=== PATIENT | female | born 1960 | race Caucasian/White ===

== ENCOUNTER 2024-05-04 16:10 | Inpatient (IN) | payer BC ==
--- NOTE | 2024-05-04 16:27 | ED ---
General Adult HPI - General Chief complaint: Recheck/Abnormal Lab/Rx Stated complaint: Abn labs Time Seen by Provider: 05/04/24 16:14 Source: patient, EMS Mode of arrival: EMS Limitations: no limitations - History of Present Illness Initial comments: This patient is a 64-year-old woman who arrives here as a transfer from [facility]. She has history of myasthenia gravis. The patient noted that she had onset of nausea and vomiting around 7 AM. She had about 15 episodes of vomiting and was also feeling diffuse bodyaches and weakn ess. She called EMS and was transported to [facility]. The patient states that she was given ondansetron en route there and that the nausea had improved. At the other facility, the patient was found to be in sinus tachycardia with a rate approximately 120 bpm. She was found to have low magnesium at 1.2 mg, potassium was low at 3.3 mg, she was transferred here. The patient at the other facility was given 20 mill equivalents potassium, she was given 1 L IV fluid, she was transferred here. Onset/Timin -: hour(s) Severity scale (1-10): 0 Consistency: constant, now resolved Improves with: none Worsens with: none Associated Symptoms: denies other symptoms, nausea/vomiting Treatments Prior to Arrival: none - Related Data Home Medications Medication Instructions Recorded Confirmed Aspirin EC [Ecotrin Low Dose] 81 mg PO DAILY 05/04/24 05/04/24 Butalb/APAP/Caff 50-325-40Mg 1 tab PO BID PRN 05/04/24 05/04/24 [Fioricet 50-325-40] Cholecalciferol (Vitamin D3) 50 mcg PO DAILY 05/04/24 05/04/24 [Vitamin D3 (50 Mcg = 2000 Iu)] Pyridostigmine [place] [Mestinon] 60 mg PO TID-W/MEALS 05/04/24 05/04/24 predniSONE 10 mg PO DAILY 05/04/24 05/04/24 Previous Rx's Medication Instructions Recorded Apixaban [Eliquis] 5 mg PO BID #60 tab 05/11/24 Atorvastatin [Lipitor] 40 mg PO DAILY #30 tab 05/11/24 Diltiazem Oral [Cardizem*] 60 mg PO TID #90 tab 05/11/24 Famotidine [Pepcid] 20 mg PO DAILY #30 tab 05/11/24 Metoprolol Tartrate [Lopressor] 25 mg PO BID #60 tab 05/11/24 cefuroxime axetiL [Ceftin] 500 mg PO BID #6 tab 05/11/24 hydroCHLOROthiazide [Hydrodiuril] 25 mg PO DAILY #30 tab 05/11/24 lisinopriL [Zestril] 20 mg PO DAILY #30 tab 05/11/24 predniSONE See Taper PO DIRECTED #30 tab 05/11/24 Allergies Allergy/AdvReac Type Severity Reaction Status Date / Time Penicillins Allergy Unknown Unknown Verified 05/04/24 17:01 Childhood Review of Systems ROS Statement: Those systems with pertinent positive or pertinent negative responses have been documented in the HPI. ROS Other: All systems not noted in ROS Statement are negative. Constitutional: Denies: fever, chills, weakness Respiratory: Denies: cough, dyspnea Cardiovascular: Denies: chest pain, palpitations, edema Gastrointestinal: Reports: nausea, vomiting, diarrhea. Denies: abdominal pain, constipation, hematemesis, melena, hematochezia Genitourinary: Denies: dysuria, hematuria Musculoskeletal: Denies: back pain Skin: Denies: rash Neurological: Denies: headache, weakness, numbness Past Medical History Past Medical History: Hypertension History of Any Multi-Drug Resistant Organisms: None Reported Past Surgical History: Orthopedic Surgery Past Psychological History: No Psychological Hx Reported Smoking Status: Former smoker Past Alcohol Use History: None Reported Past Drug Use History: None Reported - Past Family History Father Family Medical History: Myocardial Infarction (MD) General Exam General appearance: alert, in no apparent distress Head exam: Present: atraumatic, normocephalic Eye exam: Present: normal appearance. Absent: scleral icterus, conjunctival injection ENT exam: Present: normal oropharynx Neck exam: Present: normal inspection Respiratory exam: Present: normal lung sounds bilaterally. Absent: respiratory distress, wheezes, rales, rhonchi, stridor, accessory muscle use Cardiovascular Exam: Present: normal rhythm, tachycardia, normal heart sounds. Absent: systolic murmur, diastolic murmur, rubs, gallop GI/Abdominal exam: Present: soft. Absent: distended, tenderness, guarding, rebound, rigid, mass Extremities exam: Present: normal inspection, normal capillary refill. Absent: pedal edema, calf tenderness Back exam: Present: normal inspection. Absent: CVA tenderness (R), CVA tenderness (L) Neurological exam: Present: alert Skin exam: Present: warm, dry, intact, normal color. Absent: rash Course Vital Signs 05/04/24 05/04/24 05/04/24 16:14 19:28 20:03 Temperature 98.4 F Pulse Rate 118 H 92 93 Respiratory 24 22 22 Rate Blood Pressure 133/101 89/74 94/75 O2 Sat by Pulse 100 94 L 95 Oximetry 05/04/24 05/05/24 05/05/24 23:00 00:30 02:00 Temperature 98 F Pulse Rate 84 87 88 Respiratory 20 22 20 Rate Blood Pressure 105/71 112/69 125/54 O2 Sat by Pulse 98 97 97 Oximetry 05/05/24 05/05/24 05/05/24 10:50 13:46 16:00 Temperature Pulse Rate 87 83 68 Respiratory 20 28 H 20 Rate Blood Pressure 109/66 135/61 119/68 O2 Sat by Pulse 98 95 93 L Oximetry 05/05/24 05/05/24 05/06/24 18:22 23:37 03:28 Temperature Pulse Rate 71 67 64 Respiratory 20 18 18 Rate Blood Pressure 109/70 115/73 117/70 O2 Sat by Pulse 97 95 94 L Oximetry 05/06/24 05/06/24 05/06/24 06:26 07:31 12:13 Temperature 97.5 F L Pulse Rate 69 60 63 Respiratory 18 18 18 Rate Blood Pressure 127/73 126/75 132/72 O2 Sat by Pulse 95 96 96 Oximetry 05/06/24 16:02 Temperature 98.0 F Pulse Rate 68 Respiratory 22 Rate Blood Pressure 140/92 O2 Sat by Pulse 95 Oximetry EKG Findings - EKG Comments: EKG Findings:: Possible old anterior infarct. - EKG Results: EKG: interpreted by ERMD, sinus rhythm EKG shows: tachycardia (Rate 118 bpm) Medical Decision Making - Medical Decision Making Was pt. sent in by a medical professional or institution (, PA, TAIL BOARD MAN, urgent care, hospital, or group home...) When possible be specific @ -[No] Did you speak to anyone other than the patient for history (EMS, parent, family, police, friend...)? What history was obtained from this source @ -[No] Did you review nursing and triage notes (agree or disagree)? Why? @ -[I reviewed and agree with nursing and triage notes] Were old charts reviewed (outside hosp., previous admission, EMS record, old EKG, old radiological studies, urgent care reports/EKG's, group home records)? Report findings @ -[The transfer charts were reviewed] Differential Diagnosis (chest pain, altered mental status, abdominal pain women, abdominal pain men, vaginal bleeding, weakness, fever, dyspnea, syncope, headache, dizziness, GI bleed, back pain, seizure, CVA, palpatations, mental health, musculoskeletal)? @ -[Differential vomiting: Appendicitis, Cholecystitis, diverticulosis, ischemic bowel, pancreatitis, hepatitis, UTI, gastroenteritis, AAA, incarcerated hernia, bowel obstruction, constipation, inflammatory bowel, hepatitis, peptic ulcer disease, splenic in farction, perforated viscus, vulvitis, ovarian torsion, PID, kidney stone, placenta abruption, this is not meant to be an all-inclusive list EKG interpreted by me (3pts min.). @ -[As above] X-rays interpreted by me (1pt min.). @ -[None done] CT interpreted by me (1pt min.). @ -[None done] U/S interpreted by me (1pt. min.). @ -[None done] What testing was considered but not performed or refused? (CT, X-rays, U/S, labs)? Why? @ -[None] What meds were considered but not given or refused? Why? @ -[None] Did you discuss the management of the patient with other professionals (professionals i.e. , PA, TAIL BOARD MAN, lab, RT, psych nurse, social service agency director, funeral car chauffeur, teacher, safety security officer, correctional case manager)? Give summary @ -[Case discussed with admitting physician and treatment recommendations are incorporated Was smoking cessation discussed for >3mins.? @ -[No] Was critical care preformed (if so, how long)? @ -[Yes, 35 minutes Were there social determinants of health that impacted care today? How? (Homelessness, low income, unemployed, alcoholism, drug addiction, transportation, low edu. Level, literacy, decrease access to med. care, longterm, rehab)? @ -[No] Was there de-escalation of care discussed even if they declined (Discuss DNR or withdrawal of care, Hospice)? DNR status @ -[No] What co-morbidities impacted this encounter? (DM, HTN, Smoking, COPD, CAD, Cancer, CVA, ARF, Chemo, Hep., AIDS, mental health diagnosis, sleep apnea, morbid obesity)? @ -[Myasthenia gravis, morbid obesity Was patient admitted / discharged? Hospital course, mention meds given and route, prescriptions, significant lab abnormalities, going to OR and other pertinent info. @ -[Patient is a 64-year-old woman arriving here to have further treatment for nausea, vomiting, electrolyte abnormalities, suspected sepsis. At this point antibiotics for suspected pneumonia, IV fluids, admission with consultations and electrolyte correction. Patient is treated at the ideal body weight of Undiagnosed new problem with uncertain prognosis? @ -[No] Drug Therapy requiring intensive monitoring for toxicity (Heparin, Nitro, Insulin, Cardizem)? @ -[No] Were any procedures done? @ -[No] Diagnosis/symptom? @ -[Acute nausea and vomiting Hypokalemia Sepsis Possible pneumonia Acute, or Chronic, or Acute on Chronic? @ -[Acute Uncomplicated (without systemic symptoms) or Complicated (systemic symptoms)? @ -[Complicated Side effects of treatment? @ -[No] Exacerbation, Progression, or Severe Exacerbation? @ -[No] Poses a threat to life or bodily function? How? (Chest pain, USA, MD, pneumonia, PE, COPD, DKA, ARF, appy, cholecystitis, CVA, Diverticulitis, Homicidal, Suicidal, threat to staff... and all critical care pts) @ -[Yes there is high mortality and morbidity associated with sepsis All treatments are based on ideal body weight as in ED triage - Lab Data Result diagrams: 05/10/24 04:28 05/10/24 04:28 Lab Results 05/04/24 05/04/24 05/04/24 Range/Units 17:56 17:56 17:56 WBC 18.8 H (3.8-10.6) k/uL RBC 3.66 L (3.80-5.40) m/uL Hgb 10.7 L (11.4-16.0) gm/dL Hct 33.8 L (34.0-46.0) % MCV 92.5 (80.0-100.0) fL MCH 29.4 (25.0-35.0) pg MCHC 31.8 (31.0-37.0) g/dL RDW 13.8 (11.5-15.5) % Plt Count 191 (150-450) k/uL MPV 8.3 Neutrophils % (Manual) 82 % Band Neuts % (Manual) 13 % Lymphocytes % (Manual) 2 % Monocytes % (Manual) 2 % Metamyelocytes % 3 % Neutrophils # (Manual) 17.80 H (1.3-7.7) k/uL Lymphocytes # (Manual) 0.38 L (1.0-4.8) k/uL Monocytes # (Manual) 0.38 (0-1.0) k/uL Metamyelocytes # (Man) 0.56 H (0) k/uL Nucleated RBCs 0 (0-0) /100 WBC Manual Slide Review Performed Toxic Vacuolation Present Hypochromasia Slight D-Dimer (<0.60) mg/L FEU Sodium 139 (137-145) mmol/L Potassium 4.2 (3.5-5.1) mmol/L Chloride 113 H (98-107) mmol/L Carbon Dioxide 14 L (22-30) mmol/L Anion Gap 12 mmol/L BUN 18 H (7-17) mg/dL Creatinine 1.44 H (0.52-1.04) mg/dL Est GFR (CKD-EPI)AfAm 44 (>60 ml/min/1.73 sqM) Est GFR (CKD-EPI)NonAf 39 (>60 ml/min/1.73 sqM) Glucose 102 H (74-99) mg/dL Lactic Ac Sepsis Rflx Plasma Lactic Acid Ant 4.3 H* (0.7-2.0) mmol/L Calcium 7.5 L (8.4-10.2) mg/dL Magnesium 1.2 L (1.6-2.3) mg/dL Total Bilirubin 0.5 (0.2-1.3) mg/dL AST 30 (14-36) U/L ALT 20 (4-34) U/L Alkaline Phosphatase 50 (38-126) U/L Troponin I (0.000-0.034) ng/mL Total Protein 5.2 L (6.3-8.2) g/dL Albumin 2.8 L (3.5-5.0) g/dL Procalcitonin (0.02-0.50) ng/mL Urine Color Urine Appearance (Clear) Urine pH (5.0-8.0) Ur Specific [place] (1.001-1.035) Urine Protein (Negative) Urine Glucose (UA) (Negative) Urine Ketones (Negative) Urine Blood (Negative) Urine Nitrite (Negative) Urine Bilirubin (Negative) Urine Urobilinogen (<2.0) mg/dL Ur Leukocyte Esterase (Negative) Urine RBC (0-5) /hpf Urine WBC (0-5) /hpf Urine WBC Clumps (None) /hpf Ur Squamous Epith Cells (0-4) /hpf Urine Bacteria (None) /hpf Hyaline Casts (0-2) /lpf Urine Mucus (None) /hpf Influenza Type A (PCR) (Not Detectd) Influenza Type B (PCR) (Not Detectd) RSV (PCR) (Not Detectd) SARS-CoV-2 (PCR) (Not Detectd) 05/04/24 05/04/24 05/04/24 Range/Units 17:56 17:56 18:23 WBC (3.8-10.6) k/uL RBC (3.80-5.40) m/uL Hgb (11.4-16.0) gm/dL Hct (34.0-46.0) % MCV (80.0-100.0) fL MCH (25.0-35.0) pg MCHC (31.0-37.0) g/dL RDW (11.5-15.5) % Plt Count (150-450) k/uL MPV Neutrophils % (Manual) % Band Neuts % (Manual) % Lymphocytes % (Manual) % Monocytes % (Manual) % Metamyelocytes % % Neutrophils # (Manual) (1.3-7.7) k/uL Lymphocytes # (Manual) (1.0-4.8) k/uL Monocytes # (Manual) (0-1.0) k/uL Metamyelocytes # (Man) (0) k/uL Nucleated RBCs (0-0) /100 WBC Manual Slide Review Toxic Vacuolation Hypochromasia D-Dimer (<0.60) mg/L FEU Sodium (137-145) mmol/L Potassium (3.5-5.1) mmol/L Chloride (98-107) mmol/L Carbon Dioxide (22-30) mmol/L Anion Gap mmol/L BUN (7-17) mg/dL Creatinine (0.52-1.04) mg/dL Est GFR (CKD-EPI)AfAm (>60 ml/min/1.73 sqM) Est GFR (CKD-EPI)NonAf (>60 ml/min/1.73 sqM) Glucose (74-99) mg/dL Lactic Ac Sepsis Rflx Y Plasma Lactic Acid Ant (0.7-2.0) mmol/L Calcium (8.4-10.2) mg/dL Magnesium (1.6-2.3) mg/dL Total Bilirubin (0.2-1.3) mg/dL AST (14-36) U/L ALT (4-34) U/L Alkaline Phosphatase (38-126) U/L Troponin I 0.084 H* (0.000-0.034) ng/mL Total Protein (6.3-8.2) g/dL Albumin (3.5-5.0) g/dL Procalcitonin >100.00 H (0.02-0.50) ng/mL Urine Color Urine Appearance (Clear) Urine pH (5.0-8.0) Ur Specific [place] (1.001-1.035) Urine Protein (Negative) Urine Glucose (UA) (Negative) Urine Ketones (Negative) Urine Blood (Negative) Urine Nitrite (Negative) Urine Bilirubin (Negative) Urine Urobilinogen (<2.0) mg/dL Ur Leukocyte Esterase (Negative) Urine RBC (0-5) /hpf Urine WBC (0-5) /hpf Urine WBC Clumps (None) /hpf Ur Squamous Epith Cells (0-4) /hpf Urine Bacteria (None) /hpf Hyaline Casts (0-2) /lpf Urine Mucus (None) /hpf Influenza Type A (PCR) (Not Detectd) Influenza Type B (PCR) (Not Detectd) RSV (PCR) (Not Detectd) SARS-CoV-2 (PCR) (Not Detectd) 05/04/24 05/04/24 05/04/24 Range/Units 20:39 21:03 21:18 WBC (3.8-10.6) k/uL RBC (3.80-5.40) m/uL Hgb (11.4-16.0) gm/dL Hct (34.0-46.0) % MCV (80.0-100.0) fL MCH (25.0-35.0) pg MCHC (31.0-37.0) g/dL RDW (11.5-15.5) % Plt Count (150-450) k/uL MPV Neutrophils % (Manual) % Band Neuts % (Manual) % Lymphocytes % (Manual) % Monocytes % (Manual) % Metamyelocytes % % Neutrophils # (Manual) (1.3-7.7) k/uL Lymphocytes # (Manual) (1.0-4.8) k/uL Monocytes # (Manual) (0-1.0) k/uL Metamyelocytes # (Man) (0) k/uL Nucleated RBCs (0-0) /100 WBC Manual Slide Review Toxic Vacuolation Hypochromasia D-Dimer 15.34 H (<0.60) mg/L FEU Sodium (137-145) mmol/L Potassium (3.5-5.1) mmol/L Chloride (98-107) mmol/L Carbon Dioxide (22-30) mmol/L Anion Gap mmol/L BUN (7-17) mg/dL Creatinine (0.52-1.04) mg/dL Est GFR (CKD-EPI)AfAm (>60 ml/min/1.73 sqM) Est GFR (CKD-EPI)NonAf (>60 ml/min/1.73 sqM) Glucose (74-99) mg/dL Lactic Ac Sepsis Rflx Y Plasma Lactic Acid Ant 2.2 H* (0.7-2.0) mmol/L Calcium (8.4-10.2) mg/dL Magnesium (1.6-2.3) mg/dL Total Bilirubin (0.2-1.3) mg/dL AST (14-36) U/L ALT (4-34) U/L Alkaline Phosphatase (38-126) U/L Troponin I (0.000-0.034) ng/mL Total Protein (6.3-8.2) g/dL Albumin (3.5-5.0) g/dL Procalcitonin (0.02-0.50) ng/mL Urine Color Urine Appearance (Clear) Urine pH (5.0-8.0) Ur Specific [place] (1.001-1.035) Urine Protein (Negative) Urine Glucose (UA) (Negative) Urine Ketones (Negative) Urine Blood (Negative) Urine Nitrite (Negative) Urine Bilirubin (Negative) Urine Urobilinogen (<2.0) mg/dL Ur Leukocyte Esterase (Negative) Urine RBC (0-5) /hpf Urine WBC (0-5) /hpf Urine WBC Clumps (None) /hpf Ur Squamous Epith Cells (0-4) /hpf Urine Bacteria (None) /hpf Hyaline Casts (0-2) /lpf Urine Mucus (None) /hpf Influenza Type A (PCR) (Not Detectd) Influenza Type B (PCR) (Not Detectd) RSV (PCR) (Not Detectd) SARS-CoV-2 (PCR) (Not Detectd) 05/04/24 05/04/24 05/04/24 Range/Units 22:28 23:32 23:51 WBC (3.8-10.6) k/uL RBC (3.80-5.40) m/uL Hgb (11.4-16.0) gm/dL Hct (34.0-46.0) % MCV (80.0-100.0) fL MCH (25.0-35.0) pg MCHC (31.0-37.0) g/dL RDW (11.5-15.5) % Plt Count (150-450) k/uL MPV Neutrophils % (Manual) % Band Neuts % (Manual) % Lymphocytes % (Manual) % Monocytes % (Manual) % Metamyelocytes % % Neutrophils # (Manual) (1.3-7.7) k/uL Lymphocytes # (Manual) (1.0-4.8) k/uL Monocytes # (Manual) (0-1.0) k/uL Metamyelocytes # (Man) (0) k/uL Nucleated RBCs (0-0) /100 WBC Manual Slide Review Toxic Vacuolation Hypochromasia D-Dimer (<0.60) mg/L FEU Sodium (137-145) mmol/L Potassium (3.5-5.1) mmol/L Chloride (98-107) mmol/L Carbon Dioxide (22-30) mmol/L Anion Gap mmol/L BUN (7-17) mg/dL Creatinine (0.52-1.04) mg/dL Est GFR (CKD-EPI)AfAm (>60 ml/min/1.73 sqM) Est GFR (CKD-EPI)NonAf (>60 ml/min/1.73 sqM) Glucose (74-99) mg/dL Lactic Ac Sepsis Rflx Plasma Lactic Acid Ant 1.9 (0.7-2.0) mmol/L Calcium (8.4-10.2) mg/dL Magnesium (1.6-2.3) mg/dL Total Bilirubin (0.2-1.3) mg/dL AST (14-36) U/L ALT (4-34) U/L Alkaline Phosphatase (38-126) U/L Troponin I (0.000-0.034) ng/mL Total Protein (6.3-8.2) g/dL Albumin (3.5-5.0) g/dL Procalcitonin (0.02-0.50) ng/mL Urine Color Yellow Urine Appearance Cloudy H (Clear) Urine pH 5.5 (5.0-8.0) Ur Specific [place] 1.026 (1.001-1.035) Urine Protein 2+ H (Negative) Urine Glucose (UA) Negative (Negative) Urine Ketones Negative (Negative) Urine Blood Moderate H (Negative) Urine Nitrite Positive H (Negative) Urine Bilirubin Negative (Negative) Urine Urobilinogen <2.0 (<2.0) mg/dL Ur Leukocyte Esterase Large H (Negative) Urine RBC 54 H (0-5) /hpf Urine WBC >182 H (0-5) /hpf Urine WBC Clumps Many H (None) /hpf Ur Squamous Epith Cells 1 (0-4) /hpf Urine Bacteria Moderate H (None) /hpf Hyaline Casts 37 H (0-2) /lpf Urine Mucus Occasional H (None) /hpf Influenza Type A (PCR) Not Detected (Not Detectd) Influenza Type B (PCR) Not Detected (Not Detectd) RSV (PCR) Not Detected (Not Detectd) SARS-CoV-2 (PCR) Not Detected (Not Detectd) 05/05/24 05/05/24 Range/Units 01:36 06:35 WBC (3.8-10.6) k/uL RBC (3.80-5.40) m/uL Hgb (11.4-16.0) gm/dL Hct (34.0-46.0) % MCV (80.0-100.0) fL MCH (25.0-35.0) pg MCHC (31.0-37.0) g/dL RDW (11.5-15.5) % Plt Count (150-450) k/uL MPV Neutrophils % (Manual) % Band Neuts % (Manual) % Lymphocytes % (Manual) % Monocytes % (Manual) % Metamyelocytes % % Neutrophils # (Manual) (1.3-7.7) k/uL Lymphocytes # (Manual) (1.0-4.8) k/uL Monocytes # (Manual) (0-1.0) k/uL Metamyelocytes # (Man) (0) k/uL Nucleated RBCs (0-0) /100 WBC Manual Slide Review Toxic Vacuolation Hypochromasia D-Dimer (<0.60) mg/L FEU Sodium (137-145) mmol/L Potassium (3.5-5.1) mmol/L Chloride (98-107) mmol/L Carbon Dioxide (22-30) mmol/L Anion Gap mmol/L BUN (7-17) mg/dL Creatinine (0.52-1.04) mg/dL Est GFR (CKD-EPI)AfAm (>60 ml/min/1.73 sqM) Est GFR (CKD-EPI)NonAf (>60 ml/min/1.73 sqM) Glucose (74-99) mg/dL Lactic Ac Sepsis Rflx Plasma Lactic Acid Ant (0.7-2.0) mmol/L Calcium (8.4-10.2) mg/dL Magnesium (1.6-2.3) mg/dL Total Bilirubin (0.2-1.3) mg/dL AST (14-36) U/L ALT (4-34) U/L Alkaline Phosphatase (38-126) U/L Troponin I 0.051 H* 0.059 H* (0.000-0.034) ng/mL Total Protein (6.3-8.2) g/dL Albumin (3.5-5.0) g/dL Procalcitonin (0.02-0.50) ng/mL Urine Color Urine Appearance (Clear) Urine pH (5.0-8.0) Ur Specific [place] (1.001-1.035) Urine Protein (Negative) Urine Glucose (UA) (Negative) Urine Ketones (Negative) Urine Blood (Negative) Urine Nitrite (Negative) Urine Bilirubin (Negative) Urine Urobilinogen (<2.0) mg/dL Ur Leukocyte Esterase (Negative) Urine RBC (0-5) /hpf Urine WBC (0-5) /hpf Urine WBC Clumps (None) /hpf Ur Squamous Epith Cells (0-4) /hpf Urine Bacteria (None) /hpf Hyaline Casts (0-2) /lpf Urine Mucus (None) /hpf Influenza Type A (PCR) (Not Detectd) Influenza Type B (PCR) (Not Detectd) RSV (PCR) (Not Detectd) SARS-CoV-2 (PCR) (Not Detectd) Disposition Clinical Impression: Sepsis Disposition: ADMITTED IP TO THIS HOSP Condition: Stable
[2024-05-04] MEDS: SODIUM CHLORIDE 0.9% 1,000 ML IV ONE ×3 (16:48→20:23)
[2024-05-04] MEDS: ACETAMINOPHEN TAB 325 MG TAB PO STA (16:49)
[2024-05-04 18:18] LABS: ALT 20 U/L (4-34); AST 30 U/L (14-36); African American GFR (CKD) 44 (>60 ml/min/1.73 sqM); Albumin 2.8 g/dL (3.5-5.0); Alkaline Phosphatase 50 U/L (38-126); Anion Gap 12 mmol/L; Blood Urea Nitrogen 18 mg/dL (7-17); Calcium 7.5 mg/dL (8.4-10.2); Carbon Dioxide 14 mmol/L (22-30); Chloride 113 mmol/L (98-107); Glucose 102 mg/dL (74-99); Magnesium 1.2 mg/dL (1.6-2.3); Non-African American GFR(CKD) 39 (>60 ml/min/1.73 sqM); Potassium 4.2 mmol/L (3.5-5.1); Sodium 139 mmol/L (137-145); Total Bilirubin 0.5 mg/dL (0.2-1.3); Total Protein 5.2 g/dL (6.3-8.2)
[2024-05-04 18:21] LABS: HCT 33.8 % (34.0-46.0); HGB 10.7 gm/dL (11.4-16.0); Hypochromasia Slight; MCH 29.4 pg (25.0-35.0); MCHC 31.8 g/dL (31.0-37.0); MCV 92.5 fL (80.0-100.0); Mean Platelet Volume 8.3; Platelet Count 191 k/uL (150-450); RBC 3.66 m/uL (3.80-5.40); RDW 13.8 % (11.5-15.5); WBC 18.8 k/uL (3.8-10.6)
[2024-05-04] MEDS ORDERED: NALOXONE 0.4 MG/ML 1 ML VIAL IV PRN (18:23)
[2024-05-04] MEDS: SODIUM CHLORIDE 0.9% 1,000 ML IV STA (18:30)
[2024-05-04 18:53] LABS: Band Neutrophils % 13 %; Lymphocytes # (M) 0.38 k/uL (1.0-4.8); Metamyelocytes # (M) 0.56 k/uL (0); Metamyelocytes % 3 %; Monocytes # (M) 0.38 k/uL (0-1.0); Neutrophils % (M) 82 %; Nucleated Red Blood Cells 0 /100 WBC (0-0); Total Cells Counted 200
[2024-05-04 18:54] LABS: Toxic Vacuolation Present
[2024-05-04] MEDS: FAMOTIDINE 20 MG TAB PO SCH (20:20)
--- NOTE | 2024-05-04 21:53 | XR ---
EXAMINATION TYPE: XR chest 1V portable DATE OF EXAM: 05/04/2024 8:13 PM COMPARISON: None. CLINICAL INDICATION: Female, 64 years old with history of dyspnea, TECHNIQUE: XR chest 1V portable view(s) obtained. FINDINGS: The heart size is normal. The pulmonary vasculature is normal. Left hilar and left lower lobe infiltrate is present. Correlate for pneumonia. Follow-up can be perfo rmed. IMPRESSION: 1. Left perihilar and lower lobe infiltrate. Correlate for pneumonia. [facility], , 05/04/2024 9:50 PM
[2024-05-04 23:11] LABS: Influenza A Not Detected (Not Detectd); Influenza B Not Detected (Not Detectd); RSV Not Detected (Not Detectd)
--- NOTE | 2024-05-04 23:55 | CT ---
EXAMINATION TYPE: CT chest angio for PE DATE OF EXAM: 05/04/2024 10:48 PM COMPARISON: Chest radiograph from same day. CLINICAL INDICATION: Female, 64 years old with history of dyspnea, possible PE; Elevated d-dimer 15.3 4 TECHNIQUE/CONTRAST: CTA scan of the thorax is performed with IV Contrast, patient injected with 80ml mL of Isovue 370, CA P images are created and reviewed these are created on a separate workstation.. CT DLP: 843.3 mGycm, Automated exposure control for dose reduction was used. FINDINGS: Lungs/Pleura: No evidence of focal consolidation, pleural effusion or pneumothorax. Airway: Large airways are patent. Heart: Size within normal limits Vasculature: There is no evidence for a filling defect within the pulmonary vasculature to suggest [place] pulmonary embolism. The pulmonary artery is of normal size. Mediastinum: No gross evidence of adenopathy. Musculoskeletal: No acute osseous abnormalities Soft Tissues/lymph nodes: Unremarkable. Lower neck: No significant findings. Upper Abdomen: Diffuse low-attenuation to the liver parenchyma. IMPRESSION: 1. No evidence for pulmonary embolism. 2. Low lung volumes with streaky atelectasis. 3. Hepatic steatosis. [facility], , 05/04/2024 11:53 PM
[2024-05-05 01:15] LABS: Appearance,Urine Cloudy (Clear); Bacteria,Urine Moderate /hpf; Bilirubin,Urine Negative (Negative); Blood,Urine Moderate (Negative); Color,Urine Yellow; Glucose,Urine (UA) Negative (Negative); Hyaline Casts,Urine 37 /lpf (0-2); Ketones,Urine Negative (Negative); Leukocyte Esterase,Urine Large (Negative); Mucus,Urine Occasional /hpf; Nitrite,Urine Positive (Negative); PH, Urine 5.5 (5.0-8.0); Protein,Urine 2+ (Negative); RBC,Urine 54 /hpf (0-5); Specific Gravity,Urine 1.026 (1.001-1.035); Squamous Epithelial Cell,Urine 1 /hpf (0-4); Urobilinogen,Urine <2.0 mg/dL (<2.0); WBC,Urine >182 /hpf (0-5)
[2024-05-05] MEDS: ONDANSETRON 4 MG/2 ML VIAL IVP PRN (02:48)
[2024-05-05] MEDS: BUTALB/APAP/CAFF 50-325-40MG TAB PO PRN (03:31)
--- NOTE | 2024-05-05 06:31 | P.HPIM ---
History of Present Illness H&P Date: 05/04/24 Patient is a 64-year-old female with past medical history significant for myasthenia gravis and hypertension presents to emergency department today as a transfer from [place]. She initially went to [place], was found to have sinus tachycardia on EKG as well as hypomagnesemia and hypokalemia and was subsequently transferred here.She states that around 7 AM this morning she began coughing up a yellowish sputum and had episodes of nonbloody emesis in between coughing episodes. She states that she was vomiting anytime she tried to have a sip of water after coughing. She does report a fever of about 102F today as well as reporting headaches, lightheadedness/dizziness. She reports dyspnea and orthopnea. She denies chest pain, abdominal pain, myalgias. She denies recent travel or being sedentary. She denies sick contacts. Initial vitals: BP 133/108, DC 118 bpm, RR 24, 100% on 5 L nasal cannula, T 98.4 F Initial labs: WBC 18.8, RBC 3.66, hemoglobin 10.7, hematocrit 33.8, sodium 139, potassium 4.2, chloride 113, CO2 14, BUN 18, creatinine 1.44, lactic acid 4.3, calcium 7.5, magnesium 1.2, troponin x 1 0.084, D-dimer 15.84; urinalysis 2+ protein, moderate blood, positive nitrite, leukocyte esterase, moderate bacteria, many WBCs Initial EKG: Sinus tachycardia with ventricular rate of 118 bpm Initial chest x-ray: Left perihilar and lower lobe infiltrate, correlate for pne umonia Initial chest CTA: No evidence for pulmonary embolism, low lung volumes with streaky atelectasis, hepatic steatosis ED documentation reviewed. Given: Tylenol 650 mg p.o. x 1, 0.9% saline 1 L bolus x 3 Review of Systems Pertinent positives and negatives as discussed in HPI, a complete review of systems was performed and all other systems are negative. Past Medical History Past Medical History: Hypertension Additional Past Medical History / Comment(s): Myasthenia gravis History of Any Multi-Drug Resistant Organisms: None Reported Past Surgical History: Orthopedic Surgery Past Psychological History: No Psychological Hx Reported Smoking Status: Former smoker Past Alcohol Use History: None Reported Past Drug Use History: None Reported Medications and Allergies Home Medications Medication Instructions Recorded Confirmed Type Aspirin EC [Ecotrin Low Dose] 81 mg PO DAILY 05/04/24 05/04/24 History Butalb/APAP/Caff 50-325-40Mg 1 tab PO BID PRN 05/04/24 05/04/24 History [Fioricet 50-325-40] Cholecalciferol (Vitamin D3) 50 mcg PO DAILY 05/04/24 05/04/24 History [Vitamin D3 (50 Mcg = 2000 Iu)] Pyridostigmine [place] [Mestinon] 60 mg PO TID-W/MEALS 05/04/24 05/04/24 History lisinopriL [Zestril] 10 mg PO DAILY 05/04/24 05/04/24 History predniSONE 10 mg PO DAILY 05/04/24 05/04/24 History Allergies Allergy/AdvReac Type Severity Reaction Status Date / Time Penicillins Allergy Unknown Unknown Verified 05/04/24 17:01 Childhood Physical Exam Vitals: Vital Signs Temp Pulse Resp BP Pulse Ox 05/04/24 16:14 98.4 F 118 H 24 133/101 100 Intake and Output 05/04/24 05/04/24 05/04/24 06:59 14:59 22:59 Other: Weight 122.47 kg Vital signs reviewed General: Nontoxic, no distress, appears stated age, well-appearing Derm: Warm, dry, intact, no cyanosis Head: Atraumatic, normocephalic, symmetric Eyes: EOMI, anicteric sclera, asymmetric pupil sizes left larger than right since childhood, ptosis of the right eyelid due to myasthenia gravis Ears: Normal appearing, no external lesions, hearing intact Nose: Normal appearing, no external lesions Mouth: No lip lesion, mucus membranes moist, no tonsilar hypertrophy or exudate Neck: Supple, without lesions, trachea midline Cardiovascular: S1-S2 regular, no murmur, no pedal edema Lungs: CTA bilateral, no wheezes, no rhonchi, no rales, no accessory muscle use Abdominal: Soft, non-tender to palpation, bowel sounds present Extremities: Muscle strength 4/5 in all extremities, radial pulses 2+ bilateral, posterior tibialis pulses 2+ bilateral Neuro: Alert, oriented x 4, gross neurological examination did not reveal any focal deficits. Cranial nerves II to XII grossly intact. Psych: Appropriate affect and mood Results CBC & Chem 7: 02/17/25 17:56 05/04/24 17:56 Labs: Abnormal Lab Results - Last 24 Hours (Table) 05/04/24 05/04/24 05/04/24 Range/Units 17:56 17:56 17:56 WBC 18.8 H (3.8-10.6) k/uL RBC 3.66 L (3.80-5.40) m/uL Hgb 10.7 L (11.4-16.0) gm/dL Hct 33.8 L (34.0-46.0) % Neutrophils # (Manual) 17.80 H (1.3-7.7) k/uL Lymphocytes # (Manual) 0.38 L (1.0-4.8) k/uL Metamyelocytes # (Man) 0.56 H (0) k/uL Chloride 113 H (98-107) mmol/L Carbon Dioxide 14 L (22-30) mmol/L BUN 18 H (7-17) mg/dL Creatinine 1.44 H (0.52-1.04) mg/dL Glucose 102 H (74-99) mg/dL Plasma Lactic Acid Ant 4.3 H* (0.7-2.0) mmol/L Calcium 7.5 L (8.4-10.2) mg/dL Magnesium 1.2 L (1.6-2.3) mg/dL Troponin I (0.000-0.034) ng/mL Total Protein 5.2 L (6.3-8.2) g/dL Albumin 2.8 L (3.5-5.0) g/dL 05/04/24 Range/Units 17:56 WBC (3.8-10.6) k/uL RBC (3.80-5.40) m/uL Hgb (11.4-16.0) gm/dL Hct (34.0-46.0) % Neutrophils # (Manual) (1.3-7.7) k/uL Lymphocytes # (Manual) (1.0-4.8) k/uL Metamyelocytes # (Man) (0) k/uL Chloride (98-107) mmol/L Carbon Dioxide (22-30) mmol/L BUN (7-17) mg/dL Creatinine (0.52-1.04) mg/dL Glucose (74-99) mg/dL Plasma Lactic Acid Ant (0.7-2.0) mmol/L Calcium (8.4-10.2) mg/dL Magnesium (1.6-2.3) mg/dL Troponin I 0.084 H* (0.000-0.034) ng/mL Total Protein (6.3-8.2) g/dL Albumin (3.5-5.0) g/dL Thrombosis Risk Factor Assmnt - DVT/VTE Prophylaxis DVT/VTE Prophylaxis: Pharmacologic Prophylaxis ordered - Choose All That Apply Each Factor Represents 1 point: Obesity (BMI >25) Each Risk Factor Represents 2 Points: Age 61-74 years Thrombosis Risk Factor Assessment Total Risk Factor Score: 3 Thrombosis Risk Factor Assessment Level: Moderate Risk Assessment and Plan Assessment: Patient is a 64-year-old female with past medical history significant for myasthenia gravis and hypertension admitted for suspected pneumonia. Plan: Active #. Acute hypoxic respiratory failure #. Sepsis, secondary to suspected pneumonia; criteria met: Leukocytosis, tachycardia, lactic acidosis #. Community-acquired pneumonia #. Leukocytosis, neutrophilic predominance; suspect could be related to chronic steroid use #. Lactic acidosis, improving Continue with oxygen supplementation to maintain oxygen saturation >94% Continue with 0.9% saline at 130 cc/h procalcitonin positive Begin ceftriaxone 2 g IV every 24 hours Begin azithromycin 500 mg p.o. daily Obtain blood cultures UA positive Initial labs: WBC 18.8, RBC 3.66, hemoglobin 10.7, hematocrit 33.8, sodium 139, potassium 4.2, chloride 113, CO2 14, BUN 18, creatinine 1.44, lactic acid 4.3, calcium 7.5, magnesium 1.2, troponin x 1 0.084, D-dimer 15.84; urinalysis 2+ protein, moderate blood, positive nitrite, leukocyte esterase, moderate bact eria, many WBCs Initial EKG: Sinus tachycardia with ventricular rate of 118 bpm Initial chest x-ray: Left perihilar and lower lobe infiltrate, correlate for pneumonia Initial chest CTA: No evidence for pulmonary embolism, low lung volumes with streaky atelectasis, hepatic steatosis #. Elevated D-dimer D-dimer 15.84 CTA: No evidence for pulmonary embolism Bilateral venous Doppler duplex #. Acute uti Continue with ceftriaxone 2 g IV every 24 hours #. Normocytic anemia, unknown baseline Monitor CBC denies GI bleeding #. Hypocalcemia #. Hypoproteinemia Corrected calcium 8.5 Monitor electrolytes #. Hypomagnesemia Replete with magnesium 2 g Chronic #. Myasthenia gravis Continue home prednisone Continue home pyridostigmine #. Hypertension Continue home lisinopril 10 mg p.o. daily DVT prophylaxis: Lovenox 40 mg subcutaneous daily GI prophylaxis: Protonix 40 mg p.o. daily The patient is admitted with an anticipated less than 2 midnight stay for evaluation of pneumonia CODE STATUS: Full code Anticipated discharge place: Pending clinical course I have seen and evaluated the patient today. I Discussed the case with the resident and agree with the resident's findings I edited the assessment and plan as necessary as documented in the resident's note.
[2024-05-05] MEDS: MAGNESIUM SULFATE-D5W PMX 1 GM in DEXTROSE/WATER 1 100ML.BAG IVPB SCH (06:39)
--- NOTE | 2024-05-05 08:03 | US ---
EXAMINATION TYPE: US venous doppler duplex LE BI DATE OF EXAM: 05/05/2024 7:47 AM COMPARISON: NONE CLINICAL INDICATION: Female, 64 years old with history of swelling, elevated d-dimer; Elevated D dime r. , Pain TECHNIQUE: The lower extremity deep venous system is examined utilizing real time linear array sonog leslie with graded compression, color doppler sonography, and spectral doppler. SIDE PERFORMED: Bilateral FINDINGS: VESSELS IMAGED: Common Femoral Vein Deep Femoral Vein Greater Saphenous Vein * Femoral Vein Popliteal Vein Small Saphenous Vein * Proximal Calf Veins (* superficial vessels) Right Leg: Negative for DVT, Color Doppler imaging shows patency of the vessels. Spectral waveforms are within normal limits. Left Leg: Negative for DVT, Color Doppler imaging shows patency of the vessels. Spectral waveforms a re within normal limits. IMPRESSION: No ultrasound evidence for deep venous thrombosis. [facility], , 05/05/2024 8:01 AM
[2024-05-05] MEDS: CHOLECALCIFEROL 25 MCG (1000 IU) TABLET PO SCH (08:34)
[2024-05-05] MEDS: ASPIRIN 81 MG PO SCH (08:35)
[2024-05-05] MEDS: FAMOTIDINE 20 MG TAB PO SCH (08:35)
[2024-05-05] MEDS: AZITHROMYCIN 500 MG TAB PO SCH (08:35)
[2024-05-05] MEDS: lisinopriL 10 MG TAB PO SCH (08:35)
[2024-05-05] MEDS: ENOXAPARIN 40 MG/0.4 ML SYRINGE SQ SCH (08:36)
[2024-05-05] MEDS: PYRIDOSTIGMINE 60 MG TAB PO SCH (09:45)
[2024-05-05 09:55] LABS: HCT 35.1 % (34.0-46.0); HGB 10.6 gm/dL (11.4-16.0); Hypochromasia Slight; MCH 28.2 pg (25.0-35.0); MCHC 30.1 g/dL (31.0-37.0); MCV 93.6 fL (80.0-100.0); Mean Platelet Volume 8.5; Platelet Count 193 k/uL (150-450); RBC 3.75 m/uL (3.80-5.40); RDW 13.9 % (11.5-15.5); WBC 27.6 k/uL (3.8-10.6)
[2024-05-05 10:02] LABS: ALT 26 U/L (4-34); AST 34 U/L (14-36); African American GFR (CKD) 72 (>60 ml/min/1.73 sqM); Albumin 3.3 g/dL (3.5-5.0); Alkaline Phosphatase 67 U/L (38-126); Anion Gap 11 mmol/L; Blood Urea Nitrogen 18 mg/dL (7-17); Calcium 7.6 mg/dL (8.4-10.2); Carbon Dioxide 19 mmol/L (22-30); Chloride 108 mmol/L (98-107); Glucose 116 mg/dL (74-99); Magnesium 1.4 mg/dL (1.6-2.3); Non-African American GFR(CKD) 62 (>60 ml/min/1.73 sqM); Potassium 4.3 mmol/L (3.5-5.1); Sodium 138 mmol/L (137-145); Total Bilirubin 0.6 mg/dL (0.2-1.3); Total Protein 5.8 g/dL (6.3-8.2)
[2024-05-05] MEDS: ATORVASTATIN 40 MG TAB PO SCH (10:48)
[2024-05-05 11:34] LABS: Band Neutrophils % 10 %; Eosinophils # (M) 0.83 k/uL (0-0.7); Lymphocytes # (M) 2.21 k/uL (1.0-4.8); Monocytes # (M) 0.55 k/uL (0-1.0); Neutrophils % (M) 77 %; Nucleated Red Blood Cells 0 /100 WBC (0-0); Total Cells Counted 100
[2024-05-05] MEDS: methylPREDNISolone SOD SUCCI 40 MG/ML 1 ML VIAL IV SCH (12:17)
--- NOTE | 2024-05-05 13:47 | P.PN ---
Subjective Progress Note Date: 05/05/24 Hospital Course: 64-year-old female with past medical history significant for myasthenia gravis and hypertension presents to emergency department today as a transfer from [place]. She initially went to [place], was found to have sinus tachycardia on EKG as well as hypomagnesemia and hypokalemia and was subsequently transferred here.She states that around 7 AM this morning she began coughing up a yellowish sputum and had episodes of nonbloody emesis in between coughing episodes. She states that she was vomiting anytime she tried to have a sip of water after coughing. She does report a fever of about 102F today as well as reporting headaches, lightheadedness/dizziness. She reports dyspnea and orthopnea. She denies chest pain, abdominal pain, myalgias. She denies recent travel or being sedentary. She denies sick contacts. Initial vitals: BP 133/108, DE 118 bpm, RR 24, 100% on 5 L nasal cannula, T 98.4 F Initial labs: WBC 18.8, RBC 3.66, hemoglobin 10.7, hematocrit 33.8, sodium 139, potassium 4.2, chloride 113, CO2 14, BUN 18, creatinine 1.44, lactic acid 4.3, calcium 7.5, magnesium 1.2, troponin x 1 0.084, D-dimer 15.84; urinalysis 2+ protein, moderate blood, positive nitrite, leukocyte esterase, moderate bacteria, many WBCs Initial EKG: Sinus tachycardia with ventricular rate of 118 bpm Initial chest x-ray: Left perihilar and lower lobe infiltrate, correlate for pneumonia Initial chest CTA: No evidence for pulmonary embolism, low lung volumes with streaky atelectasis, hepatic steatosis Patient being treated for sepsis secondary to likely community-acquired pneumonia as well as possible urinary tract infection. Also concern for impending myasthenic crisis. Started on IV steroids, neurology and pulmonology also consulted. Subjective: Patient seen and examined at bedside. No acute events overnight. She has been having some shortness of breath, not requiring oxygen. Has had urinary frequency but denies any dysuria or urgency. Pertinent positives and negatives as discussed above, a complete review of systems was performed and all other systems are negative. Vitals Signs Reviewed. General: Nontoxic, no distress, appears at stated age, morbidly obese Derm: Warm, dry Head: Atraumatic, normocephalic, symmetric Eyes: EOMI, no lid lag, anicteric sclera, right ptosis Mouth: No lip lesion, mucus membranes moist Cardiovascular: S1S2 reg, no murmur Lungs: CTA bilateral, no rhonchi, no rales, no accessory muscle use, supplemental oxygen Abdominal: Soft, nontender to palpation, no guarding, no appreciable organomegaly Ext: No gross muscle atrophy, no edema, no contractures Neuro: CN II-XI grossly intact, no focal neuro deficits Psych: Alert, oriented, appropriate affect Data Reviewed Today: Pertinent Labs: WBC 27.6 with 10% band neutrophils, hemoglobin 10.6, procalcitonin greater than 100, bicarb 19, creatinine 0.97, magnesium 1.6, troponin down trended to 0.059 Imaging: Lower extremity venous Dopplers negative. Assessment and Plan: Patient is severely ill, needs close monitoring. Prognosis guarded. Active: Acute hypoxic respiratory failure Impending myasthenic crisis Suspected community-acquired pneumonia Urinary tract infection Bandemia Metabolic acidosis, improving NSTEMI, likely type II -Continue ceftriaxone IV 2 g every 24 hours, azithromycin 500 p.o. daily -Cultures pending -Started on IV Solu-Medrol 40 every 6 hours -Continue home rivastigmine 60 p.o. 3 times daily -Every 6 hours VC and NIF -Pulmonology and neurology consulted, pending recommendations -Aspirin 81 mg daily, atorvastatin 40 mg daily -Continue telemetry monitoring, echocardiogram ordered -Cardiology consulted Normocytic anemia -Stable, continue to monitor Resolved: Acute kidney injury Lactic acidosis Hypomagnesemia Chronic: Hypertension, hold lisinopril GERD DVT ppx: Lovenox Code status: Full code Anticipated discharge place: Pending clinical course Anticipated discharge time: Pending clinical course Objective - Vital Signs Vital signs: Vital Signs Temp 98 F 05/05/24 02:00 Pulse 87 05/05/24 10:50 Resp 20 05/05/24 10:50 BP 109/66 05/05/24 10:50 Pulse Ox 98 05/05/24 10:50 FiO2 Intake & Output 05/04/24 05/05/24 05/05/24 18:59 06:59 18:59 Output Total 350 Balance -350 Weight 122.47 kg Output: Urine 350 Straight 350 - Labs CBC & Chem 7: 05/05/24 09:30 02/18/25 09:30 Labs: Abnormal Lab Results - Last 24 Hours (Table) 05/04/24 05/04/24 05/04/24 Range/Units 17:56 17:56 17:56 WBC 18.8 H (3.8-10.6) k/uL RBC 3.66 L (3.80-5.40) m/uL Hgb 10.7 L (11.4-16.0) gm/dL Hct 33.8 L (34.0-46.0) % MCHC (31.0-37.0) g/dL Neutrophils # (Manual) 17.80 H (1.3-7.7) k/uL Lymphocytes # (Manual) 0.38 L (1.0-4.8) k/uL Eosinophils # (Manual) (0-0.7) k/uL Metamyelocytes # (Man) 0.56 H (0) k/uL D-Dimer (<0.60) mg/L FEU Chloride 113 H (98-107) mmol/L Carbon Dioxide 14 L (22-30) mmol/L BUN 18 H (7-17) mg/dL Creatinine 1.44 H (0.52-1.04) mg/dL Glucose 102 H (74-99) mg/dL Plasma Lactic Acid Ant 4.3 H* (0.7-2.0) mmol/L Calcium 7.5 L (8.4-10.2) mg/dL Magnesium 1.2 L (1.6-2.3) mg/dL Troponin I (0.000-0.034) ng/mL Total Protein 5.2 L (6.3-8.2) g/dL Albumin 2.8 L (3.5-5.0) g/dL Procalcitonin (0.02-0.50) ng/mL Urine Appearance (Clear) Urine Protein (Negative) Urine Blood (Negative) Urine Nitrite (Negative) Ur Leukocyte Esterase (Negative) Urine RBC (0-5) /hpf Urine WBC (0-5) /hpf Urine WBC Clumps (None) /hpf Urine Bacteria (None) /hpf Hyaline Casts (0-2) /lpf Urine Mucus (None) /hpf 05/04/24 05/04/24 05/04/24 Range/Units 17:56 17:56 20:39 WBC (3.8-10.6) k/uL RBC (3.80-5.40) m/uL Hgb (11.4-16.0) gm/dL Hct (34.0-46.0) % MCHC (31.0-37.0) g/dL Neutrophils # (Manual) (1.3-7.7) k/uL Lymphocytes # (Manual) (1.0-4.8) k/uL Eosinophils # (Manual) (0-0.7) k/uL Metamyelocytes # (Man) (0) k/uL D-Dimer (<0.60) mg/L FEU Chloride (98-107) mmol/L Carbon Dioxide (22-30) mmol/L BUN (7-17) mg/dL Creatinine (0.52-1.04) mg/dL Glucose (74-99) mg/dL Plasma Lactic Acid Ant 2.2 H* (0.7-2.0) mmol/L Calcium (8.4-10.2) mg/dL Magnesium (1.6-2.3) mg/dL Troponin I 0.084 H* (0.000-0.034) ng/mL Total Protein (6.3-8.2) g/dL Albumin (3.5-5.0) g/dL Procalcitonin >100.00 H (0.02-0.50) ng/mL Urine Appearance (Clear) Urine Protein (Negative) Urine Blood (Negative) Urine Nitrite (Negative) Ur Leukocyte Esterase (Negative) Urine RBC (0-5) /hpf Urine WBC (0-5) /hpf Urine WBC Clumps (None) /hpf Urine Bacteria (None) /hpf Hyaline Casts (0-2) /lpf Urine Mucus (None) /hpf 05/04/24 05/04/24 05/05/24 Range/Units 21:03 23:51 01:36 WBC (3.8-10.6) k/uL RBC (3.80-5.40) m/uL Hgb (11.4-16.0) gm/dL Hct (34.0-46.0) % MCHC (31.0-37.0) g/dL Neutrophils # (Manual) (1.3-7.7) k/uL Lymphocytes # (Manual) (1.0-4.8) k/uL Eosinophils # (Manual) (0-0.7) k/uL Metamyelocytes # (Man) (0) k/uL D-Dimer 15.34 H (<0.60) mg/L FEU Chloride (98-107) mmol/L Carbon Dioxide (22-30) mmol/L BUN (7-17) mg/dL Creatinine (0.52-1.04) mg/dL Glucose (74-99) mg/dL Plasma Lactic Acid Ant (0.7-2.0) mmol/L Calcium (8.4-10.2) mg/dL Magnesium (1.6-2.3) mg/dL Troponin I 0.051 H* (0.000-0.034) ng/mL Total Protein (6.3-8.2) g/dL Albumin (3.5-5.0) g/dL Procalcitonin (0.02-0.50) ng/mL Urine Appearance Cloudy H (Clear) Urine Protein 2+ H (Negative) Urine Blood Moderate H (Negative) Urine Nitrite Positive H (Negative) Ur Leukocyte Esterase Large H (Negative) Urine RBC 54 H (0-5) /hpf Urine WBC >182 H (0-5) /hpf Urine WBC Clumps Many H (None) /hpf Urine Bacteria Moderate H (None) /hpf Hyaline Casts 37 H (0-2) /lpf Urine Mucus Occasional H (None) /hpf 05/05/24 05/05/24 05/05/24 Range/Units 06:35 09:30 09:30 WBC 27.6 H (3.8-10.6) k/uL RBC 3.75 L (3.80-5.40) m/uL Hgb 10.6 L (11.4-16.0) gm/dL Hct (34.0-46.0) % MCHC 30.1 L (31.0-37.0) g/dL Neutrophils # (Manual) 24.00 H (1.3-7.7) k/uL Lymphocytes # (Manual) (1.0-4.8) k/uL Eosinophils # (Manual) 0.83 H (0-0.7) k/uL Metamyelocytes # (Man) (0) k/uL D-Dimer (<0.60) mg/L FEU Chloride 108 H (98-107) mmol/L Carbon Dioxide 19 L (22-30) mmol/L BUN 18 H (7-17) mg/dL Creatinine (0.52-1.04) mg/dL Glucose 116 H (74-99) mg/dL Plasma Lactic Acid Ant (0.7-2.0) mmol/L Calcium 7.6 L (8.4-10.2) mg/dL Magnesium 1.4 L (1.6-2.3) mg/dL Troponin I 0.059 H* (0.000-0.034) ng/mL Total Protein 5.8 L (6.3-8.2) g/dL Albumin 3.3 L (3.5-5.0) g/dL Procalcitonin (0.02-0.50) ng/mL Urine Appearance (Clear) Urine Protein (Negative) Urine Blood (Negative) Urine Nitrite (Negative) Ur Leukocyte Esterase (Negative) Urine RBC (0-5) /hpf Urine WBC (0-5) /hpf Urine WBC Clumps (None) /hpf Urine Bacteria (None) /hpf Hyaline Casts (0-2) /lpf Urine Mucus (None) /hpf
--- NOTE | 2024-05-05 15:22 | P.CRDCN ---
History of Present Illness Consult date: 05/05/24 History of present illness: History of Present Illness: The patient is a 64-year-old female with a known history of hypertension, myasthenia gravis diagnosed over a year and a half ago who was transferred from [facility] for evaluation of fever, cough and nausea and vomiting. She has been complaining of the symptoms since yesterday morning with yellowish sputum in addition to fever up to 102 Fahrenheit. Cardiology consultation was requested because of troponin elevation. The patient denies any history of cardiac disease, she has no history of myocardial infarction, angina pectoris or congestive heart failure. She has mild dyspnea on exertion when her myasthenia gravis is not under good control. She has some dizziness with changing position and occasional peripheral edema. She has no PND, orthopnea or syncope. Her activity is affected by her myasthenia gravis. On presentation she was in sinus mechanism with episodes of sinus tachycardia. Her troponin was 0.084 on presentation. Her procalcitonin was significantly elevated. Medications: Prednisone, Fioricet, aspirin, lisinopril 10 mg daily Review of Systems: Respiratory: She had recent cough, fever, yellow sputum and dyspnea GI: She had nausea and vomiting yesterday. No history of peptic ulcer disease. No recent GI bleed. : No hematuria or dysuria. Nervous System: No stroke or seizure. She has a history of myasthenia gravis on prednisone at this time Physical Examination: 64-year-old female, alert oriented no apparent distress,Blood pressure 135/60, Heart rate 84 Head: Normocephalic. Eyes: Sclerae nonicteric. Neck: Good carotid upstroke, no bruit, no jugular venous distention. Lungs: Clear to auscultation. Heart: Regular rate and rhythm, S1-S2, no S3, no rub. Systolic ejection murmur. Abdomen: Soft nontender, positive bowel sounds no organomegaly. Extremities: Trace edema, intact distal pulses. Labs: BUN 18, creatinine 1.44, plasma lactic acid 4.3. Procalcitonin over 100. Troponin 0.084, 0.051, 0.059. White blood cell 18.8, hemoglobin 10.7. This morning her BUN is 18 and creatinine 1.97. WBC 27.6. Chest x-ray is suggestive of pneumonia. CT scan of the chest showed no pulmonary embolism. EKG: Sinus mechanism rate of 118 poor R wave progression cannot exclude anterior wall myocardial infarction Impression: 1. Febrile episode with yellowish sputum and abnormal chest x-ray suggestive of pneumonia 2. Mild troponin elevation most likely type II injury related to the infection 3. History of hypertension 4. History of myasthenia gravis 5. Acute renal injury, improved Plan: 1. Obtain an echocardiogram with Doppler 2. Follow blood pressure and heart rate and adjust treatment as needed 3. Treatment of her infection per primary care physician 4. No indications for invasive cardiac workup at this time 5. Depending on her progress further recommendations will be made, thank you for this consult we will follow with you. Past Medical History Past Medical History: Hypertension Additional Past Medical History / Comment(s): Myasthenia gravis History of Any Multi-Drug Resistant Organisms: None Reported Past Surgical History: Orthopedic Surgery Past Psychological History: No Psychological Hx Reported Smoking Status: Former smoker Past Alcohol Use History: None Reported Past Drug Use History: None Reported Medications and Allergies Home Medications Medication Instructions Recorded Confirmed Type Aspirin EC [Ecotrin Low Dose] 81 mg PO DAILY 05/04/24 05/04/24 History Butalb/APAP/Caff 50-325-40Mg 1 tab PO BID PRN 05/04/24 05/04/24 History [Fioricet 50-325-40] Cholecalciferol (Vitamin D3) 50 mcg PO DAILY 05/04/24 05/04/24 History [Vitamin D3 (50 Mcg = 2000 Iu)] Pyridostigmine [place] [Mestinon] 60 mg PO TID-W/MEALS 05/04/24 05/04/24 History lisinopriL [Zestril] 10 mg PO DAILY 05/04/24 05/04/24 History predniSONE 10 mg PO DAILY 05/04/24 05/04/24 History Allergies Allergy/AdvReac Type Severity Reaction Status Date / Time Penicillins Allergy Unknown Unknown Verified 05/04/24 17:01 Childhood Physical Exam Vitals: Vital Signs Temp Pulse Resp BP Pulse Ox 05/05/24 13:46 83 28 H 135/61 95 05/05/24 10:50 87 20 109/66 98 05/05/24 02:00 98 F 88 20 125/54 97 05/05/24 00:30 87 22 112/69 97 05/04/24 23:00 84 20 105/71 98 02/17/25 20:03 93 22 94/75 95 05/04/24 19:28 92 22 89/74 94 L 05/04/24 16:14 98.4 F 118 H 24 133/101 100 Intake and Output 05/05/24 05/05/24 05/05/24 06:59 14:59 22:59 Output Total 350 Balance -350 Output: Urine 350 Straight 350 Results 05/05/24 09:30 05/05/24 09:30 Cardiac Enzymes 05/04/24 05/04/24 05/05/24 Range/Units 17:56 17:56 01:36 AST 30 (14-36) U/L Troponin I 0.084 H* 0.051 H* (0.000-0.034) ng/mL 05/05/24 05/05/24 Range/Units 06:35 09:30 AST 34 (14-36) U/L Troponin I 0.059 H* (0.000-0.034) ng/mL CBC 05/04/24 05/05/24 Range/Units 17:56 09:30 WBC 18.8 H 27.6 H (3.8-10.6) k/uL RBC 3.66 L 3.75 L (3.80-5.40) m/uL Hgb 10.7 L 10.6 L (11.4-16.0) gm/dL Hct 33.8 L 35.1 (34.0-46.0) % Plt Count 191 193 (150-450) k/uL Comprehensive Metabolic Panel 05/04/24 05/05/24 Range/Units 17:56 09:30 Sodium 139 138 (137-145) mmol/L Potassium 4.2 4.3 (3.5-5.1) mmol/L Chloride 113 H 108 H (98-107) mmol/L Carbon Dioxide 14 L 19 L (22-30) mmol/L BUN 18 H 18 H (7-17) mg/dL Creatinine 1.44 H 0.97 (0.52-1.04) mg/dL Glucose 102 H 116 H (74-99) mg/dL Calcium 7.5 L 7.6 L (8.4-10.2) mg/dL AST 30 34 (14-36) U/L ALT 20 26 (4-34) U/L Alkaline Phosphatase 50 67 (38-126) U/L Total Protein 5.2 L 5.8 L (6.3-8.2) g/dL Albumin 2.8 L 3.3 L (3.5-5.0) g/dL Current Medications Generic Name Dose Route Start Last Admin Trade Name Freq PRN Reason Stop Dose Admin Acetaminophen 650 mg 05/04/24 18:23 Acetaminophen Tab 325 Mg Tab PO Q6HR PRN Mild Pain or Fever > 100.5 Acetaminophen/Butalbital/Caffeine 1 each 05/04/24 19:18 05/05/24 03:31 Butalb/Apap/Caff 50-325-40mg Tab PO 1 each BID PRN Administration Headache Aspirin 81 mg 05/05/24 09:00 05/05/24 08:35 Aspirin 81 Mg PO 81 mg DAILY LORENZO Administration Atorvastatin Calcium 40 mg 05/05/24 10:00 05/05/24 10:48 Atorvastatin 40 Mg Tab PO 40 mg DAILY LORENZO Administration Azithromycin 500 mg 05/05/24 09:00 05/05/24 08:35 Azithromycin 500 Mg Tab PO 05/07/24 09:01 500 mg DAILY LORENZO Administration Protocol Cholecalciferol 50 mcg 05/05/24 09:00 05/05/24 08:34 Cholecalciferol 25 Mcg (1000 Iu) Tablet PO 50 mcg DAILY LORENZO Administration Enoxaparin Sodium 40 mg 05/05/24 09:00 05/05/24 08:36 Enoxaparin 40 Mg/0.4 Ml Syringe SQ 40 mg DAILY LORENZO Administration Famotidine 20 mg 05/05/24 09:00 05/05/24 08:35 Famotidine 20 Mg Tab PO 20 mg DAILY LORENZO Administration Ceftriaxone Sodium 2 gm/ 50 mls @ 100 mls/hr 05/05/24 09:00 05/05/24 10:48 Sodium Chloride IVPB 100 mls/hr Q24HR LORENZO Administration Protocol Methylprednisolone Sodium Succinate 40 mg 05/05/24 12:00 05/05/24 12:17 Methylprednisolone Sod Succi 40 Mg/Ml 1 Ml Vial IV 40 mg Q6HR LORENZO Administration Naloxone HCl 0.2 mg 05/04/24 18:23 Naloxone 0.4 Mg/Ml 1 Ml Vial IV Q2M PRN Opioid Reversal Ondansetron HCl 4 mg 05/04/24 18:23 05/05/24 02:48 Ondansetron 4 Mg/2 Ml Vial IVP 4 mg Q8HR PRN Administration Nausea And Vomiting Pyridostigmine [place] 60 mg 05/05/24 07:30 05/05/24 12:17 Pyridostigmine 60 Mg Tab PO 60 mg TID-W/MEALS LORENZO Administration Intake and Output 05/05/24 05/05/24 05/05/24 06:59 14:59 22:59 Output Total 350 Balance -350 Output: Urine 350 Straight 350 05/05/24 09:30 05/05/24 09:30
[2024-05-05] MEDS: ACETAMINOPHEN TAB 325 MG TAB PO PRN (18:17)
--- NOTE | 2024-05-05 19:24 | P.CNPUL ---
History of Present Illness Consult date: 05/05/24 Reason for consult: dyspnea History of present illness: This is a 64-year-old female patient who is being seen in the emergency department for some symptoms of cough and congestion. The patient was doing well and her symptoms started approximately 24 hours ago and subsequent the patient encountered increased nausea and emesis. For that reason, the patient came into the hospital and the patient was also found to be febrile with a temperature of 102. Her blood work showed initial lactic acid level of 4.3. BUN was 18 with a creatinine of 1.4. Her white cell count was 18.8 with a hemoglobin 10.7 and subsequent white cell count came back at 27.6. She received IV fluids and the creatinine dropped from 1.4 down to 0.9 and the rest of the electrolytes are stable and the patient has a mild component of non-anion gap metabolic acidosis. Her procalcitonin level was checked and is above 100. Troponins are 0.08 and 0.05 respectively. UA was abnormal and the patient has clumps of white cells and 54 RBCs in her urine was cloudy with +2 protein. The viral 4 Plex was negative. The patient was started on IV Rocephin and she was also given Zithromax. As part of her workup, CT of the chest was done that showed no evidence of any pulmonary embolism. Atelectatic changes in lung bases along with hepatic steatosis. Doppler of the lower extremities showed no evidence of DVTs. The patient is currently on 2 L of oxygen by nasal cannula with a pulse ox of 98%. No significant tachycardia. No tachypnea. She is currently afebrile. Hemodynamically stable. Cardiology saw the patient. Awaiting echocardiogram. On a separate note, the patient has history of myasthenia gravis. Maintained on a combination of prednisone and Mestinon on an outpatient basis. No significant neuromuscular weakness at this point in time. Review of Systems Constitutional: Reports fatigue, Reports fever, Reports weakness Eyes: denies as per HPI, denies blurred vision, denies bulging eye, denies decreased vision, denies diplopia, denies discharge, denies dry eye, denies irritation, denies itching, denies pain, denies photophobia, denies loss of peripheral vision, denies loss of vision, denies tunnel vision/blind spots Ears: deny: decreased hearing, ear discharge, earache, tinnitus Ears, nose, mouth and throat: Reports as per HPI Breasts: absent: as per HPI, change in shape, gynecomastia, masses, nipple discharge, pain, skin changes, swelling Breasts: Reports as per HPI Cardiovascular: Reports as per HPI Respiratory: Reports congestion, Reports cough Gastrointestinal: Reports as per HPI Genitourinary: Reports as per HPI Menstruation: Reports as per HPI Musculoskeletal: Reports as per HPI Musculoskeletal: absent: ankle pain, ankle stiffness, ankle swelling, as per HPI, elbow pain, elbow stiffness, elbow swelling, foot pain, foot stiffness, foot swelling, hand pain, hand stiffness, hand swelling, hip pain, hip stiffness, hip swelling, knee pain, knee stiffness, knee swelling, shoulder pain, shoulder stiffness, shoulder swelling, wrist pain, wrist stiffness, wrist swelling Integumentary: Reports as per HPI Neurological: Reports as per HPI Psychiatric: Reports as per HPI Endocrine: Reports as per HPI Hematologic/Lymphatic: Reports as per HPI Past Medical History Past Medical History: Hypertension Additional Past Medical History / Comment(s): Myasthenia gravis History of Any Multi-Drug Resistant Organisms: None Reported Past Surgical History: Orthopedic Surgery Past Psychological History: No Psychological Hx Reported Smoking Status: Former smoker Past Alcohol Use History: None Reported Past Drug Use History: None Reported Medications and Allergies Home Medications Medication Instructions Recorded Confirmed Type Aspirin EC [Ecotrin Low Dose] 81 mg PO DAILY 05/04/24 05/04/24 History Butalb/APAP/Caff 50-325-40Mg 1 tab PO BID PRN 05/04/24 05/04/24 History [Fioricet 50-325-40] Cholecalciferol (Vitamin D3) 50 mcg PO DAILY 05/04/24 05/04/24 History [Vitamin D3 (50 Mcg = 2000 Iu)] Pyridostigmine [place] [Mestinon] 60 mg PO TID-W/MEALS 05/04/24 05/04/24 History lisinopriL [Zestril] 10 mg PO DAILY 05/04/24 05/04/24 History predniSONE 10 mg PO DAILY 05/04/24 05/04/24 History Allergies Allergy/AdvReac Type Severity Reaction Status Date / Time Penicillins Allergy Unknown Unknown Verified 05/04/24 17:01 Childhood Physical Exam Vitals: Vital Signs Temp Pulse Resp BP Pulse Ox 05/05/24 18:22 71 20 109/70 97 05/05/24 16:00 68 20 119/68 93 L 05/05/24 13:46 83 28 H 135/61 95 05/05/24 10:50 87 20 109/66 98 05/05/24 02:00 98 F 88 20 125/54 97 05/05/24 00:30 87 22 112/69 97 05/04/24 23:00 84 20 105/71 98 05/04/24 20:03 93 22 94/75 95 05/04/24 19:28 92 22 89/74 94 L Intake and Output 05/05/24 05/05/24 05/05/24 06:59 14:59 22:59 Output Total 350 Balance -350 Output: Urine 350 Straight 350 The patient appeared well nourished and normally developed. Vital signs as documented. The patient is currently on 2 L of oxygen by nasal cannula Head exam is unremarkable. No scleral icterus or corneal arcus noted. Neck is without jugular venous distension, thyromegaly, or carotid bruits. Carotid upstrokes are brisk bilaterally. Lungs are clear to auscultation and percussion. Cardiac exam reveals the PMI to be normally sized and situated. Rhythm is r egular. First and second heart sounds normal. No murmurs, rubs or gallops. Abdominal exam reveals normal bowel sounds, no masses, no organomegaly and no aortic enlargement. Extremities are nonedematous and both femoral and pedal pulses are normal. Examination of the skin revealed no evidence of significant rashes, suspicious appearing nevi or other concerning lesions. Neurologically, the patient is awake and alert and the patient does not have any focal neurological deficit. Cranial nerves are essentially intact. Results - Laboratory Findings CBC and BMP: 05/05/24 09:30 05/05/24 09:30 PT/INR, D-dimer D-Dimer 15.34 mg/L FEU (<0.60) H 05/04/24 21:03 Abnormal lab findings: Abnormal Labs 05/04/24 05/04/24 05/04/24 17:56 17:56 17:56 WBC 18.8 H RBC 3.66 L Hgb 10.7 L Hct 33.8 L MCHC Neutrophils # (Manual) 17.80 H Lymphocytes # (Manual) 0.38 L Eosinophils # (Manual) Metamyelocytes # (Man) 0.56 H D-Dimer Chloride 113 H Carbon Dioxide 14 L BUN 18 H Creatinine 1.44 H Glucose 102 H Plasma Lactic Acid Ant 4.3 H* Calcium 7.5 L Magnesium 1.2 L Troponin I Total Protein 5.2 L Albumin 2.8 L Procalcitonin Urine Appearance Urine Protein Urine Blood Urine Nitrite Ur Leukocyte Esterase Urine RBC Urine WBC Urine WBC Clumps Urine Bacteria Hyaline Casts Urine Mucus 05/04/24 05/04/24 05/04/24 17:56 17:56 20:39 WBC RBC Hgb Hct MCHC Neutrophils # (Manual) Lymphocytes # (Manual) Eosinophils # (Manual) Metamyelocytes # (Man) D-Dimer Chloride Carbon Dioxide BUN Creatinine Glucose Plasma Lactic Acid Ant 2.2 H* Calcium Magnesium Troponin I 0.084 H* Total Protein Albumin Procalcitonin >100.00 H Urine Appearance Urine Protein Urine Blood Urine Nitrite Ur Leukocyte Esterase Urine RBC Urine WBC Urine WBC Clumps Urine Bacteria Hyaline Casts Urine Mucus 05/04/24 05/04/24 05/05/24 21:03 23:51 01:36 WBC RBC Hgb Hct MCHC Neutrophils # (Manual) Lymphocytes # (Manual) Eosinophils # (Manual) Metamyelocytes # (Man) D-Dimer 15.34 H Chloride Carbon Dioxide BUN Creatinine Glucose Plasma Lactic Acid Ant Calcium Magnesium Troponin I 0.051 H* Total Protein Albumin Procalcitonin Urine Appearance Cloudy H Urine Protein 2+ H Urine Blood Moderate H Urine Nitrite Positive H Ur Leukocyte Esterase Large H Urine RBC 54 H Urine WBC >182 H Urine WBC Clumps Many H Urine Bacteria Moderate H Hyaline Casts 37 H Urine Mucus Occasional H 05/05/24 05/05/24 05/05/24 06:35 09:30 09:30 WBC 27.6 H RBC 3.75 L Hgb 10.6 L Hct MCHC 30.1 L Neutrophils # (Manual) 24.00 H Lymphocytes # (Manual) Eosinophils # (Manual) 0.83 H Metamyelocytes # (Man) D-Dimer Chloride 108 H Carbon Dioxide 19 L BUN 18 H Creatinine Glucose 116 H Plasma Lactic Acid Ant Calcium 7.6 L Magnesium 1.4 L Troponin I 0.059 H* Total Protein 5.8 L Albumin 3.3 L Procalcitonin Urine Appearance Urine Protein Urine Blood Urine Nitrite Ur Leukocyte Esterase Urine RBC Urine WBC Urine WBC Clumps Urine Bacteria Hyaline Casts Urine Mucus - Diagnostic Findings Chest x-ray: image reviewed CT scan - chest: image reviewed Assessment and Plan Plan: Acute sepsis which is currently under investigation. The patient presented with fever, leukocytosis significant elevation of the procalcitonin level. The patient also had an acute kidney injury at time of admission. In terms of source of the infection, reviewed the chest x-ray and CT of the chest and there is no convincing evidence of pneumonia. Consider underlying urine tract infection with secondary sepsis. Acute leukocytosis Acute kidney injury, improving Acute lactic acidosis with lactic acid level of 4.3, normalized with fluids Acute elevation of troponin, likely type II myocardial ischemia secondary to underlying sepsis Obesity with a BMI of 42.3 Myasthenia gravis maintained on a combination of Mestinon and prednisone on outpatient basis Hypertension Plan Continue IV fluids and the patient will be placed on normal saline at rate of 130 cc an hour. The patient received a total of 3 L of bolus in the emergency department. Continue IV Rocephin 2 g every 24 hours Lactic acid level improving Monitor white cell count Obtain blood cultures Obtain urine cultures Continue Mestinon and put the patient on Solu-Medrol 40 mg every 6 hours Echocardiogram Will continue to follow Time with Patient: Greater than 30
[2024-05-06 07:25] LABS: ALT 27 U/L (4-34); AST 28 U/L (14-36); African American GFR (CKD) >90 (>60 ml/min/1.73 sqM); Albumin 3.5 g/dL (3.5-5.0); Alkaline Phosphatase 81 U/L (38-126); Anion Gap 9 mmol/L; Blood Urea Nitrogen 17 mg/dL (7-17); Calcium 8.8 mg/dL (8.4-10.2); Carbon Dioxide 20 mmol/L (22-30); Chloride 111 mmol/L (98-107); Glucose 153 mg/dL (74-99); Non-African American GFR(CKD) 80 (>60 ml/min/1.73 sqM); Potassium 4.5 mmol/L (3.5-5.1); Sodium 140 mmol/L (137-145); Total Bilirubin 0.4 mg/dL (0.2-1.3); Total Protein 6.3 g/dL (6.3-8.2)
[2024-05-06 07:31] LABS: Basophils # (A) 0.1 k/uL (0-0.2); Basophils % (A) 0 %; Eosinophils % (A) 0 %; HCT 34.9 % (34.0-46.0); HGB 11.3 gm/dL (11.4-16.0); Hypochromasia Slight; Lymphocytes # (A) 0.6 k/uL (1.0-4.8); Lymphocytes % (A) 2 %; MCH 30.3 pg (25.0-35.0); MCHC 32.5 g/dL (31.0-37.0); MCV 93.3 fL (80.0-100.0); Mean Platelet Volume 8.8; Monocytes # (A) 0.5 k/uL (0-1.0); Monocytes % (A) 2 %; Neutrophils # (A) 27.3 k/uL (1.3-7.7); Neutrophils % (A) 96 %; Platelet Count 215 k/uL (150-450); RBC 3.74 m/uL (3.80-5.40); RDW 13.9 % (11.5-15.5); WBC 28.6 k/uL (3.8-10.6)
--- NOTE | 2024-05-06 10:13 | P.PN ---
Subjective HISTORY OF PRESENT ILLNESS: The patient is a 64-year-old female with a known history of hypertension, myasthenia gravis diagnosed over a year and a half ago who was transferred from [facility] for evaluation of fever, cough and nausea and vomiting. She has been complaining of the symptoms since yesterday morning with yellowish sputum in addition to fever up to 102 Fahrenheit. Cardiology consultation was requested because of troponin elevation. The patient denies any history of cardiac disease, she has no history of myocardial infarction, angina pectoris or congestive heart failure. She has mild dyspnea on exertion when her myasthenia gravis is not under good control. She has some dizziness with changing position and occasional peripheral edema. She has no PND, orthopnea or syncope. Her activity is affected by her myasthenia gravis. On presentation she was in sinus mechanism with episodes of sinus tachycardia. Her troponin was 0.084 on presentation. Her procalcitonin was significantly elevated. Medications: Prednisone, Fioricet, aspirin, lisinopril 10 mg daily 05/06/2024 Patient examined this morning in the emergency room. Patient is currently sitting up in the chair. Patient currently denies any chest pain or pressure. She continues to report shortness of breath this morning. She reports increased coughing this morning as well. Bedside telemetry reveals sinus mechanism. Blood pressure stable. PHYSICAL EXAM: VITAL SIGNS: Reviewed. GENERAL: Well-developed in no acute distress. NECK: Supple. No JVD or thyromegaly LUNGS: Respirations even and unlabored. Lungs essentially clear to auscultation bilaterally. HEART: Regular rate and rhythm. S1 and S2 heard. Systolic murmur noted. EXTREMITIES: Normal range of motion. No clubbing or cyanosis. Peripheral pulses intact. No lower extremity edema ASSESSMENT: 1. Febrile episode with yellowish sputum and abnormal chest x-ray suggestive of pneumonia 2. Mild troponin elevation most likely type II [place] related to the infection 3. History of hypertension 4. History of myasthenia gravis 5. Acute renal injury, improved PLAN: 2D echo ordered. Await results. Continue current cardiac medications Neurology consulted for myasthenia gravis Further recommendations pending patient course Nurse practitioner note has been reviewed by physician. Signing provider agrees with the documented findings, assessment, and plan of care documented by [employer] as a scribe. Objective - Vital Signs Vital signs: Vital Signs Temp 97.5 F L 05/06/24 07:31 Pulse 60 05/06/24 07:31 Resp 18 05/06/24 07:31 BP 126/75 05/06/24 07:31 Pulse Ox 96 05/06/24 07:31 FiO2 - Labs CBC & Chem 7: 05/06/24 06:49 05/06/24 06:49 Labs: Abnormal Lab Results - Last 24 Hours (Table) 05/05/24 05/05/24 05/05/24 Range/Units 09:30 09:30 09:30 WBC 27.6 H (3.8-10.6) k/uL RBC 3.75 L (3.80-5.40) m/uL Hgb 10.6 L (11.4-16.0) gm/dL MCHC 30.1 L (31.0-37.0) g/dL Neutrophils # (Manual) 24.00 H (1.3-7.7) k/uL Eosinophils # (Manual) 0.83 H (0-0.7) k/uL Chloride 108 H (98-107) mmol/L Carbon Dioxide 19 L (22-30) mmol/L BUN 18 H (7-17) mg/dL Glucose 116 H (74-99) mg/dL Calcium 7.6 L (8.4-10.2) mg/dL Magnesium 1.4 L (1.6-2.3) mg/dL Total Protein 5.8 L (6.3-8.2) g/dL Albumin 3.3 L (3.5-5.0) g/dL Procalcitonin 83.10 H (0.02-0.50) ng/mL 05/06/24 05/06/24 Range/Units 06:49 06:49 WBC 28.6 H (3.8-10.6) k/uL RBC 3.74 L (3.80-5.40) m/uL Hgb 11.3 L (11.4-16.0) gm/dL MCHC (31.0-37.0) g/dL Neutrophils # (Manual) (1.3-7.7) k/uL Eosinophils # (Manual) (0-0.7) k/uL Chloride 111 H (98-107) mmol/L Carbon Dioxide 20 L (22-30) mmol/L BUN (7-17) mg/dL Glucose 153 H (74-99) mg/dL Calcium (8.4-10.2) mg/dL Magnesium (1.6-2.3) mg/dL Total Protein (6.3-8.2) g/dL Albumin (3.5-5.0) g/dL Procalcitonin (0.02-0.50) ng/mL Microbiology - Last 24 Hours (Table) 05/04/24 21:03 Blood Culture - Preliminary Blood
--- NOTE | 2024-05-06 11:14 | XR ---
EXAMINATION TYPE: XR chest 1V DATE OF EXAM: 05/06/2024 11:07 AM COMPARISON: Chest radiographs from 05/04/2024, CTA chest 05/04/2024 TECHNIQUE: XR chest 1V Frontal view of the chest. CLINICAL INDICATION:Female, 64 years old with history of Hypoxemic respiratory failure; FINDINGS: Lungs/Pleura: No pleural effusion or pneumothorax. Bibasilar subsegmental atelectasis. Pulmonary vascularity: Unremarkable. Heart/mediastinum: Cardiomediastinal silhouette is prominent in size. Musculoskeletal: No acute osseous pathology. IMPRESSION: Basilar subsegmental atelectasis. [facility], , 05/06/2024 11:12 AM
--- NOTE | 2024-05-06 12:18 | P.CNNES ---
History of Present Illness Consult date: 05/05/24 Requesting physician: Gamal Frey Reason for Consult: impending myasthenic crisis History of Present Illness: Patient is a 64-year-old female, who was diagnosed with myasthenia gravis about 1-1/2 years ago (September 2022), came to the hospital by ambulance as a transfer from [facility] and arrived here yesterday at 4:10 PM for cough and congestion. Patient had recently developed cough and congestion. Therefore she came to the hospital. Neurology consulted for impending myasthenic crisis. P atient denies any dysphagia, or dysarthria. Patient denies any diplopia. She does feel slightly short of breath. Patient does drool at times, but it is not new. I did not see any drooling at this time. She was tested negative for flu, RSV and COVID. Patient was receiving cefepime 200 mg and potassium. She was also on oxygen at 2 L nasal cannula. Patient's breathing was adequate with good chest rise and fall. Chest was clear. Patient was diagnosed with myasthenia gravis in September 2022 after she developed intermittent ptosis of the right eye, fatigable weakness, that would get worse with fatigue and at the end of the day. She saw an photo engraver, who suspected MG, did the blood workup and was diagnosed with myasthenia gravis. Patient has been following up with Jackie Grossman, SARTHAK and Dr. Burgess office. Patient has been on Mestinon 60 mg 3 times daily and prednisone 10 mg daily. Patient was considered for Vyvgart, but it was declined. She was tried on Imuran, but symptoms got worse with diplopia, breathing difficulty, drooling. She stopped taking it after taking for a few days. Her IVIG has not been approved as yet. Patient states that 2 weeks ago she has signed papers for Vyvgart but is waiting for the response from the insurance. Patient states that [place] about over 2 miles and developed droopy eyes shortness of breath and muscle weakness. It lasted for about 10 minutes until she sat down in the car and the breathing got better. Otherwise she has not developed any generalized muscle weakness. Patient states that when her myasthenia symptoms are worse, she also has difficulty controlling urine. Patient denies any slurred speech. Patient denies any tobacco or alcohol use or diabetes. Patient's blood test shows WBC 18.8 hemoglobin 10.7 platelets are normal. D- dimer 15.34. Electrolytes are normal, BUN 18, creatinine 1.44. Lactate was 4.3. Troponin 0.084. Procalcitonin > 100. UA showed 2+ protein, positive nitrite, large amount of leukocyte Estrace and more than 182 WBCs and many cl umps. Moderate bacteria. Her most recent CBC with WBC 27.6, hemoglobin 10.6. Renal functions have normalized. Hepatic panel normal. Urine Legionella negative. EKG showed sinus tachycardia. Chest x-ray showed left perihilar and left lower lobe infiltrate. Correlate for pneumonia. CTA of the chest showed no evidence for pulmonary embolism. Low lung volumes with streaky atelectasis. Hepatic steatosis. Venous Doppler in the lower limbs was negative for DVT. Patient is seen by cardiology for elevated troponin. Review of Systems All pertinent positive and negative review of systems mentioned in the HPI. Past Medical History Past Medical History: Hypertension Additional Past Medical History / Comment(s): Myasthenia gravis History of Any Multi-Drug Resistant Organisms: None Reported Past Surgical History: Orthopedic Surgery Past Psychological History: No Psychological Hx Reported Smoking Status: Former smoker Past Alcohol Use History: None Reported Past Drug Use History: None Reported Medications and Allergies Home Medications Medication Instructions Recorded Confirmed Type Aspirin EC [Ecotrin Low Dose] 81 mg PO DAILY 05/04/24 05/04/24 History Butalb/APAP/Caff 50-325-40Mg 1 tab PO BID PRN 05/04/24 05/04/24 History [Fioricet 50-325-40] Cholecalciferol (Vitamin D3) 50 mcg PO DAILY 05/04/24 05/04/24 History [Vitamin D3 (50 Mcg = 2000 Iu)] Pyridostigmine [place] [Mestinon] 60 mg PO TID-W/MEALS 05/04/24 05/04/24 History lisinopriL [Zestril] 10 mg PO DAILY 05/04/24 05/04/24 History predniSONE 10 mg PO DAILY 05/04/24 05/04/24 History Allergies Allergy/AdvReac Type Severity Reaction Status Date / Time Penicillins Allergy Unknown Unknown Verified 05/04/24 17:01 Childhood Physical Examination - Vital Signs Vital Signs: Vital Signs Temp Pulse Resp BP Pulse Ox 05/06/24 07:31 97.5 F L 60 18 126/75 96 05/06/24 06:26 69 18 127/73 95 05/06/24 03:28 64 18 117/70 94 L 05/05/24 23:37 67 18 115/73 95 05/05/24 18:22 71 20 109/70 97 05/05/24 16:00 68 20 119/68 93 L 05/05/24 13:46 83 28 H 135/61 95 Patient is an elderly female, very pleasant, who appears slightly short of breath. She has oxygen by nasal cannula. Patient is alert awake oriented to time place and person. Speech and language functions are normal. Patient can name and repeat very well. No aphasia or dysarthria. Attention, concentration and fund of knowledge is adequate. On cranial nerve examination, pupils are equal, round and reacting to light, visual gaines are full on confrontation, with no neglect on double simultaneous stimulation. No ptosis. Extraocular muscles are intact with no nystagmus. Face is symmetric, tongue protrudes to the midline. Palatal elevation and sensation normal, hearing and shoulder shrug normal, facial sensation normal. Patient's strength of eye closure, lip closure, tongue protrusion inside the cheek appears fairly normal in strength. She is able to whistle. She is not drooling. Her ability to hold puff up here in the cheeks appears borderline. No dysarthria noted even with prolonged talking. Patient is able to generate fairly good cough. However she does appear somewhat short of breath at baseline. On muscle strength testing, there is no pronator drift and the strength is normal in arms and legs distally and proximally, except for deltoid which is about 5-and hip flexion 5-, rest are normal. Deep tendon reflexes are symmetric somewhat diminished and plantars downgoing. Sensory to touch is equal with no neglect on double simultaneous stimulation. Cerebellar function showed no ataxia for [id number] testing. No dysdiadochokinesia. No ataxia for [id number] testing on either side. Tone and bulk of muscles normal. Gait deferred.. On general examination, there is no carotid bruit or murmur, S1-S2 audible. Chest is clear on consultation. Abdomen is soft nontender. No organomegaly, bowel sounds present. Peripheral pulses are present. No peripheral edema. Results - Laboratory Findings CBC and BMP: 05/06/24 06:49 05/06/24 06:49 Abnormal Lab Findings: Abnormal Labs 05/04/24 05/04/24 05/04/24 17:56 17:56 17:56 WBC 18.8 H RBC 3.66 L Hgb 10.7 L Hct 33.8 L MCHC Neutrophils # Neutrophils # (Manual) 17.80 H Lymphocytes # Lymphocytes # (Manual) 0.38 L Eosinophils # (Manual) Metamyelocytes # (Man) 0.56 H D-Dimer Chloride 113 H Carbon Dioxide 14 L BUN 18 H Creatinine 1.44 H Glucose 102 H Plasma Lactic Acid Ant 4.3 H* Calcium 7.5 L Magnesium 1.2 L Troponin I Total Protein 5.2 L Albumin 2.8 L Procalcitonin Urine Appearance Urine Protein Urine Blood Urine Nitrite Ur Leukocyte Esterase Urine RBC Urine WBC Urine WBC Clumps Urine Bacteria Hyaline Casts Urine Mucus 05/04/24 05/04/24 05/04/24 17:56 17:56 20:39 WBC RBC Hgb Hct MCHC Neutrophils # Neutrophils # (Manual) Lymphocytes # Lymphocytes # (Manual) Eosinophils # (Manual) Metamyelocytes # (Man) D-Dimer Chloride Carbon Dioxide BUN Creatinine Glucose Plasma Lactic Acid Ant 2.2 H* Calcium Magnesium Troponin I 0.084 H* Total Protein Albumin Procalcitonin >100.00 H Urine Appearance Urine Protein Urine Blood Urine Nitrite Ur Leukocyte Esterase Urine RBC Urine WBC Urine WBC Clumps Urine Bacteria Hyaline Casts Urine Mucus 05/04/24 05/04/24 05/05/24 21:03 23:51 01:36 WBC RBC Hgb Hct MCHC Neutrophils # Neutrophils # (Manual) Lymphocytes # Lymphocytes # (Manual) Eosinophils # (Manual) Metamyelocytes # (Man) D-Dimer 15.34 H Chloride Carbon Dioxide BUN Creatinine Glucose Plasma Lactic Acid Ant Calcium Magnesium Troponin I 0.051 H* Total Protein Albumin Procalcitonin Urine Appearance Cloudy H Urine Protein 2+ H Urine Blood Moderate H Urine Nitrite Positive H Ur Leukocyte Esterase Large H Urine RBC 54 H Urine WBC >182 H Urine WBC Clumps Many H Urine Bacteria Moderate H Hyaline Casts 37 H Urine Mucus Occasional H 05/05/24 05/05/24 05/05/24 06:35 09:30 09:30 WBC 27.6 H RBC 3.75 L Hgb 10.6 L Hct MCHC 30.1 L Neutrophils # Neutrophils # (Manual) 24.00 H Lymphocytes # Lymphocytes # (Manual) Eosinophils # (Manual) 0.83 H Metamyelocytes # (Man) D-Dimer Chloride 108 H Carbon Dioxide 19 L BUN 18 H Creatinine Glucose 116 H Plasma Lactic Acid Ant Calcium 7.6 L Magnesium 1.4 L Troponin I 0.059 H* Total Protein 5.8 L Albumin 3.3 L Procalcitonin Urine Appearance Urine Protein Urine Blood Urine Nitrite Ur Leukocyte Esterase Urine RBC Urine WBC Urine WBC Clumps Urine Bacteria Hyaline Casts Urine Mucus 05/05/24 05/06/24 05/06/24 09:30 06:49 06:49 WBC 28.6 H RBC 3.74 L Hgb 11.3 L Hct MCHC Neutrophils # 27.3 H Neutrophils # (Manual) Lymphocytes # 0.6 L Lymphocytes # (Manual) Eosinophils # (Manual) Metamyelocytes # (Man) D-Dimer Chloride 111 H Carbon Dioxide 20 L BUN Creatinine Glucose 153 H Plasma Lactic Acid Ant Calcium Magnesium Troponin I Total Protein Albumin Procalcitonin 83.10 H Urine Appearance Urine Protein Urine Blood Urine Nitrite Ur Leukocyte Esterase Urine RBC Urine WBC Urine WBC Clumps Urine Bacteria Hyaline Casts Urine Mucus Assessment and Plan Assessment: * Myasthenia gravis, recent worsening because of underlying medical conditions as below. * Acute sepsis * Acute kidney injury * Possible acute UTI * Acute lactic acidosis * Elevated troponins * Obesity * Hypertension Plan: * Patient has myasthenia gravis, on Mestinon 60 mg 3 times daily and prednisone 10 mg daily. Patient currently started on low-dose methylprednisolone 40 mg every 6 hours, instead of prednisone. * I do not see any obvious evidence of exacerbation except for slight shortness of breath, which could be related to underlying possible pneumonia/sepsis. Patient is able to generate good cough. There is no drooling, slurring, diplopia or ptosis noticed. * We will check vital capacity and NIF. I discussed with patient's nurse, to call respiratory therapist for these parameters, and inform me the results. If the respiratory status is compromised, then we will consider IVIG. * Continue very close monitoring, for any deterioration. * Patient also seen by cardiology, and pulmonary medicine. * Medical management as per IM and other specialties on board. Patient on azithromycin, ceftriaxone. * We will check acetylcholine receptor antibodies. * DVT prophylaxis: Lovenox 40 mg subcu daily * Neurology will follow. Thank you for the consult. Time with Patient: Greater than 30
[2024-05-06 14:43] LABS: HCT 36.4 % (34.0-46.0); HGB 11.3 gm/dL (11.4-16.0); Hypochromasia Marked; MCH 29.3 pg (25.0-35.0); MCV 94.5 fL (80.0-100.0); Mean Platelet Volume 8.1; Platelet Count 226 k/uL (150-450); RBC 3.85 m/uL (3.80-5.40); RDW 13.6 % (11.5-15.5); WBC 25.5 k/uL (3.8-10.6)
--- NOTE | 2024-05-06 17:49 | P.PN ---
Subjective Progress Note Date: 05/06/24 Hospital Course: 64-year-old female with past medical history significant for myasthenia gravis and hypertension presents to emergency department today as a transfer from [place]. She initially went to [place], was found to have sinus tachycardia on EKG as well as hypomagnesemia and hypokalemia and was subsequently transferred here.She states that around 7 AM this morning she began coughing up a yellowish sputum and had episodes of nonbloody emesis in between coughing episodes. She states that she was vomiting anytime she tried to have a sip of water after coughing. She does report a fever of about 102F today as well as reporting headaches, lightheadedness/dizziness. She reports dyspnea and orthopnea. She denies chest pain, abdominal pain, myalgias. She denies recent travel or being sedentary. She denies sick contacts. Initial vitals: BP 133/108, MD 118 bpm, RR 24, 100% on 5 L nasal cannula, T 98.4 F Initial labs: WBC 18.8, RBC 3.66, hemoglobin 10.7, hematocrit 33.8, sodium 139, potassium 4.2, chloride 113, CO2 14, BUN 18, creatinine 1.44, lactic acid 4.3, calcium 7.5, magnesium 1.2, troponin x 1 0.084, D-dimer 15.84; urinalysis 2+ protein, moderate blood, positive nitrite, leukocyte esterase, moderate bacteria, many WBCs Initial EKG: Sinus tachycardia with ventricular rate of 118 bpm Initial chest x-ray: Left perihilar and lower lobe infiltrate, correlate for pneumonia Initial chest CTA: No evidence for pulmonary embolism, low lung volumes with streaky atelectasis, hepatic steatosis Patient being treated for sepsis secondary to likely community-acquired pneumonia as well as possible urinary tract infection. Also concern for impending myasthenic crisis. Started on IV steroids, neurology and pulmonology also consulted. Subjective: Patient seen and examined at bedside. No acute events overnight. She has been having some shortness of breath, on 2L NC. Pertinent positives and negatives as discussed above, a complete review of systems was performed and all other systems are negative. Vitals Signs Reviewed. General: Nontoxic, no distress, appears at stated age, morbidly obese Derm: Warm, dry Head: Atraumatic, normocephalic, symmetric Eyes: EOMI, no lid lag, anicteric sclera, right ptosis Mouth: No lip lesion, mucus membranes moist Cardiovascular: S1S2 reg, no murmur Lungs: CTA bilateral, no rhonchi, no rales, no accessory muscle use, supplemental oxygen Ext: No gross muscle atrophy, no edema, no contractures Neuro: no focal neuro deficits Psych: Alert, oriented, appropriate affect Data Reviewed Today: Pertinent Labs: CBC and BMP significant for WBC 28.6, RBC 3.74, Hg 11.3, Cl 111, bicarb 20, glu 153. Procal 83.1. Imaging: CXR shows basilar subsegmental atelectasis Assessment and Plan: Patient is severely ill, needs close monitoring. Prognosis guarded. Active: Acute hypoxic respiratory failure Impending myasthenic crisis Suspected community-acquired pneumonia Urinary tract infection Bandemia Metabolic acidosis, improving NSTEMI, likely type II -Continue ceftriaxone IV 2 g every 24 hours, azithromycin 500 p.o. daily -Cultures pending -Started on IV Solu-Medrol 40 every 6 hours -Continue home rivastigmine 60 p.o. 3 times daily -Neurology considering IVIG depending on results of peak flow -Every 6 hours VC and NIF -Pulmonology and neurology on board -Aspirin 81 mg daily, atorvastatin 40 mg daily -Continue telemetry monitoring, echocardiogram pending -Cardiology consulted Normocytic anemia -Stable, continue to monitor Resolved: Acute kidney injury Lactic acidosis Hypomagnesemia Chronic: Hypertension, hold lisinopril GERD DVT ppx: Lovenox Code status: Full code Anticipated discharge place: Pending clinical course Anticipated discharge time: Pending clinical course Objective - Vital Signs Vital signs: Vital Signs Temp 98 F 05/06/24 16:56 Pulse 82 05/06/24 16:56 Resp 22 05/06/24 16:56 BP 156/90 05/06/24 16:56 Pulse Ox 100 05/06/24 16:56 FiO2 - Labs CBC & Chem 7: 05/06/24 14:15 05/06/24 06:49 Labs: Abnormal Lab Results - Last 24 Hours (Table) 05/05/24 05/06/24 05/06/24 Range/Units 09:30 06:49 06:49 WBC 28.6 H (3.8-10.6) k/uL RBC 3.74 L (3.80-5.40) m/uL Hgb 11.3 L (11.4-16.0) gm/dL Neutrophils # 27.3 H (1.3-7.7) k/uL Lymphocytes # 0.6 L (1.0-4.8) k/uL Chloride 111 H (98-107) mmol/L Carbon Dioxide 20 L (22-30) mmol/L Glucose 153 H (74-99) mg/dL Procalcitonin 83.10 H (0.02-0.50) ng/mL 05/06/24 Range/Units 14:15 WBC 25.5 H (3.8-10.6) k/uL RBC (3.80-5.40) m/uL Hgb 11.3 L (11.4-16.0) gm/dL Neutrophils # (1.3-7.7) k/uL Lymphocytes # (1.0-4.8) k/uL Chloride (98-107) mmol/L Carbon Dioxide (22-30) mmol/L Glucose (74-99) mg/dL Procalcitonin (0.02-0.50) ng/mL Microbiology - Last 24 Hours (Table) 05/04/24 21:03 Blood Culture - Preliminary Blood
--- NOTE | 2024-05-06 19:17 | P.PN ---
Subjective Progress Note Date: 05/06/24 This is a 64-year-old female patient who is being seen in the emergency department for some symptoms of cough and congestion. The patient was doing well and her symptoms started approximately 24 hours ago and subsequent the patient encountered increased nausea and emesis. For that reason, the patient c michelle into the hospital and the patient was also found to be febrile with a temperature of 102. Her blood work showed initial lactic acid level of 4.3. BUN was 18 with a creatinine of 1.4. Her white cell count was 18.8 with a hemoglobin 10.7 and subsequent white cell count came back at 27.6. She received IV fluids and the creatinine dropped from 1.4 down to 0.9 and the rest of the electrolytes are stable and the patient has a mild component of non-anion gap metabolic acidosis. Her procalcitonin level was checked and is above 100. Troponins are 0.08 and 0.05 respectively. UA was abnormal and the patient has clumps of white cells and 54 RBCs in her urine was cloudy with +2 protein. The viral 4 Plex was negative. The patient was started on IV Rocephin and she was also given Zithromax. As part of her workup, CT of the chest was done that showed no evidence of any pulmonary embolism. Atelectatic changes in lung bases along with hepatic steatosis. Doppler of the lower extremities showed no evidence of DVTs. The patient is currently on 2 L of oxygen by nasal cannula with a pulse ox of 98%. No significant tachycardia. No tachypnea. She is currently afebrile. Hemodynamically stable. Cardiology saw the patient. Awaiting echocardiogram. On a separate note, the patient has history of myasthenia gravis. Maintained on a combination of prednisone and Mestinon on an outpatient basis. No significant neuromuscular weakness at this point in time. On today's evaluation of 05/06/2024, the patient is being seen for a follow-up. The patient is currently comfortable on 2 L of oxygen by nasal cannula with pulse ox 99%. The patient is afebrile. Hemodynamically stable. No significant sinus tachycardia. The white cell count remains elevated at 25.5 and the patient also demonstrated an elevated procalcitonin level of 83. This is consistent with sepsis. Rest of the blood work shows a sodium level of 140, potassium level of 4.5, bicarb of 20, BUN 17 with a creatinine of 0.9. The patient's hemoglobin is currently at 11.3 with a platelet count of 226. The blood cultures still negative. The UA was abnormal suggestive underlying urine tract infection. The patient remains on broad-spectrum antibiotics. The patient is on a combination of Rocephin and Zithromax. She is also known to have myasthenia gravis. The patient was seen by neurology and she is maintained on Mestinon and prednisone on outpatient basis. The patient will be given also low-dose IV Solu-Medrol. She is feeling weak. No diplopia, no changes with speech or swallow. A repeat chest x-ray was done today and it showed some atelectatic changes in lung base bilaterally. Otherwise no other acute abnormalities. Venous Dopplers were negative. CT of the chest showed no evidence of pulmonary embolism and a Doppler of the lower extremities were negative. Also, the CAT scan of the chest showed small lung volumes and atelectatic changes in lung bases. No clear indication for pneumonia. Objective - Vital Signs Vital signs: Vital Signs Temp 97.5 F L 05/06/24 07:31 Pulse 60 05/06/24 07:31 Resp 18 05/06/24 07:31 BP 126/75 05/06/24 07:31 Pulse Ox 96 05/06/24 07:31 FiO2 - Exam The patient appeared well nourished and normally developed. Vital signs as documented. The patient is currently on 2 L of oxygen by nasal cannula Head exam is unremarkable. No scleral icterus or corneal arcus noted. Neck is without jugular venous distension, thyromegaly, or carotid bruits. Carotid upstrokes are brisk bilaterally. Lungs are clear to auscultation and percussion. Cardiac exam reveals the PMI to be normally sized and situated. Rhythm is regular. First and second heart sounds normal. No murmurs, rubs or gallops. Abdominal exam reveals normal bowel sounds, no masses, no organomegaly and no aortic enlargement. Extremities are nonedematous and both femoral and pedal pulses are normal. Examination of the skin revealed no evidence of significant rashes, suspicious appearing nevi or other concerning lesions. Neurologically, the patient is awake and alert and the patient does not have any focal neurological deficit. Cranial nerves are essentially intact. - Labs CBC & Chem 7: 05/06/24 14:15 05/06/24 06:49 Labs: Abnormal Lab Results - Last 24 Hours (Table) 05/05/24 05/05/24 05/06/24 Range/Units 09:30 09:30 06:49 WBC (3.8-10.6) k/uL RBC (3.80-5.40) m/uL Hgb (11.4-16.0) gm/dL Neutrophils # (1.3-7.7) k/uL Neutrophils # (Manual) 24.00 H (1.3-7.7) k/uL Lymphocytes # (1.0-4.8) k/uL Eosinophils # (Manual) 0.83 H (0-0.7) k/uL Chloride 111 H (98-107) mmol/L Carbon Dioxide 20 L (22-30) mmol/L Glucose 153 H (74-99) mg/dL Procalcitonin 83.10 H (0.02-0.50) ng/mL 05/06/24 Range/Units 06:49 WBC 28.6 H (3.8-10.6) k/uL RBC 3.74 L (3.80-5.40) m/uL Hgb 11.3 L (11.4-16.0) gm/dL Neutrophils # 27.3 H (1.3-7.7) k/uL Neutrophils # (Manual) (1.3-7.7) k/uL Lymphocytes # 0.6 L (1.0-4.8) k/uL Eosinophils # (Manual) (0-0.7) k/uL Chloride (98-107) mmol/L Carbon Dioxide (22-30) mmol/L Glucose (74-99) mg/dL Procalcitonin (0.02-0.50) ng/mL Microbiology - Last 24 Hours (Table) 05/04/24 21:03 Blood Culture - Preliminary Blood Assessment and Plan Plan: Acute sepsis which is currently under investigation. Suspect underlying urinary tract infection. The patient presented with fever, leukocytosis significant elevation of the procalcitonin level. The patient also had an acute kidney injury at time of admission. In terms of source of the infection, reviewed the chest x-ray and CT of the chest and there is no convincing evidence of pneumonia. Consider underlying urine tract infection with secondary sepsis. Repeat chest x-ray from today shows some atelectatic changes in lung bases. The patient remains on a combination of Rocephin and Zithromax. Blood cultures still negative. Acute leukocytosis, white cell count remains elevated Acute kidney injury, improving Acute lactic acidosis with lactic acid level of 4.3, normalized with fluids Acute elevation of troponin, likely type II myocardial ischemia secondary to underlying sepsis Obesity with a BMI of 42.3 Myasthenia gravis maintained on a combination of Mestinon and prednisone on outpatient basis Hypertension Plan Continue IV fluids Continue IV Rocephin 2 g every 24 hours Lactic acid level improving Monitor white cell count Blood cultures and urine cultures Repeat procalcitonin in a.m. Continue Mestinon and put the patient on Solu-Medrol 40 mg every 6 hours Management of myasthenia gravis per neurology Echocardiogram Will continue to follow
[2024-05-06] MEDS: IMMUNE GLOBULIN (GAMMAGARD) 20 GM in EMPTY BAG 1 BAG IV ONE (21:06)
[2024-05-07] MEDS: IMMUNE GLOBULIN (GAMMAGARD) 20 GM in EMPTY BAG 1 BAG IV ONE ×3 (00:40→15:26)
--- NOTE | 2024-05-07 09:10 | P.PN ---
Subjective Progress Note Date: 05/06/24 Patient was seen for a follow-up. Patient states that she is feeling slightly better. Yesterday she was getting out of breath with any activity. She could not lay at all. She has to sit straight bent forwards in order to breathe. Today she can lean back and can do a little more. Still very much limited with activity as she gets short of breath. Denies any diplopia, or slurred speech, dysphagia. Nurse texted this morning at 7 AM, that RT conducted the test and vital capacity 1.48 L and NIF -18. Objective - Vital Signs Vital signs: Vital Signs Temp 97.5 F L 05/06/24 07:31 Pulse 63 05/06/24 12:13 Resp 18 05/06/24 12:13 BP 132/72 05/06/24 12:13 Pulse Ox 96 05/06/24 12:13 FiO2 - Exam Patient's mental status, speech and language functions are normal. Patient con tinues to have slight weakness of the orbicularis marixa muscle. Otherwise her eye closure, tongue strength appears normal. No drooling. Deltoids are 5-, hip flexion 4+5-. Rest of the strength is normal. Patient still able to generate cough. However she does appear short of breath, but slightly better than yesterday. - Labs CBC & Chem 7: 05/06/24 14:15 05/06/24 06:49 Labs: Abnormal Lab Results - Last 24 Hours (Table) 05/05/24 05/06/24 05/06/24 Range/Units 09:30 06:49 06:49 WBC 28.6 H (3.8-10.6) k/uL RBC 3.74 L (3.80-5.40) m/uL Hgb 11.3 L (11.4-16.0) gm/dL Neutrophils # 27.3 H (1.3-7.7) k/uL Lymphocytes # 0.6 L (1.0-4.8) k/uL Chloride 111 H (98-107) mmol/L Carbon Dioxide 20 L (22-30) mmol/L Glucose 153 H (74-99) mg/dL Procalcitonin 83.10 H (0.02-0.50) ng/mL 05/06/24 Range/Units 14:15 WBC 25.5 H (3.8-10.6) k/uL RBC (3.80-5.40) m/uL Hgb 11.3 L (11.4-16.0) gm/dL Neutrophils # (1.3-7.7) k/uL Lymphocytes # (1.0-4.8) k/uL Chloride (98-107) mmol/L Carbon Dioxide (22-30) mmol/L Glucose (74-99) mg/dL Procalcitonin (0.02-0.50) ng/mL Microbiology - Last 24 Hours (Table) 05/04/24 21:03 Blood Culture - Preliminary Blood Assessment and Plan Assessment: * Myasthenia gravis, recent worsening because of underlying medical conditions as below. * Leukocytosis, likely due to use of steroids. * Acute kidney injury, resolved * Abnormal UA, but the urine cultures came back negative * Acute lactic acidosis * Elevated troponins * Obesity * Hypertension Plan: * Patient has myasthenia gravis, on Mestinon 60 mg 3 times daily and prednisone 10 mg daily. Patient currently started on low-dose methylprednisolone 40 mg every 6 hours, instead of prednisone. * Patient has myasthenia gravis exacerbation, with impending crisis. Her vital capacity is low 1.48 L and NIF -18 * Patient's renal functions have normalized. Chest x-ray did not show any obvious pneumonia. Her white cells are possibly related to use of steroids. I discussed with pulmonary, and also primary care. Cleared for IVIG. * We will give IVIG 0.5 g/kg's daily for 4 days. Starting from tonight. Patient informed of risks and benefits of IVIG. * Continue very close monitoring, for any deterioration. * Patient also seen by cardiology, and pulmonary medicine. * Medical management as per IM and other specialties on board. Patient on ceftriaxone. * Await acetylcholine receptor antibodies. * DVT prophylaxis: Lovenox 40 mg subcu daily
--- NOTE | 2024-05-07 10:18 | CA ---
Transthoracic Echo Report Name: Emelina Sam Age: 64 Gender: F : 1960 Exam Date: 05/06/2024 14:57 Exam Location: [place] [facility] Ht (in): 67 Wt (lb): 270 Ordering Physician: Gamal Frey MD Attending/Referring Phys: [id number] Services Rep Procedure CPT: Indications: nstemi Cardiac Hx: Technical Quality: Technically difficult study Contrast 1: Definity Total Dose (mL): 3 Contrast 2: Total Dose (mL): MEASUREMENTS (Male / Female) Normal Values 2D ECHO LV Diastolic Diameter PLAX 5.3 cm 4.2 - 5.9 / 3.9 - 5.3 cm LV Systolic Diameter PLAX 3.6 cm IVS Diastolic Thickness 1.0 cm 0.6 - 1.0 / 0.6 - 0.9 cm LVPW Diastolic Thickness 0.9 cm 0.6 - 1.0 / 0.6 - 0.9 cm LV Relative Wall Thickness 0.4 LVOT Diameter 2.2 cm LV Diastolic Volume MOD BP 150.8 cm??? 67 - 155 / 56 - 104 cm??? LV Systolic Volume MOD BP 59.1 cm??? 22 - 58 / 19 - 49 cm??? LV Ejection Fraction MOD BP 60.8 % >= 55 % LV Cardiac Index MOD BP 2380.5 cm???/min???m??? LV Diastolic Volume MOD 4C 135.9 cm??? LV Systolic Volume MOD 4C 53.2 cm??? LV Ejection Fraction MOD 4C 60.8 % LV Cardiac Index MOD 4C 2143.2 cm???/min???m??? LV Diastolic Length 4C 9.0 cm LV Systolic Length 4C 7.1 cm LV Diastolic Volume MOD 2C 162.2 cm??? LV Systolic Volume MOD 2C 65.6 cm??? LV Ejection Fraction MOD 2C 59.5 % LV Cardiac Index MOD 2C 2505.2 cm???/min???m??? LV Diastolic Length 2C 8.6 cm LV Systolic Length 2C 7.2 cm LA Volume 83.4 cm??? 18 - 58 / 22 - 52 cm??? LA Volume Index 33.8 cm???/m??? 16 - 28 cm???/m??? DOPPLER AV Peak Velocity 202.8 cm/s AV Peak Gradient 16.5 mmHg AV Mean Velocity 142.5 cm/s AV Mean Gradient 9.1 mmHg AV Velocity Time Integral 42.8 cm LVOT Peak Velocity 115.8 cm/s LVOT Peak Gradient 5.4 mmHg LVOT Velocity Time Integral 24.0 cm LVOT Stroke Volume 87.6 cm??? LVOT Stroke Volume Index 38.1 ml/m??? LVOT Cardiac Index 2271.8 cm???/min???m??? AV Area Cont Eq vti 2.0 cm??? AV Area Cont Eq pk 2.1 cm??? MV Area PHT 4.2 cm??? MR Peak Velocity 534.1 cm/s MR Peak Gradient 114.1 mmHg MR Flow Rate PISA 146.4 cm???/s MR ERO PISA 0.3 cm??? MR Regurgitant Volume PISA 49.9 cm??? Mitral E Point Velocity 75.2 cm/s Mitral A Point Velocity 55.5 cm/s Mitral E to A Ratio 1.4 MV Deceleration Time 180.0 ms TR Peak Velocity 224.7 cm/s TR Peak Gradient 20.2 mmHg Right Atrial Pressure 15.0 mmHg Pulmonary Artery Systolic Pressu 35.2 mmHg Right Ventricular Systolic Press 35.2 mmHg PV Peak Velocity 96.8 cm/s PV Peak Gradient 3.8 mmHg FINDINGS Left Ventricle Left ventricular ejection fraction is estimated at 55-60 %. Mildly increased septal wall thickness. Severely increased left ventricular diastolic volume. Mildly increased left ventricular systolic volume. No obvious regional wall motion abnormalities. Right Ventricle Moderate right ventricular dilatation. Normal right ventricular global systolic function. Mild pulmonary hypertension. Right Atrium Normal right atrial size. Left Atrium Mildly increased left atrial volume. Mildly increased left atrial area. Mitral Valve Mitral valve thickened. No evidence for mitral valve prolapse. No mitral stenosis. Moderate mitral regurgitation. Aortic Valve Mild aortic stenosis . Diffuse thickening (sclerosis) of the aortic valve cusps without reduced excursion. Calcified non coronary cusp. No aortic regurgitation. Tricuspid Valve Structurally normal tricuspid valve. No tricuspid stenosis. Mild tricuspid regurgitation. Pulmonic Valve Structurally normal pulmonic valve. No pulmonic stenosis. No pulmonic regurgitation. Pericardium No pericardial effusion. Aorta Normal size aortic root and proximal ascending aorta. CONCLUSIONS Technically difficult study for interpretation Normal LV systolic function with mild LVH Moderate mitral regurgitation and thickened mitral valve leaflets Poorly visualized aortic valve. Cannot rule out bicuspid aortic valve. The aortic valve is sclerotic. Mild aortic stenosis was identified No pericardial effusion Previewed by: Dr. Carlos Enriquez MD (Electronically Signed) Final Date: 07 May 2024 10:18
--- NOTE | 2024-05-07 10:54 | P.PN ---
Subjective Progress Note Date: 05/07/24 HISTORY OF PRESENT ILLNESS: The patient is a 64-year-old female with a known history of hypertension, andrew sthenia gravis diagnosed over a year and a half ago who was transferred from [facility] for evaluation of fever, cough and nausea and vomiting. She has been complaining of the symptoms since yesterday morning with yellowish sputum in addition to fever up to 102 Fahrenheit. Cardiology consultation was requested because of troponin elevation. The patient denies any history of cardiac disease, she has no history of myocardial infarction, angina pectoris or congestive heart failure. She has mild dyspnea on exertion when her myasthenia gravis is not under good control. She has some dizziness with changing position and occasional peripheral edema. She has no PND, orthopnea or syncope. Her activity is affected by her myasthenia gravis. On presentation she was in sinus mechanism with episodes of sinus tachycardia. Her troponin was 0.084 on presentation. Her procalcitonin was significantly elevated. Medications: Prednisone, Fioricet, aspirin, lisinopril 10 mg daily 05/06/2024 Patient examined this morning in the emergency room. Patient is currently sitting up in the chair. Patient currently denies any chest pain or pressure. She continues to report shortness of breath this morning. She reports increased coughing this morning as well. Bedside telemetry reveals sinus mechanism. Blood pressure stable. 05/07 Patient seen and examined on the [facility] floor. Patient denies any new concerns today. No chest pain or chest pressure. Post shortness of breath and coughing are improving.. Blood pressure 139/74, heart rate 62, pulse ox 90% on 5 L nasal cannula. Procalcitonin 25. Echocardiogram reveals technically difficult study. Normal LV systolic function. Moderate mitral regurgitation. Poorly visualized aortic valve. Cannot rule out bicuspid aortic valve. Aortic valve is sclerotic. Mild aortic stenosis was identified. No pericardial effusion. PHYSICAL EXAM: VITAL SIGNS: Reviewed. GENERAL: Well-developed in no acute distress. NECK: Supple. No JVD or thyromegaly LUNGS: Respirations even and unlabored. Lungs clear to auscultation bilaterally. HEART: Regular rate and rhythm. S1 and S2 heard. Systolic murmur noted. EXTREMITIES: No clubbing or cyanosis. Peripheral pulses intact. No lower extremity edema ASSESSMENT: 1. Febrile episode with yellowish sputum and abnormal chest x-ray suggestive of pneumonia 2. Mild troponin elevation most likely type II PR related to the infection 3. History of hypertension 4. History of myasthenia gravis 5. Acute renal injury, improved PLAN: Continue current cardiac medications Neurology consulted for myasthenia gravis No further cardiac workup at this time Cardiology will sign off this case and follow on an as-needed basis. Please reconsult for any new concerns. Patient may follow-up in the office in 2 weeks. Nurse practitioner note has been reviewed by physician. Signing provider agrees with the documented findings, assessment, and plan of care documented by ADMISSIONS CONSULTANT as a scribe. Objective - Vital Signs Vital signs: Vital Signs Temp 98.0 F 05/07/24 06:45 Pulse 62 05/07/24 06:45 Resp 18 05/07/24 06:45 BP 139/74 05/07/24 06:45 Pulse Ox 98 05/07/24 06:45 FiO2 Intake & Output 05/06/24 05/07/24 05/07/24 18:59 06:59 18:59 Intake Total 780 Balance 780 Weight 122.47 kg 125.5 kg Intake: Oral 780 Other: Voiding Method Toilet Incontinent # Voids 3 - Labs CBC & Chem 7: 05/06/24 14:15 05/06/24 06:49 Labs: Abnormal Lab Results - Last 24 Hours (Table) 05/06/24 05/06/24 05/07/24 Range/Units 14:15 14:15 04:07 WBC 25.5 H (3.8-10.6) k/uL Hgb 11.3 L (11.4-16.0) gm/dL Hemoglobin A1c 6.1 H (<=6.0) % Procalcitonin 25.00 H (0.02-0.50) ng/mL Microbiology - Last 24 Hours (Table) 05/04/24 21:03 Blood Culture - Preliminary Blood 05/05/24 18:21 Urine Culture - Final Urine,Clean Catch
[2024-05-07] MEDS: lisinopriL 10 MG TAB PO SCH (14:06)
--- NOTE | 2024-05-07 16:58 | P.PN ---
Subjective Progress Note Date: 05/07/24 Hospital Course: 64-year-old female with past medical history significant for myasthenia gravis and hypertension presents to emergency department today as a transfer from [place]. She initially went to [facility], was found to have sinus tachycardia on EKG as well as hypomagnesemia and hypokalemia and was subsequently transferred here.She states that around 7 AM this morning she began coughing up a yellowish sputum and had episodes of nonbloody emesis in between coughing episodes. She states that she was vomiting anytime she tried to have a sip of water after coughing. She does report a fever of about 102F today as well as reporting headaches, lightheadedness/dizziness. She reports dyspnea and orthopnea. She denies chest pain, abdominal pain, myalgias. She denies recent travel or being sedentary. She denies sick contacts. Initial vitals: BP 133/108, MN 118 bpm, RR 24, 100% on 5 L nasal cannula, T 98.4 F Initial labs: WBC 18.8, RBC 3.66, hemoglobin 10.7, hematocrit 33.8, sodium 139, potassium 4.2, chloride 113, CO2 14, BUN 18, creatinine 1.44, lactic acid 4.3, calcium 7.5, magnesium 1.2, troponin x 1 0.084, D-dimer 15.84; urinalysis 2+ protein, moderate blood, positive nitrite, leukocyte esterase, moderate bacteria, many WBCs Initial EKG: Sinus tachycardia with ventricular rate of 118 bpm Initial chest x-ray: Left perihilar and lower lobe infiltrate, correlate for pneumonia Initial chest CTA: No evidence for pulmonary embolism, low lung volumes with streaky atelectasis, hepatic steatosis Patient being treated for sepsis secondary to likely community-acquired pneumonia as well as possible urinary tract infection. Also concern for impending myasthenic crisis. Started on IV steroids, neurology and pulmonology also consulted. Subjective: Patient seen and examined at bedside. No acute events overnight. Pertinent positives and negatives as discussed above, a complete review of systems was performed and all other systems are negative. Vitals Signs Reviewed. General: Nontoxic, no distress, appears at stated age, morbidly obese Derm: Warm, dry Head: Atraumatic, normocephalic, symmetric Eyes: EOMI, no lid lag, anicteric sclera, right ptosis Mouth: No lip lesion, mucus membranes moist Cardiovascular: S1S2 reg, no murmur Lungs: CTA bilateral, no rhonchi, no rales, no accessory muscle use, supplemental oxygen Ext: No gross muscle atrophy, no edema, no contractures Neuro: no focal neuro deficits Psych: Alert, oriented, appropriate affect Data Reviewed Today: Pertinent Labs: Procal 25 Imaging:Echo EF 55-60% mod MR, mild Assessment and Plan: Patient is severely ill, needs close monitoring. Prognosis guarded. Active: Acute hypoxic respiratory failure Impending myasthenic crisis Suspected community-acquired pneumonia Urinary tract infection Bandemia Metabolic acidosis, improving NSTEMI, likely type II -Continue ceftriaxone IV 2 g every 24 hours -Cultures pending -IV Solu-Medrol 40 every 6 hours -Continue home rivastigmine 60 p.o. 3 times daily -Discussed with Dr. Vasquez, start IVIG -Every 6 hours VC and NIF -Pulmonology and neurology on board -Aspirin 81 mg daily, atorvastatin 40 mg daily -Continue telemetry monitoring -Cardiology consulted, signed off Normocytic anemia -Stable, continue to monitor Resolved: Acute kidney injury Lactic acidosis Hypomagnesemia Chronic: Hypertension, hold lisinopril GERD DVT ppx: Lovenox Code status: Full code Anticipated discharge place: Pending clinical course Anticipated discharge time: Pending clinical course Objective - Vital Signs Vital signs: Vital Signs Temp 98.0 F 05/07/24 06:45 Pulse 79 05/07/24 13:45 Resp 18 05/07/24 13:45 BP 167/98 05/07/24 13:45 Pulse Ox 96 05/07/24 13:45 FiO2 Intake & Output 05/06/24 05/07/24 05/07/24 18:59 06:59 18:59 Intake Total 780 453.875 Balance 780 453.875 Weight 122.47 kg 125.5 kg Intake: Intake, IV Titration 133.875 Amount Immune Globulin ( 133.875 Gammagard) 20 gm In Empty Bag 1 bag @ Titrate IV . Q0M ONE Rx#:[id number] Oral 780 320 Other: Voiding Method Toilet Toilet Incontinent Incontinent # Voids 3 - Labs CBC & Chem 7: 05/06/24 14:15 05/06/24 06:49 Labs: Abnormal Lab Results - Last 24 Hours (Table) 05/06/24 05/07/24 Range/Units 14:15 04:07 Hemoglobin A1c 6.1 H (<=6.0) % Procalcitonin 25.00 H (0.02-0.50) ng/mL Microbiology - Last 24 Hours (Table) 05/04/24 21:03 Blood Culture - Preliminary Blood 05/05/24 18:21 Urine Culture - Final Urine,Clean Catch
--- NOTE | 2024-05-07 19:35 | P.PN ---
Subjective Progress Note Date: 05/07/24 This is a 64-year-old female patient who is being seen in the emergency department for some symptoms of cough and congestion. The patient was doing well and her symptoms started approximately 24 hours ago and subsequent the patient encountered increased nausea and emesis. For that reason, the patient c michelle into the hospital and the patient was also found to be febrile with a temperature of 102. Her blood work showed initial lactic acid level of 4.3. BUN was 18 with a creatinine of 1.4. Her white cell count was 18.8 with a hemoglobin 10.7 and subsequent white cell count came back at 27.6. She received IV fluids and the creatinine dropped from 1.4 down to 0.9 and the rest of the electrolytes are stable and the patient has a mild component of non-anion gap metabolic acidosis. Her procalcitonin level was checked and is above 100. Troponins are 0.08 and 0.05 respectively. UA was abnormal and the patient has clumps of white cells and 54 RBCs in her urine was cloudy with +2 protein. The viral 4 Plex was negative. The patient was started on IV Rocephin and she was also given Zithromax. As part of her workup, CT of the chest was done that showed no evidence of any pulmonary embolism. Atelectatic changes in lung bases along with hepatic steatosis. Doppler of the lower extremities showed no evidence of DVTs. The patient is currently on 2 L of oxygen by nasal cannula with a pulse ox of 98%. No significant tachycardia. No tachypnea. She is currently afebrile. Hemodynamically stable. Cardiology saw the patient. Awaiting echocardiogram. On a separate note, the patient has history of myasthenia gravis. Maintained on a combination of prednisone and Mestinon on an outpatient basis. No significant neuromuscular weakness at this point in time. On today's evaluation of 05/06/2024, the patient is being seen for a follow-up. The patient is currently comfortable on 2 L of oxygen by nasal cannula with pulse ox 99%. The patient is afebrile. Hemodynamically stable. No significant sinus tachycardia. The white cell count remains elevated at 25.5 and the patient also demonstrated an elevated procalcitonin level of 83. This is consistent with sepsis. Rest of the blood work shows a sodium level of 140, potassium level of 4.5, bicarb of 20, BUN 17 with a creatinine of 0.9. The patient's hemoglobin is currently at 11.3 with a platelet count of 226. The blood cultures still negative. The UA was abnormal suggestive underlying urine tract infection. The patient remains on broad-spectrum antibiotics. The patient is on a combination of Rocephin and Zithromax. She is also known to have myasthenia gravis. The patient was seen by neurology and she is maintained on Mestinon and prednisone on outpatient basis. The patient will be given also low-dose IV Solu-Medrol. She is feeling weak. No diplopia, no changes with speech or swallow. A repeat chest x-ray was done today and it showed some atelectatic changes in lung base bilaterally. Otherwise no other acute abnormalities. Venous Dopplers were negative. CT of the chest showed no evidence of pulmonary embolism and a Doppler of the lower extremities were negative. Also, the CAT scan of the chest showed small lung volumes and atelectatic changes in lung bases. No clear indication for pneumonia. Today's evaluation of 05/07/2024, the patient is being seen for a follow-up. The patient is feeling better. As mentioned, the patient was septic with an elevated procalcitonin level. Nevertheless, all of the cultures came back negative. Fortunately, she spiked antibiotics and the procalcitonin level is dropped from 100 down to 25. Hemodynamically stable. She remains on oxygen at 4 L with a pulse ox of 96%. Based on presence of generalized weakness, the patient was started on IVIG. The patient remains on IV Solu-Medrol and Mestinon. She does have underlying myasthenia gravis. She remains on IV Rocephin. Cultures came back all negative. Awaiting follow-up labs from today in regards to her white cell count. Objective - Vital Signs Vital signs: Vital Signs Temp 98.0 F 05/07/24 06:45 Pulse 62 05/07/24 06:45 Resp 18 05/07/24 06:45 BP 139/74 05/07/24 06:45 Pulse Ox 98 05/07/24 06:45 FiO2 Intake & Output 05/06/24 05/07/24 05/07/24 18:59 06:59 18:59 Intake Total 780 120 Balance 780 120 Weight 122.47 kg 125.5 kg Intake: Oral 780 120 Other: Voiding Method Toilet Toilet Incontinent Incontinent # Voids 3 - Exam The patient appeared well nourished and normally developed. Vital signs as documented. The patient is currently on 2 L of oxygen by nasal cannula Head exam is unremarkable. No scleral icterus or corneal arcus noted. Neck is without jugular venous distension, thyromegaly, or carotid bruits. C arotid upstrokes are brisk bilaterally. Lungs are clear to auscultation and percussion. Cardiac exam reveals the PMI to be normally sized and situated. Rhythm is regular. First and second heart sounds normal. No murmurs, rubs or gallops. Abdominal exam reveals normal bowel sounds, no masses, no organomegaly and no aortic enlargement. Extremities are nonedematous and both femoral and pedal pulses are normal. Examination of the skin revealed no evidence of significant rashes, suspicious appearing nevi or other concerning lesions. Neurologically, the patient is awake and alert and the patient does not have any focal neurological deficit. Cranial nerves are essentially intact. - Labs CBC & Chem 7: 05/06/24 14:15 05/06/24 06:49 Labs: Abnormal Lab Results - Last 24 Hours (Table) 05/06/24 05/06/24 05/07/24 Range/Units 14:15 14:15 04:07 WBC 25.5 H (3.8-10.6) k/uL Hgb 11.3 L (11.4-16.0) gm/dL Hemoglobin A1c 6.1 H (<=6.0) % Procalcitonin 25.00 H (0.02-0.50) ng/mL Microbiology - Last 24 Hours (Table) 05/04/24 21:03 Blood Culture - Preliminary Blood 05/05/24 18:21 Urine Culture - Final Urine,Clean Catch Assessment and Plan Plan: Acute sepsis which is currently under investigation. Suspect underlying urinary tract infection. The patient presented with fever, leukocytosis significant elevation of the procalcitonin level. The patient also had an acute kidney injury at time of admission. In terms of source of the infection, reviewed the chest x-ray and CT of the chest and there is no convincing evidence of pneumonia. Consider underlying urine tract infection with secondary sepsis. Repeat chest x-ray from today shows some atelectatic changes in lung bases. The patient remains on a combination of Rocephin and Zithromax. Blood cultures still negative. Acute leukocytosis, white cell count remains elevated Acute kidney injury, improving Acute lactic acidosis with lactic acid level of 4.3, normalized with fluids and the lactic acid level is down to 1.9 Acute elevation of troponin, likely type II myocardial ischemia secondary to underlying sepsis Obesity with a BMI of 42.3 Myasthenia gravis maintained on a combination of Mestinon and prednisone on outpatient basis Hypertension Plan Clinically stable Procalcitonin level is improving Continue IV fluids Continue IV Rocephin 2 g every 24 hours Lactic acid level improving Monitor white cell count and labs to be repeated tomorrow Blood cultures and urine cultures are all negative Continue Mestinon and put the patient on Solu-Medrol 40 mg every 6 hours, also started on IVIG Management of myasthenia gravis per neurology Echocardiogram was also completed and the patient was found to have a preserved LV function with an EF of around 55 to 60%. Moderate MR. Mild aortic stenosis. Will continue to follow Time with Patient: Greater than 30
[2024-05-07] MEDS: cloNIDine HCL 0.2 MG TAB PO STA (21:40)
[2024-05-08 10:53] LABS: HCT 37.4 % (34.0-46.0); HGB 12.1 gm/dL (11.4-16.0); Hypochromasia Slight; MCH 29.3 pg (25.0-35.0); MCHC 32.2 g/dL (31.0-37.0); MCV 91.1 fL (80.0-100.0); Mean Platelet Volume 8.2; Platelet Count 179 k/uL (150-450); RBC 4.11 m/uL (3.80-5.40); RDW 13.2 % (11.5-15.5)
[2024-05-08 11:04] LABS: African American GFR (CKD) >90 (>60 ml/min/1.73 sqM); Anion Gap 10 mmol/L; Blood Urea Nitrogen 27 mg/dL (7-17); Calcium 9.2 mg/dL (8.4-10.2); Carbon Dioxide 22 mmol/L (22-30); Chloride 108 mmol/L (98-107); Glucose 119 mg/dL (74-99); Non-African American GFR(CKD) 80 (>60 ml/min/1.73 sqM); Potassium 4.6 mmol/L (3.5-5.1); Sodium 140 mmol/L (137-145)
--- NOTE | 2024-05-08 11:20 | P.PN ---
Subjective Progress Note Date: 05/07/24 Patient was seen for a follow-up. Patient states that she is feeling slightly better as compared to yesterday. Today patient is seen reclining in the bed. This is better as compared to yesterday. She is still slightly short of breath but overall improved. Patient is getting the second dose of IVIG. Initial vital capacity 1.48 L and NIF -18. Objective - Vital Signs Vital signs: Vital Signs Temp 98.0 F 05/07/24 06:45 Pulse 79 05/07/24 13:45 Resp 18 05/07/24 13:45 BP 167/98 05/07/24 13:45 Pulse Ox 96 05/07/24 13:45 FiO2 Intake & Output 05/06/24 05/07/24 05/07/24 18:59 06:59 18:59 Intake Total 780 347.625 Balance 780 347.625 Weight 122.47 kg 125.5 kg Intake: Intake, IV Titration 27.625 Amount Immune Globulin ( 27.625 Gammagard) 20 gm In Empty Bag 1 bag @ Titrate IV . Q0M ONE Rx#:[id number] Oral 780 320 Other: Voiding Method Toilet Toilet Incontinent Incontinent # Voids 3 - Exam Patient's mental status, speech and language functions are normal. Patient continues to have slight weakness of the orbicularis marixa muscle. Otherwise her eye closure, tongue strength appears normal. No drooling. Deltoids are 5-, hip flexion 4+5-. Rest of the strength is normal. Patient still able to generate cough. Her difficulty breathing appears slightly better. - Labs CBC & Chem 7: 05/08/24 10:24 05/08/24 10:24 Labs: Abnormal Lab Results - Last 24 Hours (Table) 05/06/24 05/06/24 05/07/24 Range/Units 14:15 14:15 04:07 WBC 25.5 H (3.8-10.6) k/uL Hgb 11.3 L (11.4-16.0) gm/dL Hemoglobin A1c 6.1 H (<=6.0) % Procalcitonin 25.00 H (0.02-0.50) ng/mL Microbiology - Last 24 Hours (Table) 05/04/24 21:03 Blood Culture - Preliminary Blood 02/18/25 18:21 Urine Culture - Final Urine,Clean Catch Assessment and Plan Assessment: * Myasthenia gravis with exacerbation, recent worsening because of underlying medical conditions as below. * Leukocytosis, likely due to use of steroids. * Acute kidney injury, resolved * Abnormal UA, but the urine cultures came back negative * No definitive evidence of pneumonia. * Acute lactic acidosis * Elevated troponins * Obesity * Hypertension Plan: * Patient has myasthenia gravis, on Mestinon 60 mg 3 times daily and prednisone 10 mg daily. Patient currently started on low-dose methylprednisolone 40 mg every 6 hours, instead of prednisone. * Patient has myasthenia gravis exacerbation, with impending crisis. Her vital capacity is low 1.48 L and NIF -18 * Patient's renal functions have normalized. Chest x-ray did not show any obv ious pneumonia. Her white cells are possibly related to use of steroids. I discussed with pulmonary, and also primary care. Cleared for IVIG. * We will give IVIG 0.5 g/kg's daily for 4 days. Patient's IgA level is normal 182. Today is day 2/4 of IVIG. Patient informed of risks and benefits of I VIG. * Continue very close monitoring, for any deterioration. Renal functions are stable. * Patient also seen by cardiology, and pulmonary medicine. * Medical management as per IM and other specialties on board. Patient on ceftriaxone. * Await acetylcholine receptor antibodies. * DVT prophylaxis: Lovenox 40 mg subcu daily * Discussed with ICU staff.
[2024-05-08] MEDS: IMMUNE GLOBULIN (GAMMAGARD) 20 GM in EMPTY BAG 1 BAG IV ONE ×2 (13:24→15:13)
[2024-05-08] MEDS: amLODIPine 10 MG TAB PO SCH (13:46)
[2024-05-08] MEDS ORDERED: IMMUNE GLOBULIN (GAMMAGARD) 20 GM in EMPTY BAG 1 BAG IV ONE (14:00)
[2024-05-08] MEDS: lisinopriL 10 MG TAB PO STA (14:18)
--- NOTE | 2024-05-08 16:17 | P.PN ---
Subjective Progress Note Date: 05/08/24 This is a 64-year-old female patient who is being seen in the emergency department for some symptoms of cough and congestion. The patient was doing well and her symptoms started approximately 24 hours ago and subsequent the patient encountered increased nausea and emesis. For that reason, the patient c michelle into the hospital and the patient was also found to be febrile with a temperature of 102. Her blood work showed initial lactic acid level of 4.3. BUN was 18 with a creatinine of 1.4. Her white cell count was 18.8 with a hemoglobin 10.7 and subsequent white cell count came back at 27.6. She received IV fluids and the creatinine dropped from 1.4 down to 0.9 and the rest of the electrolytes are stable and the patient has a mild component of non-anion gap metabolic acidosis. Her procalcitonin level was checked and is above 100. Troponins are 0.08 and 0.05 respectively. UA was abnormal and the patient has clumps of white cells and 54 RBCs in her urine was cloudy with +2 protein. The viral 4 Plex was negative. The patient was started on IV Rocephin and she was also given Zithromax. As part of her workup, CT of the chest was done that showed no evidence of any pulmonary embolism. Atelectatic changes in lung bases along with hepatic steatosis. Doppler of the lower extremities showed no evidence of DVTs. The patient is currently on 2 L of oxygen by nasal cannula with a pulse ox of 98%. No significant tachycardia. No tachypnea. She is currently afebrile. Hemodynamically stable. Cardiology saw the patient. Awaiting echocardiogram. On a separate note, the patient has history of myasthenia gravis. Maintained on a combination of prednisone and Mestinon on an outpatient basis. No significant neuromuscular weakness at this point in time. On today's evaluation of 05/06/2024, the patient is being seen for a follow-up. The patient is currently comfortable on 2 L of oxygen by nasal cannula with pulse ox 99%. The patient is afebrile. Hemodynamically stable. No significant sinus tachycardia. The white cell count remains elevated at 25.5 and the patient also demonstrated an elevated procalcitonin level of 83. This is consistent with sepsis. Rest of the blood work shows a sodium level of 140, potassium level of 4.5, bicarb of 20, BUN 17 with a creatinine of 0.9. The patient's hemoglobin is currently at 11.3 with a platelet count of 226. The blood cultures still negative. The UA was abnormal suggestive underlying urine tract infection. The patient remains on broad-spectrum antibiotics. The patient is on a combination of Rocephin and Zithromax. She is also known to have myasthenia gravis. The patient was seen by neurology and she is maintained on Mestinon and prednisone on outpatient basis. The patient will be given also low-dose IV Solu-Medrol. She is feeling weak. No diplopia, no changes with speech or swallow. A repeat chest x-ray was done today and it showed some atelectatic changes in lung base bilaterally. Otherwise no other acute abnormalities. Venous Dopplers were negative. CT of the chest showed no evidence of pulmonary embolism and a Doppler of the lower extremities were negative. Also, the CAT scan of the chest showed small lung volumes and atelectatic changes in lung bases. No clear indication for pneumonia. Today's evaluation of 05/07/2024, the patient is being seen for a follow-up. The patient is feeling better. As mentioned, the patient was septic with an elevated procalcitonin level. Nevertheless, all of the cultures came back negative. Fortunately, she spiked antibiotics and the procalcitonin level is dropped from 100 down to 25. Hemodynamically stable. She remains on oxygen at 4 L with a pulse ox of 96%. Based on presence of generalized weakness, the patient was started on IVIG. The patient remains on IV Solu-Medrol and Mestinon. She does have underlying myasthenia gravis. She remains on IV Rocephin. Cultures came back all negative. Awaiting follow-up labs from today in regards to her white cell count. On 05/08/2024, the patient is being seen for a follow-up. Feels stronger while receiving IVIG. The patient remains on Mestinon and IV Solu-Medrol 40 mg every 6 hours. She remains on IV Rocephin. No fever. Hemodynamically stable. White cell count has dropped down to 17 with a heme of 12.1 and platelet count of 179. BUN 27 with a creatinine 0.7. Sodium is at 140. Cultures were all negative. No respiratory distress. Afebrile. Blood pressure slightly elevated and the patient was started on lisinopril. She is on 5 L of O2 nasal cannula with a pulse ox of 96%. Objective - Vital Signs Vital signs: Vital Signs Temp 97.9 F 05/08/24 07:00 Pulse 65 05/08/24 12:53 Resp 48 H 05/08/24 12:53 BP 177/89 05/08/24 12:53 Pulse Ox 96 05/08/24 01:27 FiO2 Intake & Output 05/07/24 05/08/24 05/08/24 18:59 06:59 18:59 Intake Total 239.927 8956 Balance 452.161 3228 Weight 130 kg Intake: Intake, IV Titration 133.875 Amount Immune Globulin ( 133.875 Gammagard) 20 gm In Empty Bag 1 bag @ Titrate IV . Q0M ONE Rx#:[id number] Oral 720 1080 Other: Voiding Method Toilet Toilet Incontinent # Voids 4 6 # Bowel Movements 6 - Exam The patient appeared well nourished and normally developed. Vital signs as documented. The patient is currently on 2 L of oxygen by nasal cannula Head exam is unremarkable. No scleral icterus or corneal arcus noted. Neck is without jugular venous distension, thyromegaly, or carotid bruits. Carotid upstrokes are brisk bilaterally. Lungs are clear to auscultation and percussion. Cardiac exam reveals the PMI to be normally sized and situated. Rhythm is regular. First and second heart sounds normal. No murmurs, rubs or gallops. Abdominal exam reveals normal bowel sounds, no masses, no organomegaly and no aortic enlargement. Extremities are nonedematous and both femoral and pedal pulses are normal. Examination of the skin revealed no evidence of significant rashes, suspicious appearing nevi or other concerning lesions. Neurologically, the patient is awake and alert and the patient does not have any focal neurological deficit. Cranial nerves are essentially intact. - Labs CBC & Chem 7: 05/08/24 10:24 05/08/24 10:24 Labs: Abnormal Lab Results - Last 24 Hours (Table) 05/08/24 05/08/24 Range/Units 10:24 10:24 WBC 17.0 H (3.8-10.6) k/uL Chloride 108 H (98-107) mmol/L BUN 27 H (7-17) mg/dL Glucose 119 H (74-99) mg/dL Microbiology - Last 24 Hours (Table) 05/04/24 21:03 Blood Culture - Preliminary Blood Assessment and Plan Plan: Acute sepsis which is currently under investigation. Suspect underlying urinary tract infection. The patient presented with fever, leukocytosis significant elevation of the procalcitonin level. The patient also had an acute kidney injury at time of admission. In terms of source of the infection, reviewed the chest x-ray and CT of the chest and there is no convincing evidence of pneumonia. Consider underlying urine tract infection with secondary sepsis. Repeat chest x-ray from today shows some atelectatic changes in lung bases. The patient remains on a combination of Rocephin and Zithromax. Blood cultures still negative. Acute leukocytosis, white cell count remains elevated Acute kidney injury, improving Acute lactic acidosis with lactic acid level of 4.3, normalized with fluids and the lactic acid level is down to 1.9 Acute elevation of troponin, likely type II myocardial ischemia secondary to underlying sepsis Obesity with a BMI of 42.3 Myasthenia gravis maintained on a combination of Mestinon and prednisone on outpatient basis Hypertension Plan Clinically stable, clinical improving and the patient will be maintained on IV Rocephin Procalcitonin level is improving Continue IV Rocephin 2 g every 24 hours Lactic acid level improving White cell count is improving Blood cultures and urine cultures are all negative Continue Mestinon and put the patient on Solu-Medrol 40 mg every 6 hours, also started on IVIG Management of myasthenia gravis per neurology Echocardiogram was also completed and the patient was found to have a preserved LV function with an EF of around 55 to 60%. Moderate MR. Mild aortic stenosis. Will continue to follow
--- NOTE | 2024-05-08 16:55 | P.PN ---
Subjective Progress Note Date: 05/08/24 Hospital Course: 64-year-old female with past medical history significant for myasthenia gravis and hypertension presents to emergency department today as a transfer from [place]. She initially went to [place], was found to have sinus tachycardia on EKG as well as hypomagnesemia and hypokalemia and was subsequently transferred here.She states that around 7 AM this morning she began coughing up a yellowish sputum and had episodes of nonbloody emesis in between coughing episodes. She states that she was vomiting anytime she tried to have a sip of water after coughing. She does report a fever of about 102F today as well as reporting headaches, lightheadedness/dizziness. She reports dyspnea and orthopnea. She denies chest pain, abdominal pain, myalgias. She denies recent travel or being sedentary. She denies sick contacts. Initial vitals: BP 133/108, NC 118 bpm, RR 24, 100% on 5 L nasal cannula, T 98.4 F Initial labs: WBC 18.8, RBC 3.66, hemoglobin 10.7, hematocrit 33.8, sodium 139, potassium 4.2, chloride 113, CO2 14, BUN 18, creatinine 1.44, lactic acid 4.3, calcium 7.5, magnesium 1.2, troponin x 1 0.084, D-dimer 15.84; urinalysis 2+ protein, moderate blood, positive nitrite, leukocyte esterase, moderate bacteria, many WBCs Initial EKG: Sinus tachycardia with ventricular rate of 118 bpm Initial chest x-ray: Left perihilar and lower lobe infiltrate, correlate for pneumonia Initial chest CTA: No evidence for pulmonary embolism, low lung volumes with streaky atelectasis, hepatic steatosis Patient being treated for sepsis secondary to likely community-acquired pneumonia as well as possible urinary tract infection. Also concern for impending myasthenic crisis. Started on IV steroids, neurology and pulmonology also consulted. Subjective: Patient seen and examined at bedside. No acute events overnight. Pertinent positives and negatives as discussed above, a complete review of systems was performed and all other systems are negative. Vitals Signs Reviewed. General: Nontoxic, no distress, appears at stated age, morbidly obese Derm: Warm, dry Head: Atraumatic, normocephalic, symmetric Eyes: EOMI, no lid lag, anicteric sclera, right ptosis Mouth: No lip lesion, mucus membranes moist Cardiovascular: S1S2 reg, no murmur Lungs: CTA bilateral, no rhonchi, no rales, no accessory muscle use, supplemental oxygen Ext: No gross muscle atrophy, no edema, no contractures Neuro: no focal neuro deficits Psych: Alert, oriented, appropriate affect Data Reviewed Today: Pertinent Labs: CBC and BMP significant for WBC 17, CL 108, BUN 27, glu 119. Procal 25. Imaging:Echo EF 55-60% mod MR, mild Assessment and Plan: Patient is severely ill, needs close monitoring. Prognosis guarded. Active: Acute hypoxic respiratory failure Impending myasthenic crisis Suspected community-acquired pneumonia Urinary tract infection Bandemia Metabolic acidosis, improving NSTEMI, likely type II -Continue ceftriaxone IV 2 g every 24 hours -Cultures negative so far -IV Solu-Medrol 40 every 6 hours -Continue home rivastigmine 60 p.o. 3 times daily -Continue IVIG infusions -Every 6 hours VC and NIF -Pulmonology and neurology on board -Aspirin 81 mg daily, atorvastatin 40 mg daily -Continue telemetry monitoring -Cardiology consulted, signed off Normocytic anemia -Stable, continue to monitor Resolved: Acute kidney injury Lactic acidosis Hypomagnesemia Chronic: Hypertension, increased Lisinopril to 20 mg PO QD. GERD DVT ppx: Lovenox Code status: Full code Anticipated discharge place: Pending clinical course Anticipated discharge time: Pending clinical course Objective - Vital Signs Vital signs: Vital Signs Temp 97.9 F 05/08/24 07:00 Pulse 65 05/08/24 12:53 Resp 48 H 05/08/24 12:53 BP 177/89 05/08/24 12:53 Pulse Ox 96 05/08/24 01:27 FiO2 Intake & Output 05/07/24 05/08/24 05/08/24 18:59 06:59 18:59 Intake Total 020.852 9047 260.792 Balance 311.864 7942 260.792 Weight 130 kg Intake: Intake, IV Titration 133.875 160.792 Amount Immune Globulin ( 133.875 Gammagard) 20 gm In Empty Bag 1 bag @ Titrate IV . Q0M ONE Rx#:[id number] Immune Globulin ( 160.792 Gammagard) 20 gm In Empty Bag 1 bag @ Titrate IV . Q0M ONE Rx#:[id number] Oral 720 1080 100 Other: Voiding Method Toilet Toilet Incontinent # Voids 4 6 # Bowel Movements 6 - Labs CBC & Chem 7: 05/08/24 10:24 05/08/24 10:24 Labs: Abnormal Lab Results - Last 24 Hours (Table) 05/08/24 05/08/24 Range/Units 10:24 10:24 WBC 17.0 H (3.8-10.6) k/uL Chloride 108 H (98-107) mmol/L BUN 27 H (7-17) mg/dL Glucose 119 H (74-99) mg/dL Microbiology - Last 24 Hours (Table) 05/04/24 21:03 Blood Culture - Preliminary Blood
[2024-05-08] MEDS: cloNIDine HCL 0.2 MG TAB PO STA (20:51)
[2024-05-09] MEDS: lisinopriL 20 MG TAB PO SCH (08:37)
[2024-05-09] MEDS: hydroCHLOROthiazide 25 MG TAB PO SCH (11:43)
--- NOTE | 2024-05-09 11:59 | P.PN ---
Subjective Progress Note Date: 05/08/24 Patient was seen for a follow-up. Patient is sitting comfortably in the recliner. Patient states her breathing has improved. She does not have any cough or phlegm. She has little better endurance. She has been having headache off and on but nothing major. Denies any diplopia or any other symptoms. Per respiratory therapist, her NIF was -44 and vital capacity 1.3 L, as of today. Initial vital capacity 1.48 L and NIF -18. Objective - Vital Signs Vital signs: Vital Signs Temp 97.9 F 05/08/24 07:00 Pulse 65 05/08/24 12:53 Resp 48 H 05/08/24 12:53 BP 177/89 05/08/24 12:53 Pulse Ox 96 05/08/24 01:27 FiO2 Intake & Output 05/07/24 05/08/24 05/08/24 18:59 06:59 18:59 Intake Total 568.419 0319 260.792 Balance 492.960 6450 260.792 Weight 130 kg Intake: Intake, IV Titration 133.875 160.792 Amount Immune Globulin ( 133.875 Gammagard) 20 gm In Empty Bag 1 bag @ Titrate IV . Q0M ONE Rx#:[id number] Immune Globulin ( 160.792 Gammagard) 20 gm In Empty Bag 1 bag @ Titrate IV . Q0M ONE Rx#:[id number] Oral 720 1080 100 Other: Voiding Method Toilet Toilet Incontinent # Voids 4 6 # Bowel Movements 6 - Exam Patient's mental status, speech and language functions are normal. Her strength of orbicularis marixa has improved. Otherwise her eye closure, tongue strength appears normal. No drooling. Deltoids are 5-, hip flexion 4+5-. Rest of the strength is normal. Patient still able to generate cough. Her difficulty jorge thing appears slightly better. - Labs CBC & Chem 7: 05/08/24 10:24 05/08/24 10:24 Labs: Abnormal Lab Results - Last 24 Hours (Table) 05/08/24 05/08/24 Range/Units 10:24 10:24 WBC 17.0 H (3.8-10.6) k/uL Chloride 108 H (98-107) mmol/L BUN 27 H (7-17) mg/dL Glucose 119 H (74-99) mg/dL Microbiology - Last 24 Hours (Table) 05/04/24 21:03 Blood Culture - Preliminary Blood Assessment and Plan Assessment: * Myasthenia gravis with exacerbation, recent worsening because of underlying medical conditions as below. * Leukocytosis, likely due to use of steroids. * Acute kidney injury, resolved * Abnormal UA, but the urine cultures came back negative * No definitive evidence of pneumonia. * Acute lactic acidosis * Elevated troponins * Obesity * Hypertension Plan: * Patient has myasthenia gravis, on Mestinon 60 mg 3 times daily and prednisone 10 mg daily. Patient currently started on low-dose methylprednisolone 40 mg every 6 hours, instead of prednisone. * Patient has myasthenia gravis exacerbation, with impending crisis. Her initial vital capacity is low 1.48 L and NIF -18. Today her NIF has improved to -44, although vital capacity documented is slightly low 1.3 L. * Patient's renal functions are normal. Chest x-ray did not show any obvious pneumonia. Her white cells are possibly related to use of steroids. WBC count improved to 17,000. * We will give IVIG 0.5 g/kg's daily for 4 days. Patient's IgA level is normal 182. Today is day 3/4 of IVIG. Patient informed of risks and benefits of IVIG. * Continue very close monitoring, for any deterioration. Renal functions are stable. * Patient also seen by cardiology, and pulmonary medicine. * Medical management as per IM and other specialties on board. Patient on ceftriaxone. * Await acetylcholine receptor antibodies. * DVT prophylaxis: Lovenox 40 mg subcu daily
[2024-05-09] MEDS: IMMUNE GLOBULIN (GAMMAGARD) 20 GM in EMPTY BAG 1 BAG IV ONE ×2 (13:38→15:21)
--- NOTE | 2024-05-09 14:51 | P.PN ---
Subjective Progress Note Date: 05/09/24 This is a 64-year-old female patient who is being seen in the emergency department for some symptoms of cough and congestion. The patient was doing well and her symptoms started approximately 24 hours ago and subsequent the patient encountered increased nausea and emesis. For that reason, the patient c michelle into the hospital and the patient was also found to be febrile with a temperature of 102. Her blood work showed initial lactic acid level of 4.3. BUN was 18 with a creatinine of 1.4. Her white cell count was 18.8 with a hemoglobin 10.7 and subsequent white cell count came back at 27.6. She received IV fluids and the creatinine dropped from 1.4 down to 0.9 and the rest of the electrolytes are stable and the patient has a mild component of non-anion gap metabolic acidosis. Her procalcitonin level was checked and is above 100. Troponins are 0.08 and 0.05 respectively. UA was abnormal and the patient has clumps of white cells and 54 RBCs in her urine was cloudy with +2 protein. The viral 4 Plex was negative. The patient was started on IV Rocephin and she was also given Zithromax. As part of her workup, CT of the chest was done that showed no evidence of any pulmonary embolism. Atelectatic changes in lung bases along with hepatic steatosis. Doppler of the lower extremities showed no evidence of DVTs. The patient is currently on 2 L of oxygen by nasal cannula with a pulse ox of 98%. No significant tachycardia. No tachypnea. She is currently afebrile. Hemodynamically stable. Cardiology saw the patient. Awaiting echocardiogram. On a separate note, the patient has history of myasthenia gravis. Maintained on a combination of prednisone and Mestinon on an outpatient basis. No significant neuromuscular weakness at this point in time. On today's evaluation of 05/06/2024, the patient is being seen for a follow-up. The patient is currently comfortable on 2 L of oxygen by nasal cannula with pulse ox 99%. The patient is afebrile. Hemodynamically stable. No significant sinus tachycardia. The white cell count remains elevated at 25.5 and the patient also demonstrated an elevated procalcitonin level of 83. This is consistent with sepsis. Rest of the blood work shows a sodium level of 140, potassium level of 4.5, bicarb of 20, BUN 17 with a creatinine of 0.9. The patient's hemoglobin is currently at 11.3 with a platelet count of 226. The blood cultures still negative. The UA was abnormal suggestive underlying urine tract infection. The patient remains on broad-spectrum antibiotics. The patient is on a combination of Rocephin and Zithromax. She is also known to have myasthenia gravis. The patient was seen by neurology and she is maintained on Mestinon and prednisone on outpatient basis. The patient will be given also low-dose IV Solu-Medrol. She is feeling weak. No diplopia, no changes with speech or swallow. A repeat chest x-ray was done today and it showed some atelectatic changes in lung base bilaterally. Otherwise no other acute abnormalities. Venous Dopplers were negative. CT of the chest showed no evidence of pulmonary embolism and a Doppler of the lower extremities were negative. Also, the CAT scan of the chest showed small lung volumes and atelectatic changes in lung bases. No clear indication for pneumonia. Today's evaluation of 05/07/2024, the patient is being seen for a follow-up. The patient is feeling better. As mentioned, the patient was septic with an elevated procalcitonin level. Nevertheless, all of the cultures came back negative. Fortunately, she spiked antibiotics and the procalcitonin level is dropped from 100 down to 25. Hemodynamically stable. She remains on oxygen at 4 L with a pulse ox of 96%. Based on presence of generalized weakness, the patient was started on IVIG. The patient remains on IV Solu-Medrol and Mestinon. She does have underlying myasthenia gravis. She remains on IV Rocephin. Cultures came back all negative. Awaiting follow-up labs from today in regards to her white cell count. On 05/08/2024, the patient is being seen for a follow-up. Feels stronger while receiving IVIG. The patient remains on Mestinon and IV Solu-Medrol 40 mg every 6 hours. She remains on IV Rocephin. No fever. Hemodynamically stable. White cell count has dropped down to 17 with a heme of 12.1 and platelet count of 179. BUN 27 with a creatinine 0.7. Sodium is at 140. Cultures were all negative. No respiratory distress. Afebrile. Blood pressure slightly elevated and the patient was started on lisinopril. She is on 5 L of O2 nasal cannula with a pulse ox of 96%. On 05/09/2024, the patient is being seen for a follow-up. Doing well. Specific complaints. Oxygenation is also stable on 5 L of oxygen by nasal cannula with a pulse ox of 99%. He should be valvular weaned. The white cell count is down to 17. Cultures are all negative. No significant shortness of breath. Remains on IV Rocephin. Remains on IV Solu-Medrol. Remains on Mestinon. No double visi on. No difficulties with swallowing. Objective - Vital Signs Vital signs: Vital Signs Temp 97.2 F L 05/09/24 01:20 Pulse 56 L 05/09/24 08:00 Resp 18 05/09/24 08:00 BP 179/95 05/09/24 08:00 Pulse Ox 97 05/09/24 08:00 FiO2 Intake & Output 05/08/24 05/09/24 05/09/24 18:59 06:59 18:59 Intake Total 510.792 540 Balance 510.792 540 Weight 127 kg Intake: Intake, IV Titration 160.792 Amount Immune Globulin ( 160.792 Gammagard) 20 gm In Empty Bag 1 bag @ Titrate IV . Q0M ONE Rx#:[id number] Oral 350 540 Other: Voiding Method Toilet # Voids 4 - Exam The patient appeared well nourished and normally developed. Vital signs as documented. The patient is currently on 2 L of oxygen by nasal cannula Head exam is unremarkable. No scleral icterus or corneal arcus noted. Neck is without jugular venous distension, thyromegaly, or carotid bruits. Carotid upstrokes are brisk bilaterally. Lungs are clear to auscultation and percussion. Cardiac exam reveals the PMI to be normally sized and situated. Rhythm is regular. First and second heart sounds normal. No murmurs, rubs or gallops. Abdominal exam reveals normal bowel sounds, no masses, no organomegaly and no aortic enlargement. Extremities are nonedematous and both femoral and pedal pulses are normal. Examination of the skin revealed no evidence of significant rashes, suspicious appearing nevi or other concerning lesions. Neurologically, the patient is awake and alert and the patient does not have any focal neurological deficit. Cranial nerves are essentially intact. - Labs CBC & Chem 7: 05/08/24 10:24 05/08/24 10:24 Assessment and Plan Plan: Acute sepsis which is currently under investigation. Suspect underlying urinary tract infection. The patient presented with fever, leukocytosis significant elevation of the procalcitonin level. The patient also had an acute kidney injury at time of admission. In terms of source of the infection, reviewed the chest x-ray and CT of the chest and there is no convincing evidence of pneumo brandon. Consider underlying urine tract infection with secondary sepsis. Repeat chest x-ray from today shows some atelectatic changes in lung bases. The patient remains on IV Rocephin Acute leukocytosis, white cell count is improved Acute kidney injury, improving Acute lactic acidosis with lactic acid level of 4.3, normalized with fluids and the lactic acid level is down to 1.9 Acute elevation of troponin, likely type II myocardial ischemia secondary to underlying sepsis Obesity with a BMI of 42.3 Myasthenia gravis maintained on a combination of Mestinon and prednisone on outpatient basis Hypertension Plan Wean down FiO2 to maintain saturation above 90%, Clinically stable, clinical improving and the patient will be maintained on IV Rocephin Procalcitonin level is improving Continue IV Rocephin 2 g every 24 hours Lactic acid level improving White cell count is improving Blood cultures and urine cultures are all negative Continue Mestinon and put the patient on Solu-Medrol 40 mg every 6 hours, also received IVIG Management of myasthenia gravis per neurology Echocardiogram was also completed and the patient was found to have a preserved LV function with an EF of around 55 to 60%. Moderate MR. Mild aortic stenosis. Will continue to follow
--- NOTE | 2024-05-09 16:56 | P.PN ---
Subjective Progress Note Date: 05/09/24 Hospital Course: 64-year-old female with past medical history significant for myasthenia gravis and hypertension presents to emergency department today as a transfer from [place]. She initially went to [place], was found to have sinus tachycardia on EKG as well as hypomagnesemia and hypokalemia and was subsequently transferred here.She states that around 7 AM this morning she began coughing up a yellowish sputum and had episodes of nonbloody emesis in between coughing episodes. She states that she was vomiting anytime she tried to have a sip of water after coughing. She does report a fever of about 102F today as well as reporting headaches, lightheadedness/dizziness. She reports dyspnea and orthopnea. She denies chest pain, abdominal pain, myalgias. She denies recent travel or being sedentary. She denies sick contacts. Initial vitals: BP 133/108, NJ 118 bpm, RR 24, 100% on 5 L nasal cannula, T 98.4 F Initial labs: WBC 18.8, RBC 3.66, hemoglobin 10.7, hematocrit 33.8, sodium 139, potassium 4.2, chloride 113, CO2 14, BUN 18, creatinine 1.44, lactic acid 4.3, calcium 7.5, magnesium 1.2, troponin x 1 0.084, D-dimer 15.84; urinalysis 2+ protein, moderate blood, positive nitrite, leukocyte esterase, moderate bacteria, many WBCs Initial EKG: Sinus tachycardia with ventricular rate of 118 bpm Initial chest x-ray: Left perihilar and lower lobe infiltrate, correlate for pne umonia Initial chest CTA: No evidence for pulmonary embolism, low lung volumes with streaky atelectasis, hepatic steatosis Patient being treated for sepsis secondary to likely community-acquired pneu monia as well as possible urinary tract infection. Also concern for impending myasthenic crisis. Started on IV steroids, neurology and pulmonology also consulted. Subjective: Patient seen and examined at bedside. No acute events overnight. Feeling slightly better day by day. Pertinent positives and negatives as discussed above, a complete review of systems was performed and all other systems are negative. Vitals Signs Reviewed. General: Nontoxic, no distress, appears at stated age, morbidly obese Derm: Warm, dry Head: Atraumatic, normocephalic, symmetric Eyes: EOMI, no lid lag, anicteric sclera, right ptosis Mouth: No lip lesion, mucus membranes moist Cardiovascular: S1S2 reg, no murmur Lungs: CTA bilateral, no rhonchi, no rales, no accessory muscle use, supplemental oxygen Ext: No gross muscle atrophy, no edema, no contractures Neuro: no focal neuro deficits Psych: Alert, oriented, appropriate affect Data Reviewed Today: Pertinent Labs: Imaging: Assessment and Plan: Patient is severely ill, needs close monitoring. Prognosis guarded. Active: Acute hypoxic respiratory failure Impending myasthenic crisis Urinary tract infection Bandemia NSTEMI, likely type II -Continue ceftriaxone IV 2 g every 24 hours -Cultures negative so far -IV Solu-Medrol 40 every 6 hours -Continue home rivastigmine 60 p.o. 3 times daily -Last day of IVIG today -Every 6 hours VC and NIF -Pulmonology and neurology on board -Aspirin 81 mg daily, atorvastatin 40 mg daily -Continue telemetry monitoring -Cardiology consulted, signed off Normocytic anemia -Stable, continue to monitor Resolved: Acute kidney injury Lactic acidosis Hypomagnesemia Metabolic acidosis Chronic: Hypertension, continue Lisinopril to 20 mg PO QD, add HCTZ 25 mg PO QD. GERD DVT ppx: Lovenox Code status: Full code Anticipated discharge place: Pending clinical course Anticipated discharge time: Pending clinical course Dispo: Symptoms continue to improved. Last day of IVIG today. Leukocytosis continues to trend down. Plans for discharge home in 1-2 days after Neurology and Pulmonary clearance. Objective - Vital Signs Vital signs: Vital Signs Temp 97.2 F L 05/09/24 01:20 Pulse 83 05/09/24 16:30 Resp 18 05/09/24 08:00 BP 181/93 05/09/24 16:30 Pulse Ox 96 05/09/24 16:30 FiO2 Intake & Output 05/08/24 05/09/24 05/09/24 18:59 06:59 18:59 Intake Total 510.792 540 146.625 Balance 510.792 540 146.625 Weight 127 kg Intake: Intake, IV Titration 160.792 146.625 Amount Immune Globulin ( 160.792 Gammagard) 20 gm In Empty Bag 1 bag @ Titrate IV . Q0M ONE Rx#:[id number] Immune Globulin ( 146.625 Gammagard) 20 gm In Empty Bag 1 bag @ Titrate IV . Q0M ONE Rx#:[id number] Oral 350 540 Other: Voiding Method Toilet # Voids 4 - Labs CBC & Chem 7: 05/08/24 10:24 05/08/24 10:24
[2024-05-09] MEDS: DILTIAZEM 5 MG/ML 5 ML VIAL IVP STA (18:19)
[2024-05-09 19:51] LABS: Magnesium 1.6 mg/dL (1.6-2.3); Potassium 4.5 mmol/L (3.5-5.1)
[2024-05-09] MEDS ORDERED: HEPARIN SODIUM 1,000 UN/ML (10ML VL) IV PRN (20:33)
[2024-05-09] MEDS: DILTIAZEM 125 MG in SODIUM CHLORIDE 0.9% 100 ML IV SCH (21:27)
[2024-05-09] MEDS: METOPROLOL TARTRATE 25 MG TAB PO SCH (21:27)
[2024-05-09] MEDS: DILTIAZEM DRIP BOLUS FROM BAG 1 MG SOLN IV ONE (21:27)
[2024-05-09] MEDS: HEPARIN SOD,PORK IN 0.45% NACL 25,000 UNIT in 0.45% NACL 1 250ML.BAG IV SCH (21:28)
[2024-05-10 05:05] LABS: HCT 44.2 % (34.0-46.0); HGB 14.7 gm/dL (11.4-16.0); MCH 28.7 pg (25.0-35.0); MCHC 33.3 g/dL (31.0-37.0); MCV 86.2 fL (80.0-100.0); Mean Platelet Volume 8.3; Platelet Count 214 k/uL (150-450); Poikilocytosis Slight; RBC 5.13 m/uL (3.80-5.40); RDW 14.1 % (11.5-15.5); WBC 27.8 k/uL (3.8-10.6)
[2024-05-10 05:31] LABS: INR 1.1 (<1.2); Prothrombin Time 11.7 sec (10.0-12.5)
[2024-05-10 05:32] LABS: African American GFR (CKD) >90 (>60 ml/min/1.73 sqM); Anion Gap 11 mmol/L; Blood Urea Nitrogen 31 mg/dL (7-17); Carbon Dioxide 25 mmol/L (22-30); Chloride 103 mmol/L (98-107); Glucose 133 mg/dL (74-99); Non-African American GFR(CKD) 81 (>60 ml/min/1.73 sqM); Potassium 4.9 mmol/L (3.5-5.1); Sodium 139 mmol/L (137-145)
[2024-05-10 05:59] LABS: Band Neutrophils % 6 %; Lymphocytes # (M) 1.67 k/uL (1.0-4.8); Metamyelocytes # (M) 0.56 k/uL (0); Metamyelocytes % 2 %; Monocytes # (M) 1.11 k/uL (0-1.0); Myelocytes # (M) 1.11 k/uL (0); Myelocytes % 4 %; Neutrophils % (M) 80 %; Nucleated Red Blood Cells 0 /100 WBC (0-0); Total Cells Counted 200; Toxic Granulation Present
[2024-05-10 06:00] LABS: Toxic Vacuolation Present
--- NOTE | 2024-05-10 11:15 | P.PN ---
Subjective Progress Note Date: 05/09/24 Patient was seen for a follow-up. Patient is sitting comfortably in the recliner. Patient states her breathing has improved. She does not have any cough or phlegm. She has little better endurance. Patient denies headache. Denies any diplopia or other symptoms. Per respiratory therapist, her NIF is -35 and vital capacity 2.14 L, as of today. This is much improved. Initial vital capacity 1.48 L and NIF -18. Objective - Vital Signs Vital signs: Vital Signs Temp 97.2 F L 05/09/24 01:20 Pulse 56 L 05/09/24 08:00 Resp 18 05/09/24 08:00 BP 179/95 05/09/24 08:00 Pulse Ox 97 05/09/24 08:00 FiO2 Intake & Output 05/08/24 05/09/24 05/09/24 18:59 06:59 18:59 Intake Total 510.792 540 146.625 Balance 510.792 540 146.625 Weight 127 kg Intake: Intake, IV Titration 160.792 146.625 Amount Immune Globulin ( 160.792 Gammagard) 20 gm In Empty Bag 1 bag @ Titrate IV . Q0M ONE Rx#:[id number] Immune Globulin ( 146.625 Gammagard) 20 gm In Empty Bag 1 bag @ Titrate IV . Q0M ONE Rx#:[id number] Oral 350 540 Other: Voiding Method Toilet # Voids 4 - Exam Patient's mental status, speech and language functions are normal. Her strength of orbicularis marixa has improved. Otherwise her eye closure, tongue strength appears normal. No drooling. Deltoids are 5-, hip flexion 4+5-. Rest of the strength is normal. Patient still able to generate very strong cough today, as compared to yesterday. Her difficulty breathing appears slightly better. - Labs CBC & Chem 7: 05/10/24 04:28 05/10/24 04:28 Assessment and Plan Assessment: * Myasthenia gravis with exacerbation, recent worsening because of underlying medical conditions as below. * Leukocytosis, likely due to use of steroids. * Acute kidney injury, resolved * Abnormal UA, but the urine cultures came back negative * No definitive evidence of pneumonia. * Acute lactic acidosis * Elevated troponins * Obesity * Hypertension Plan: * Patient has myasthenia gravis, on Mestinon 60 mg 3 times daily and prednisone 10 mg daily. Patient currently started on low-dose methylprednisolone 40 mg every 6 hours, instead of prednisone. * Patient has myasthenia gravis exacerbation, with impending crisis. Her initial vital capacity is low 1.48 L and NIF -18. Today her NIF has improved to -35, and vital capacity improved to 2.14 L * Patient's renal functions are normal. Chest x-ray did not show any obvious pneumonia. Her white cells are possibly related to use of steroids. WBC count improved to 17,000. * We will give IVIG 0.5 g/kg's daily for 4 days. Patient's IgA level is normal 182. Today is day 4/4 of IVIG. Patient has completed course of IVIG. * Continue very close monitoring, for any deterioration. Renal functions are stable. * Patient also seen by cardiology, and pulmonary medicine. * Medical management as per IM and other specialties on board. Patient on ceftriaxone. * Await acetylcholine receptor antibodies. * DVT prophylaxis: Lovenox 40 mg subcu daily * Neurologically clear for discharge pending medical clearance.
[2024-05-10] MEDS ORDERED: DILTIAZEM ORAL 30 MG TAB PO SCH (11:30)
[2024-05-10] MEDS: APIXABAN 5 MG TAB PO SCH (11:48)
[2024-05-10] MEDS: DILTIAZEM ORAL 60 MG TAB PO SCH (11:49)
--- NOTE | 2024-05-10 12:10 | P.PN ---
Subjective HISTORY OF PRESENT ILLNESS: The patient is a 64-year-old female with a known history of hypertension, myasthenia gravis diagnosed over a year and a half ago who was transferred from [facility] for evaluation of fever, cough and nausea and vomiting. She has been complaining of the symptoms since yesterday morning with yellowish sputum in addition to fever up to 102 Fahrenheit. Cardiology consultation was requested because of troponin elevation. The patient denies any history of cardiac disease, she has no history of myocardial infarction, angina pectoris or congestive heart failure. She has mild dyspnea on exertion when her myasthenia gravis is not under good control. She has some dizziness with changing position and occasional peripheral edema. She has no PND, orthopnea or syncope. Her activity is affected by her myasthenia gravis. On presentation she was in sinus mechanism with episodes of sinus tachycardia. Her troponin was 0.084 on presentation. Her procalcitonin was significantly elevated. Medications: Prednisone, Fioricet, aspirin, lisinopril 10 mg daily 05/06/2024 Patient examined this morning in the emergency room. Patient is currently sitting up in the chair. Patient currently denies any chest pain or pressure. She continues to report shortness of breath this morning. She reports increased coughing this morning as well. Bedside telemetry reveals sinus mechanism. Blood pressure stable. 05/10/2024 Cardiology was reconsulted due to new onset A-fib with RVR. Patient examined this morning at the bedside. Patient went into A-fib with RVR overnight. The patient denies any known history of atrial fibrillation. She was started on IV Cardizem and IV heparin. She remains in atrial fibrillation at the time of examination with a heart rate around 105. She denies chest pain or pressure. B lood pressure stable. Echocardiogram completed revealing ejection fraction 55 to 60% with moderate MR, mild TR, and mild aortic stenosis PHYSICAL EXAM: VITAL SIGNS: Reviewed. GENERAL: Well-developed in no acute distress. NECK: Supple. No JVD or thyromegaly LUNGS: Respirations even and unlabored. Lungs essentially clear to auscultation bilaterally. HEART: Irregular rate and rhythm. S1 and S2 heard. Systolic murmur noted. EXTREMITIES: Normal range of motion. No clubbing or cyanosis. Peripheral pulses intact. No lower extremity edema ASSESSMENT: 1. Febrile episode with yellowish sputum and abnormal chest x-ray suggestive of pneumonia 2. Mild troponin elevation most likely type II MN related to the infection 3. History of hypertension 4. History of myasthenia gravis 5. Acute renal injury, improved 6. Valvular heart disease including moderate MR, mild TR, mild aortic stenosis 7. New onset A-fib with RVR PLAN: Discontinue IV heparin. Begin Eliquis 5 mg twice a day Discontinue IV Cardizem. Begin oral Cardizem 60 mg 3 times daily Add metoprolol 25 mg twice a day Continue telemetry monitoring TSH checked and within normal limits 2D echo obtained and reviewed revealing normal LV systolic function Further recommendations pending patient course Nurse practitioner note has been reviewed by physician. Signing provider agrees with the documented findings, assessment, and plan of care documented by WOOD FILLER as a scribe. Objective - Vital Signs Vital signs: Vital Signs Temp 97.7 F 05/10/24 11:45 Pulse 84 05/10/24 11:45 Resp 20 05/10/24 11:45 BP 139/78 05/10/24 11:45 Pulse Ox 94 L 05/10/24 11:45 FiO2 Intake & Output 05/09/24 05/10/24 05/10/24 18:59 06:59 18:59 Intake Total 146.625 86.167 102.5 Output Total 1600 400 Balance 146.625 -1513.833 -297.5 Weight 123.2 kg Intake: Intake, IV Titration 146.625 86.167 102.5 Amount Diltiazem 125 mg In 102.5 Sodium Chloride 0.9% 100 ml @ 10 MG/HR 10 mls/hr IV .[id number] LORENZO Rx#: [id number] Heparin Sod,Pork in 0.45% 86.167 NaCl 25,000 unit In 0.45 % NaCl 1 250ml.bag @ 7. 874 UNITS/KG/HR 10 mls/hr IV .Q24H LORENZO Rx#: [id number] Immune Globulin ( 146.625 Gammagard) 20 gm In Empty Bag 1 bag @ Titrate IV . Q0M ONE Rx#:[id number] Output: Urine 1600 400 Other: Voiding Method Toilet Toilet # Voids 1 # Bowel Movements 1 - Labs CBC & Chem 7: 05/10/24 04:28 05/10/24 04:28 Labs: Abnormal Lab Results - Last 24 Hours (Table) 05/10/24 05/10/24 05/10/24 Range/Units 04:28 04:28 04:28 WBC 27.8 H (3.8-10.6) k/uL Neutrophils # (Manual) 23.90 H (1.3-7.7) k/uL Monocytes # (Manual) 1.11 H (0-1.0) k/uL Metamyelocytes # (Man) 0.56 H (0) k/uL Myelocytes # (Manual) 1.11 H (0) k/uL APTT 30.9 H (22.0-30.0) sec BUN 31 H (7-17) mg/dL Glucose 133 H (74-99) mg/dL Microbiology - Last 24 Hours (Table) 05/04/24 21:03 Blood Culture - Final Blood
--- NOTE | 2024-05-10 13:33 | P.PN ---
Subjective Progress Note Date: 05/10/24 This is a 64-year-old female patient who is being seen in the emergency department for some symptoms of cough and congestion. The patient was doing well and her symptoms started approximately 24 hours ago and subsequent the patient encountered increased nausea and emesis. For that reason, the patient c michelle into the hospital and the patient was also found to be febrile with a temperature of 102. Her blood work showed initial lactic acid level of 4.3. BUN was 18 with a creatinine of 1.4. Her white cell count was 18.8 with a hemoglobin 10.7 and subsequent white cell count came back at 27.6. She received IV fluids and the creatinine dropped from 1.4 down to 0.9 and the rest of the electrolytes are stable and the patient has a mild component of non-anion gap metabolic acidosis. Her procalcitonin level was checked and is above 100. Troponins are 0.08 and 0.05 respectively. UA was abnormal and the patient has clumps of white cells and 54 RBCs in her urine was cloudy with +2 protein. The viral 4 Plex was negative. The patient was started on IV Rocephin and she was also given Zithromax. As part of her workup, CT of the chest was done that showed no evidence of any pulmonary embolism. Atelectatic changes in lung bases along with hepatic steatosis. Doppler of the lower extremities showed no evidence of DVTs. The patient is currently on 2 L of oxygen by nasal cannula with a pulse ox of 98%. No significant tachycardia. No tachypnea. She is currently afebrile. Hemodynamically stable. Cardiology saw the patient. Awaiting echocardiogram. On a separate note, the patient has history of myasthenia gravis. Maintained on a combination of prednisone and Mestinon on an outpatient basis. No significant neuromuscular weakness at this point in time. On today's evaluation of 05/06/2024, the patient is being seen for a follow-up. The patient is currently comfortable on 2 L of oxygen by nasal cannula with pulse ox 99%. The patient is afebrile. Hemodynamically stable. No significant sinus tachycardia. The white cell count remains elevated at 25.5 and the patient also demonstrated an elevated procalcitonin level of 83. This is consistent with sepsis. Rest of the blood work shows a sodium level of 140, potassium level of 4.5, bicarb of 20, BUN 17 with a creatinine of 0.9. The patient's hemoglobin is currently at 11.3 with a platelet count of 226. The blood cultures still negative. The UA was abnormal suggestive underlying urine tract infection. The patient remains on broad-spectrum antibiotics. The patient is on a combination of Rocephin and Zithromax. She is also known to have myasthenia gravis. The patient was seen by neurology and she is maintained on Mestinon and prednisone on outpatient basis. The patient will be given also low-dose IV Solu-Medrol. She is feeling weak. No diplopia, no changes with speech or swallow. A repeat chest x-ray was done today and it showed some atelectatic changes in lung base bilaterally. Otherwise no other acute abnormalities. Venous Dopplers were negative. CT of the chest showed no evidence of pulmonary embolism and a Doppler of the lower extremities were negative. Also, the CAT scan of the chest showed small lung volumes and atelectatic changes in lung bases. No clear indication for pneumonia. Today's evaluation of 05/07/2024, the patient is being seen for a follow-up. The patient is feeling better. As mentioned, the patient was septic with an elevated procalcitonin level. Nevertheless, all of the cultures came back negative. Fortunately, she spiked antibiotics and the procalcitonin level is dropped from 100 down to 25. Hemodynamically stable. She remains on oxygen at 4 L with a pulse ox of 96%. Based on presence of generalized weakness, the patient was started on IVIG. The patient remains on IV Solu-Medrol and Mestinon. She does have underlying myasthenia gravis. She remains on IV Rocephin. Cultures came back all negative. Awaiting follow-up labs from today in regards to her white cell count. On 05/08/2024, the patient is being seen for a follow-up. Feels stronger while receiving IVIG. The patient remains on Mestinon and IV Solu-Medrol 40 mg every 6 hours. She remains on IV Rocephin. No fever. Hemodynamically stable. White cell count has dropped down to 17 with a heme of 12.1 and platelet count of 179. BUN 27 with a creatinine 0.7. Sodium is at 140. Cultures were all negative. No respiratory distress. Afebrile. Blood pressure slightly elevated and the patient was started on lisinopril. She is on 5 L of O2 nasal cannula with a pulse ox of 96%. On 05/09/2024, the patient is being seen for a follow-up. Doing well. Specific complaints. Oxygenation is also stable on 5 L of oxygen by nasal cannula with a pulse ox of 99%. He should be valvular weaned. The white cell count is down to 17. Cultures are all negative. No significant shortness of breath. Remains on IV Rocephin. Remains on IV Solu-Medrol. Remains on Mestinon. No double visi on. No difficulties with swallowing. On 05/10/2024, the patient was transferred to cardiac telemetry unit as the patient developed atrial fibrillation with rapid ventricular response. Her heart rate was in the 140s. The patient was started on a Cardizem drip. She remains in atrial fibrillation. However, her rate is under better control the patient is currently on Cardizem drip at 10 mg an hour. She was also started on IV heparin. Meanwhile, the patient is being treated with IV Rocephin regarding underlying sepsis. Exact source was not clear. Nevertheless, clinically patient is improved and the patient's white cell count was improving and the procalcitonin level is dropped from 25 down to 1.9. Most recent white count however is at 27.8. She is afebrile. She is hemodynamically stable. Oxygenation is improved and the patient is currently on 3 Suboxone by nasal cannula with a pulse ox of 94%. She remains on Mestinon. She remains on IV Solu-Medrol 40 mg every 6 hours. She remains on anticoagulation with IV heparin and the patient will be transition to oral anticoagulation with Eliquis. Objective - Vital Signs Vital signs: Vital Signs Temp 97.6 F 05/10/24 07:35 Pulse 94 05/10/24 07:36 Resp 20 05/10/24 07:36 BP 136/85 05/10/24 07:35 Pulse Ox 96 05/10/24 09:21 FiO2 Intake & Output 05/09/24 05/10/24 05/10/24 18:59 06:59 18:59 Intake Total 146.625 86.167 102.5 Output Total 1600 Balance 146.625 -1513.833 102.5 Weight 123.2 kg Intake: Intake, IV Titration 146.625 86.167 102.5 Amount Diltiazem 125 mg In 102.5 Sodium Chloride 0.9% 100 ml @ 10 MG/HR 10 mls/hr IV .[id number] [facility] Rx#: [id number] Heparin Sod,Pork in 0.45% 86.167 NaCl 25,000 unit In 0.45 % NaCl 1 250ml.bag @ 7. 874 UNITS/KG/HR 10 mls/hr IV .Q24H [facility] Rx#: [id number] Immune Globulin ( 146.625 Gammagard) 20 gm In Empty Bag 1 bag @ Titrate IV . Q0M [facility] Rx#:[id number] Output: Urine 1600 Other: Voiding Method Toilet Toilet # Voids 1 # Bowel Movements 1 - Exam The patient appeared well nourished and normally developed. Vital signs as documented. The patient is currently on 3 L of oxygen by nasal cannula Head exam is unremarkable. No scleral icterus or corneal arcus noted. Neck is without jugular venous distension, thyromegaly, or carotid bruits. Carotid upstrokes are brisk bilaterally. Lungs are clear to auscultation and percussion. Cardiac exam reveals the PMI to be normally sized and situated. Rhythm is regular. First and second heart sounds normal. No murmurs, rubs or gallops. Abdominal exam reveals normal bowel sounds, no masses, no organomegaly and no aortic enlargement. Extremities are nonedematous and both femoral and pedal pulses are normal. Examination of the skin revealed no evidence of significant rashes, suspicious appearing nevi or other concerning lesions. Neurologically, the patient is awake and alert and the patient does not have any focal neurological deficit. Cranial nerves are essentially intact. - Labs CBC & Chem 7: 05/10/24 04:28 05/10/24 04:28 Labs: Abnormal Lab Results - Last 24 Hours (Table) 05/10/24 05/10/24 05/10/24 Range/Units 04:28 04:28 04:28 WBC 27.8 H (3.8-10.6) k/uL Neutrophils # (Manual) 23.90 H (1.3-7.7) k/uL Monocytes # (Manual) 1.11 H (0-1.0) k/uL Metamyelocytes # (Man) 0.56 H (0) k/uL Myelocytes # (Manual) 1.11 H (0) k/uL APTT 30.9 H (22.0-30.0) sec BUN 31 H (7-17) mg/dL Glucose 133 H (74-99) mg/dL Microbiology - Last 24 Hours (Table) 05/04/24 21:03 Blood Culture - Final Blood Assessment and Plan Plan: Acute sepsis which is currently under investigation. Suspect underlying urinary tract infection. The patient presented with fever, leukocytosis significant elevation of the procalcitonin level. The patient also had an acute kidney injury at time of admission. In terms of source of the infection, reviewed the chest x-ray and CT of the chest and there is no convincing evidence of pneumonia. Consider underlying urine tract infection with secondary sepsis. Repeat chest x-ray from today shows some atelectatic changes in lung bases. The patient remains on IV Rocephin. Procalcitonin level is improving. Acute leukocytosis, white cell count is improved and subsequently it went up back again. Noted her sepsis is improving. The patient is afebrile. Consider steroids. New onset atrial fibrillation with RVR, rate is controlled and the patient is currently on Cardizem and the patient will be switched to oral anticoagulation with Eliquis and IV heparin will be discontinued Acute kidney injury, improving Acute lactic acidosis with lactic acid level of 4.3, normalized with fluids and the lactic acid level is down to 1.9 Acute elevation of troponin, likely type II myocardial ischemia secondary to underlying sepsis Obesity with a BMI of 42.3 Myasthenia gravis maintained on a combination of Mestinon and prednisone on outpatient basis Hypertension Plan Wean down FiO2 to maintain saturation above 90%, currently on 3 L Clinically stable, clinical improving and the patient will be maintained on IV Rocephin Procalcitonin level is improving Continue IV Rocephin 2 g every 24 hours Lactic acid level improving White cell count is to be further monitored Blood cultures and urine cultures are all negative Continue Mestinon and put the patient on Solu-Medrol 40 mg every 6 hours, also received IVIG Management of atrial fibrillation per cardiology. The patient is currently on Cardizem drip. Anticoagulation with Eliquis. Management of myasthenia gravis per neurology Echocardiogram was also completed and the patient was found to have a preserved LV function with an EF of around 55 to 60%. Moderate MR. Mild aortic stenosis. Will continue to follow Time with Patient: Greater than 30
--- NOTE | 2024-05-10 14:21 | P.PN ---
Subjective Progress Note Date: 05/10/24 64 year old F with PMH of myasthenia gravis and HTN presents to the ED as a transfer from [facility] for fever of 102F, cough and vomiting along with generalized weakness. In the ED she underwent extensive evaluation. BP 133/108, OR 118 bpm, RR 24, 100% on 5 L nasal cannula, T 98.4 F. CBC, CMP significant for WBC 18.8, RBC 3.66, Hg 10.7, Hct 33.8, Cl 113, bicarb 14, BUN 18, Cr 1.44, glu 102, Ca 7.5. Mag 1.2. Lactic acid 4.3-2.2. Trop 0.084, 0.051, 0.059. Procal > 100. D-Dimer 15.34. EKG sinus tachycardia with ventricular rate of 118 bpm. CXR left perihilar and lower lobe infiltrate, correlate for pneumonia. CTA chest no evidence for pulmonary embolism, low lung volumes with streaky atelectasis, hepatic steatosis. Patient was admitted for further workup and management. Started on Rocephin/Azithromycin for concerns of PNA. Pulmonary, Cardiology and Neurology consulted. Echo EF 55-60% with mild LVH and mild . UCx and BCx negative so far. Neurology recommended IVIG completing treatment on 05/09. A-team called on 05/09 for A-Fib RVR, she was given 20 mg IV Cardizem and transferred to . 05/10 Patient was seen and examined. No complaints. Maintained on Cardizem at 10 mg/hr. Started on heparin infusion at 10.874 units/kg/hr. Antibiotics include Rocephin 2g IV QD (D5). EKG shows AFib with RVR rate of 132. General: Nontoxic, no distress, appears at stated age, morbidly obese Derm: Warm, dry Head: Atraumatic, normocephalic, symmetric Eyes: EOMI, no lid lag, anicteric sclera, right ptosis Mouth: No lip lesion, mucus membranes moist Cardiovascular: S1S2 irreg, no murmur Lungs: CTA bilateral, no rhonchi, no rales, no accessory muscle use, supplemental oxygen Ext: No gross muscle atrophy, no edema, no contractures Neuro: no focal neuro deficits Psych: Alert, oriented, appropriate affect Based on my assessment of this patient, this patient meets a high complexity level of care. Atrial fibrillation with RVR: Cardizem drip at 10 mg/hr, Metoprolol 25 mg PO BID started by Cardiology. Monitor respiratory status as CCBs and beta blockers known to theoretically worsen symptoms of MG. Heparin drip at 10.874 units/kg/hr. Monitor APTT. Echo EF 55-60% with mild LVH and mild . Check TSH. Mag > 2 and K > 4. Telemetry monitoring. Cardiology on board. Acute hypoxic respiratory failure possibly related to PNA versus myasthenia gravis exacerbation: Rocephin 2g IV QD (D5). Completed course of Azithromycin. Completed 5 days of IVIG. SoluMedrol 40 mg IV Q6H. Pyridostigmine 60 mg PO TID. VC and NIF Q6H. Wean supplemental O2. Pulmonary and Neurology on board. Urinary tract infection: UCx neg. Rocephin as above. Type II NSTEMI: ASA 81 mg PO QD. Lipitor 40 mg PO QD. Metoprolol 25 mg PO BID. Hypertension: Lisinopril 20 mg PO QD. Metoprolol and Cardizem as above. Resolved: ALCIRA, Lactic acidosis CODE STATUS: FULL CODE DVT Prophylaxis: Heparin drip GI Prophylaxis: Designated medical POA if patient is not able to make medical decisions for themselves: I have reviewed the following surgery consultant notes: Pulm, Neurology. I have reviewed the results of the following tests: CBC, BMP. I have ordered the following tests: TSH. I have discussed the care of this patient with the following independent historian: I have independently interpreted the following test below: EKG. I have discussed the management of this patient with the following physician: Objective - Vital Signs Vital signs: Vital Signs Temp 97.6 F 05/10/24 07:35 Pulse 94 05/10/24 07:35 Resp 20 05/10/24 07:35 BP 136/85 05/10/24 07:35 Pulse Ox 95 05/10/24 07:35 FiO2 Intake & Output 05/09/24 05/10/24 05/10/24 18:59 06:59 18:59 Intake Total 146.625 86.167 102.5 Output Total 1600 Balance 146.625 -1513.833 102.5 Weight 123.2 kg Intake: Intake, IV Titration 146.625 86.167 102.5 Amount Diltiazem 125 mg In 102.5 Sodium Chloride 0.9% 100 ml @ 10 MG/HR 10 mls/hr IV .[id number] [facility] Rx#: [id number] Heparin Sod,Pork in 0.45% 86.167 NaCl 25,000 unit In 0.45 % NaCl 1 250ml.bag @ 7. 874 UNITS/KG/HR 10 mls/hr IV .Q24H [facility] Rx#: [id number] Immune Globulin ( 146.625 Gammagard) 20 gm In Empty Bag 1 bag @ Titrate IV . Q0M [facility] Rx#:[id number] Output: Urine 1600 Other: Voiding Method Toilet # Voids 1 # Bowel Movements 1 - Labs CBC & Chem 7: 05/10/24 04:28 05/10/24 04:28 Labs: Abnormal Lab Results - Last 24 Hours (Table) 05/10/24 05/10/24 05/10/24 Range/Units 04:28 04:28 04:28 WBC 27.8 H (3.8-10.6) k/uL Neutrophils # (Manual) 23.90 H (1.3-7.7) k/uL Monocytes # (Manual) 1.11 H (0-1.0) k/uL Metamyelocytes # (Man) 0.56 H (0) k/uL Myelocytes # (Manual) 1.11 H (0) k/uL APTT 30.9 H (22.0-30.0) sec BUN 31 H (7-17) mg/dL Glucose 133 H (74-99) mg/dL Microbiology - Last 24 Hours (Table) 05/04/24 21:03 Blood Culture - Final Blood
--- NOTE | 2024-05-10 22:36 | P.PN ---
Subjective Progress Note Date: 05/10/24 Patient was seen for a follow-up. Patient is sitting comfortably in the recliner. Patient states her breathing has improved. She does not have any cough or phlegm. She has little better endurance. Patient denies headache. Denies any diplopia or other symptoms. Per respiratory therapist, her NIF is -35 and vital capacity 2.14 L, yesterday, but today is NIF -40 and vital capacity 1.6. Initial vital capacity 1.48 L and NIF -18. Objective - Vital Signs Vital signs: Vital Signs Temp 98.1 F 05/10/24 15:39 Pulse 65 05/10/24 15:39 Resp 18 05/10/24 15:39 BP 130/82 05/10/24 15:39 Pulse Ox 95 05/10/24 15:39 FiO2 Intake & Output 05/09/24 05/10/24 05/10/24 18:59 06:59 18:59 Intake Total 146.625 86.167 338.5 Output Total 1600 400 Balance 146.625 -1513.833 -61.5 Weight 123.2 kg Intake: Intake, IV Titration 146.625 86.167 102.5 Amount Diltiazem 125 mg In 102.5 Sodium Chloride 0.9% 100 ml @ 10 MG/HR 10 mls/hr IV .[id number] [facility] Rx#: [id number] Heparin Sod,Pork in 0.45% 86.167 NaCl 25,000 unit In 0.45 % NaCl 1 250ml.bag @ 7. 874 UNITS/KG/HR 10 mls/hr IV .Q24H [facility] Rx#: [id number] Immune Globulin ( 146.625 Gammagard) 20 gm In Empty Bag 1 bag @ Titrate IV . Q0M [facility] Rx#:[id number] Oral 236 Output: Urine 1600 400 Other: Voiding Method Toilet Toilet # Voids 1 # Bowel Movements 1 - Exam Patient's mental status, speech and language functions are normal. Her strength of orbicularis marixa has improved. Otherwise her eye closure, tongue strength appears normal. No drooling. Deltoids are 5-, hip flexion 4+5-. Rest of the strength is normal. Patient still able to generate very strong cough today, as compared to yesterday. Her difficulty breathing appears slightly better. - Labs CBC & Chem 7: 05/10/24 04:28 05/10/24 04:28 Labs: Abnormal Lab Results - Last 24 Hours (Table) 05/10/24 05/10/24 05/10/24 Range/Units 04:28 04:28 04:28 WBC 27.8 H (3.8-10.6) k/uL Neutrophils # (Manual) 23.90 H (1.3-7.7) k/uL Monocytes # (Manual) 1.11 H (0-1.0) k/uL Metamyelocytes # (Man) 0.56 H (0) k/uL Myelocytes # (Manual) 1.11 H (0) k/uL APTT 30.9 H (22.0-30.0) sec BUN 31 H (7-17) mg/dL Glucose 133 H (74-99) mg/dL Procalcitonin (0.02-0.50) ng/mL 05/10/24 Range/Units 04:28 WBC (3.8-10.6) k/uL Neutrophils # (Manual) (1.3-7.7) k/uL Monocytes # (Manual) (0-1.0) k/uL Metamyelocytes # (Man) (0) k/uL Myelocytes # (Manual) (0) k/uL APTT (22.0-30.0) sec BUN (7-17) mg/dL Glucose (74-99) mg/dL Procalcitonin 1.96 H (0.02-0.50) ng/mL Microbiology - Last 24 Hours (Table) 05/04/24 21:03 Blood Culture - Final Blood Assessment and Plan Assessment: * Myasthenia gravis with exacerbation, recent worsening because of underlying medical conditions as below. * Leukocytosis, likely due to use of steroids. * Acute kidney injury, resolved * Abnormal UA, but the urine cultures came back negative * No definitive evidence of pneumonia. * Acute lactic acidosis * Elevated troponins * Obesity * Hypertension Plan: * Patient has myasthenia gravis, on Mestinon 60 mg 3 times daily and prednisone 10 mg daily. Patient currently started on low-dose methylprednisolone 40 mg every 6 hours, instead of prednisone. May switch back from Solu-Medrol to prednisone 10 mg daily (from neurology standpoint). * Patient has myasthenia gravis is stable at this time. Her initial vital capacity is low 1.48 L and NIF -18. Today her NIF has improved to -40, and vital capacity 1.6 L. I suspect this reading is faulty, as patient has a very strong cough and she is getting better. * Patient's renal functions are normal. Chest x-ray did not show any obvious pneumonia. Her white cells are possibly related to use of steroids. WBC count improved to 17,000. * We has received IVIG 0.5 g/kg's daily for 4 days. Patient's IgA level is normal 182. Patient has completed all 4/4 of IVIG as of yesterday. * Continue very close monitoring, for any deterioration. Renal functions are stable. * Patient also seen by cardiology, and pulmonary medicine. * Medical management as per IM and other specialties on board. Patient on ceftriaxone. * Await acetylcholine receptor antibodies. * DVT prophylaxis: Lovenox 40 mg subcu daily * Neurologically clear for discharge pending medical clearance. * Patient to follow-up with her neurologist within 1 week. Addendum: 05/17/2024: Acetylcholine receptor antibodies elevated 18.55 (normal: < or = 0.30)
[2024-05-10 23:14] VITALS: RESP 16
[2024-05-11] MEDS: predniSONE 20 MG TAB PO SCH (09:09)
--- NOTE | 2024-05-11 09:59 | P.PN ---
Subjective Progress Note Date: 05/11/24 HISTORY OF PRESENT ILLNESS: The patient is a 64-year-old female with a known history of hypertension, my asthenia gravis diagnosed over a year and a half ago who was transferred from [facility] for evaluation of fever, cough and nausea and vomiting. She has been complaining of the symptoms since yesterday morning with yellowish sputum in addition to fever up to 102 Fahrenheit. Cardiology consultation was requested because of troponin elevation. The patient denies any history of cardiac disease, she has no history of myocardial infarction, angina pectoris or congestive heart failure. She has mild dyspnea on exertion when her myasthenia gravis is not under good control. She has some dizziness with changing position and occasional peripheral edema. She has no PND, orthopnea or syncope. Her activity is affected by her myasthenia gravis. On presentation she was in sinus mechanism with episodes of sinus tachycardia. Her troponin was 0.084 on presentation. Her procalcitonin was significantly elevated. Medications: Prednisone, Fioricet, aspirin, lisinopril 10 mg daily 05/06/2024 Patient examined this morning in the emergency room. Patient is currently sitting up in the chair. Patient currently denies any chest pain or pressure. She continues to report shortness of breath this morning. She reports increased coughing this morning as well. Bedside telemetry reveals sinus mechanism. Blood pressure stable. 05/10/2024 Cardiology was reconsulted due to new onset A-fib with RVR. Patient examined this morning at the bedside. Patient went into A-fib with RVR overnight. The patient denies any known history of atrial fibrillation. She was started on IV Cardizem and IV heparin. She remains in atrial fibrillation at the time of examination with a heart rate around 105. She denies chest pain or pressure. Blood pressure stable. Echocardiogram completed revealing ejection fraction 55 to 60% with moderate MR, mild TR, and mild aortic stenosis. 05/11 Patient seen and examined. Patient states that she is doing much better today. She states she feels more tired and sore today but able to do more activity. She had one previous episode one year ago of atrial fibrillation that was brief. Last evening, patient converted to sinus rhythm. Heart rate is 59, blood p ressure 119/71, pulse ox 100% on 2 L nasal cannula. PHYSICAL EXAM: VITAL SIGNS: Reviewed. GENERAL: Well-developed in no acute distress. NECK: Supple. No JVD or thyromegaly LUNGS: Respirations even and unlabored. Lungs essentially clear to auscultation bilaterally. HEART: Regular rate and rhythm. S1 and S2 heard. Systolic murmur noted. EXTREMITIES: No clubbing or cyanosis. Peripheral pulses intact. No lower extremity edema ASSESSMENT: 1. Febrile episode with yellowish sputum and abnormal chest x-ray suggestive of pneumonia 2. Mild troponin elevation most likely type II OK related to the infection 3. History of hypertension 4. History of myasthenia gravis 5. Acute renal injury, improved 6. Valvular heart disease including moderate MR, mild TR, mild aortic stenosis 7. New onset paroxysmal A-fib with RVR, converted to sinus rhythm PLAN: Continue Eliquis 5 mg twice a day Continue oral Cardizem 60 mg 3 times daily Continue metoprolol 25 mg twice a day Continue telemetry monitoring TSH checked and within normal limits 2D echo obtained and reviewed revealing normal LV systolic function Patient is cleared for discharge from cardiology perspective. She will follow- up in the office with Dr. Walsh in 2 weeks. Nurse practitioner note has been reviewed by physician. Signing provider agrees with the documented findings, assessment, and plan of care documented by AIR PRESS OPERATOR as a scribe. Objective - Vital Signs Vital signs: Vital Signs Temp 97.7 F 05/11/24 05:09 Pulse 59 L 05/11/24 05:09 Resp 16 05/11/24 05:09 BP 119/71 05/11/24 05:09 Pulse Ox 100 05/11/24 05:09 FiO2 Intake & Output 05/10/24 05/11/24 05/11/24 18:59 06:59 18:59 Intake Total 560.5 Output Total 400 Balance 160.5 Weight 121.7 kg Intake: Intake, IV Titration 102.5 Amount Diltiazem 125 mg In 102.5 Sodium Chloride 0.9% 100 ml @ 10 MG/HR 10 mls/hr IV .[id number] LORENZO Rx#: [id number] Oral 458 Output: Urine 400 Other: Voiding Method Toilet Toilet # Voids 3 2 # Bowel Movements 3 - Labs CBC & Chem 7: 05/10/24 04:28 05/10/24 04:28 Labs: Abnormal Lab Results - Last 24 Hours (Table) 05/10/24 Range/Units 04:28 Procalcitonin 1.96 H (0.02-0.50) ng/mL Microbiology - Last 24 Hours (Table) 05/04/24 21:03 Blood Culture - Final Blood
[2024-05-11 11:06] VITALS: BP 115/73; PULSE 69; TEMP 97.8
--- NOTE | 2024-05-11 12:52 | CDI ---
Documentation Clarification Form Date: 05/11/2024 12:06:47 PM From: Belia Abel RN CCDS Phone: [phone] Admit Date: 05/05/2024 07:17:00 AM Patient Name: Emelina Sam Visit Number: [id number] Discharge Date: ATTENTION: The Clinical Documentation Specialists (CDI) and [facility] Coding Staff appreciate your assistance in clarifying documentation. Please respond to the clarification below the line at the bottom and electronically sign. The CDI & [facility] Coding staff will review the response and follow-up if needed. Please note: Queries are made part of the Legal Health Record. If you have any questions, please contact the author of this message via ITS. Doctor: Luis Cunningham Sepsis is documented 05/04 HP through medicine notes 05/09 but is not noted in subsequent documentation. Clarification is requested. History/Risk Factors: Clinical Indicators: VSS: 05/04 B/P 133/10; HR 118; Temp 98.4F Oral; RR 24; SpO2 1005 5L nasal cannula Labs 05/04 Wbc 18.8; Neutrophils 17.80, Lymphocytes 0.39 Metamyeloctyes 0.56, d dimer 15.34; Lactic acid 4.3, Procalcitonin >100.00 CXR 05/04: Left perihilar and lower lobe infiltrate CT ANGIO 05/04: Low lung volumes with streaky atelectasis. Hepatic steatosis CXR 05/06: Basilar sub segmental atelectasis HP 05/04: #.Sepsis, secondary to suspected pneumonia; criteria met: Leukocytosis, tachycardia, lactic acidosis. Medicine note 05/09: Patient being treated for sepsis secondary to likely community-acquired pneumonia as well as possible urinary tract infection .Also concern for impending myasthenic crisis. Treatment: 05/04 Tylenol po x 1; 05/04 0.9NS 2L IVF Bolus, 05/05 Zithromax po daily x 3 doses, 05/05 Ceftriaxone IVPB Q24H, Please clarify if the Sepsis is: [ ] Sepsis confirmed, remains under treatment [ x] Sepsis confirmed, resolved [ ] Sepsis ruled out [ ] Other condition, please specify [ ] Unable to determine (Template Last Revised: May 2020) MTDD
--- NOTE | 2024-05-11 13:22 | P.DS ---
Providers Date of admission: 05/05/24 07:17 Expected date of discharge: 05/11/24 Attending physician: Gamal Frey Consults: 05/05/24 09:54 Consult Physician Routine Consulting Provider: Radha Bansal Consult Reason/Comments: impending myasthenic crisis Do you want consulting provider notified?: Yes Consult Physician Urgent Consulting Provider: Airam Vasquez Consult Reason/Comments: impending myasthenic crisis Do you want consulting provider notified?: Yes 05/05/24 09:56 Consult Physician Routine Consulting Provider: Carlos Enriquez Consult Reason/Comments: elevated trop Do you want consulting provider notified?: Yes 05/09/24 19:06 Consult Physician Routine Consulting Provider: Carlos Enriquez Consult Reason/Comments: AFib RVR Do you want consulting provider notified?: Yes Primary care physician: Sandra Manzanares MD Hospital Course: 64 year old F with PMH of myasthenia gravis and HTN presents to the ED as a transfer from [place] for fever of 102F, cough and vomiting along with generalized weakness. In the ED she underwent extensive evaluation. BP 133/108, NJ 118 bpm, RR 24, 100% on 5 L nasal cannula, T 98.4 F. CBC, CMP significant for WBC 18.8, RBC 3.66, Hg 10.7, Hct 33.8, Cl 113, bicarb 14, BUN 18, Cr 1.44, glu 102, Ca 7.5. Mag 1.2. Lactic acid 4.3-2.2. Trop 0.084, 0.051, 0.059. Procal > 100. D-Dimer 15.34. EKG sinus tachycardia with ventricular rate of 118 bpm. CXR left perihilar and lower lobe infiltrate, correlate for pneumonia. CTA chest no evidence for pulmonary embolism, low lung volumes with streaky atelectasis, hepatic steatosis. Patient was admitted for further workup and management. Started on Rocephin/Azithromycin for concerns of PNA. Pulmonary, Cardiology and Neurology consulted. Echo EF 55-60% with mild LVH and mild . UCx and BCx negative so far. Neurology recommended IVIG completing treatment on 05/09. A-team called on 05/09 for A-Fib RVR, she was given 20 mg IV Cardizem and transferred to . 05/10 Patient was seen and examined. No complaints. Maintained on Cardizem at 10 mg/hr. Started on heparin infusion at 10.874 units/kg/hr. Antibiotics include Rocephin 2g IV QD (D5). EKG shows AFib with RVR rate of 132. 05/11 Patient was seen and examined. Feeling well. Cardizem drip switched to Cardizem 60 mg PO TID, Metoprolol 25 mg PO BID. Heparin drip switched to Eliquis 5 mg PO BID. Antibiotics include Rocephin 2g IV QD (D6). CBC, Coag panel, BMP WBC 27.8, APTT 30.9, BUN 31, glu 133. Procal 1.96. TSH 0.706. Discharge Instructions: Prescriptions sent to pharmacy for Eliquis, Lipitor, Metoprolol, Pepcid, Pr ednisone taper, Lisinopril, Cardize, HCTZ and Ceftin 3 days to complete total of 10 days. Follow up with PCP within 1-2 days of discharge. Follow up with Cardiology within 2 weeks and Neurology within 1 week of discharge. General: Nontoxic, no distress, appears at stated age, morbidly obese Derm: Warm, dry Head: Atraumatic, normocephalic, symmetric Eyes: EOMI, no lid lag, anicteric sclera, right ptosis Mouth: No lip lesion, mucus membranes moist Cardiovascular: S1S2 reg, no murmur Lungs: CTA bilateral, no rhonchi, no rales, no accessory muscle use Ext: No gross muscle atrophy, no edema, no contractures Neuro: no focal neuro deficits Psych: Alert, oriented, appropriate affect Discharge Diagnosis: Atrial fibrillation with RVR Acute hypoxic respiratory failure possibly related to PNA versus myasthenia gravis exacerbation Urinary tract infection Type II NSTEMI Hypertension Resolved: ALCIRA, Lactic acidosis This complex discharge took 35 minutes to complete. Patient Condition at Discharge: Stable Plan - Discharge Summary Discharge Rx Participant: No New Discharge Prescriptions: New Apixaban [Eliquis] 5 mg PO BID #60 tab Atorvastatin [Lipitor] 40 mg PO DAILY #30 tab Metoprolol Tartrate [Lopressor] 25 mg PO BID #60 tab Famotidine [Pepcid] 20 mg PO DAILY #30 tab predniSONE See Taper PO DIRECTED #30 tab lisinopriL [Zestril] 20 mg PO DAILY #30 tab Diltiazem Oral [Cardizem*] 60 mg PO TID #90 tab cefuroxime axetiL [Ceftin] 500 mg PO BID #6 tab hydroCHLOROthiazide [Hydrodiuril] 25 mg PO DAILY #30 tab Continue Pyridostigmine [place] [Mestinon] 60 mg PO TID-W/MEALS Cholecalciferol (Vitamin D3) [Vitamin D3 (50 Mcg = 2000 Iu)] 50 mcg PO DAILY predniSONE 10 mg PO DAILY Butalb/APAP/Caff 50-325-40Mg [Fioricet 50-325-40] 1 tab PO BID PRN PRN Reason: Headache Aspirin EC [Ecotrin Low Dose] 81 mg PO DAILY Discontinued lisinopriL [Zestril] 10 mg PO DAILY Discharge Medication List Aspirin EC [Ecotrin Low Dose] 81 mg PO DAILY 05/04/24 [History] Butalb/APAP/Caff 50-325-40Mg [Fioricet 50-325-40] 1 tab PO BID PRN 05/04/24 [History] Cholecalciferol (Vitamin D3) [Vitamin D3 (50 Mcg = 2000 Iu)] 50 mcg PO DAILY 05/04/24 [History] Pyridostigmine [place] [Mestinon] 60 mg PO TID-W/MEALS 05/04/24 [History] predniSONE 10 mg PO DAILY 05/04/24 [History] Apixaban [Eliquis] 5 mg PO BID #60 tab 05/11/24 [Rx] Atorvastatin [Lipitor] 40 mg PO DAILY #30 tab 05/11/24 [Rx] Diltiazem Oral [Cardizem*] 60 mg PO TID #90 tab 05/11/24 [Rx] Famotidine [Pepcid] 20 mg PO DAILY #30 tab 05/11/24 [Rx] Metoprolol Tartrate [Lopressor] 25 mg PO BID #60 tab 05/11/24 [Rx] cefuroxime axetiL [Ceftin] 500 mg PO BID #6 tab 05/11/24 [Rx] hydroCHLOROthiazide [Hydrodiuril] 25 mg PO DAILY #30 tab 05/11/24 [Rx] lisinopriL [Zestril] 20 mg PO DAILY #30 tab 05/11/24 [Rx] predniSONE See Taper PO DIRECTED #30 tab 05/11/24 [Rx] Follow up Appointment(s)/Referral(s): Pepper Walsh MD [STAFF PHYSICIAN] - 2 Weeks (Office to call with appointment date and time.) Sandra Manzanares MD [Primary Care Provider] - 05/27/24 2:00 pm Umair Evans MD [Medical Doctor] - 1 Week Patient Instructions/Handouts: A-fib (Atrial Fibrillation) (DC), Sepsis (DC) Discharge Disposition: HOME SELF-CARE
== END 2024-05-11 14:55 | disposition home or self-care (01) | DRG 871 ==
LOC: EC 16:10 → 3SCARD 18:24 → UNDOADMOB 18:25 → 3SCARD 18:25 → INTOOBSV 05-05 07:17 → OBSVTOIN 05-05 07:17 → 3SCARD 05-05 18:09 → 3NCARDOBS 05-06 10:10 → 3SCARD 05-06 10:10 → 5NMEDONC 05-06 12:48 → 4SSUR 05-06 16:40 → 5NMEDONC 05-06 16:40 → 4SSUR 05-09 18:08 → 3SCARD 05-09 18:08 → UNDODISIN 05-11 14:55
PROVIDERS: ADMIT Student in an Organized Health Care Education/Training Program; ATTEND Student in an Organized Health Care Education/Training Program
PROC: 3E033RZ Introduction of Antiarrhythmic into Peripheral Vein, Percutaneous Approach (ICD-10-PCS; principal; 2024-05-10)
DX: A41.9 Sepsis, unspecified organism (principal); G70.01 Myasthenia gravis with (acute) exacerbation; J18.9 Pneumonia, unspecified organism; J96.01 Acute respiratory failure with hypoxia; I21.A1 Myocardial infarction type 2; I10 Essential (primary) hypertension; E66.9 Obesity, unspecified; D64.9 Anemia, unspecified; I35.0 Nonrheumatic aortic (valve) stenosis; Z68.41 Body mass index [BMI] 40.0-44.9, adult; N39.0 Urinary tract infection, site not specified; E87.21 Acute metabolic acidosis; N17.9 Acute kidney failure, unspecified; I48.0 Paroxysmal atrial fibrillation; E77.8 Other disorders of glycoprotein metabolism; E83.42 Hypomagnesemia; K21.9 Gastro-esophageal reflux disease without esophagitis; E83.51 Hypocalcemia; Z79.82 Long term (current) use of aspirin; Z79.899 Other long term (current) drug therapy; Z88.0 Allergy status to penicillin; Z87.891 Personal history of nicotine dependence; Z79.52 Long term (current) use of systemic steroids
CPT/HCPCS: 36415; 51701; 51798; 71045; 71275; 80048; 80053; 81001; 82784; 83036; 83605; 83735; 84132; 84145; 84443; 84484; 85025; 85027; 85379; 85610; 85730; 86041; 87040; 87086; 87449; 87636; 93306; 93970; 94760; 96361; 96365; 96366; 96367; 96372; 96375; 96376; 99291

== ENCOUNTER 2024-08-15 12:24 | Inpatient (IN) | payer BC ==
--- NOTE | 2024-08-15 12:51 | ED ---
General Adult HPI - General Chief complaint: Dizziness Stated complaint: Nausea, vomiting Time Seen by Provider: 08/15/24 12:27 Source: patient, RN notes reviewed, old records reviewed Mode of arrival: EMS Limitations: no limitations - History of Present Illness Initial comments: 64-year-old female presents for evaluation of headache, nausea vomiting, d izziness. Symptoms began this morning at 9 AM. Patient denies chest pain or abdominal pain. She does have subjective fever and chills. She reports multiple episodes of vomiting prior to arrival. She reports loose stool. No urinary symptoms. - Related Data Home Medications Medication Instructions Recorded Confirmed Aspirin EC [Ecotrin Low Dose] 81 mg PO DAILY 05/04/24 05/04/24 Butalb/APAP/Caff 50-325-40Mg 1 tab PO BID PRN 05/04/24 05/04/24 [Fioricet 50-325-40] Cholecalciferol (Vitamin D3) 50 mcg PO DAILY 05/04/24 05/04/24 [Vitamin D3 (50 Mcg = 2000 Iu)] Pyridostigmine [place] [Mestinon] 60 mg PO TID-W/MEALS 05/04/24 05/04/24 predniSONE 10 mg PO DAILY 05/04/24 05/04/24 Previous Rx's Medication Instructions Recorded Apixaban [Eliquis] 5 mg PO BID #60 tab 05/11/24 Atorvastatin [Lipitor] 40 mg PO DAILY #30 tab 05/11/24 Diltiazem Oral [Cardizem*] 60 mg PO TID #90 tab 05/11/24 Famotidine [Pepcid] 20 mg PO DAILY #30 tab 05/11/24 Metoprolol Tartrate [Lopressor] 25 mg PO BID #60 tab 05/11/24 cefuroxime axetiL [Ceftin] 500 mg PO BID #6 tab 05/11/24 hydroCHLOROthiazide [Hydrodiuril] 25 mg PO DAILY #30 tab 05/11/24 lisinopriL [Zestril] 20 mg PO DAILY #30 tab 05/11/24 predniSONE See Taper PO DIRECTED #30 tab 05/11/24 Allergies Allergy/AdvReac Type Severity Reaction Status Date / Time Penicillins Allergy Unknown Unknown Verified 08/15/24 16:27 Childhood Review of Systems ROS Statement: Those systems with pertinent positive or pertinent negative responses have been documented in the HPI. ROS Other: All systems not noted in ROS Statement are negative. Past Medical History Past Medical History: Hypertension Additional Past Medical History / Comment(s): myastenas gravis History of Any Multi-Drug Resistant Organisms: None Reported Past Surgical History: Orthopedic Surgery Past Psychological History: No Psychological Hx Reported Smoking Status: Former smoker Past Alcohol Use History: None Reported Past Drug Use History: None Reported - Past Family History Father Family Medical History: Myocardial Infarction ([place]) General Exam Limitations: no limitations General appearance: alert, in no apparent distress Head exam: Present: atraumatic, normocephalic Eye exam: Present: normal appearance, PERRL ENT exam: Present: normal exam Neck exam: Present: normal inspection. Absent: tenderness, meningismus Respiratory exam: Present: normal lung sounds bilaterally. Absent: respiratory distress, wheezes Cardiovascular Exam: Present: normal rhythm, tachycardia GI/Abdominal exam: Present: soft. Absent: distended, tenderness, guarding, rebound Extremities exam: Present: normal inspection, normal capillary refill. Absent: pedal edema Neurological exam: Present: alert, oriented X3, CN II-XII intact. Absent: motor sensory deficit Psychiatric exam: Present: normal affect, normal mood Skin exam: Present: warm, dry, intact Course Vital Signs 08/15/24 08/15/24 08/15/24 12:30 12:39 12:50 Temperature 99.8 F H 99.8 F H Pulse Rate 121 H 126 H Respiratory 20 20 20 Rate Blood Pressure 115/76 115/76 O2 Sat by Pulse 92 L 93 L Oximetry 08/15/24 08/15/24 08/15/24 13:12 14:00 14:58 Temperature Pulse Rate 72 116 H 98 Respiratory 20 20 14 Rate Blood Pressure 131/71 104/60 102/55 O2 Sat by Pulse 99 98 93 L Oximetry 08/15/24 15:58 Temperature Pulse Rate 114 H Respiratory 20 Rate Blood Pressure 124/68 O2 Sat by Pulse 98 Oximetry Medical Decision Making - Medical Decision Making Was pt. sent in by a medical professional or institution (, PA, BOATWRIGHT, urgent care, hospital, or care home...) When possible be specific @ -No Did you speak to anyone other than the patient for history (EMS, parent, family, police, friend...)? What history was obtained from this source @ -No Did you review nursing and triage notes (agree or disagree)? Why? @ -I reviewed and agree with nursing and triage notes Were old charts reviewed (outside hosp., previous admission, EMS record, old EKG, old radiological studies, urgent care reports/EKG's, care home records)? Report findings @ -No old charts were reviewed Differential Dizziness: Benign paroxysmal positional Vertigo, Meniere's disease, otitis media, acoustic neuroma, vertebrobasilar insufficiency, cerebellar stroke, encephalitis, hypovolemic, arrhythmia, coronary artery syndrome, anemia, this is not meant to be an all-inclusive list EKG interpreted by me (3pts min.). @Sinus tachycardia left axis deviation rate of 122, WI interval 139, QRS duration 85, QTc [address] segment elevation. X-rays interpreted by me (1pt min.). @ -Chest x-ray negative for acute cardiopulmonary findings CT interpreted by me (1pt min.). @Head CT negative for intracranial hemorrhage mass effect U/S interpreted by me (1pt. min.). @ -Ultrasound gallbladder showing cholelithiasis and gallbladder sludge without signs of acute cholecystitis What testing was considered but not performed or refused? (CT, X-rays, U/S, labs)? Why? @ -None What meds were considered but not given or refused? Why? @ -None Did you discuss the management of the patient with other professionals (professionals i.e. , PA, BOATWRIGHT, lab, RT, psych nurse, dialysis social worker, news specialist, teacher, border patrol officer, caser)? Give summary @Dr. Garcia will admit Was smoking cessation discussed for >3mins.? @ -No Was critical care preformed (if so, how long)? @ -Yes, 35 minutes Were there social determinants of health that impacted care today? How? (Homelessness, low income, unemployed, alcoholism, drug addiction, transportation, low edu. Level, literacy, decrease access to med. care, snf, rehab)? @ -No Was there de-escalation of care discussed even if they declined (Discuss DNR or withdrawal of care, Hospice)? DNR status @ -No What co-morbidities impacted this encounter? (DM, HTN, Smoking, COPD, CAD, Cancer, CVA, ARF, Chemo, Hep., AIDS, mental health diagnosis, sleep apnea, morbid obesity)? @ -None Was patient admitted / discharged? Hospital course, mention meds given and route, prescriptions, significant lab abnormalities, going to OR and other pertinent info. @ -[64-year-old female admitted with UTI, lactic acidosis, dehydration. Vital signs significantly improved with fluid hydration. Patient started on antibiotics for current UTI awaiting culture results. Lactic acid level will be repeated after initial fluid bolus. Laboratory testing is otherwise unremarkable. Undiagnosed new problem with uncertain prognosis? @ -No Drug Therapy requiring intensive monitoring for toxicity (Heparin, Nitro, Insulin, Cardizem)? @ -No Were any procedures done? @ -No Diagnosis/symptom? @UTI, sepsis, lactic acidosis Acute, or Chronic, or Acute on Chronic? @Acute Uncomplicated (without systemic symptoms) or Complicated (systemic symptoms)? @Complicated Side effects of treatment? @ -No Exacerbation, Progression, or Severe Exacerbation? @ -No Poses a threat to life or bodily function? How? (Chest pain, [place], [place], pneumonia, PE, COPD, DKA, ARF, appy, cholecystitis, CVA, Diverticulitis, Homicidal, Suicidal, threat to staff... and all critical care pts) @ -Yes, sepsis, shock - Lab Data Result diagrams: 08/15/24 12:48 08/15/24 12:48 Lab Results 08/15/24 08/15/24 08/15/24 Range/Units 12:48 12:48 12:48 WBC 6.22 (4.50-10.00) 10*3/uL RBC 4.56 (4.10-5.20) 10*6/uL Hgb 14.0 (12.0-15.0) g/dL Hct 43.4 (37.2-46.3) % MCV 95.2 (80.0-97.0) fL MCH 30.7 (27.0-32.0) pg MCHC 32.3 (32.0-37.0) g/dL Plt Count 186 (140-440) 10*3/uL MPV 10.3 (9.5-12.2) fL Immature Gran % (Auto) 0.3 % Neutrophils % (Manual) 91 % Lymphocytes % (Manual) 6 % Monocytes % (Manual) 3 % Immature Gran # 0.02 (0.00-0.04) 10*3/uL Neutrophils # (Manual) 5.66 (1.3-7.7) k/uL Lymphocytes # (Manual) 0.37 L (1.0-4.8) k/uL Monocytes # (Manual) 0.19 (0-1.0) k/uL Nucleated RBCs 0 (0-0) /100 WBC Manual Slide Review Performed Stomatocytes Present Sodium 137 (137-145) mmol/L Potassium 4.3 (3.5-5.1) mmol/L Chloride 103 (98-107) mmol/L Carbon Dioxide 22 (22-30) mmol/L Anion Gap 12 mmol/L BUN 20 H (7-17) mg/dL Creatinine 0.83 (0.52-1.04) mg/dL Est GFR (CKD-EPI)AfAm 87 (>60 ml/min/1.73 sqM) Est GFR (CKD-EPI)NonAf 75 (>60 ml/min/1.73 sqM) Glucose 118 H (74-99) mg/dL Lactic Ac Sepsis Rflx Plasma Lactic Acid Ant (0.7-2.0) mmol/L Calcium 9.2 (8.4-10.2) mg/dL Magnesium 1.4 L (1.6-2.3) mg/dL Total Bilirubin 0.7 (0.2-1.3) mg/dL AST 55 H (14-36) U/L ALT 41 H (4-34) U/L Alkaline Phosphatase 82 (38-126) U/L Total Protein 6.7 (6.3-8.2) g/dL Albumin 4.0 (3.5-5.0) g/dL Urine Color Urine Appearance (Clear) Urine pH (5.0-8.0) Ur Specific [place] (1.001-1.035) Urine Protein (Negative) Urine Glucose (UA) (Negative) Urine Ketones (Negative) Urine Blood (Negative) Urine Nitrite (Negative) Urine Bilirubin (Negative) Urine Urobilinogen (<2.0) mg/dL Ur Leukocyte Esterase (Negative) Urine RBC (0-5) /hpf Urine WBC (0-5) /hpf Urine WBC Clumps (None) /hpf Ur Squamous Epith Cells (0-4) /hpf Urine Bacteria (None) /hpf Urine Mucus (None) /hpf Influenza Type A (PCR) Not Detected (Not Detectd) Influenza Type B (PCR) Not Detected (Not Detectd) RSV (PCR) Not Detected (Not Detectd) SARS-CoV-2 (PCR) Not Detected (Not Detectd) 08/15/24 08/15/24 08/15/24 Range/Units 12:49 13:52 15:58 WBC (4.50-10.00) 10*3/uL RBC (4.10-5.20) 10*6/uL Hgb (12.0-15.0) g/dL Hct (37.2-46.3) % MCV (80.0-97.0) fL MCH (27.0-32.0) pg MCHC (32.0-37.0) g/dL Plt Count (140-440) 10*3/uL MPV (9.5-12.2) fL Immature Gran % (Auto) % Neutrophils % (Manual) % Lymphocytes % (Manual) % Monocytes % (Manual) % Immature Gran # (0.00-0.04) 10*3/uL Neutrophils # (Manual) (1.3-7.7) k/uL Lymphocytes # (Manual) (1.0-4.8) k/uL Monocytes # (Manual) (0-1.0) k/uL Nucleated RBCs (0-0) /100 WBC Manual Slide Review Stomatocytes Sodium (137-145) mmol/L Potassium (3.5-5.1) mmol/L Chloride (98-107) mmol/L Carbon Dioxide (22-30) mmol/L Anion Gap mmol/L BUN (7-17) mg/dL Creatinine (0.52-1.04) mg/dL Est GFR (CKD-EPI)AfAm (>60 ml/min/1.73 sqM) Est GFR (CKD-EPI)NonAf (>60 ml/min/1.73 sqM) Glucose (74-99) mg/dL Lactic Ac Sepsis Rflx Y Plasma Lactic Acid Ant 5.1 H* (0.7-2.0) mmol/L Calcium (8.4-10.2) mg/dL Magnesium (1.6-2.3) mg/dL Total Bilirubin (0.2-1.3) mg/dL AST (14-36) U/L ALT (4-34) U/L Alkaline Phosphatase (38-126) U/L Total Protein (6.3-8.2) g/dL Albumin (3.5-5.0) g/dL Urine Color Yellow Urine Appearance Cloudy H (Clear) Urine pH 5.5 (5.0-8.0) Ur Specific [place] 1.016 (1.001-1.035) Urine Protein Trace H (Negative) Urine Glucose (UA) Negative (Negative) Urine Ketones Negative (Negative) Urine Blood Moderate H (Negative) Urine Nitrite Negative (Negative) Urine Bilirubin Negative (Negative) Urine Urobilinogen <2.0 (<2.0) mg/dL Ur Leukocyte Esterase Large H (Negative) Urine RBC 56 H (0-5) /hpf Urine WBC 68 H (0-5) /hpf Urine WBC Clumps Moderate H (None) /hpf Ur Squamous Epith Cells <1 (0-4) /hpf Urine Bacteria Many H (None) /hpf Urine Mucus Occasional H (None) /hpf Influenza Type A (PCR) (Not Detectd) Influenza Type B (PCR) (Not Detectd) RSV (PCR) (Not Detectd) SARS-CoV-2 (PCR) (Not Detectd) Disposition Clinical Impression: Sepsis, Dehydration, UTI (urinary tract infection) Disposition: ADMITTED IP TO THIS HOSP Condition: Stable Is patient prescribed a controlled substance at d/c from ED?: No Referrals: Sandra Manzanares MD [Primary Care Provider] - 1-2 days Time of Disposition: 16:30
[2024-08-15] MEDS: LACTATED RINGERS 1,000 ML IV ONE (13:03)
[2024-08-15] MEDS: ONDANSETRON 4 MG/2 ML VIAL IVP STA ×2 (13:04→18:27)
[2024-08-15] MEDS: ACETAMINOPHEN TAB 500 MG TAB PO STA (13:04)
[2024-08-15 13:09] LABS: HCT 43.4 % (37.2-46.3); MCH 30.7 pg (27.0-32.0); MCHC 32.3 g/dL (32.0-37.0); MCV 95.2 fL (80.0-97.0); Mean Platelet Volume 10.3 fL (9.5-12.2); Platelet Count 186 10*3/uL (140-440); RBC 4.56 10*6/uL (4.10-5.20); RDW 13.8 % (11.5-14.5); WBC 6.22 10*3/uL (4.50-10.00)
[2024-08-15 13:26] LABS: ALT 41 U/L (4-34); AST 55 U/L (14-36); African American GFR (CKD) 87 (>60 ml/min/1.73 sqM); Alkaline Phosphatase 82 U/L (38-126); Anion Gap 12 mmol/L; Blood Urea Nitrogen 20 mg/dL (7-17); Calcium 9.2 mg/dL (8.4-10.2); Carbon Dioxide 22 mmol/L (22-30); Chloride 103 mmol/L (98-107); Glucose 118 mg/dL (74-99); Magnesium 1.4 mg/dL (1.6-2.3); Non-African American GFR(CKD) 75 (>60 ml/min/1.73 sqM); Potassium 4.3 mmol/L (3.5-5.1); Sodium 137 mmol/L (137-145); Total Bilirubin 0.7 mg/dL (0.2-1.3); Total Protein 6.7 g/dL (6.3-8.2)
--- NOTE | 2024-08-15 13:34 | CT ---
EXAMINATION TYPE: CT brain wo con CT DLP: 1171.4 mGycm, Automated exposure control for dose reduction was used. DATE OF EXAM: 08/15/2024 1:29 PM COMPARISON: None. CLINICAL INDICATION:Female, 64 years old with history of MENESES/dizzy, MENESES, dizziness TECHNIQUE: Brain: Multiple axial CT images of the brain were obtained without IV contrast. . Coronal and sagitta l reformats reviewed. FINDINGS: Brain: Extra-axial spaces: No abnormal extra-axial fluid collections. Ventricular system: Within normal limits Cerebral parenchyma: No acute intraparenchymal hemorrhage or mass effect. The vogel-white junction is well differentiated. Cerebellum: Unremarkable. Mass effect: No evidence of midline shift. Intracranial vasculature: Atherosclerotic calcifications of the intracranial vessels. Soft tissues: Normal. Calvarium/osseous structures: No depressed skull fracture. Paranasal sinuses and mastoid air cells: Clear Visualized orbits: Orbital contents are intact. IMPRESSION: No acute intracranial process. [facility], , 08/15/2024 1:32 PM
[2024-08-15 13:46] LABS: Influenza A Not Detected (Not Detectd); Influenza B Not Detected (Not Detectd); RSV Not Detected (Not Detectd)
[2024-08-15] MEDS: MAGNESIUM SULFATE-D5W PMX 1 GM in DEXTROSE/WATER 1 100ML.BAG IVPB ONE (14:00)
[2024-08-15] MEDS: SODIUM CHLORIDE 0.9% 500 ML 500 ML IV ONE ×3 (14:01→22:57)
[2024-08-15 14:25] LABS: Lymphocytes # (M) 0.37 k/uL (1.0-4.8); Monocytes # (M) 0.19 k/uL (0-1.0); Neutrophils # (M) 5.66 k/uL (1.3-7.7); Neutrophils % (M) 91 %; Nucleated Red Blood Cells 0 /100 WBC (0-0); Total Cells Counted 100
[2024-08-15 14:26] LABS: Stomatocytes Present
--- NOTE | 2024-08-15 15:12 | US ---
EXAMINATION TYPE: US gallbladder DATE OF EXAM: 08/15/2024 COMPARISON: CT Chest CLINICAL INDICATION: Female, 64 years old with history of fever; Pain, fever TECHNIQUE: Grayscale and color Doppler imaging of the right upper quadrant was performed. FINDINGS: EXAM MEASUREMENTS: Liver Length: 20.8 cm Gallbladder Wall: 0.3 cm CBD: 0.5 cm Right Kidney: 12.8 x 6.2 x 5.5 cm SOFTWARE QUALITY ASSURANCE ENGINEER NOTES: Pancreas: Obscured by bowel gas Liver: Enlarged, heterogeneous, difficult to penetrate, possible fatty sparing anterior to GB Gallbladder: 1.6 cm sludge ball vs. stone within lumen, wall thickness upper limits of normal Evidence for sonographic Lundberg's sign: No CBD: wnl Right Kidney: Mild right-sided hydronephrosis without discrete sonographic evidence of an obstructing stone or other lesion. Mid and distal right ureter not well evaluated due to shadowing bowel gas. IMPRESSION: 1. Cholelithiasis and biliary sludge without definite sonographic evidence of acute cholecystitis. 2. Increased hepatic echogenicity suggesting steatosis and/or hepatocellular disease. 3. Mild right-sided hydronephrosis without discrete sonographic evidence of an obstructing stone. [facility], , 08/15/2024 3:09 PM
--- NOTE | 2024-08-15 15:41 | XR ---
EXAMINATION TYPE: XR chest 2V DATE OF EXAM: 08/15/2024 3:36 PM COMPARISON: None. CLINICAL INDICATION: Female, 64 years old with history of fever; [facility] TECHNIQUE: XR chest 2V Frontal and lateral views of the chest. FINDINGS: Lungs/Pleura: There is no evidence of pleural effusion, focal consolidation, or pneumothorax. Asymme tric elevation of the right hemidiaphragm. Low-lying volumes accentuate the cardiac silhouette and pu lmonary vascular markings. Pulmonary vascularity: Unremarkable. Heart/mediastinum: Cardiomediastinal silhouette is unremarkable. Musculoskeletal: No acute osseous pathology. Other findings: None Lines/Tubes: IMPRESSION: No acute cardiopulmonary disease/process. [facility], , 08/15/2024 3:39 PM
[2024-08-15 16:22] LABS: Appearance,Urine Cloudy (Clear); Bacteria,Urine Many /hpf; Bilirubin,Urine Negative (Negative); Blood,Urine Moderate (Negative); Color,Urine Yellow; Glucose,Urine (UA) Negative (Negative); Ketones,Urine Negative (Negative); Leukocyte Esterase,Urine Large (Negative); Mucus,Urine Occasional /hpf; Nitrite,Urine Negative (Negative); PH, Urine 5.5 (5.0-8.0); Protein,Urine Trace (Negative); RBC,Urine 56 /hpf (0-5); Specific Gravity,Urine 1.016 (1.001-1.035); Squamous Epithelial Cell,Urine <1 /hpf (0-4); Urobilinogen,Urine <2.0 mg/dL (<2.0); WBC,Urine 68 /hpf (0-5)
[2024-08-15] MEDS ORDERED: NALOXONE 0.4 MG/ML 1 ML VIAL IV PRN (16:28)
[2024-08-15] MEDS: LACTATED RINGERS 1,000 ML IV SCH (16:53)
[2024-08-15] MEDS: ACETAMINOPHEN TAB 325 MG TAB PO STA ×2 (18:53→20:11)
[2024-08-15] MEDS: LACTATED RINGERS 500 ML IV ONE ×2 (19:07→19:33)
[2024-08-15] MEDS: MIDODRINE 5 MG TAB PO STA (21:39)
[2024-08-15] MEDS: SODIUM CHLORIDE 0.9% 500 ML 500 ML IV STA (21:41)
--- NOTE | 2024-08-15 21:43 | US ---
EXAMINATION TYPE: US renals and bladder DATE OF EXAM: 08/15/2024 COMPARISON: NONE CLINICAL INDICATION: Female, 64 years old with history of uti; TECHNIQUE: Grayscale imaging of the bilateral kidneys and urinary bladder: FINDINGS: EXAM MEASUREMENTS: Left Kidney: 11.2 x 5.4 x 6.3 cm Right Kidney: scanned same day - images under gallbladder ultrasound Left Kidney: wnl Bladder: not fully distended, appears wnl as seen IMPRESSION: Unremarkable ultrasound of the kidneys and urinary bladder. [facility], , 08/15/2024 9:41 PM
--- NOTE | 2024-08-15 23:53 | P.GSCN ---
History of Present Illness Consult date: 08/15/24 Reason for Consult: UTI with Sepsis, Right Ureteral Calculus Requesting physician: Khari Morales History of present illness: The patient is a 64-year-old white female who presented to the ER today with complaints of nausea, vomiting, dizziness, and headache. She also reported fever and chills. Onset of symptoms was approximately 9 AM this morning. In the ER, she has noted to be febrile, and vital signs show evidence of tachycardia and hypotension. Urinalysis is just above infection, and ultrasound showed evidence of mild right hydronephrosis. In view of this, I requested a CT scan of the abdomen and pelvis, which shows evidence of mild-moderate right hydronephrosis due to a 5 x 7.5 mm right proximal ureteral calculus. The CT scan also shows right perinephric stranding, and 2 very small non-obstructing le ft lower pole renal calculi. The patient states that she had 1 kidney stone in the remote past which did not require surgery. Review of Systems - Constitutional Reports chills, Reports fever - Gastrointestinal Reports nausea, Reports vomiting - Genitourinary Genitourinary: Reports kidney stones, Denies dysuria, Denies flank pain, Denies hematuria Past Medical History Past Medical History: Hypertension Additional Past Medical History / Comment(s): myastenas gravis History of Any Multi-Drug Resistant Organisms: None Reported Past Surgical History: Orthopedic Surgery Past Psychological History: No Psychological Hx Reported Smoking Status: Former smoker Past Alcohol Use History: None Reported Past Drug Use History: None Reported - Past Family History Father Family Medical History: Myocardial Infarction (PR) Medications and Allergies Home Medications Medication Instructions Recorded Confirmed Type Pyridostigmine [place] [Mestinon] 60 mg PO TID-W/MEALS 05/04/24 08/15/24 History predniSONE 10 mg PO DAILY 05/04/24 08/15/24 History Atorvastatin [Lipitor] 40 mg PO DAILY #30 tab 05/11/24 08/15/24 Rx Famotidine [Pepcid] 20 mg PO DAILY #30 tab 05/11/24 08/15/24 Rx Apixaban [Eliquis] 5 mg PO BID@0900,1400 08/15/24 08/15/24 History Cholecalciferol (Vitamin D3) 75 mcg PO DAILY 08/15/24 08/15/24 History [Vitamin D3 (3000 Iu)] Diltiazem Oral [Cardizem*] 60 mg PO TID-W/MEALS 08/15/24 08/15/24 History EPINEPHrine (Auto Inject) [Epipen] 0.3 mg IM ONCE PRN 08/15/24 08/15/24 History Metoprolol Tartrate [Lopressor] 25 mg PO BID@0900,1400 08/15/24 08/15/24 History Octagam Infusion 1 dose IV Q30D 08/15/24 08/15/24 History hydroCHLOROthiazide [Hydrodiuril] 12.5 mg PO DAILY 08/15/24 08/15/24 History lisinopriL [Zestril] 20 mg PO DAILY 08/15/24 08/15/24 History Allergies Allergy/AdvReac Type Severity Reaction Status Date / Time Penicillins Allergy Unknown Unknown Verified 08/15/24 16:27 Childhood Surgical - Exam Vital Signs Temp Pulse Resp BP Pulse Ox 99.8 F H 121 H 20 115/76 92 L 08/15/24 12:30 08/15/24 12:30 08/15/24 12:30 08/15/24 12:30 08/15/24 12:30 - General well developed, well nourished, moderate distress - Respiratory normal respiratory effort - Abdomen Abdomen: soft, non tender, no guarding, no rigid, no rebound - Psychiatric oriented to time, oriented to person, oriented to place, speech is normal, memory intact Results - Labs 08/15/24 12:48 08/15/24 12:48 Abnormal Lab Results - Last 24 Hours (Table) 08/15/24 08/15/24 08/15/24 Range/Units 12:48 12:48 12:49 Lymphocytes # (Manual) 0.37 L (1.0-4.8) k/uL BUN 20 H (7-17) mg/dL Glucose 118 H (74-99) mg/dL Plasma Lactic Acid Ant 5.1 H* (0.7-2.0) mmol/L Magnesium 1.4 L (1.6-2.3) mg/dL AST 55 H (14-36) U/L ALT 41 H (4-34) U/L Urine Appearance (Clear) Urine Protein (Negative) Urine Blood (Negative) Ur Leukocyte Esterase (Negative) Urine RBC (0-5) /hpf Urine WBC (0-5) /hpf Urine WBC Clumps (None) /hpf Urine Bacteria (None) /hpf Urine Mucus (None) /hpf 08/15/24 08/15/24 08/15/24 Range/Units 15:58 17:17 20:19 Lymphocytes # (Manual) (1.0-4.8) k/uL BUN (7-17) mg/dL Glucose (74-99) mg/dL Plasma Lactic Acid Ant 5.9 H* 6.4 H* (0.7-2.0) mmol/L Magnesium (1.6-2.3) mg/dL AST (14-36) U/L ALT (4-34) U/L Urine Appearance Cloudy H (Clear) Urine Protein Trace H (Negative) Urine Blood Moderate H (Negative) Ur Leukocyte Esterase Large H (Negative) Urine RBC 56 H (0-5) /hpf Urine WBC 68 H (0-5) /hpf Urine WBC Clumps Moderate H (None) /hpf Urine Bacteria Many H (None) /hpf Urine Mucus Occasional H (None) /hpf Diabetes panel 08/15/24 Range/Units 12:48 Sodium 137 (137-145) mmol/L Potassium 4.3 (3.5-5.1) mmol/L Chloride 103 (98-107) mmol/L Carbon Dioxide 22 (22-30) mmol/L BUN 20 H (7-17) mg/dL Creatinine 0.83 (0.52-1.04) mg/dL Glucose 118 H (74-99) mg/dL Calcium 9.2 (8.4-10.2) mg/dL AST 55 H (14-36) U/L ALT 41 H (4-34) U/L Alkaline Phosphatase 82 (38-126) U/L Total Protein 6.7 (6.3-8.2) g/dL Albumin 4.0 (3.5-5.0) g/dL Calcium panel 08/15/24 Range/Units 12:48 Calcium 9.2 (8.4-10.2) mg/dL Albumin 4.0 (3.5-5.0) g/dL Pituitary panel 08/15/24 Range/Units 12:48 Sodium 137 (137-145) mmol/L Potassium 4.3 (3.5-5.1) mmol/L Chloride 103 (98-107) mmol/L Carbon Dioxide 22 (22-30) mmol/L BUN 20 H (7-17) mg/dL Creatinine 0.83 (0.52-1.04) mg/dL Glucose 118 H (74-99) mg/dL Calcium 9.2 (8.4-10.2) mg/dL Adrenal panel 08/15/24 Range/Units 12:48 Sodium 137 (137-145) mmol/L Potassium 4.3 (3.5-5.1) mmol/L Chloride 103 (98-107) mmol/L Carbon Dioxide 22 (22-30) mmol/L BUN 20 H (7-17) mg/dL Creatinine 0.83 (0.52-1.04) mg/dL Glucose 118 H (74-99) mg/dL Calcium 9.2 (8.4-10.2) mg/dL Total Bilirubin 0.7 (0.2-1.3) mg/dL AST 55 H (14-36) U/L ALT 41 H (4-34) U/L Alkaline Phosphatase 82 (38-126) U/L Total Protein 6.7 (6.3-8.2) g/dL Albumin 4.0 (3.5-5.0) g/dL - Imaging CT scan - abdomen: image reviewed Assessment and Plan (1) Acute pyelonephritis Current Visit: Yes Status: Acute Code(s): N10 - ACUTE PYELONEPHRITIS SNOMED Code(s): 78986394 (2) Hydronephrosis with renal and ureteral calculous obstruction Current Visit: Yes Status: Acute Code(s): N13.2 - HYDRONEPHROSIS WITH RENAL AND URETERAL CALCULOUS OBSTRUCTION SNOMED Code(s): 374286750 Plan: The patient's serum lactic acid level is 6.4. The clinical picture is consistent with sepsis of urinary origin, complicated by an obstructing right proximal ureteral calculus. In view of this, I have recommended that the patient undergo emergent cystoscopy with right ureteral stent insertion. The rationale for this was reviewed in detail with the patient, along with potential risks which include anesthesia, inability to successfully place a stent, and ureteral injury. It was also made clear to her that she will require a secondary procedure in several weeks, after the infection has resolved, consis ting of right ureteral stent removal and ureteroscopic removal of the calculus. Time with Patient: Greater than 30
[2024-08-16] MEDS ORDERED: PROPOFOL 10 MG/ML 20 ML VIAL IV ONE (00:08)
[2024-08-16] MEDS ORDERED: fentaNYL (PF) 50 MCG/ML 2 ML AMP ONE (00:08)
[2024-08-16] MEDS ORDERED: PHENYLEPHRINE 10 MG/ML VIAL ONE (00:08)
[2024-08-16] MEDS: LACTATED RINGERS 1,000 ML IV ONE (00:08)
[2024-08-16] MEDS ORDERED: MIDAZOLAM 2 MG/2 ML VIAL ONE (00:08)
[2024-08-16] MEDS ORDERED: KETAMINE HCL IN 0.9 % NACL 50 MG/5 ML SYRINGE ONE (00:08)
--- NOTE | 2024-08-16 00:46 | P.OP ---
Date of Procedure: 08/16/24 Preoperative Diagnosis: Right hydronephrosis secondary to right ureteral calculus Postoperative Diagnosis: Same Procedure(s) Performed: Cystoscopy, right ureteral stent insertion Anesthesia: MAC Surgeon: Kain Adamson Estimated Blood Loss (ml): 0 IV fluids (ml): 400 Pathology: none sent Condition: stable Disposition: PACU Indications for Procedure: The patient is a 64-year-old white female who presented to the ER today with complaints of nausea, vomiting, dizziness, and headache. She also reported fever and chills. Onset of symptoms was approximately 9 AM this morning. In the ER, she has noted to be febrile, and vital signs show evidence of tach ycardia and hypotension. Urinalysis is suggestive of infection, and ultrasound showed evidence of mild right hydronephrosis. In view of this, I requested a CT scan of the abdomen and pelvis, which shows evidence of mild-moderate right hydronephrosis due to a 5 x 7.5 mm right proximal ureteral calculus. She now comes for stent insertion. Operative Findings: Successful right ureteral stent placement. Purulent urine drained from the right renal pelvis. Description of Procedure: The patient was taken to the operating room and placed in the dorsolithotomy position, with legs supported in Carlos stirrups. The external genitalia was prepped and draped sterilely. The 30 lens was used to introduce the 22-Turkish Stortz cystoscopic sheath through the urethra and into the bladder under direct vision. The bladder was examined in its entirety. Both ureteral orifices were of normal anatomic location and configuration. No tumors or foreign bodies were seen. A 0.035 inch Glidewire was passed through the cystoscope. The right ureteral orifice was cannulated, and the Glidewire was slowly advanced up to the renal pelvis. The Glidewire passed beyond the calculus with minimal resistance. The calculus was not seen with certainty on fluoroscopy. A 24 cm, 6-Turkish double-J ureteral stent was placed over the wire. Proper stent positioning was verified fluoroscopically and endoscopically. Cloudy urine drained through the stent. With the beak of the cystoscope immediately adjacent to the distal end of the stent, urine was collected and sent for C&S. The cystoscope was removed, and a Ramos catheter was placed. The patient tolerated the procedure well and was taken to the recovery room in stable condition.
[2024-08-16 01:41] LABS: Glucose,Whole Blood 110 mg/dL (70-110)
[2024-08-16] MEDS: NOREPINEPHRINE 4 MG in SODIUM CHLORIDE 0.9% 250 ML IV SCH (01:55)
--- NOTE | 2024-08-16 02:28 | CT ---
EXAM: CT Abdomen and Pelvis Without Intravenous Contrast CLINICAL HISTORY: UTI TECHNIQUE: Axial computed tomography images of the abdomen and pelvis without intravenous contrast. CTDI is 25.8 mGy and DLP is 1548.4 mGy-cm. This CT exam was performed using one or more of the following dose reduction techniques: automated exposure control, adjustment of the mA and/or kV according to patient size, and/or use of iterative reconstruction technique. COMPARISON: Gallbladder ultrasound 08/15/2024. FINDINGS: Lung bases: Unremarkable. No mass. No consolidation. ABDOMEN: Liver: Cirrhosis. No visualized mass. Gallbladder and bile ducts: Unremarkable. No calcified stones. No ductal dilation. Pancreas: Unremarkable. No ductal dilation. Spleen: Unremarkable. No splenomegaly. Adrenals: Unremarkable. No mass. Kidneys and ureters: Mild right hydronephrosis secondary to a 6 x 4 x 8 mm proximal ureteral calculus. Nonobstructing additional bilateral renal calculi are present. No left hydronephrosis. Stomach and bowel: Diverticulosis. No obstruction. No mucosal thickening. PELVIS: Appendix: No findings to suggest acute appendicitis. Bladder: Unremarkable. No stones. Reproductive: There is a 1.6 cm lesion of the vagina. Moderate pelvic floor prolapse. The M line measures 5.0 cm. The gland measures 7.5 cm. The uterus and adnexa are within normal limits. ABDOMEN and PELVIS: Intraperitoneal space: Unremarkable. No free air. No significant fluid collection. Bones/joints: No acute fracture. No dislocation. Soft tissues: Unremarkable. Vasculature: Mild atherosclerosis. No aneurysm. Lymph nodes: Unremarkable. No enlarged lymph nodes. IMPRESSION: 1. Mild right hydronephrosis secondary to a 6 x 4 x 8 mm proximal ureteral calculus. 2. There is a 1.6 cm lesion of the vagina. This is indeterminate. Gynecologic follow-up is recommended. 3. Cirrhosis. 4. Nonobstructing additional bilateral renal calculi are present. No left hydronephrosis. 5. Moderate pelvic floor prolapse. 6. Diverticulosis.
[2024-08-16] MEDS: DEXAMETHASONE SOD PHOSPHATE 4 MG/ML 1 ML VIAL IV ONE (02:43)
[2024-08-16] MEDS: LACTATED RINGERS 1,000 ML IV SCH (02:45)
[2024-08-16] MEDS: ONDANSETRON 4 MG/2 ML VIAL IVP ONE (02:58)
[2024-08-16] MEDS: DEXTROSE 5% IN WATER 100 ML with AMIODARONE 150 MG IV ONE (05:11)
[2024-08-16] MEDS: AMIODARONE 360 MG in DEXTROSE 5% IN WATER 200 ML IV ONE (05:18)
[2024-08-16] MEDS: DILTIAZEM 5 MG/ML 5 ML VIAL IVP STA (05:35)
[2024-08-16 05:52] LABS: HCT 37.6 % (37.2-46.3); HGB 11.7 g/dL (12.0-15.0); MCH 30.5 pg (27.0-32.0); MCHC 31.1 g/dL (32.0-37.0); MCV 97.9 fL (80.0-97.0); Mean Platelet Volume 10.7 fL (9.5-12.2); Platelet Count 150 10*3/uL (140-440); RBC 3.84 10*6/uL (4.10-5.20); RDW 14.1 % (11.5-14.5); WBC 21.45 10*3/uL (4.50-10.00)
[2024-08-16 06:43] LABS: Band Neutrophils % 15 %; Eosinophils # (M) 0.21 k/uL (0-0.7); Lymphocytes # (M) 0.64 k/uL (1.0-4.8); Monocytes # (M) 0.43 k/uL (0-1.0); Neutrophils # (M) 20.16 k/uL (1.3-7.7); Neutrophils % (M) 79 %; Nucleated Red Blood Cells 0 /100 WBC (0-0); Total Cells Counted 100
[2024-08-16 06:46] LABS: ALT 32 U/L (4-34); AST 52 U/L (14-36); African American GFR (CKD) 34 (>60 ml/min/1.73 sqM); Albumin 2.8 g/dL (3.5-5.0); Alkaline Phosphatase 61 U/L (38-126); Anion Gap 11 mmol/L; Blood Urea Nitrogen 27 mg/dL (7-17); Calcium 7.7 mg/dL (8.4-10.2); Carbon Dioxide 17 mmol/L (22-30); Chloride 107 mmol/L (98-107); Glucose 113 mg/dL (74-99); Non-African American GFR(CKD) 29 (>60 ml/min/1.73 sqM); Potassium 4.3 mmol/L (3.5-5.1); Sodium 135 mmol/L (137-145); Total Bilirubin 0.6 mg/dL (0.2-1.3); Total Protein 5.3 g/dL (6.3-8.2)
[2024-08-16] MEDS ORDERED: HYDROmorphone 0.5 MG/0.5 ML SYRINGE IVP PRN (07:00)
--- NOTE | 2024-08-16 07:05 | FL ---
EXAMINATION TYPE: FL guidance operating room Intraoperative/procedural fluoroscopic services were pro vided. CLINICAL INDICATION:Female, 64 years old with history of STENT PLACEMENT; , [facility] FINDINGS: Single fluoroscopic image demonstrating right ureteral stent placement. No radiographic evidence for complication. Total fluoroscopy time is 13.4 seconds. DAP: 3.5898 Gycm2 uGym2 mGym2 Please see the operative/procedural note for further details. [facility], , 08/16/2024 7:02 AM
[2024-08-16] MEDS: ACETAMINOPHEN TAB 325 MG TAB PO PRN (07:41)
[2024-08-16] MEDS: VASOPRESSIN 60 UNIT in SODIUM CHLORIDE 0.9% 150 ML IV SCH (10:05)
[2024-08-16] MEDS: AMIODARONE 450 MG in DEXTROSE 5% IN WATER 250 ML IV SCH (11:18)
--- NOTE | 2024-08-16 11:48 | P.CNPUL ---
History of Present Illness Consult date: 08/16/24 Requesting physician: Khari Morales Chief complaint: Urosepsis, hypotension. History of present illness: Pulmonary consult dated August 16, 2024. 64-year-old female who presented to the emergency department, on August 15, with complaints of dizziness, nausea, and vomiting. Apparently the symptoms began the day of admission. She denied any chest pain or abdominal pain. The patient apparently was discovered to have nephrolithiasis, and required a cystoscopy, with a stent placement, on the right side. This was done by one of the urologist. I was notified by the urologist, that the patient was profoundly tachycardic, and hypotensive, and therefore, she was admitted to the intensive care unit, for further monitoring and management. She is currently on 6 L nasal cannula. She is getting LR at 130 cc an hour. She is on norepinephrine at 47 mcg/min. She is getting amiodarone 1 mg/min. She is also on Rocephin. She has a history of myasthenia gravis, and has not been taking her Mestinon, or prednisone. She also has a history of atrial fibrillation. The patient was seen by urology, and found to have right hydronephrosis secondary to a right ureteral calculus. She underwent cystoscopy with right ureteral stent placement. Current labs include a white count 21.5, hemoglobin 11.7, hematocrit 37.6, and a platelet count of 150,000. Sodium 135, potassium 4.3, chlorides 107, CO2 17, anion gap 11, BUN 27, creatinine 1.80. Glucose is 113. Most recent lactic acid is 3.5. Calcium 7.7. Review of Systems REVIEW OF SYSTEMS: CONSTITUTIONAL: [Negative.] NEUROLOGIC: Dizziness. HEENT: [ Negative.] CARDIAC: [Negative.] PULMONARY: [Negative.] GI: Nausea and vomiting. : [Negative.] RHEUMATOLOGIC: [ Negative.] IMMUNOLOGIC: [ Negative.] ENDOCRINE: [Negative. ] DERMATOLOGIC: [Negative.] Past Medical History Past Medical History: Atrial Fibrillation, Hypertension Additional Past Medical History / Comment(s): myastenas gravis History of Any Multi-Drug Resistant Organisms: None Reported Past Surgical History: Orthopedic Surgery Additional Past Surgical History / Comment(s): right shoulder Past Psychological History: No Psychological Hx Reported Smoking Status: Former smoker Past Alcohol Use History: None Reported Past Drug Use History: None Reported - Past Family History Father Family Medical History: Myocardial Infarction ([place]) Medications and Allergies Home Medications Medication Instructions Recorded Confirmed Type Pyridostigmine Davin [Mestinon] 60 mg PO TID-W/MEALS 05/04/24 08/15/24 History predniSONE 10 mg PO DAILY 05/04/24 08/15/24 History Atorvastatin [Lipitor] 40 mg PO DAILY #30 tab 05/11/24 08/15/24 Rx Famotidine [Pepcid] 20 mg PO DAILY #30 tab 05/11/24 08/15/24 Rx Apixaban [Eliquis] 5 mg PO BID@0900,1400 08/15/24 08/15/24 History Cholecalciferol (Vitamin D3) 75 mcg PO DAILY 08/15/24 08/15/24 History [Vitamin D3 (3000 Iu)] Diltiazem Oral [Cardizem*] 60 mg PO TID-W/MEALS 08/15/24 08/15/24 History EPINEPHrine (Auto Inject) [Epipen] 0.3 mg IM ONCE PRN 08/15/24 08/15/24 History Metoprolol Tartrate [Lopressor] 25 mg PO BID@0900,1400 08/15/24 08/15/24 History Octagam Infusion 1 dose IV Q30D 08/15/24 08/15/24 History hydroCHLOROthiazide [Hydrodiuril] 12.5 mg PO DAILY 08/15/24 08/15/24 History lisinopriL [Zestril] 20 mg PO DAILY 08/15/24 08/15/24 History Allergies Allergy/AdvReac Type Severity Reaction Status Date / Time Penicillins Allergy Unknown Unknown Verified 08/15/24 16:27 Childhood Physical Exam Osteopathic Statement: *. No significant issues noted on an osteopathic structural exam other than those noted in the History and Physical/Consult. Vitals: Vital Signs Temp Pulse Pulse Resp BP BP BP 08/16/24 11:00 99 31 H 114/83 08/16/24 10:45 96 13 114/83 08/16/24 10:30 96 21 114/83 08/16/24 10:15 98 19 106/77 08/16/24 10:00 97 24 105/70 08/16/24 09:45 96 31 H 99/74 08/16/24 09:30 97 37 H 104/71 08/16/24 09:15 97 27 H 08/16/24 09:00 96 20 95/58 08/16/24 08:45 97 8 L 100/49 08/16/24 08:30 142 H 22 86/67 08/16/24 08:15 125 H 23 83/64 08/16/24 08:00 97.9 F 142 H 24 94/69 08/16/24 07:45 141 H 7 L 97/64 08/16/24 07:30 142 H 19 86/62 08/16/24 07:15 152 H 22 92/59 08/16/24 07:00 142 H 19 81/43 08/16/24 06:45 140 H 20 93/57 81/53 08/16/24 06:30 133 H 22 71/55 88/52 08/16/24 06:15 142 H 24 71/55 74/57 08/16/24 06:00 98.3 F 120 H 24 75/55 77/52 08/16/24 05:45 70/49 08/16/24 05:30 78/56 08/16/24 05:15 69/47 08/16/24 05:00 79/46 08/16/24 04:45 80/55 08/16/24 04:30 71/45 08/16/24 04:15 90/44 08/16/24 04:00 22 82/47 08/16/24 03:45 79/47 08/16/24 03:30 75/41 08/16/24 03:15 88/46 08/16/24 03:00 85/48 08/16/24 02:45 86/47 08/16/24 02:30 91/48 08/16/24 02:15 71/43 08/16/24 02:05 86/48 08/16/24 02:00 74/44 08/16/24 01:50 50/31 08/16/24 01:45 104 H 65/39 08/16/24 01:42 98.7 F 97 20 90/38 08/16/24 01:30 115 H 26 H 88/42 08/16/24 01:15 116 H 26 H 83/37 08/16/24 01:00 118 H 24 79/46 06/01/25 00:41 100.3 F H 117 H 24 86/40 08/16/24 00:05 113 H 20 92/62 08/15/24 23:35 122 H 20 87/54 08/15/24 22:59 116 H 20 96/55 08/15/24 21:10 100.0 F H 120 H 20 91/54 08/15/24 20:02 102.6 F H 121 H 20 96/54 08/15/24 18:51 100.8 F H 135 H 24 97/50 08/15/24 17:00 100 20 97/50 08/15/24 16:00 86 16 105/50 08/15/24 15:58 114 H 20 124/68 08/15/24 15:45 98.0 F 110 H 22 105/50 08/15/24 14:58 98 14 102/55 08/15/24 14:00 116 H 20 104/60 08/15/24 13:12 72 20 131/71 08/15/24 12:50 20 08/15/24 12:39 99.8 F H 126 H 20 115/76 08/15/24 12:30 99.8 F H 121 H 20 115/76 Pulse Ox 08/16/24 11:00 92 L 08/16/24 10:45 94 L 08/16/24 10:30 92 L 08/16/24 10:15 95 08/16/24 10:00 94 L 08/16/24 09:45 94 L 08/16/24 09:30 94 L 08/16/24 09:15 97 08/16/24 09:00 95 08/16/24 08:45 96 08/16/24 08:30 95 08/16/24 08:15 94 L 08/16/24 08:00 94 L 08/16/24 07:45 93 L 08/16/24 07:30 94 L 08/16/24 07:15 93 L 08/16/24 07:00 94 L 08/16/24 06:45 92 L 08/16/24 06:30 92 L 08/16/24 06:15 92 L 08/16/24 06:00 92 L 08/16/24 05:45 08/16/24 05:30 08/16/24 05:15 08/16/24 05:00 08/16/24 04:45 08/16/24 04:30 08/16/24 04:15 08/16/24 04:00 08/16/24 03:45 08/16/24 03:30 08/16/24 03:15 08/16/24 03:00 08/16/24 02:45 08/16/24 02:30 08/16/24 02:15 08/16/24 02:05 08/16/24 02:00 08/16/24 01:50 08/16/24 01:45 08/16/24 01:42 92 L 08/16/24 01:30 96 08/16/24 01:15 96 08/16/24 01:00 96 08/16/24 00:41 90 L 08/16/24 00:05 93 L 08/15/24 23:35 93 L 08/15/24 22:59 95 08/15/24 21:10 93 L 08/15/24 20:02 92 L 08/15/24 18:51 96 08/15/24 17:00 98 08/15/24 16:00 96 08/15/24 15:58 98 08/15/24 15:45 94 L 08/15/24 14:58 93 L 08/15/24 14:00 98 08/15/24 13:12 99 08/15/24 12:50 08/15/24 12:39 93 L 08/15/24 12:30 92 L Intake and Output 08/15/24 08/16/24 08/16/24 22:59 06:59 14:59 Intake Total 0182.480 3842.971 Output Total 0 125 415 Balance 0 1433.000 893.971 Intake: IV 1050 700 Lactated Ringers 1,000 ml 650 650 @ 130 mls/hr IV .[id number] [facility] Rx#:[id number] cefTRIAXone 2 gm In 50 Sodium Chloride 0.9% 50 ml @ 100 mls/hr IVPB Q24HR [facility] Rx#:[id number] Intake, IV Titration 508.000 578.971 Amount Norepinephrine 4 mg In 508.000 578.971 Sodium Chloride 0.9% 250 ml @ 0.03 MCG/KG/MIN 14. 517 mls/hr IV .[id number] [facility] Rx#:[id number] Oral 30 Output: Urine 125 415 Post Void Residual 0 Other: Voiding Method Indwelling Catheter Indwelling Catheter # Bowel Movements 0 Weight 136.2 kg 136.2 kg ABP, PAP, CO, CI - Last 8 Hours Arterial Blood Pressure 121/82 Arterial Blood Pressure 115/68 Arterial Blood Pressure 83/83 Arterial Blood Pressure 106/68 Arterial Blood Pressure 107/56 No acute distress, oriented 3. Currently on 6 L nasal cannula. HEENT examination is grossly unremarkable. Mucous membranes are dry. Neck supple. Full range of motion. No adenopathy thyromegaly or neck vein distention. Cardiovascular examination reveals regular rhythm rate. S1-S2 normal. No S3 or S4. No discernible murmur noted. Heart sounds are distant. Lungs reveal clear breath sounds. Breath sounds are equal bilaterally. No adventitious lung sounds including wheezes rhonchi or crackles. Abdomen soft without bowel sounds. No masses or tenderness. Extremities are intact. No cyanosis clubbing or edema. Skin is without rash or lesion. Neurologic examination is brief but nonfocal. Results - Laboratory Findings CBC and BMP: 08/16/24 05:28 08/16/24 05:28 Abnormal lab findings: Abnormal Labs 08/15/24 08/15/24 08/15/24 12:48 12:48 12:49 WBC RBC Hgb MCV MCHC Immature Gran # Neutrophils # (Manual) Lymphocytes # (Manual) 0.37 L Sodium Carbon Dioxide BUN 20 H Creatinine Glucose 118 H Plasma Lactic Acid Ant 5.1 H* Calcium Magnesium 1.4 L AST 55 H ALT 41 H Total Protein Albumin Urine Appearance Urine Protein Urine Blood Ur Leukocyte Esterase Urine RBC Urine WBC Urine WBC Clumps Urine Bacteria Urine Mucus 08/15/24 08/15/24 08/15/24 15:58 17:17 20:19 WBC RBC Hgb MCV MCHC Immature Gran # Neutrophils # (Manual) Lymphocytes # (Manual) Sodium Carbon Dioxide BUN Creatinine Glucose Plasma Lactic Acid Ant 5.9 H* 6.4 H* Calcium Magnesium AST ALT Total Protein Albumin Urine Appearance Cloudy H Urine Protein Trace H Urine Blood Moderate H Ur Leukocyte Esterase Large H Urine RBC 56 H Urine WBC 68 H Urine WBC Clumps Moderate H Urine Bacteria Many H Urine Mucus Occasional H 08/16/24 08/16/24 08/16/24 05:28 05:28 05:28 WBC 21.45 H RBC 3.84 L Hgb 11.7 L MCV 97.9 H MCHC 31.1 L Immature Gran # 0.17 H Neutrophils # (Manual) 20.16 H Lymphocytes # (Manual) 0.64 L Sodium 135 L Carbon Dioxide 17 L BUN 27 H Creatinine 1.80 H Glucose 113 H Plasma Lactic Acid Ant 3.5 H* Calcium 7.7 L Magnesium AST 52 H ALT Total Protein 5.3 L Albumin 2.8 L Urine Appearance Urine Protein Urine Blood Ur Leukocyte Esterase Urine RBC Urine WBC Urine WBC Clumps Urine Bacteria Urine Mucus 08/16/24 10:51 WBC RBC Hgb MCV MCHC Immature Gran # Neutrophils # (Manual) Lymphocytes # (Manual) Sodium Carbon Dioxide BUN Creatinine Glucose Plasma Lactic Acid Ant 3.5 H* Calcium Magnesium AST ALT Total Protein Albumin Urine Appearance Urine Protein Urine Blood Ur Leukocyte Esterase Urine RBC Urine WBC Urine WBC Clumps Urine Bacteria Urine Mucus - Diagnostic Findings Chest x-ray: image reviewed Assessment and Plan Assessment: Right ureteral stone, with right-sided hydronephrosis, S/P cystoscopy, with right ureteral stent, postop day #0. Presumed urosepsis/septic shock, secondary to urinary tract infection. Severe hypotension, secondary to sepsis. History of myasthenia gravis. History of atrial fibrillation. History of hyperlipidemia. History of hypertension. Previous tobacco use. Plan: Plan dated August 16, 2024. The patient was seen in the intensive care unit, room 262. I was called by the neurologist last night, who requested a bed for this patient. The patient was quite hypotensive, and tachycardic. She was seen today and was on 47 mcg/min of norepinephrine. We added vasopressin 0.04 units/min. She did receive adequate fluid resuscitation, i.e. 6 L. The patient is currently on Rocephin. She is also on amiodarone at 1 mg/min, for atrial fibrillation. She is also getting lactated Ringer's at 130 cc an hour. We resume her Mestinon, and hydrocortisone, for her myasthenia gravis. She previously was on prednisone 10 mg a day. Labs, x-rays, and all medications are reviewed. She had a cystoscopy, with right ureteral stent placement last night. All labs, x-rays, and medications are reviewed. Today we placed a right radial arterial line, and right femoral vein triple-lumen catheter. We will continue to follow. Prognosis is guarded. Dictation was produced using [employer] software. Please excuse any grammatical, word or spelling errors. Time with Patient: Greater than 30
--- NOTE | 2024-08-16 11:51 | P.HPIM ---
History of Present Illness This is a pleasant 64 years old female with past medical history of multiple medical problems as below. Presents because of nausea vomiting and chills of 1 to 2 days duration. She vomited about twice per day and that is why she came to the hospital because on April she had similar presentation with vomiting and chills and found to have UTI, this time she does not have a fever but because of her concern she came. On presentation patient became hypotensive with high lactic acid elevated, she received several boluses of normal saline. Also she received midodrine. With minimal improvement in blood pressure, because of this we are did urgent ultrasound last night which was suspicious for mild hydronephrosis however we consulted urology team and urgently they evaluated the patient and took her to the OR status post stent placement in the right renal system. After that patient was transferred to the ICU. She continued on IV hydration however she developed A-fib and RVR and amiodarone and Cardizem given. Bradley Linebacker Crewmember was contacted. About 4 to 5 AM she converted back to sinus rhythm Currently she is fully awake oriented does not look in significant distress. She has some headache but denies any abdominal pain or diarrhea. Other than the vomiting. No significant urinary complaints like burning or change in frequency or suprapubic pain or tenderness. No dizziness weakness or numbness Patient states she has history of myasthenia gravis on pyridostigmine She denies smoking alcohol or illicit drugs. She had a fever of 102 in emergency room, blood pressure currently with the pressors is 105/70, breathing rate is around 28-24 She has leukocytosis at 21,000, hemoglobin 11.7, sodium 135 and creatinine went up to 1.8 Lactic acid was elevated 5.1 it went up to 6.4 and currently improving down to 3.5 Currently she is kept on Levophed and vasopressin. Also missed the roundtrip, Ringer lactate at 138 and ceftriaxone 2 g daily Past Medical History Past Medical History: Hypertension Additional Past Medical History / Comment(s): myastenas gravis History of Any Multi-Drug Resistant Organisms: None Reported Past Surgical History: Orthopedic Surgery Past Psychological History: No Psychological Hx Reported Smoking Status: Former smoker Past Alcohol Use History: None Reported Past Drug Use History: None Reported - Past Family History Father Family Medical History: Myocardial Infarction ([place]) Medications and Allergies Home Medications Medication Instructions Recorded Confirmed Type Pyridostigmine Lamont [Mestinon] 60 mg PO TID-W/MEALS 05/04/24 08/15/24 History predniSONE 10 mg PO DAILY 05/04/24 08/15/24 History Atorvastatin [Lipitor] 40 mg PO DAILY #30 tab 05/11/24 08/15/24 Rx Famotidine [Pepcid] 20 mg PO DAILY #30 tab 05/11/24 08/15/24 Rx Apixaban [Eliquis] 5 mg PO BID@0900,1400 08/15/24 08/15/24 History Cholecalciferol (Vitamin D3) 75 mcg PO DAILY 08/15/24 08/15/24 History [Vitamin D3 (3000 Iu)] Diltiazem Oral [Cardizem*] 60 mg PO TID-W/MEALS 08/15/24 08/15/24 History EPINEPHrine (Auto Inject) [Epipen] 0.3 mg IM ONCE PRN 08/15/24 08/15/24 History Metoprolol Tartrate [Lopressor] 25 mg PO BID@0900,1400 08/15/24 08/15/24 History Octagam Infusion 1 dose IV Q30D 08/15/24 08/15/24 History hydroCHLOROthiazide [Hydrodiuril] 12.5 mg PO DAILY 08/15/24 08/15/24 History lisinopriL [Zestril] 20 mg PO DAILY 08/15/24 08/15/24 History Allergies Allergy/AdvReac Type Severity Reaction Status Date / Time Penicillins Allergy Unknown Unknown Verified 08/15/24 16:27 Childhood Physical Exam Vitals: Vital Signs Temp Pulse Pulse Resp BP BP Pulse Ox 08/16/24 01:30 115 H 26 H 88/42 96 08/16/24 01:15 116 H 26 H 83/37 96 08/16/24 01:00 118 H 24 79/46 96 08/16/24 00:41 100.3 F H 117 H 24 86/40 90 L 08/16/24 00:05 113 H 20 92/62 93 L 08/15/24 23:35 122 H 20 87/54 93 L 08/15/24 22:59 116 H 20 96/55 95 08/15/24 21:10 100.0 F H 120 H 20 91/54 93 L 08/15/24 20:02 102.6 F H 121 H 20 96/54 92 L 08/15/24 18:51 100.8 F H 135 H 24 97/50 96 08/15/24 17:00 100 20 97/50 98 08/15/24 16:00 86 16 105/50 96 08/15/24 15:58 114 H 20 124/68 98 08/15/24 15:45 98.0 F 110 H 22 105/50 94 L 08/15/24 14:58 98 14 102/55 93 L 08/15/24 14:00 116 H 20 104/60 98 08/15/24 13:12 72 20 131/71 99 08/15/24 12:50 20 08/15/24 12:39 99.8 F H 126 H 20 115/76 93 L 08/15/24 12:30 99.8 F H 121 H 20 115/76 92 L Intake and Output 08/15/24 08/15/24 08/16/24 14:59 22:59 06:59 Intake Total 1174.000 Output Total 0 75 Balance 0 1099.000 Intake: IV 920 Lactated Ringers 1,000 ml 520 @ 130 mls/hr IV .[id number] [facility] Rx#:[id number] Intake, IV Titration 254.000 Amount Norepinephrine 4 mg In 254.000 Sodium Chloride 0.9% 250 ml @ 0.03 MCG/KG/MIN 14. 517 mls/hr IV .[id number] [facility] Rx#:[id number] Output: Urine 75 Post Void Residual 0 Other: # Bowel Movements 0 Weight 127.006 kg 136.2 kg Results CBC & Chem 7: 08/16/24 05:28 08/16/24 05:28 Labs: Abnormal Lab Results - Last 24 Hours (Table) 08/15/24 08/15/24 08/15/24 Range/Units 12:48 12:48 12:49 WBC (4.50-10.00) 10*3/uL RBC (4.10-5.20) 10*6/uL Hgb (12.0-15.0) g/dL MCV (80.0-97.0) fL MCHC (32.0-37.0) g/dL Immature Gran # (0.00-0.04) 10*3/uL Lymphocytes # (Manual) 0.37 L (1.0-4.8) k/uL BUN 20 H (7-17) mg/dL Glucose 118 H (74-99) mg/dL Plasma Lactic Acid Ant 5.1 H* (0.7-2.0) mmol/L Magnesium 1.4 L (1.6-2.3) mg/dL AST 55 H (14-36) U/L ALT 41 H (4-34) U/L Urine Appearance (Clear) Urine Protein (Negative) Urine Blood (Negative) Ur Leukocyte Esterase (Negative) Urine RBC (0-5) /hpf Urine WBC (0-5) /hpf Urine WBC Clumps (None) /hpf Urine Bacteria (None) /hpf Urine Mucus (None) /hpf 08/15/24 08/15/24 08/15/24 Range/Units 15:58 17:17 20:19 WBC (4.50-10.00) 10*3/uL RBC (4.10-5.20) 10*6/uL Hgb (12.0-15.0) g/dL MCV (80.0-97.0) fL MCHC (32.0-37.0) g/dL Immature Gran # (0.00-0.04) 10*3/uL Lymphocytes # (Manual) (1.0-4.8) k/uL BUN (7-17) mg/dL Glucose (74-99) mg/dL Plasma Lactic Acid Ant 5.9 H* 6.4 H* (0.7-2.0) mmol/L Magnesium (1.6-2.3) mg/dL AST (14-36) U/L ALT (4-34) U/L Urine Appearance Cloudy H (Clear) Urine Protein Trace H (Negative) Urine Blood Moderate H (Negative) Ur Leukocyte Esterase Large H (Negative) Urine RBC 56 H (0-5) /hpf Urine WBC 68 H (0-5) /hpf Urine WBC Clumps Moderate H (None) /hpf Urine Bacteria Many H (None) /hpf Urine Mucus Occasional H (None) /hpf 08/16/24 Range/Units 05:28 WBC 21.45 H (4.50-10.00) 10*3/uL RBC 3.84 L (4.10-5.20) 10*6/uL Hgb 11.7 L (12.0-15.0) g/dL MCV 97.9 H (80.0-97.0) fL MCHC 31.1 L (32.0-37.0) g/dL Immature Gran # 0.17 H (0.00-0.04) 10*3/uL Lymphocytes # (Manual) (1.0-4.8) k/uL BUN (7-17) mg/dL Glucose (74-99) mg/dL Plasma Lactic Acid Ant (0.7-2.0) mmol/L Magnesium (1.6-2.3) mg/dL AST (14-36) U/L ALT (4-34) U/L Urine Appearance (Clear) Urine Protein (Negative) Urine Blood (Negative) Ur Leukocyte Esterase (Negative) Urine RBC (0-5) /hpf Urine WBC (0-5) /hpf Urine WBC Clumps (None) /hpf Urine Bacteria (None) /hpf Urine Mucus (None) /hpf Assessment and Plan Assessment: Septic shock secondary to acute urinary tract infection Acute urinary tract infection secondary to gram-negative bacilli Right hydronephrosis s/p emergent stent Acute kidney injury Obesity with BMI of 47 Leukocytosis secondary to above Elevated lactic acid Atrial fibrillation on Eliquis at home Plan: Continue management in the ICU Continue with antibiotics ceftriaxone Continue with aggressive hydration Continue with pressors for blood pressure support Monitor urine output and input monitor creatinine Urology team consult Critical care team consult Resume pyridostigmine Hold blood pressure medication Cardizem, lisinopril, hydrochlorothiazide and metoprolol. Patient may resume metoprolol and Cardizem per saddle and harness maker later on when blood pressure improves Labs and medication were reviewed.. Continue same treatment. Continue with symptomatic treatment. Resume home medication. Monitor labs and vitals. DVT and GI prophylaxis. Further recommendations as per clinical course of the patient DVT prophylaxis: Subcutaneous heparin. Eliquis on hold GI Prophylaxis: Pepcid PT/OT: Pending, deferred Prognosis is guarded
[2024-08-16] MEDS: PYRIDOSTIGMINE 60 MG TAB PO SCH (12:16)
[2024-08-16] MEDS: FAMOTIDINE 20 MG/2 ML VIAL IV SCH (12:17)
[2024-08-16] MEDS: HYDROCORTISONE SUCCINATE 100 MG/2 ML VIAL IV SCH (12:17)
--- NOTE | 2024-08-16 12:20 | P.CRDCN ---
History of Present Illness Consult date: 08/16/24 Reason for Consult (text): atrial fibrillation with RVR History of present illness: This is a 64-year-old female patient of Dr. Walsh with past medical history of paroxysmal atrial fibrillation, hypertension, hyperlipidemia, myasthenia gravis gravis, moderate mitral insufficiency. We have been asked to evaluate the patient for A-fib with RVR. Patient was last seen in the office with Dr. Walsh on 07/16/2024 which time she was doing well. Since then, she states she had 2 episodes lasting about 15 minutes each of atrial fibrillation with RVR. Each episode resolved on its own. Patient states she came into the hospital due to vomiting and shaking. She states she did not have any burning or pain with urination. She does complain of some right sided chest pain that she thought was muscle related as she has had previous right shoulder surgery and sometimes she has pain with lifting too much. Patient was found to be febrile with a mild to moderate right hydronephrosis due to kidney stone and is status post cystoscopy and right ureteral stent insertion. Patient did have tachycardia hypotension and was admitted to the intensive care unit. This morning she was found to be in A-fib with RVR and was started on amiodarone drip. Patient denies feeling atrial fibrillation when this started. Patient converted to sinus rhythm around 845 this morning. Blood pressure 114/83, heart rate 99, pulse ox 92% on room air. -EKG: Initially was sinus tachycardia 122 bpm, patient was subsequently in A-fib with RVR on telemetry. -Chest x-ray: No acute process. -Gallbladder ultrasound: Cholelithiasis and biliary sludge without definite evidence of acute cholecystitis. Increased hepatic echogenicity possible steatosis or hepatocellular disease. -Renal ultrasound: Unremarkable. -CT abdomen pelvis without contrast: Mild hydro secondary to ureteral calculus. 1.6 cm lesion in the vagina. Cirrhosis. Nonobstructive additional renal stones. No left-sided hydro. -Laboratory studies: WBC 21.4, hemoglobin 9.7, sodium 135, potassium 4.3, BUN 27 creatinine 1.8. Urinalysis positive for infection. Cepheid viral panel not detected. -Home cardiac medications: Eliquis 5 mg twice daily, Lipitor 40 mg daily, Cardizem 60 mg 3 times daily, hydrochlorothiazide 12.5 mg daily, lisinopril 20 mg daily, metoprolol tartrate 25 mg twice daily. -Echocardiogram performed at [facility] on 05/07/2024 revealed technically difficult study with normal LV systolic function and mild LVH. Moderate mitral regurgitation with thickened mitral valve leaflets. Cannot rule out bicuspid aortic valve. Aortic valve is sclerotic. Mild aortic stenosis. -Lexiscan Cardiolite stress test performed in the office on 05/28/2024 revealed EF 81%, probably normal study. -Event monitor performed 05/20 - 06/02/2024 revealed sinus rhythm with average heart rate of 65, minimum 47 bpm and maximum 141 bpm. Ventricular ectopic activity burden less than 1%. Atrial fibrillation burden at 1% and was asymptomatic. Review Of Systems: At the time of my exam: CONSTITUTIONAL: Reports fever or chills. HEENT: Denies blurred vision, vision changes, or eye pain. Denies hemoptysis CARDIOVASCULAR: Denies chest pain. Denies orthopnea. Denies PND. Denies palpitations RESPIRATORY: Denies shortness of breath. GASTROINTESTINAL: Denies abdominal pain. Denies nausea or vomiting. HEMATOLOGIC: Denies bleeding disorders. GENITOURINARY: Denies any blood in urine. SKIN: Denies puritis. Denies rash. Physical examination: Gen: This is a 64-year-old female in no acute distress VS: reviewed HEENT: Head is atraumatic, normocephalic. Pupils equal, round. Sclerae is anict paco. NECK: Supple. No JVD. LUNGS: Clear to auscultation. No wheezes or rhonchi. No intercostal r etractions. HEART: Regular rate and rhythm. No murmur. ABDOMEN: Soft No tenderness. EXTREMITIES: No pedal edema. No calf tenderness. NEUROLOGICAL: Patient is awake, alert and oriented x3. Assessment: Paroxysmal atrial fibrillation with RVR, converted to sinus rhythm Right ureteral stone with right-sided hydronephrosis status post cystoscopy and right ureteral stent placement Urinary tract infection and sepsis Acute kidney injury History of myasthenia gravis History of hypertension Hyperlipidemia Moderate mitral insufficiency Plan: Resume Eliquis once cleared by urology Continue patient on amiodarone drip and transition to oral 400 mg twice daily tomorrow morning Hold Cardizem, hydrochlorothiazide, lisinopril, metoprolol due to hypotension No need to repeat echocardiogram at this time as it was performed 05/07/2024 Further recommendations to follow based upon clinical course Thank you kindly for this consultation. Nurse practitioner note has been reviewed, I agree with documented findings and plan of care. Patient was seen and examined. Past Medical History Past Medical History: Atrial Fibrillation, Hypertension Additional Past Medical History / Comment(s): myastenas gravis History of Any Multi-Drug Resistant Organisms: None Reported Past Surgical History: Orthopedic Surgery Additional Past Surgical History / Comment(s): right shoulder Past Psychological History: No Psychological Hx Reported Smoking Status: Former smoker Past Alcohol Use History: None Reported Past Drug Use History: None Reported - Past Family History Father Family Medical History: Myocardial Infarction (VT) Medications and Allergies Home Medications Medication Instructions Recorded Confirmed Type Pyridostigmine [place] [Mestinon] 60 mg PO TID-W/MEALS 05/04/24 08/15/24 History predniSONE 10 mg PO DAILY 05/04/24 08/15/24 History Atorvastatin [Lipitor] 40 mg PO DAILY #30 tab 05/11/24 08/15/24 Rx Famotidine [Pepcid] 20 mg PO DAILY #30 tab 05/11/24 08/15/24 Rx Apixaban [Eliquis] 5 mg PO BID@0900,1400 08/15/24 08/15/24 History Cholecalciferol (Vitamin D3) 75 mcg PO DAILY 08/15/24 08/15/24 History [Vitamin D3 (3000 Iu)] Diltiazem Oral [Cardizem*] 60 mg PO TID-W/MEALS 08/15/24 08/15/24 History EPINEPHrine (Auto Inject) [Epipen] 0.3 mg IM ONCE PRN 08/15/24 08/15/24 History Metoprolol Tartrate [Lopressor] 25 mg PO BID@0900,1400 08/15/24 08/15/24 History Octagam Infusion 1 dose IV Q30D 08/15/24 08/15/24 History hydroCHLOROthiazide [Hydrodiuril] 12.5 mg PO DAILY 08/15/24 08/15/24 History lisinopriL [Zestril] 20 mg PO DAILY 08/15/24 08/15/24 History Allergies Allergy/AdvReac Type Severity Reaction Status Date / Time Penicillins Allergy Unknown Unknown Verified 08/15/24 16:27 Childhood Physical Exam Vitals: Vital Signs Temp Pulse Pulse Resp BP BP BP 08/16/24 11:00 99 31 H 114/83 08/16/24 10:45 96 13 114/83 08/16/24 10:30 96 21 114/83 08/16/24 10:15 98 19 106/77 08/16/24 10:00 97 24 105/70 08/16/24 09:45 96 31 H 99/74 08/16/24 09:30 97 37 H 104/71 08/16/24 09:15 97 27 H 08/16/24 09:00 96 20 95/58 08/16/24 08:45 97 8 L 100/49 08/16/24 08:30 142 H 22 86/67 08/16/24 08:15 125 H 23 83/64 08/16/24 08:00 97.9 F 142 H 24 94/69 08/16/24 07:45 141 H 7 L 97/64 08/16/24 07:30 142 H 19 86/62 08/16/24 07:15 152 H 22 92/59 08/16/24 07:00 142 H 19 81/43 08/16/24 06:45 140 H 20 93/57 81/53 08/16/24 06:30 133 H 22 71/55 88/52 08/16/24 06:15 142 H 24 71/55 74/57 08/16/24 06:00 98.3 F 120 H 24 75/55 77/52 08/16/24 05:45 70/49 08/16/24 05:30 78/56 08/16/24 05:15 69/47 08/16/24 05:00 79/46 08/16/24 04:45 80/55 08/16/24 04:30 71/45 08/16/24 04:15 90/44 08/16/24 04:00 22 82/47 08/16/24 03:45 79/47 08/16/24 03:30 75/41 08/16/24 03:15 88/46 08/16/24 03:00 85/48 08/16/24 02:45 86/47 08/16/24 02:30 91/48 08/16/24 02:15 71/43 08/16/24 02:05 86/48 08/16/24 02:00 74/44 08/16/24 01:50 50/31 08/16/24 01:45 104 H 65/39 08/16/24 01:42 98.7 F 97 20 90/38 08/16/24 01:30 115 H 26 H 88/42 08/16/24 01:15 116 H 26 H 83/37 08/16/24 01:00 118 H 24 79/46 08/16/24 00:41 100.3 F H 117 H 24 86/40 08/16/24 00:05 113 H 20 92/62 08/15/24 23:35 122 H 20 87/54 08/15/24 22:59 116 H 20 96/55 08/15/24 21:10 100.0 F H 120 H 20 91/54 08/15/24 20:02 102.6 F H 121 H 20 96/54 08/15/24 18:51 100.8 F H 135 H 24 97/50 08/15/24 17:00 100 20 97/50 08/15/24 16:00 86 16 105/50 08/15/24 15:58 114 H 20 124/68 08/15/24 15:45 98.0 F 110 H 22 105/50 08/15/24 14:58 98 14 102/55 08/15/24 14:00 116 H 20 104/60 08/15/24 13:12 72 20 131/71 08/15/24 12:50 20 08/15/24 12:39 99.8 F H 126 H 20 115/76 08/15/24 12:30 99.8 F H 121 H 20 115/76 Pulse Ox 08/16/24 11:00 92 L 08/16/24 10:45 94 L 08/16/24 10:30 92 L 08/16/24 10:15 95 08/16/24 10:00 94 L 08/16/24 09:45 94 L 08/16/24 09:30 94 L 08/16/24 09:15 97 08/16/24 09:00 95 08/16/24 08:45 96 08/16/24 08:30 95 08/16/24 08:15 94 L 08/16/24 08:00 94 L 08/16/24 07:45 93 L 08/16/24 07:30 94 L 08/16/24 07:15 93 L 08/16/24 07:00 94 L 08/16/24 06:45 92 L 08/16/24 06:30 92 L 08/16/24 06:15 92 L 08/16/24 06:00 92 L 08/16/24 05:45 08/16/24 05:30 08/16/24 05:15 08/16/24 05:00 08/16/24 04:45 08/16/24 04:30 08/16/24 04:15 08/16/24 04:00 08/16/24 03:45 08/16/24 03:30 08/16/24 03:15 08/16/24 03:00 08/16/24 02:45 08/16/24 02:30 08/16/24 02:15 08/16/24 02:05 08/16/24 02:00 08/16/24 01:50 08/16/24 01:45 08/16/24 01:42 92 L 08/16/24 01:30 96 08/16/24 01:15 96 08/16/24 01:00 96 08/16/24 00:41 90 L 08/16/24 00:05 93 L 08/15/24 23:35 93 L 08/15/24 22:59 95 08/15/24 21:10 93 L 08/15/24 20:02 92 L 08/15/24 18:51 96 08/15/24 17:00 98 08/15/24 16:00 96 08/15/24 15:58 98 08/15/24 15:45 94 L 08/15/24 14:58 93 L 08/15/24 14:00 98 08/15/24 13:12 99 08/15/24 12:50 08/15/24 12:39 93 L 08/15/24 12:30 92 L Intake and Output 08/15/24 08/16/24 08/16/24 22:59 06:59 14:59 Intake Total 7138.246 9746.000 Output Total 0 125 415 Balance 0 1433.000 823.000 Intake: IV 1050 700 Lactated Ringers 1,000 ml 650 650 @ 130 mls/hr IV .Q7H42M [facility] Rx#:[id number] cefTRIAXone 2 gm In 50 Sodium Chloride 0.9% 50 ml @ 100 mls/hr IVPB Q24HR [facility] Rx#:[id number] Intake, IV Titration 508.000 508.000 Amount Norepinephrine 4 mg In 508.000 508.000 Sodium Chloride 0.9% 250 ml @ 0.03 MCG/KG/MIN 14. 517 mls/hr IV .[id number] [facility] Rx#:[id number] Oral 30 Output: Urine 125 415 Post Void Residual 0 Other: Voiding Method Indwelling Catheter Indwelling Catheter # Bowel Movements 0 Weight 136.2 kg 136.2 kg ABP, PAP, CO, CI - Last 8 Hours Arterial Blood Pressure 121/82 Arterial Blood Pressure 115/68 Arterial Blood Pressure 83/83 Arterial Blood Pressure 106/68 Arterial Blood Pressure 107/56 Results 08/16/24 05:28 08/16/24 05:28 Cardiac Enzymes 08/15/24 08/16/24 Range/Units 12:48 05:28 AST 55 H 52 H (14-36) U/L CBC 08/15/24 08/16/24 Range/Units 12:48 05:28 WBC 6.22 21.45 H (4.50-10.00) 10*3/uL RBC 4.56 3.84 L (4.10-5.20) 10*6/uL Hgb 14.0 11.7 L (12.0-15.0) g/dL Hct 43.4 37.6 (37.2-46.3) % Plt Count 186 150 (140-440) 10*3/uL Comprehensive Metabolic Panel 08/15/24 08/16/24 Range/Units 12:48 05:28 Sodium 137 135 L (137-145) mmol/L Potassium 4.3 4.3 (3.5-5.1) mmol/L Chloride 103 107 (98-107) mmol/L Carbon Dioxide 22 17 L (22-30) mmol/L BUN 20 H 27 H (7-17) mg/dL Creatinine 0.83 1.80 H (0.52-1.04) mg/dL Glucose 118 H 113 H (74-99) mg/dL Calcium 9.2 7.7 L (8.4-10.2) mg/dL AST 55 H 52 H (14-36) U/L ALT 41 H 32 (4-34) U/L Alkaline Phosphatase 82 61 (38-126) U/L Total Protein 6.7 5.3 L (6.3-8.2) g/dL Albumin 4.0 2.8 L (3.5-5.0) g/dL Current Medications Generic Name Dose Route Start Last Admin Trade Name Freq PRN Reason Stop Dose Admin Acetaminophen 650 mg 08/15/24 16:28 08/16/24 07:41 Acetaminophen Tab 325 Mg Tab PO 650 mg Q6HR PRN Administration Mild Pain or Fever > 100.5 Hydrocortisone Sodium Succinate 50 mg 08/16/24 12:00 Hydrocortisone Succinate 100 Mg/2 Ml Vial IV Q6HR [facility] Hydromorphone HCl 0.5 mg 08/16/24 07:00 Hydromorphone 0.5 Mg/0.5 Ml Syringe IVP 08/16/24 23:00 Q5M PRN Phase 1 or 2 - Pain Control Lactated Ringer's 1,000 mls @ 130 mls/hr 08/15/24 16:15 08/16/24 08:34 Lactated Ringers IV 130 mls/hr .Q7H42M [facility] Administration Lactated Ringer's 1,000 mls @ 20 mls/hr 08/15/24 23:45 08/16/24 02:45 Lactated Ringers IV Not Given .Q24H [facility] Norepinephrine Bitartrate 4 mg 254 mls @ 14.517 mls/hr 08/16/24 02:00 08/16/24 10:42 / Sodium Chloride IV Infused .[id number] [facility] Titration Protocol 0.03 MCG/KG/MIN Amiodarone HCl 450 mg/ 250 mls @ 16.667 mls/hr 08/16/24 11:00 Dextrose/Water IV 08/17/24 04:59 .Q15H [facility] Protocol 0.5 MG/MIN Ceftriaxone Sodium 2 gm/ 50 mls @ 100 mls/hr 08/16/24 09:00 08/16/24 10:42 Sodium Chloride IVPB 100 mls/hr Q24HR [facility] Administration Protocol Diltiazem HCl 125 mg/ Dextrose 125 mls @ 5 mls/hr 08/16/24 07:15 /Water IV .Q24H [facility] Protocol 5 MG/HR Vasopressin 60 unit/ Sodium 153 mls @ 6.12 mls/hr 08/16/24 09:00 08/16/24 10:05 Chloride IV 0.04 units/min .Q24H [facility] 6.12 mls/hr Administration Protocol 0.04 UNITS/MIN Naloxone HCl 0.2 mg 08/15/24 16:28 Naloxone 0.4 Mg/Ml 1 Ml Vial IV Q2M PRN Opioid Reversal Pyridostigmine [place] 60 mg 08/16/24 12:30 Pyridostigmine 60 Mg Tab PO TID-W/MEALS [facility] Intake and Output 08/15/24 08/16/24 08/16/24 22:59 06:59 14:59 Intake Total 4608.082 0658.000 Output Total 0 125 415 Balance 0 1433.000 823.000 Intake: IV 1050 700 Lactated Ringers 1,000 ml 650 650 @ 130 mls/hr IV .Q7H42M [facility] Rx#:[id number] cefTRIAXone 2 gm In 50 Sodium Chloride 0.9% 50 ml @ 100 mls/hr IVPB Q24HR [facility] Rx#:[id number] Intake, IV Titration 508.000 508.000 Amount Norepinephrine 4 mg In 508.000 508.000 Sodium Chloride 0.9% 250 ml @ 0.03 MCG/KG/MIN 14. 517 mls/hr IV .[id number] [facility] Rx#:[id number] Oral 30 Output: Urine 125 415 Post Void Residual 0 Other: Voiding Method Indwelling Catheter Indwelling Catheter # Bowel Movements 0 Weight 136.2 kg 136.2 kg Patient Weight 08/17/24 06:59 Weight 136.2 kg 08/16/24 05:28 08/16/24 05:28
--- NOTE | 2024-08-16 12:59 | OP ---
OPERATIVE REPORT DATE OF SERVICE : I have discussed the risks, benefits and alternative therapies for the above-mentioned procedure and for both sedation/analgesia as well as necessary blood product administration, if indicated, as they pertain to this patient. The patient has indicated her understanding and acceptance of the risks and procedures discussed. There was informed consent and universal timeout. The procedures took place in room 262 ICU. PROCEDURE: Right radial art line. PREOPERATIVE DIAGNOSIS: Frequent blood draws. POSTOPERATIVE DIAGNOSIS: Frequent blood draws. OPERATORS: Dr. Cabello, Dr. Bowdne. INDICATIONS: Hemodynamic monitoring. NARRATIVE: A time-out was completed verifying correct patient, procedure, site, positioning, and implant or special equipment if applicable. Carlos's test was performed to ensure adequate perfusion. The patient's right wrist was prepped and draped in sterile fashion. 1% Lidocaine was used to anesthetize the area. An 18G Arrow arterial line was introduced into the radial artery. The catheter was threaded over the guide wire and the needle was removed with appropriate pulsatile blood return. Blood loss was minimal. The catheter was then sutured in place to the skin and a sterile dressing applied. Perfusion to the extremity distal to the point of catheter insertion was checked and found to be adequate. The patient tolerated the procedure well and there were no major complications. There was good waveform and blood pressure reading. The patient tolerated the procedure well. The catheter was sutured in place. A sterile dressing was applied by the nurse. TEJA / RODOLFON: [id number] /
--- NOTE | 2024-08-16 13:45 | OP ---
OPERATIVE REPORT DATE OF SERVICE : PREOPERATIVE DIAGNOSIS: Administration of fluids and pressors. POSTOPERATIVE DIAGNOSIS: Administration of fluids and pressors. OPERATION: Right femoral vein triple-lumen catheter. OPERATORS: Dr. Cabello, Dr. Bowden. INDICATION: Hemodynamic monitoring/Intravenous access. NARRATIVE: A time-out was completed verifying correct patient, procedure, site, positioning, and implant or special equipment if applicable. The patient was placed in a dependent position appropriate for triple lumen catheter placement based on the vein to be cannulated. The patient's right groin was prepped and draped in sterile fashion. 1% Lidocaine was used to anesthetize the surrounding skin area. A triple lumen 9F Cordis catheter was introduced into the right femoral vein using Seldinger technique. The catheter was threaded smoothly over the guide wire and appropriate blood return was obtained. Each lumen of the catheter was evacuated of air and flushed with sterile saline. The catheter was then sutured in place to the skin and a sterile dressing applied. Perfusion to the extremity distal to the point of catheter insertion was checked and found to be adequate. There was good blood return from all 3 ports. The catheter was sutured in place and sterile dressing was applied. The patient's procedure took place in room 262 ICU. There was informed consent, universal time-out. No need for chest x-ray because of a femoral vein triple-lumen catheter. Again, the patient tolerated the procedure well without complication. MMJULIUS / RODOLFON: [id number] /
--- NOTE | 2024-08-16 15:00 | P.PN ---
Subjective Progress Note Date: 08/16/24 Principal diagnosis: Right ureteral calculus, UTI with sepsis The patient underwent cystoscopy with right ureteral stent insertion overnight. She is currently receiving ceftriaxone. Vasopressors are being weaned. She is considerably more alert than she was when seen last night. She denies abdominal pain. The Ramos catheter is draining clear yellow urine. Objective - Vital Signs Vital signs: Vital Signs Temp 98 F 08/16/24 12:00 Pulse 93 08/16/24 13:00 Resp 20 08/16/24 13:00 BP 114/83 08/16/24 11:00 Pulse Ox 95 08/16/24 13:00 FiO2 Intake & Output 08/15/24 08/16/24 08/16/24 18:59 06:59 18:59 Intake Total 8616.980 9921.912 Output Total 125 600 Balance 6454.697 4530.912 Weight 127.006 kg 136.2 kg 136.2 kg Intake: IV 1050 960 Lactated Ringers 1,000 ml 650 910 @ 130 mls/hr IV .Q7H42M [facility] Rx#:[id number] cefTRIAXone 2 gm In 50 Sodium Chloride 0.9% 50 ml @ 100 mls/hr IVPB Q24HR [facility] Rx#:[id number] Intake, IV Titration 508.000 710.912 Amount Norepinephrine 4 mg In 508.000 710.912 Sodium Chloride 0.9% 250 ml @ 0.03 MCG/KG/MIN 14. 517 mls/hr IV .[id number] [facility] Rx#:[id number] Oral 30 Output: Urine 125 600 Post Void Residual 0 Other: Voiding Method Indwelling Catheter Indwelling Catheter # Bowel Movements 0 1 ABP, PAP, CO, CI - Last Documented Arterial Blood Pressure 95/57 - Constitutional General appearance: Present: average body habitus, cooperative, no acute distress - Psychiatric Psychiatric: Present: A&O x's 3 - Labs CBC & Chem 7: 08/16/24 05:28 08/16/24 05:28 Labs: Abnormal Lab Results - Last 24 Hours (Table) 08/15/24 08/15/24 08/15/24 Range/Units 15:58 17:17 20:19 WBC (4.50-10.00) 10*3/uL RBC (4.10-5.20) 10*6/uL Hgb (12.0-15.0) g/dL MCV (80.0-97.0) fL MCHC (32.0-37.0) g/dL Immature Gran # (0.00-0.04) 10*3/uL Neutrophils # (Manual) (1.3-7.7) k/uL Lymphocytes # (Manual) (1.0-4.8) k/uL Sodium (137-145) mmol/L Carbon Dioxide (22-30) mmol/L BUN (7-17) mg/dL Creatinine (0.52-1.04) mg/dL Glucose (74-99) mg/dL Plasma Lactic Acid Ant 5.9 H* 6.4 H* (0.7-2.0) mmol/L Calcium (8.4-10.2) mg/dL AST (14-36) U/L Total Protein (6.3-8.2) g/dL Albumin (3.5-5.0) g/dL Urine Appearance Cloudy H (Clear) Urine Protein Trace H (Negative) Urine Blood Moderate H (Negative) Ur Leukocyte Esterase Large H (Negative) Urine RBC 56 H (0-5) /hpf Urine WBC 68 H (0-5) /hpf Urine WBC Clumps Moderate H (None) /hpf Urine Bacteria Many H (None) /hpf Urine Mucus Occasional H (None) /hpf 08/16/24 08/16/24 08/16/24 Range/Units 05:28 05:28 05:28 WBC 21.45 H (4.50-10.00) 10*3/uL RBC 3.84 L (4.10-5.20) 10*6/uL Hgb 11.7 L (12.0-15.0) g/dL MCV 97.9 H (80.0-97.0) fL MCHC 31.1 L (32.0-37.0) g/dL Immature Gran # 0.17 H (0.00-0.04) 10*3/uL Neutrophils # (Manual) 20.16 H (1.3-7.7) k/uL Lymphocytes # (Manual) 0.64 L (1.0-4.8) k/uL Sodium 135 L (137-145) mmol/L Carbon Dioxide 17 L (22-30) mmol/L BUN 27 H (7-17) mg/dL Creatinine 1.80 H (0.52-1.04) mg/dL Glucose 113 H (74-99) mg/dL Plasma Lactic Acid Ant 3.5 H* (0.7-2.0) mmol/L Calcium 7.7 L (8.4-10.2) mg/dL AST 52 H (14-36) U/L Total Protein 5.3 L (6.3-8.2) g/dL Albumin 2.8 L (3.5-5.0) g/dL Urine Appearance (Clear) Urine Protein (Negative) Urine Blood (Negative) Ur Leukocyte Esterase (Negative) Urine RBC (0-5) /hpf Urine WBC (0-5) /hpf Urine WBC Clumps (None) /hpf Urine Bacteria (None) /hpf Urine Mucus (None) /hpf 08/16/24 Range/Units 10:51 WBC (4.50-10.00) 10*3/uL RBC (4.10-5.20) 10*6/uL Hgb (12.0-15.0) g/dL MCV (80.0-97.0) fL MCHC (32.0-37.0) g/dL Immature Gran # (0.00-0.04) 10*3/uL Neutrophils # (Manual) (1.3-7.7) k/uL Lymphocytes # (Manual) (1.0-4.8) k/uL Sodium (137-145) mmol/L Carbon Dioxide (22-30) mmol/L BUN (7-17) mg/dL Creatinine (0.52-1.04) mg/dL Glucose (74-99) mg/dL Plasma Lactic Acid Ant 3.5 H* (0.7-2.0) mmol/L Calcium (8.4-10.2) mg/dL AST (14-36) U/L Total Protein (6.3-8.2) g/dL Albumin (3.5-5.0) g/dL Urine Appearance (Clear) Urine Protein (Negative) Urine Blood (Negative) Ur Leukocyte Esterase (Negative) Urine RBC (0-5) /hpf Urine WBC (0-5) /hpf Urine WBC Clumps (None) /hpf Urine Bacteria (None) /hpf Urine Mucus (None) /hpf Assessment and Plan (1) Acute pyelonephritis Current Visit: Yes Status: Acute Code(s): N10 - ACUTE PYELONEPHRITIS SNOMED Code(s): 06775799 (2) Hydronephrosis with renal and ureteral calculous obstruction Current Visit: Yes Status: Acute Code(s): N13.2 - HYDRONEPHROSIS WITH RENAL AND URETERAL CALCULOUS OBSTRUCTION SNOMED Code(s): 276006977 Plan: Continue ceftriaxone, pending urine and blood culture results. Ramos catheter m ay be removed when no longer medically needed. I explained to the patient that arrangements will be made for her to undergo cystoscopy, right ureteral stent removal, and ureteroscopic removal of the calculus later this month, after the infection has resolved.
[2024-08-16] MEDS: DILTIAZEM 125 MG in DEXTROSE 5% IN WATER 100 ML IV SCH (15:16)
[2024-08-16] MEDS: LOPERAMIDE 2 MG CAP PO PRN (21:00)
[2024-08-16] MEDS: HEPARIN SODIUM,PORCINE 5,000 UNIT/ML 1 ML VIAL SQ SCH (21:53)
[2024-08-17] MEDS: AMIODARONE 200 MG TAB PO SCH (06:30)
[2024-08-17 08:29] LABS: HCT 32.5 % (37.2-46.3); HGB 10.5 g/dL (12.0-15.0); MCH 30.5 pg (27.0-32.0); MCHC 32.3 g/dL (32.0-37.0); MCV 94.5 fL (80.0-97.0); Mean Platelet Volume 11.1 fL (9.5-12.2); Platelet Count 112 10*3/uL (140-440); RBC 3.44 10*6/uL (4.10-5.20); RDW 14.3 % (11.5-14.5); WBC 23.99 10*3/uL (4.50-10.00)
[2024-08-17 08:33] LABS: ALT 40 U/L (4-34); AST 58 U/L (14-36); African American GFR (CKD) 83 (>60 ml/min/1.73 sqM); Albumin 2.8 g/dL (3.5-5.0); Alkaline Phosphatase 70 U/L (38-126); Anion Gap 11 mmol/L; Blood Urea Nitrogen 26 mg/dL (7-17); Calcium 7.8 mg/dL (8.4-10.2); Carbon Dioxide 16 mmol/L (22-30); Chloride 107 mmol/L (98-107); Glucose 164 mg/dL (74-99); Magnesium 1.5 mg/dL (1.6-2.3); Non-African American GFR(CKD) 72 (>60 ml/min/1.73 sqM); Sodium 134 mmol/L (137-145); Total Bilirubin 0.4 mg/dL (0.2-1.3); Total Protein 5.5 g/dL (6.3-8.2)
--- NOTE | 2024-08-17 08:45 | P.PN ---
Subjective Progress Note Date: 08/17/24 Status post stent insertion for septic stone by Dr. Adamson on August 16. She is in no acute distress this morning, blood pressure has improved this morning, she is afebrile overnight. Urine cultures growing gram-negative bacilli Objective - Vital Signs Vital signs: Vital Signs Temp 98.2 F 08/17/24 08:00 Pulse 72 08/17/24 08:00 Resp 27 H 08/17/24 08:00 BP 116/76 08/17/24 02:15 Pulse Ox 94 L 08/17/24 08:00 FiO2 Intake & Output 08/16/24 08/17/24 08/17/24 18:59 06:59 18:59 Intake Total 2646.235 2513.506 665.487 Output Total 1211 895 120 Balance 1305.727 3522.506 545.487 Weight 136.2 kg 136.3 kg Intake: IV 1780 1650 300 0.9 KVO 220 40 Lactated Ringers 1,000 ml 1730 1430 260 @ 130 mls/hr IV .[id number] [facility] Rx#:[id number] cefTRIAXone 2 gm In 50 Sodium Chloride 0.9% 50 ml @ 100 mls/hr IVPB Q24HR [facility] Rx#:[id number] Intake, IV Titration 716.235 413.506 9.487 Amount Amiodarone 450 mg In 249.727 Dextrose 5% in Water 250 ml @ 0.5 MG/MIN 16.667 mls/hr IV .Q15H [facility] Rx#: [id number] Norepinephrine 4 mg In 716.235 40.002 Sodium Chloride 0.9% 250 ml @ 0.03 MCG/KG/MIN 14. 517 mls/hr IV .[id number] [facility] Rx#:[id number] Vasopressin 60 unit In 123.777 9.487 Sodium Chloride 0.9% 150 ml @ 0.04 UNITS/MIN 6.12 mls/hr IV .Q24H [facility] Rx#: [id number] Oral 150 450 356 Output: Urine 1210 845 120 Stool 1 50 Other: Voiding Method Indwelling Catheter Indwelling Catheter # Bowel Movements 1 1 ABP, PAP, CO, CI - Last Documented Arterial Blood Pressure 103/56 - Constitutional General appearance: Present: no acute distress - Gastrointestinal General gastrointestinal: Present: soft. Absent: distended - Psychiatric Psychiatric: Present: A&O x's 3 - Labs CBC & Chem 7: 08/17/24 07:58 08/17/24 07:58 Labs: Abnormal Lab Results - Last 24 Hours (Table) 08/16/24 08/16/24 08/17/24 Range/Units 10:51 14:33 07:58 WBC 23.99 H (4.50-10.00) 10*3/uL RBC 3.44 L (4.10-5.20) 10*6/uL Hgb 10.5 L (12.0-15.0) g/dL Hct 32.5 L (37.2-46.3) % Plt Count 112 L (140-440) 10*3/uL Immature Gran # 1.85 H (0.00-0.04) 10*3/uL Sodium (137-145) mmol/L Carbon Dioxide (22-30) mmol/L BUN (7-17) mg/dL Glucose (74-99) mg/dL Plasma Lactic Acid Ant 3.5 H* 3.1 H* (0.7-2.0) mmol/L Calcium (8.4-10.2) mg/dL Magnesium (1.6-2.3) mg/dL AST (14-36) U/L ALT (4-34) U/L Total Protein (6.3-8.2) g/dL Albumin (3.5-5.0) g/dL 08/17/24 Range/Units 07:58 WBC (4.50-10.00) 10*3/uL RBC (4.10-5.20) 10*6/uL Hgb (12.0-15.0) g/dL Hct (37.2-46.3) % Plt Count (140-440) 10*3/uL Immature Gran # (0.00-0.04) 10*3/uL Sodium 134 L (137-145) mmol/L Carbon Dioxide 16 L (22-30) mmol/L BUN 26 H (7-17) mg/dL Glucose 164 H (74-99) mg/dL Plasma Lactic Acid Ant (0.7-2.0) mmol/L Calcium 7.8 L (8.4-10.2) mg/dL Magnesium 1.5 L (1.6-2.3) mg/dL AST 58 H (14-36) U/L ALT 40 H (4-34) U/L Total Protein 5.5 L (6.3-8.2) g/dL Albumin 2.8 L (3.5-5.0) g/dL Microbiology - Last 24 Hours (Table) 08/15/24 15:58 Urine Culture - Preliminary Urine,Voided Gram Neg Bacilli Assessment and Plan Assessment: Status post right-sided stent insertion for septic stone on August 16, her hemodynamics are improving. Urine cultures growing gram-negative bacilli. From urology standpoint she will be set up as an outpatient right-sided ureteroscopy with holmium laser and stent removal, from urology standpoint Ramos catheter can be removed once she is ambulatory
[2024-08-17] MEDS ORDERED: Magnesium Replacement Protocol 1 EACH MISC MISCELLANE PRN (08:46)
[2024-08-17 09:03] LABS: Glucose,Whole Blood 192 mg/dL (70-110)
[2024-08-17] MEDS: MAGNESIUM SULFATE-D5W PMX 1 GM in DEXTROSE/WATER 1 100ML.BAG IVPB SCH (09:16)
[2024-08-17] MEDS: NOREPINEPHRINE 32 MG in SODIUM CHLORIDE 0.9% 218 ML IV SCH (09:28)
[2024-08-17 09:40] LABS: Band Neutrophils % 8 %; Monocytes # (M) 0.48 k/uL (0-1.0); Neutrophils # (M) 21.11 k/uL (1.3-7.7); Neutrophils % (M) 80 %; Nucleated Red Blood Cells 0 /100 WBC (0-0); Total Cells Counted 100
[2024-08-17 09:41] LABS: RBC Morphology Normal; Toxic Vacuolation Present
[2024-08-17 12:10] LABS: Glucose,Whole Blood 164 mg/dL (70-110)
[2024-08-17] MEDS ORDERED: ONDANSETRON 4 MG/2 ML VIAL IVP PRN (15:51)
--- NOTE | 2024-08-17 16:38 | P.PN ---
Subjective Progress Note Date: 08/17/24 64-year-old female who presented to the emergency department, on August 15, with complaints of dizziness, nausea, and vomiting. Apparently the symptoms began the day of admission. She denied any chest pain or abdominal pain. The patient apparently was discovered to have nephrolithiasis, and required a cystoscopy, with a stent placement, on the right side. This was done by one of the urologist. I was notified by the urologist, that the patient was profoundly tachycardic, and hypotensive, and therefore, she was admitted to the intensive care unit, for further monitoring and management. She is currently on 6 L nasal cannula. She is getting LR at 130 cc an hour. She is on norepinephrine at 47 mcg/min. She is getting amiodarone 1 mg/min. She is also on Rocephin. She has a history of myasthenia gravis, and has not been taking her Mestinon, or prednisone. She also has a history of atrial fibrillation. The patient was seen by urology, and found to have right hydronephrosis secondary to a right ureteral calculus. She underwent cystoscopy with right ureteral stent placement. Current labs include a white count 21.5, hemoglobin 11.7, hematocrit 37.6, and a platelet count of 150,000. Sodium 135, potassium 4.3, chlorides 107, CO2 17, anion gap 11, BUN 27, creatinine 1.80. Glucose is 113. Most recent lactic acid is 3.5. Calcium 7.7. On 08/17/2024, the patient is being seen for a follow-up. The patient is resting comfortably in bed. She is morbidly obese with a BMI of 47.1. She is hemodynamically stable and the patient is currently off pressors. She is status post insertion of a double-J stent for a septic stone and this was done on 08/16/2024. She has no pelvic pain. She has no flank pain. No significant respiratory distress and she is afebrile and hemodynamically stable. Urine culture is showing gram-negative bacillus and meanwhile the patient remains on IV Rocephin. Hemodynamically, the patient is stable. The patient is currently off norepinephrine and the patient is also off vasopressin infusion. She remains on 3 liters of oxygen by nasal cannula. Lactated Ringer's running at rate of 100 cc an hour. She did encounter atrial fibrillation current rhythm is back into normal sinus. The patient's white cell count is at 23 with a hemoglobin of 10.5 and a platelet count of 112, BUN 26 creatinine of 0.8. Serum bicarb is 16 with a sodium of is 136 and a potassium is at 4.0. No altered mentation. Resting comfortably in bed. Objective - Vital Signs Vital signs: Vital Signs Temp 98.2 F 08/17/24 08:00 Pulse 64 08/17/24 10:00 Resp 23 08/17/24 10:00 BP 116/76 08/17/24 02:15 Pulse Ox 95 08/17/24 10:00 FiO2 Intake & Output 08/16/24 08/17/24 08/17/24 18:59 06:59 18:59 Intake Total 2646.235 2513.506 920.128 Output Total 1211 895 240 Balance 2992.393 1353.506 680.128 Weight 136.2 kg 136.3 kg Intake: IV 1780 1650 550 0.9 KVO 220 40 Lactated Ringers 1,000 ml 1730 1430 260 @ 130 mls/hr IV .[id number] [facility] Rx#:[id number] Magnesium Sulfate-D5w Pmx 200 1 gm In Dextrose/Water 1 100ml.bag @ 100 mls/hr IVPB Q1H [facility] Rx#: [id number] cefTRIAXone 2 gm In 50 50 Sodium Chloride 0.9% 50 ml @ 100 mls/hr IVPB Q24HR [facility] Rx#:[id number] Intake, IV Titration 716.235 413.506 14.128 Amount Amiodarone 450 mg In 249.727 Dextrose 5% in Water 250 ml @ 0.5 MG/MIN 16.667 mls/hr IV .Q15H [facility] Rx#: [id number] Norepinephrine 4 mg In 716.235 40.002 Sodium Chloride 0.9% 250 ml @ 0.03 MCG/KG/MIN 14. 517 mls/hr IV .[id number] [facility] Rx#:[id number] Vasopressin 60 unit In 123.777 14.128 Sodium Chloride 0.9% 150 ml @ 0.04 UNITS/MIN 6.12 mls/hr IV .Q24H [facility] Rx#: [id number] Oral 150 450 356 Output: Urine 1210 845 240 Stool 1 50 Other: Voiding Method Indwelling Catheter Indwelling Catheter Indwelling Catheter # Bowel Movements 1 1 ABP, PAP, CO, CI - Last Documented Arterial Blood Pressure 122/62 - Exam No acute distress, oriented 3. Currently on 3 L of oxygen nasal cannula, obese with a BMI of 47.5 HEENT examination is grossly unremarkable. Mucous membranes are dry. Neck supple. Full range of motion. No adenopathy thyromegaly or neck vein distention. Cardiovascular examination reveals regular rhythm rate. S1-S2 normal. No S3 or S4. No discernible murmur noted. Heart sounds are distant. Lungs reveal clear breath sounds. Breath sounds are equal bilaterally. No adventitious lung sounds including wheezes rhonchi or crackles. Abdomen soft without bowel sounds. No masses or tenderness. Extremities are intact. No cyanosis clubbing or edema. Skin is without rash or lesion. Neurologic examination is brief but nonfocal. - Labs CBC & Chem 7: 08/17/24 07:58 08/17/24 07:58 Labs: Abnormal Lab Results - Last 24 Hours (Table) 08/16/24 08/16/24 08/17/24 Range/Units 10:51 14:33 07:58 WBC 23.99 H (4.50-10.00) 10*3/uL RBC 3.44 L (4.10-5.20) 10*6/uL Hgb 10.5 L (12.0-15.0) g/dL Hct 32.5 L (37.2-46.3) % Plt Count 112 L (140-440) 10*3/uL Immature Gran # 1.85 H (0.00-0.04) 10*3/uL Neutrophils # (Manual) 21.11 H (1.3-7.7) k/uL Sodium (137-145) mmol/L Carbon Dioxide (22-30) mmol/L BUN (7-17) mg/dL Glucose (74-99) mg/dL POC Glucose (mg/dL) (70-110) mg/dL Plasma Lactic Acid Ant 3.5 H* 3.1 H* (0.7-2.0) mmol/L Calcium (8.4-10.2) mg/dL Magnesium (1.6-2.3) mg/dL AST (14-36) U/L ALT (4-34) U/L Total Protein (6.3-8.2) g/dL Albumin (3.5-5.0) g/dL 08/17/24 08/17/24 Range/Units 07:58 09:01 WBC (4.50-10.00) 10*3/uL RBC (4.10-5.20) 10*6/uL Hgb (12.0-15.0) g/dL Hct (37.2-46.3) % Plt Count (140-440) 10*3/uL Immature Gran # (0.00-0.04) 10*3/uL Neutrophils # (Manual) (1.3-7.7) k/uL Sodium 134 L (137-145) mmol/L Carbon Dioxide 16 L (22-30) mmol/L BUN 26 H (7-17) mg/dL Glucose 164 H (74-99) mg/dL POC Glucose (mg/dL) 192 H (70-110) mg/dL Plasma Lactic Acid Ant (0.7-2.0) mmol/L Calcium 7.8 L (8.4-10.2) mg/dL Magnesium 1.5 L (1.6-2.3) mg/dL AST 58 H (14-36) U/L ALT 40 H (4-34) U/L Total Protein 5.5 L (6.3-8.2) g/dL Albumin 2.8 L (3.5-5.0) g/dL Microbiology - Last 24 Hours (Table) 08/15/24 15:58 Urine Culture - Preliminary Urine,Voided Gram Neg Bacilli Assessment and Plan Plan: Right ureteral stone, with right-sided hydronephrosis, S/P cystoscopy, with rig ht ureteral stent, postop day # 1 Sepsis secondary to above, likely gram-negative Urine tract infection with gram-negative bacillus, awaiting final cultures and the patient remains on IV Rocephin Severe hypotension, secondary to sepsis. Hemodynamically improved and the patient is currently off vasopressin and norepinephrine, maintaining her blood pressure History of myasthenia gravis. The patient is maintained on Mestinon and prednisone 10 mg on an outpatient basis. Paroxysmal atrial fibrillation and patient's current rhythm is sinus History of hyperlipidemia. History of hypertension. Previous tobacco use. Morbid obesity with a BMI of 47.1 Leukocytosis continues above Thrombocytopenia secondary to underlying sepsis, consumptive. None anion gap metabolic acidosis Plan: Patient is currently on 3 L by nasal cannula. Provide incentive spirometer. Patient is currently off pressors and epinephrine and vasopressin have been discontinued Continue lactated Ringer at rate of 130 cc an hour Cardiac rhythm is sinus Continue IV Rocephin Resume Mestinon and the patient is currently on stress dose hydrocortisone as the patient was receiving prednisone 10 mg on outpatient basis Urology is on the medical case worker metabolic acidosis Monitor platelet count Continue amiodarone Anticoagulation was placed on hold for now Continue supportive care and will continue to follow make further recommendations based on her progress. Critical care evaluation, 31 minutes Time with Patient: Greater than 30
--- NOTE | 2024-08-17 17:23 | P.PN ---
Subjective This is a 64-year-old female patient of Dr. Walsh with past medical history of paroxysmal atrial fibrillation, hypertension, hyperlipidemia, myasthenia gravis gravis, moderate mitral insufficiency. We have been asked to evaluate the patient for A-fib with RVR. Patient was last seen in the office with Dr. Walsh on 07/16/2024 which time she was doing well. Since then, she states she had 2 episodes lasting about 15 minutes each of atrial fibrillation with RVR. Each episode resolved on its own. Patient states she came into the hospital due to vomiting and shaking. She states she did not have any burning or pain with urination. She does complain of some right sided chest pain that she thought was muscle related as she has had previous right shoulder surgery and sometimes she has pain with lifting too much. Patient was found to be febrile with a mild to moderate right hydronephrosis due to kidney stone and is status post cystoscopy and right ureteral stent insertion. Patient did have tachycardia hypotension and was admitted to the intensive care unit. This morning she was found to be in A-fib with RVR and was started on amiodarone drip. Patient denies feeling atrial fibrillation when this started. Patient converted to sin us rhythm around 845 this morning. Blood pressure 114/83, heart rate 99, pulse ox 92% on room air. -EKG: Initially was sinus tachycardia 122 bpm, patient was subsequently in A-fib with RVR on telemetry. -Chest x-ray: No acute process. -Gallbladder ultrasound: Cholelithiasis and biliary sludge without definite evidence of acute cholecystitis. Increased hepatic echogenicity possible steatosis or hepatocellular disease. -Renal ultrasound: Unremarkable. -CT abdomen pelvis without contrast: Mild hydro secondary to ureteral calculus. 1.6 cm lesion in the vagina. Cirrhosis. Nonobstructive additional renal stones. No left-sided hydro. -Laboratory studies: WBC 21.4, hemoglobin 9.7, sodium 135, potassium 4.3, BUN 27 creatinine 1.8. Urinalysis positive for infection. Cepheid viral panel not detected. -Home cardiac medications: Eliquis 5 mg twice daily, Lipitor 40 mg daily, Cardizem 60 mg 3 times daily, hydrochlorothiazide 12.5 mg daily, lisinopril 20 mg daily, metoprolol tartrate 25 mg twice daily. -Echocardiogram performed at [facility] on 05/07/2024 revealed technically difficult study with normal LV systolic function and mild LVH. Moderate mitral regurgitation with thickened mitral valve leaflets. Cannot rule out bicuspid aortic valve. Aortic valve is sclerotic. Mild aortic stenosis. -Lexiscan Cardiolite stress test performed in the office on 05/28/2024 revealed EF 81%, probably normal study. -Event monitor performed 05/20 - 06/02/2024 revealed sinus rhythm with average heart rate of 65, minimum 47 bpm and maximum 141 bpm. Ventricular ectopic activity burden less than 1%. Atrial fibrillation burden at 1% and was asymptomatic. 08/17 Patient seen and examined. Patient denies any chest pain or pressure. She remains in normal sinus rhythm. Transitioned to oral amiodarone. Blood pressure improved however having diarrhea. She is receiving IV fluids at 130 cc/hr. Physical examination: Gen: This is a 64-year-old female in no acute distress VS: reviewed HEENT: Head is atraumatic, normocephalic. Pupils equal, round. Sclerae is anicteric. NECK: Supple. No JVD. LUNGS: Clear to auscultation. No wheezes or rhonchi. No intercostal retractions. HEART: Regular rate and rhythm. No murmur. ABDOMEN: Soft No tenderness. EXTREMITIES: No pedal edema. No calf tenderness. NEUROLOGICAL: Patient is awake, alert and oriented x3. Assessment: Paroxysmal atrial fibrillation with RVR, converted to sinus rhythm Right ureteral stone with right-sided hydronephrosis status post cystoscopy and right ureteral stent placement Urinary tract infection and sepsis Acute kidney injury History of myasthenia gravis History of hypertension Hyperlipidemia Moderate mitral insufficiency Plan: Resume Eliquis once cleared by urology Continue patient on amiodarone oral 400 mg twice daily Hold Cardizem, hydrochlorothiazide, lisinopril, metoprolol due to hypotension Appears to be slowly improving from sepsis. Hopefully restart Eliquis tomorrow. Likely decrease IV fluids tomorrow however having significant diarrhea and additionally somewhat acidotic. Monitor for any volume overload however currently appears relatively stable. Thank you kindly for this consultation. Objective - Vital Signs Vital signs: Vital Signs Temp 98.6 F 08/17/24 12:00 Pulse 69 08/17/24 16:00 Resp 24 08/17/24 16:00 BP 105/72 08/17/24 16:00 Pulse Ox 96 08/17/24 16:00 FiO2 Intake & Output 08/16/24 08/17/24 08/17/24 18:59 06:59 18:59 Intake Total 2646.235 2513.506 2390.128 Output Total 6385 070 8957 Balance 2028.364 7191.506 1240.128 Weight 136.2 kg 136.3 kg Intake: IV 1780 1650 2020 0.9 KVO 220 40 Invasive Line 1 20 Invasive Line 3 20 Lactated Ringers 1,000 ml 1730 1430 1690 @ 130 mls/hr IV .[id number] [facility] Rx#:[id number] Magnesium Sulfate-D5w Pmx 200 1 gm In Dextrose/Water 1 100ml.bag @ 100 mls/hr IVPB Q1H [facility] Rx#: [id number] cefTRIAXone 2 gm In 50 50 Sodium Chloride 0.9% 50 ml @ 100 mls/hr IVPB Q24HR [facility] Rx#:[id number] Intake, IV Titration 716.235 413.506 14.128 Amount Amiodarone 450 mg In 249.727 Dextrose 5% in Water 250 ml @ 0.5 MG/MIN 16.667 mls/hr IV .Q15H [facility] Rx#: [id number] Norepinephrine 4 mg In 716.235 40.002 Sodium Chloride 0.9% 250 ml @ 0.03 MCG/KG/MIN 14. 517 mls/hr IV .[id number] [facility] Rx#:[id number] Vasopressin 60 unit In 123.777 14.128 Sodium Chloride 0.9% 150 ml @ 0.04 UNITS/MIN 6.12 mls/hr IV .Q24H [facility] Rx#: [id number] Oral 150 450 356 Output: Urine 0922 344 5044 Stool 1 50 Other: Voiding Method Indwelling Catheter Indwelling Catheter Indwelling Catheter # Voids 2 # Bowel Movements 1 1 1 ABP, PAP, CO, CI - Last Documented Arterial Blood Pressure 131/65 - Labs CBC & Chem 7: 08/17/24 07:58 08/17/24 07:58 Labs: Abnormal Lab Results - Last 24 Hours (Table) 08/17/24 08/17/24 08/17/24 Range/Units 07:58 07:58 09:01 WBC 23.99 H (4.50-10.00) 10*3/uL RBC 3.44 L (4.10-5.20) 10*6/uL Hgb 10.5 L (12.0-15.0) g/dL Hct 32.5 L (37.2-46.3) % Plt Count 112 L (140-440) 10*3/uL Immature Gran # 1.85 H (0.00-0.04) 10*3/uL Neutrophils # (Manual) 21.11 H (1.3-7.7) k/uL Sodium 134 L (137-145) mmol/L Carbon Dioxide 16 L (22-30) mmol/L BUN 26 H (7-17) mg/dL Glucose 164 H (74-99) mg/dL POC Glucose (mg/dL) 192 H (70-110) mg/dL Calcium 7.8 L (8.4-10.2) mg/dL Magnesium 1.5 L (1.6-2.3) mg/dL AST 58 H (14-36) U/L ALT 40 H (4-34) U/L Total Protein 5.5 L (6.3-8.2) g/dL Albumin 2.8 L (3.5-5.0) g/dL 08/17/24 Range/Units 12:08 WBC (4.50-10.00) 10*3/uL RBC (4.10-5.20) 10*6/uL Hgb (12.0-15.0) g/dL Hct (37.2-46.3) % Plt Count (140-440) 10*3/uL Immature Gran # (0.00-0.04) 10*3/uL Neutrophils # (Manual) (1.3-7.7) k/uL Sodium (137-145) mmol/L Carbon Dioxide (22-30) mmol/L BUN (7-17) mg/dL Glucose (74-99) mg/dL POC Glucose (mg/dL) 164 H (70-110) mg/dL Calcium (8.4-10.2) mg/dL Magnesium (1.6-2.3) mg/dL AST (14-36) U/L ALT (4-34) U/L Total Protein (6.3-8.2) g/dL Albumin (3.5-5.0) g/dL Microbiology - Last 24 Hours (Table) 08/16/24 10:38 Blood Culture - Preliminary Blood 08/16/24 00:28 Urine Culture - Preliminary Urine,Ureter Gram Neg Bacilli 08/15/24 15:58 Urine Culture - Preliminary Urine,Voided Gram Neg Bacilli
[2024-08-17] MEDS: DILTIAZEM 125 MG in DEXTROSE 5% IN WATER 100 ML IV SCH (20:44)
[2024-08-18 06:20] LABS: HCT 32.6 % (37.2-46.3); HGB 10.4 g/dL (12.0-15.0); Immature Platelet Fraction 5.3 % (1.1-6.1); MCH 30.4 pg (27.0-32.0); MCHC 31.9 g/dL (32.0-37.0); MCV 95.3 fL (80.0-97.0); Mean Platelet Volume 11.5 fL (9.5-12.2); Platelet Count 108 10*3/uL (140-440); RBC 3.42 10*6/uL (4.10-5.20); RDW 14.2 % (11.5-14.5); WBC 21.14 10*3/uL (4.50-10.00)
[2024-08-18 06:29] LABS: ALT 37 U/L (4-34); AST 40 U/L (14-36); African American GFR (CKD) 87 (>60 ml/min/1.73 sqM); Albumin 2.8 g/dL (3.5-5.0); Alkaline Phosphatase 76 U/L (38-126); Anion Gap 4 mmol/L; Blood Urea Nitrogen 21 mg/dL (7-17); Calcium 8.4 mg/dL (8.4-10.2); Carbon Dioxide 25 mmol/L (22-30); Chloride 113 mmol/L (98-107); Glucose 108 mg/dL (74-99); Magnesium 2.1 mg/dL (1.6-2.3); Non-African American GFR(CKD) 75 (>60 ml/min/1.73 sqM); Potassium 3.8 mmol/L (3.5-5.1); Sodium 142 mmol/L (137-145); Total Bilirubin 0.4 mg/dL (0.2-1.3); Total Protein 5.4 g/dL (6.3-8.2)
[2024-08-18 07:02] LABS: Anisocytosis (M) Present; Eosinophils # (M) 0.21 k/uL (0-0.7); Lymphocytes # (M) 0.85 k/uL (1.0-4.8); Metamyelocytes # (M) 0.21 k/uL (0); Metamyelocytes % 1 %; Monocytes # (M) 0.63 k/uL (0-1.0); Neutrophils # (M) 19.66 k/uL (1.3-7.7); Neutrophils % (M) 93 %; Nucleated Red Blood Cells 0 /100 WBC (0-0); Total Cells Counted 200; Toxic Vacuolation Present
--- NOTE | 2024-08-18 08:56 | P.PN ---
Subjective Progress Note Date: 08/17/24 This is a pleasant 64 years old female with past medical history of multiple medical problems as below. Presents because of nausea vomiting and chills of 1 to 2 days duration. She vomited about twice per day and that is why she came to the hospital because on April she had similar presentation with vomiting and chills and found to have UTI, this time she does not have a fever but because of her concern she came. On presentation patient became hypotensive with high lactic acid elevated, she received several boluses of normal saline. Also she received midodrine. With minimal improvement in blood pressure, because of this we are did urgent ultrasound last night which was suspicious for mild hydronephrosis however we consulted urology team and urgently they evaluated the patient and took her to the OR status post stent placement in the right renal system. After that patient was transferred to the ICU. She continued on IV hydration however she developed A-fib and RVR and amiodarone and Cardizem given. Director Of Distribution was contacted. About 4 to 5 AM she converted back to sinus rhythm Currently she is fully awake oriented does not look in significant distress. She has some headache but denies any abdominal pain or diarrhea. Other than the vomiting. No significant urinary complaints like burning or change in frequency or suprapubic pain or tenderness. No dizziness weakness or numbness Patient states she has history of myasthenia gravis on pyridostigmine She denies smoking alcohol or illicit drugs. She had a fever of 102 in emergency room, blood pressure currently with the pressors is 105/70, breathing rate is around 28-24 She has leukocytosis at 21,000, hemoglobin 11.7, sodium 135 and creatinine went up to 1.8 Lactic acid was elevated 5.1 it went up to 6.4 and currently improving down to 3.5 Currently she is kept on Levophed and vasopressin. Also missed the roundtrip, Ringer lactate at 138 and ceftriaxone 2 g daily 08/17/2024 Patient is seen and evaluated in follow-up with multiple consultations including pulmonary collet maker and cardiology following. Patient in atrial fibrillation and also hypotensive with sepsis currently off Levophed since yesterday afternoon and has been weaned off vasopressin this morning currently rate controlled with medications being adjusted. Patient with preliminary urine culture showing gram-negative bacilli and awaiting cultures to determine appropriate antibiotics. Patient also evaluated by urology status post cystoscopy with right ureteral stent placement. Patient is voiding and denies difficulty, pain, or burning with urination reporting to feeling slightly improved. Review of systems: Constitutional: reports of fatigue, no fever, or chills Cardiovascular: No reports of chest pain or palpitations Respiratory: No reports of shortness of breath or cough GI: reports of intermittent nausea, no vomiting, or diarrhea, reports passing gas with no bowel movement as of yet : No further reports of dysuria or retention Neurovascular: reports of generalized weakness All medications have been reviewed Physical exam: Gen: This is a 64-year-old female who is awake, alert and oriented x 3, well- developed, elderly appearing, ill-appearing, morbidly obese HEENT: Head is atraumatic, normocephalic. Pupils equal, round. Sclerae is anicteric. NECK: Supple. No JVD. No lymphadenopathy. No thyromegaly. LUNGS: Diminished breath sounds bilaterally with a few faint expiratory wheezes noted although cleared after cough . No intercostal retractions. HEART: S1, S2 are muffled, currently rate controlled ABDOMEN: Soft. Morbidly obese bowel sounds are present. No masses. No tenderness. EXTREMITIES: No pedal edema. No calf tenderness. NEUROLOGICAL: Patient is awake, alert and oriented x3. Cranial nerves 2 through 12 are grossly intact. Diffusely weak Assessment: Septic shock secondary to acute urinary tract infection, preliminary culture showing gram-negative bacilli Acute urinary tract infection secondary to gram-negative bacilli, on admission Right hydronephrosis s/p emergent cystoscopy with right ureteral stent placement Acute kidney injury likely secondary to renal calculi, improving Morbid obesity with BMI of 47 Leukocytosis secondary to above, trending down Elevated lactic acid, likely secondary to assessment #1 Atrial fibrillation, with RVR, currently rate controlled on Eliquis at home GI prophylaxis DVT prophylaxis Full code Plan: Continue management in the ICU with multiple consultations following including pulmonary collet maker, cardiology, urology. Patient was started on Cortef by pulmonary collet maker. Monitor blood pressures closely. Continue with antibiotics in the form of ceftriaxone while awaiting cultures to finalize. Preliminary showing gram-negative bacilli Patient was maintained on pressor support and Levophed discontinued yesterday evening, vasopressin being weaned today and recommend to continue with telemetry monitoring Recommend increase activity as tolerated and sitting up in the chair more frequently PT/OT therapy to evaluate if patient continues with weakness The impression and plan of care has been dictated by Hilary Coffey, Nurse Practitioner as directed. Dr. Joaquin MD I have performed a history and examination and MDM of this patient, discussed the same with the dictator, and agree with the dictator's assessment and plan as written ,documented as a scribe. Based on total visit time, I have performed more than 50% of the visit. Objective - Vital Signs Vital signs: Vital Signs Temp 98.2 F 08/17/24 08:00 Pulse 72 08/17/24 08:00 Resp 27 H 08/17/24 08:00 BP 116/76 08/17/24 02:15 Pulse Ox 94 L 08/17/24 08:00 FiO2 Intake & Output 08/16/24 08/17/24 08/17/24 18:59 06:59 18:59 Intake Total 2646.235 2513.506 665.487 Output Total 1211 895 120 Balance 9442.574 2096.506 545.487 Weight 136.2 kg 136.3 kg Intake: IV 1780 1650 300 0.9 KVO 220 40 Lactated Ringers 1,000 ml 1730 1430 260 @ 130 mls/hr IV .Q7H42M [facility] Rx#:[id number] cefTRIAXone 2 gm In 50 Sodium Chloride 0.9% 50 ml @ 100 mls/hr IVPB Q24HR [facility] Rx#:[id number] Intake, IV Titration 716.235 413.506 9.487 Amount Amiodarone 450 mg In 249.727 Dextrose 5% in Water 250 ml @ 0.5 MG/MIN 16.667 mls/hr IV .Q15H [facility] Rx#: [id number] Norepinephrine 4 mg In 716.235 40.002 Sodium Chloride 0.9% 250 ml @ 0.03 MCG/KG/MIN 14. 517 mls/hr IV .[id number] [facility] Rx#:[id number] Vasopressin 60 unit In 123.777 9.487 Sodium Chloride 0.9% 150 ml @ 0.04 UNITS/MIN 6.12 mls/hr IV .Q24H [facility] Rx#: [id number] Oral 150 450 356 Output: Urine 1210 845 120 Stool 1 50 Other: Voiding Method Indwelling Catheter Indwelling Catheter Indwelling Catheter # Bowel Movements 1 1 ABP, PAP, CO, CI - Last Documented Arterial Blood Pressure 103/56 - Labs CBC & Chem 7: 08/18/24 05:55 08/18/24 05:55 Labs: Abnormal Lab Results - Last 24 Hours (Table) 08/16/24 08/16/24 08/17/24 Range/Units 10:51 14:33 07:58 WBC 23.99 H (4.50-10.00) 10*3/uL RBC 3.44 L (4.10-5.20) 10*6/uL Hgb 10.5 L (12.0-15.0) g/dL Hct 32.5 L (37.2-46.3) % Plt Count 112 L (140-440) 10*3/uL Immature Gran # 1.85 H (0.00-0.04) 10*3/uL Sodium (137-145) mmol/L Carbon Dioxide (22-30) mmol/L BUN (7-17) mg/dL Glucose (74-99) mg/dL Plasma Lactic Acid Ant 3.5 H* 3.1 H* (0.7-2.0) mmol/L Calcium (8.4-10.2) mg/dL Magnesium (1.6-2.3) mg/dL AST (14-36) U/L ALT (4-34) U/L Total Protein (6.3-8.2) g/dL Albumin (3.5-5.0) g/dL 08/17/24 Range/Units 07:58 WBC (4.50-10.00) 10*3/uL RBC (4.10-5.20) 10*6/uL Hgb (12.0-15.0) g/dL Hct (37.2-46.3) % Plt Count (140-440) 10*3/uL Immature Gran # (0.00-0.04) 10*3/uL Sodium 134 L (137-145) mmol/L Carbon Dioxide 16 L (22-30) mmol/L BUN 26 H (7-17) mg/dL Glucose 164 H (74-99) mg/dL Plasma Lactic Acid Ant (0.7-2.0) mmol/L Calcium 7.8 L (8.4-10.2) mg/dL Magnesium 1.5 L (1.6-2.3) mg/dL AST 58 H (14-36) U/L ALT 40 H (4-34) U/L Total Protein 5.5 L (6.3-8.2) g/dL Albumin 2.8 L (3.5-5.0) g/dL Microbiology - Last 24 Hours (Table) 08/15/24 15:58 Urine Culture - Preliminary Urine,Voided Gram Neg Bacilli
[2024-08-18 12:20] LABS: Glucose,Whole Blood 101 mg/dL (70-110)
--- NOTE | 2024-08-18 13:41 | P.CNNES ---
History of Present Illness Consult date: 08/18/24 Requesting physician: Kwabena Mendoza Reason for Consult: IVIG History of Present Illness: This is a 64-year-old woman who presents emergency department because of nausea, vomiting and dizziness also had some right flank pain, felt warm, felt she was having chills. Patient was found to have right nephrolithiasis and required cystoscopy with stent. She was also found to have acute urinary tract infection. Patient states she has history of myasthenia gravis and she is on IVIG once a month and gets home infusion and her next infusion is this coming up . She is also on Mestinon 60 mg 1 tablet 3 times daily and prednisone 10 mg daily. Patient states that she had some shortness of breath but not too drastic out of the ordinary she states that her shortness of breath usually happen just before her next regimen of IVIG and states this is normal. Denies any visual disturbance, focal weakness. She does have a history of atrial fibrillation. During this hospital visit it seems that she did encounter atrial fibrillation and currently back in sinus rhythm. She follows up with Dr. Evans's physician optical assistant for management of myasthenia gravis Some of the workup during this hospital visit: Patient is slightly tachypneic in the range of 17 to low 20s is on 2 to 3L nasal cannula I reviewed the lab work-up. Urine culture is +ve E.Coli. CT of the head is reported as no acute intracranial process. I personally reviewed the CT and agree with the report. Review of Systems As per HPI. Past Medical History Past Medical History: Atrial Fibrillation, Hypertension Additional Past Medical History / Comment(s): myastenas gravis History of Any Multi-Drug Resistant Organisms: None Reported Past Surgical History: Orthopedic Surgery Additional Past Surgical History / Comment(s): right shoulder Past Psychological History: No Psychological Hx Reported Smoking Status: Former smoker Past Alcohol Use History: None Reported Past Drug Use History: None Reported - Past Family History Father Family Medical History: Myocardial Infarction ([place]) Medications and Allergies Home Medications Medication Instructions Recorded Confirmed Type Pyridostigmine Homer [Mestinon] 60 mg PO TID-W/MEALS 05/04/24 08/15/24 History predniSONE 10 mg PO DAILY 05/04/24 08/15/24 History Atorvastatin [Lipitor] 40 mg PO DAILY #30 tab 05/11/24 08/15/24 Rx Famotidine [Pepcid] 20 mg PO DAILY #30 tab 05/11/24 08/15/24 Rx Apixaban [Eliquis] 5 mg PO BID@0900,1400 08/15/24 08/15/24 History Cholecalciferol (Vitamin D3) 75 mcg PO DAILY 08/15/24 08/15/24 History [Vitamin D3 (3000 Iu)] Diltiazem Oral [Cardizem*] 60 mg PO TID-W/MEALS 08/15/24 08/15/24 History EPINEPHrine (Auto Inject) [Epipen] 0.3 mg IM ONCE PRN 08/15/24 08/15/24 History Metoprolol Tartrate [Lopressor] 25 mg PO BID@0900,1400 08/15/24 08/15/24 History Octagam Infusion 1 dose IV Q30D 08/15/24 08/15/24 History hydroCHLOROthiazide [Hydrodiuril] 12.5 mg PO DAILY 08/15/24 08/15/24 History lisinopriL [Zestril] 20 mg PO DAILY 08/15/24 08/15/24 History Allergies Allergy/AdvReac Type Severity Reaction Status Date / Time Penicillins Allergy Unknown Unknown Verified 08/15/24 16:27 Childhood Physical Examination - Vital Signs Vital Signs: Vital Signs Temp Pulse Pulse Resp BP BP Pulse Ox 08/18/24 12:00 98.0 F 82 28 H 99 08/18/24 11:00 82 24 130/89 08/18/24 10:00 80 28 H 08/18/24 09:00 93 23 08/18/24 08:00 97.7 F 90 23 123/86 94 L 08/18/24 06:00 88 24 90 L 08/18/24 04:00 98.1 F 89 22 115/79 94 L 08/18/24 00:00 102 H 24 118/61 96 08/17/24 20:00 120 H 33 H 120/81 95 08/17/24 19:00 98.7 F 123 H 21 113/79 93 L 08/17/24 16:00 69 24 105/72 96 08/17/24 15:00 79 25 H 95 08/17/24 14:15 97 08/17/24 14:00 73 26 H 97 Intake and Output 08/17/24 08/18/24 08/18/24 22:59 06:59 14:59 Intake Total 1060 1190 390 Output Total 500 800 Balance 560 1190 -410 Intake: IV 1060 1190 390 Invasive Line 1 10 10 Invasive Line 3 10 10 Lactated Ringers 1,000 ml 1040 1170 390 @ 130 mls/hr IV .Q7H42M [facility] Rx#:[id number] Output: Urine 500 800 Other: Voiding Method Bedside Commode Bedside Commode Bedside Commode Diaper Diaper Diaper # Voids 1 2 1 # Bowel Movements 1 1 Weight 135.7 kg General: Patient is a morbid obese, sitting up in a recliner chair and is not in acute distress. Neuro: Patient is awake alert oriented to self place and time. Is following simple commands. No aphasia no neglect. 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 Visual gaines are full to confrontation. Extraocular moods intact no nystagmus. No facial weakness. No dysarthria. Tongue is midline with [id number] with any difficulty Motor: strength 5 out of 5 throughout Cerebellar is normal [id number] Sensation is normal to touch. Results - Laboratory Findings CBC and BMP: 08/18/24 05:55 08/18/24 05:55 Abnormal Lab Findings: Abnormal Labs 08/15/24 08/15/24 08/15/24 12:48 12:48 12:49 WBC RBC Hgb Hct MCV MCHC Plt Count Immature Gran # Neutrophils # (Manual) Lymphocytes # (Manual) 0.37 L Metamyelocytes # (Man) Sodium Chloride Carbon Dioxide BUN 20 H Creatinine Glucose 118 H POC Glucose (mg/dL) Plasma Lactic Acid Ant 5.1 H* Calcium Magnesium 1.4 L AST 55 H ALT 41 H Total Protein Albumin Urine Appearance Urine Protein Urine Blood Ur Leukocyte Esterase Urine RBC Urine WBC Urine WBC Clumps Urine Bacteria Urine Mucus 08/15/24 08/15/24 08/15/24 15:58 17:17 20:19 WBC RBC Hgb Hct MCV MCHC Plt Count Immature Gran # Neutrophils # (Manual) Lymphocytes # (Manual) Metamyelocytes # (Man) Sodium Chloride Carbon Dioxide BUN Creatinine Glucose POC Glucose (mg/dL) Plasma Lactic Acid Ant 5.9 H* 6.4 H* Calcium Magnesium AST ALT Total Protein Albumin Urine Appearance Cloudy H Urine Protein Trace H Urine Blood Moderate H Ur Leukocyte Esterase Large H Urine RBC 56 H Urine WBC 68 H Urine WBC Clumps Moderate H Urine Bacteria Many H Urine Mucus Occasional H 08/16/24 08/16/24 08/16/24 05:28 05:28 05:28 WBC 21.45 H RBC 3.84 L Hgb 11.7 L Hct MCV 97.9 H MCHC 31.1 L Plt Count Immature Gran # 0.17 H Neutrophils # (Manual) 20.16 H Lymphocytes # (Manual) 0.64 L Metamyelocytes # (Man) Sodium 135 L Chloride Carbon Dioxide 17 L BUN 27 H Creatinine 1.80 H Glucose 113 H POC Glucose (mg/dL) Plasma Lactic Acid Ant 3.5 H* Calcium 7.7 L Magnesium AST 52 H ALT Total Protein 5.3 L Albumin 2.8 L Urine Appearance Urine Protein Urine Blood Ur Leukocyte Esterase Urine RBC Urine WBC Urine WBC Clumps Urine Bacteria Urine Mucus 08/16/24 08/16/24 08/17/24 10:51 14:33 07:58 WBC 23.99 H RBC 3.44 L Hgb 10.5 L Hct 32.5 L MCV MCHC Plt Count 112 L Immature Gran # 1.85 H Neutrophils # (Manual) 21.11 H Lymphocytes # (Manual) Metamyelocytes # (Man) Sodium Chloride Carbon Dioxide BUN Creatinine Glucose POC Glucose (mg/dL) Plasma Lactic Acid Ant 3.5 H* 3.1 H* Calcium Magnesium AST ALT Total Protein Albumin Urine Appearance Urine Protein Urine Blood Ur Leukocyte Esterase Urine RBC Urine WBC Urine WBC Clumps Urine Bacteria Urine Mucus 08/17/24 08/17/24 08/17/24 07:58 09:01 12:08 WBC RBC Hgb Hct MCV MCHC Plt Count Immature Gran # Neutrophils # (Manual) Lymphocytes # (Manual) Metamyelocytes # (Man) Sodium 134 L Chloride Carbon Dioxide 16 L BUN 26 H Creatinine Glucose 164 H POC Glucose (mg/dL) 192 H 164 H Plasma Lactic Acid Ant Calcium 7.8 L Magnesium 1.5 L AST 58 H ALT 40 H Total Protein 5.5 L Albumin 2.8 L Urine Appearance Urine Protein Urine Blood Ur Leukocyte Esterase Urine RBC Urine WBC Urine WBC Clumps Urine Bacteria Urine Mucus 08/18/24 08/18/24 05:55 05:55 WBC 21.14 H RBC 3.42 L Hgb 10.4 L Hct 32.6 L MCV MCHC 31.9 L Plt Count 108 L Immature Gran # 0.11 H Neutrophils # (Manual) 19.66 H Lymphocytes # (Manual) 0.85 L Metamyelocytes # (Man) 0.21 H Sodium Chloride 113 H Carbon Dioxide BUN 21 H Creatinine Glucose 108 H POC Glucose (mg/dL) Plasma Lactic Acid Ant Calcium Magnesium AST 40 H ALT 37 H Total Protein 5.4 L Albumin 2.8 L Urine Appearance Urine Protein Urine Blood Ur Leukocyte Esterase Urine RBC Urine WBC Urine WBC Clumps Urine Bacteria Urine Mucus Assessment and Plan Assessment: Tachypneic but clinically patient is not in myasthenia gravis exacerbation and her next IVIG home dose is this . She has acute urinary tract infection and as well as acute nephrolithiasis which can exacerbate her myasthenia gravis but as stated clinically seems stable Acute urinary tract infection Acute nephrolithiasis status post cystoscopy with stent placement Chronic history of myasthenia gravis and gets IVIG infusion home dose once a mo nth, Mestinon and prednisone Parosymal atrial fibrillation and back to sinurs rhythm is on Eliquis History of hypertension History of hyperlipidemia Morbid obesity Plan: Currently the patient as stated above not in myasthenia gravis exacerbation but if she does we will pursue with IVIG as an inpatient. She is scheduled to have IVIG home infusion this . She is resumed on her home dose of Mestinon 60 mg 1 tablet 3 times daily. She is usually on prednisone 10 mg at home but during this hospital visit she is on hydrocortisone 50 mg every 6 hours started by the ICU team on 08/16/2024. Recommend continuing respiratory monitoring. Recommend NIF and forced vital capacity Q12 hours. Will defer the rest of the medical management to primary and other specialist. Discharge, recommend the patient to follow-up with her outpatient neurology team, Dr. Nathan Viveros The plan is discussed with patient and her nurse. Thank you for the consultation. Time with Patient: Greater than 30
--- NOTE | 2024-08-18 14:10 | P.PN ---
Subjective Progress Note Date: 08/18/24 64-year-old female who presented to the emergency department, on August 15, with complaints of dizziness, nausea, and vomiting. Apparently the symptoms began the day of admission. She denied any chest pain or abdominal pain. The patient apparently was discovered to have nephrolithiasis, and required a cystoscopy, with a stent placement, on the right side. This was done by one of the urologist. I was notified by the urologist, that the patient was profoundly tachycardic, and hypotensive, and therefore, she was admitted to the intensive care unit, for further monitoring and management. She is currently on 6 L nasal cannula. She is getting LR at 130 cc an hour. She is on norepinephrine at 47 mcg/min. She is getting amiodarone 1 mg/min. She is also on Rocephin. She has a history of myasthenia gravis, and has not been taking her Mestinon, or prednisone. She also has a history of atrial fibrillation. The patient was seen by urology, and found to have right hydronephrosis secondary to a right ureteral calculus. She underwent cystoscopy with right ureteral stent placement. Current labs include a white count 21.5, hemoglobin 11.7, hematocrit 37.6, and a platelet count of 150,000. Sodium 135, potassium 4.3, chlorides 107, CO2 17, anion gap 11, BUN 27, creatinine 1.80. Glucose is 113. Most recent lactic acid is 3.5. Calcium 7.7. On 08/17/2024, the patient is being seen for a follow-up. The patient is resting comfortably in bed. She is morbidly obese with a BMI of 47.1. She is hemodynamically stable and the patient is currently off pressors. She is status post insertion of a double-J stent for a septic stone and this was done on 08/16/2024. She has no pelvic pain. She has no flank pain. No significant respiratory distress and she is afebrile and hemodynamically stable. Urine culture is showing gram-negative bacillus and meanwhile the patient remains on IV Rocephin. Hemodynamically, the patient is stable. The patient is currently off norepinephrine and the patient is also off vasopressin infusion. She remains on 3 liters of oxygen by nasal cannula. Lactated Ringer's running at rate of 100 cc an hour. She did encounter atrial fibrillation current rhythm is back into normal sinus. The patient's white cell count is at 23 with a hemoglobin of 10.5 and a platelet count of 112, BUN 26 creatinine of 0.8. Serum bicarb is 16 with a sodium of is 136 and a potassium is at 4.0. No altered mentation. Resting comfortably in bed. On 08/18/2024, the patient is being seen for a follow-up. The patient is doing well. No specific complaints. She is sitting up in a chair. No neuromuscular weakness as the patient has myasthenia gravis and the patient remains on hydrocortisone and Mestinon. She is interested in seeing a neurologist as the patient receives monthly IVIG. Overnight, the patient has some issues with Atrial fibrillation. The patient is currently on Cardizem drip at 5 mg an hour. She is also on normal oral amiodarone 400 mg twice a day. The patient is on lactated Ringer at rate of 130 cc an hour. Urine culture blood culture was positive for E. coli and the patient is currently on IV Rocephin. No other significant events overnight. The patient's white cell count is at 21 with a hemoglobin 10.4 and the platelet count of 108. BUN is 21 with a creatinine of 0.8 and sodium low at 142. The patient has been in a positive fluid balance of 2.8 L over the past 24 hours. She is currently on oxygen and she is at 1 L nasal cannula with a pulse ox of 99%. No altered mentation. No nausea vomiting or abdominal pain. Objective - Vital Signs Vital signs: Vital Signs Temp 97.7 F 08/18/24 08:00 Pulse 90 08/18/24 08:00 Resp 23 08/18/24 08:00 BP 123/86 08/18/24 08:00 Pulse Ox 94 L 08/18/24 08:00 FiO2 Intake & Output 08/17/24 08/18/24 08/18/24 18:59 06:59 18:59 Intake Total 2390.128 1600 390 Output Total 1150 Balance 4232.594 4676 390 Weight 135.7 kg Intake: IV 2019 1600 390 0.9 KVO 40 Invasive Line 1 20 20 Invasive Line 3 20 20 Lactated Ringers 1,000 ml 1690 1560 390 @ 130 mls/hr IV .Q7H42M [facility] Rx#:[id number] Magnesium Sulfate-D5w Pmx 200 1 gm In Dextrose/Water 1 100ml.bag @ 100 mls/hr IVPB Q1H [facility] Rx#: [id number] cefTRIAXone 2 gm In 50 Sodium Chloride 0.9% 50 ml @ 100 mls/hr IVPB Q24HR [facility] Rx#:[id number] Intake, IV Titration 14.128 Amount Vasopressin 60 unit In 14.128 Sodium Chloride 0.9% 150 ml @ 0.04 UNITS/MIN 6.12 mls/hr IV .Q24H [facility] Rx#: [id number] Oral 356 Output: Urine 1150 Other: Voiding Method Indwelling Catheter Bedside Commode Bedside Commode Diaper Diaper # Voids 2 2 1 # Bowel Movements 1 1 ABP, PAP, CO, CI - Last Documented Arterial Blood Pressure 131/65 - Exam No acute distress, oriented 3. Currently on 1 L of oxygen nasal cannula, obese with a BMI of 47.5 HEENT examination is grossly unremarkable. Mucous membranes are dry. Neck supple. Full range of motion. No adenopathy thyromegaly or neck vein distention. Cardiovascular examination reveals regular rhythm rate. S1-S2 normal. No S3 or S4. No discernible murmur noted. Heart sounds are distant. Lungs reveal clear breath sounds. Breath sounds are equal bilaterally. No adventitious lung sounds including wheezes rhonchi or crackles. Abdomen soft without bowel sounds. No masses or tenderness. Extremities are intact. No cyanosis clubbing or edema. Skin is without rash or lesion. Neurologic examination is brief but nonfocal. - Labs CBC & Chem 7: 08/18/24 05:55 08/18/24 05:55 Labs: Abnormal Lab Results - Last 24 Hours (Table) 08/17/24 08/18/24 08/18/24 Range/Units 12:08 05:55 05:55 WBC 21.14 H (4.50-10.00) 10*3/uL RBC 3.42 L (4.10-5.20) 10*6/uL Hgb 10.4 L (12.0-15.0) g/dL Hct 32.6 L (37.2-46.3) % MCHC 31.9 L (32.0-37.0) g/dL Plt Count 108 L (140-440) 10*3/uL Immature Gran # 0.11 H (0.00-0.04) 10*3/uL Neutrophils # (Manual) 19.66 H (1.3-7.7) k/uL Lymphocytes # (Manual) 0.85 L (1.0-4.8) k/uL Metamyelocytes # (Man) 0.21 H (0) k/uL Chloride 113 H (98-107) mmol/L BUN 21 H (7-17) mg/dL Glucose 108 H (74-99) mg/dL POC Glucose (mg/dL) 164 H (70-110) mg/dL AST 40 H (14-36) U/L ALT 37 H (4-34) U/L Total Protein 5.4 L (6.3-8.2) g/dL Albumin 2.8 L (3.5-5.0) g/dL Microbiology - Last 24 Hours (Table) 08/16/24 00:28 Urine Culture - Final Urine,Ureter Escherichia coli 08/15/24 15:58 Urine Culture - Final Urine,Voided Escherichia coli 08/16/24 10:38 Blood Culture - Preliminary Blood Assessment and Plan Plan: Right ureteral stone, with right-sided hydronephrosis, S/P cystoscopy, with right ureteral stent, postop day # 2 Sepsis secondary to above, secondary to E. coli the patient remains on IV Rocephin Urine tract infection with E. coli, currently on IV Rocephin Severe hypotension, secondary to sepsis. Hemodynamically improved and the patient is currently off vasopressin and norepinephrine, maintaining her blood pressure History of myasthenia gravis. The patient is maintained on Mestinon and prednisone 10 mg on an outpatient basis. Paroxysmal atrial fibrillation and patient is currently on Cardizem drip and oral amiodarone History of hyperlipidemia. History of hypertension. Previous tobacco use. Morbid obesity with a BMI of 47.1 Leukocytosis continues above Thrombocytopenia secondary to underlying sepsis, consumptive. None anion gap metabolic acidosis Plan: Patient is currently on 1 L by nasal cannula. Provide incentive spirometer. Patient is currently off pressors and epinephrine and vasopressin have been discontinued Change IV fluids to 20 cc an hour Discontinue the Cardizem drip and put the patient on metoprolol 25 mg p.o. twice a day. Restart anticoagulation with Eliquis. Continue IV Rocephin Resume Mestinon and the patient is currently on stress dose hydrocortisone as the patient was receiving prednisone 10 mg on outpatient basis. Will consult also with neurology and the patient may be considered for IVIG that she receives on a monthly basis on outpatient basis. 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 Critical care evaluation, 31 minutes Time with Patient: Greater than 30
[2024-08-18] MEDS: METOPROLOL TARTRATE 25 MG TAB PO SCH (14:56)
[2024-08-18] MEDS: APIXABAN 5 MG TAB PO SCH (14:56)
--- NOTE | 2024-08-18 16:21 | P.PN ---
Subjective This is a 64-year-old female patient of Dr. Walsh with past medical history of paroxysmal atrial fibrillation, hypertension, hyperlipidemia, myasthenia gravis gravis, moderate mitral insufficiency. We have been asked to evaluate the patient for A-fib with RVR. Patient was last seen in the office with Dr. Walsh on 07/16/2024 which time she was doing well. Since then, she states she had 2 episodes lasting about 15 minutes each of atrial fibrillation with RVR. Each episode resolved on its own. Patient states she came into the hospital due to vomiting and shaking. She states she did not have any burning or pain with urination. She does complain of some right sided chest pain that she thought was muscle related as she has had previous right shoulder surgery and sometimes she has pain with lifting too much. Patient was found to be febrile with a mild to moderate right hydronephrosis due to kidney stone and is status post cystoscopy and right ureteral stent insertion. Patient did have tachycardia hypotension and was admitted to the intensive care unit. This morning she was found to be in A-fib with RVR and was started on amiodarone drip. Patient denies feeling atrial fibrillation when this started. Patient converted to sinu s rhythm around 845 this morning. Blood pressure 114/83, heart rate 99, pulse ox 92% on room air. -EKG: Initially was sinus tachycardia 122 bpm, patient was subsequently in A-fib with RVR on telemetry. -Chest x-ray: No acute process. -Gallbladder ultrasound: Cholelithiasis and biliary sludge without definite evidence of acute cholecystitis. Increased hepatic echogenicity possible steatosis or hepatocellular disease. -Renal ultrasound: Unremarkable. -CT abdomen pelvis without contrast: Mild hydro secondary to ureteral calculus. 1.6 cm lesion in the vagina. Cirrhosis. Nonobstructive additional renal stones. No left-sided hydro. -Laboratory studies: WBC 21.4, hemoglobin 9.7, sodium 135, potassium 4.3, BUN 27 creatinine 1.8. Urinalysis positive for infection. Cepheid viral panel not detected. -Home cardiac medications: Eliquis 5 mg twice daily, Lipitor 40 mg daily, Cardizem 60 mg 3 times daily, hydrochlorothiazide 12.5 mg daily, lisinopril 20 mg daily, metoprolol tartrate 25 mg twice daily. -Echocardiogram performed at [facility] on 05/07/2024 revealed technically difficult study with normal LV systolic function and mild LVH. Moderate mitral regurgitation with thickened mitral valve leaflets. Cannot rule out bicuspid aortic valve. Aortic valve is sclerotic. Mild aortic stenosis. -Lexiscan Cardiolite stress test performed in the office on 05/28/2024 revealed EF 81%, probably normal study. -Event monitor performed 05/20 - 06/02/2024 revealed sinus rhythm with average heart rate of 65, minimum 47 bpm and maximum 141 bpm. Ventricular ectopic activity burden less than 1%. Atrial fibrillation burden at 1% and was asymptomatic. 08/17 Patient seen and examined. Patient denies any chest pain or pressure. She remains in normal sinus rhythm. Transitioned to oral amiodarone. Blood pressure improved however having diarrhea. She is receiving IV fluids at 130 cc/hr. 08/18 Patient seen and examined. Patient feeling somewhat better today. Denies any chest pain or pressure. Still some chronic dyspnea. She did convert from the A-fib and currently on oral amiodarone. She was placed back on oral anticoagulation. Creatinine stable at 0.7. She is having increased lower extremity edema and IV fluids were stopped overnight. Physical examination: Gen: This is a 64-year-old female in no acute distress VS: reviewed HEENT: Head is atraumatic, normocephalic. Pupils equal, round. Sclerae is anicteric. NECK: Supple. No JVD. LUNGS: Clear to auscultation. No wheezes or rhonchi. No intercostal retractions. HEART: Regular rate and rhythm. No murmur. ABDOMEN: Soft No tenderness. EXTREMITIES: No pedal edema. No calf tenderness. NEUROLOGICAL: Patient is awake, alert and oriented x3. Assessment: Paroxysmal atrial fibrillation with RVR, converted to sinus rhythm Right ureteral stone with right-sided hydronephrosis status post cystoscopy and right ureteral stent placement Urinary tract infection and sepsis Acute kidney injury History of myasthenia gravis History of hypertension Hyperlipidemia Moderate mitral insufficiency Lower extremity edema likely component of venous insufficiency plus or minus congestive heart failure Plan: Continue with home Eliquis Continue patient on amiodarone oral 400 mg twice daily for 1 full week and then down to 200 mg twice a day. Further rhythm control management after discharge Metoprolol was restarted and monitor response as her blood pressure has been improving. Patient having significant lower extremity edema and likely some component of heart failure. Monitor for another 24 hours and likely start Lasix tomorrow. Check BNP Thank you kindly for this consultation. Objective - Vital Signs Vital signs: Vital Signs Temp 98.0 F 08/18/24 12:00 Pulse 64 08/18/24 16:00 Resp 22 08/18/24 16:00 BP 137/92 08/18/24 13:00 Pulse Ox 99 08/18/24 12:00 FiO2 Intake & Output 08/17/24 08/18/24 08/18/24 18:59 06:59 18:59 Intake Total 2390.128 1600 1690 Output Total 1150 800 Balance 8753.316 4267 890 Weight 135.7 kg Intake: IV 2019 1600 390 0.9 KVO 40 Invasive Line 1 20 20 Invasive Line 3 20 20 Lactated Ringers 1,000 ml 1690 1560 390 @ 130 mls/hr IV .Q7H42M [facility] Rx#:[id number] Magnesium Sulfate-D5w Pmx 200 1 gm In Dextrose/Water 1 100ml.bag @ 100 mls/hr IVPB Q1H [facility] Rx#: [id number] cefTRIAXone 2 gm In 50 Sodium Chloride 0.9% 50 ml @ 100 mls/hr IVPB Q24HR [facility] Rx#:[id number] Intake, IV Titration 14.128 Amount Vasopressin 60 unit In 14.128 Sodium Chloride 0.9% 150 ml @ 0.04 UNITS/MIN 6.12 mls/hr IV .Q24H [facility] Rx#: [id number] Oral 356 1300 Output: Urine 1150 800 Other: Voiding Method Indwelling Catheter Bedside Commode Bedside Commode Diaper Diaper # Voids 2 2 1 # Bowel Movements 1 1 ABP, PAP, CO, CI - Last Documented Arterial Blood Pressure 131/65 - Labs CBC & Chem 7: 08/18/24 05:55 08/18/24 05:55 Labs: Abnormal Lab Results - Last 24 Hours (Table) 08/18/24 08/18/24 Range/Units 05:55 05:55 WBC 21.14 H (4.50-10.00) 10*3/uL RBC 3.42 L (4.10-5.20) 10*6/uL Hgb 10.4 L (12.0-15.0) g/dL Hct 32.6 L (37.2-46.3) % MCHC 31.9 L (32.0-37.0) g/dL Plt Count 108 L (140-440) 10*3/uL Immature Gran # 0.11 H (0.00-0.04) 10*3/uL Neutrophils # (Manual) 19.66 H (1.3-7.7) k/uL Lymphocytes # (Manual) 0.85 L (1.0-4.8) k/uL Metamyelocytes # (Man) 0.21 H (0) k/uL Chloride 113 H (98-107) mmol/L BUN 21 H (7-17) mg/dL Glucose 108 H (74-99) mg/dL AST 40 H (14-36) U/L ALT 37 H (4-34) U/L Total Protein 5.4 L (6.3-8.2) g/dL Albumin 2.8 L (3.5-5.0) g/dL Microbiology - Last 24 Hours (Table) 08/16/24 00:28 Urine Culture - Final Urine,Ureter Escherichia coli 08/15/24 15:58 Urine Culture - Final Urine,Voided Escherichia coli 08/16/24 10:38 Blood Culture - Preliminary Blood
[2024-08-18 16:59] LABS: Glucose,Whole Blood 123 mg/dL (70-110)
--- NOTE | 2024-08-19 05:12 | P.PN ---
Subjective Progress Note Date: 08/18/24 This is a pleasant 64 years old female with past medical history of multiple medical problems as below. Presents because of nausea vomiting and chills of 1 to 2 days duration. She vomited about twice per day and that is why she came to the hospital because on April she had similar presentation with vomiting and chills and found to have UTI, this time she does not have a fever but because of her concern she came. On presentation patient became hypotensive with high lactic acid elevated, she received several boluses of normal saline. Also she received midodrine. With minimal improvement in blood pressure, because of this we are did urgent ultrasound last night which was suspicious for mild hydronephrosis however we consulted urology team and urgently they evaluated the patient and took her to the OR status post stent placement in the right renal system. After that patient was transferred to the ICU. She continued on IV hydration however she developed A-fib and RVR and amiodarone and Cardizem given. Truck Sales Manager was contacted. About 4 to 5 AM she converted back to sinus rhythm Currently she is fully awake oriented does not look in significant distress. She has some headache but denies any abdominal pain or diarrhea. Other than the vomiting. No significant urinary complaints like burning or change in frequency or suprapubic pain or tenderness. No dizziness weakness or numbness Patient states she has history of myasthenia gravis on pyridostigmine She denies smoking alcohol or illicit drugs. She had a fever of 102 in emergency room, blood pressure currently with the pressors is 105/70, breathing rate is around 28-24 She has leukocytosis at 21,000, hemoglobin 11.7, sodium 135 and creatinine went up to 1.8 Lactic acid was elevated 5.1 it went up to 6.4 and currently improving down to 3.5 Currently she is kept on Levophed and vasopressin. Also missed the roundtrip, Ringer lactate at 138 and ceftriaxone 2 g daily 08/17/2024 Patient is seen and evaluated in follow-up with multiple consultations including pulmonary bi manager and cardiology following. Patient in atrial fibrillation and also hypotensive with sepsis currently off Levophed since yesterday afternoon and has been weaned off vasopressin this morning currently rate controlled with medications being adjusted. Patient with preliminary urine culture showing gram-negative bacilli and awaiting cultures to determine appropriate antibiotics. Patient also evaluated by urology status post cystoscopy with right ureteral stent placement. Patient is voiding and denies difficulty, pain, or burning with urination reporting to feeling slightly improved. 08/18/2024 Patient is seen in follow-up today being followed by multiple consultations including pulmonary bi manager as patient remains in the ICU, cardiology, and urology. Patient is continued on IV antibiotics in the form of ceftriaxone and urine cultures have finalized with E. coli with sensitivities. Patient is status post right ureteral stent placement. Neurology was consulted regarding patient's upcoming IVIG infusion for myasthenia gravis. Patient follows with neurology outpatient and receives monthly infusions and is due on . Patient with generalized weakness although is getting up and recommend increased activity as tolerated with sitting up in the chair more frequently. White count remains elevated although is trending down at 21.14 and possibly also elevated due to steroid effect, hemoglobin 10.4, platelets 108, sodium is 142 with a potassium of 3.8, BUN 21 with creatinine 0.83. LFTs are trending down and a BNP was also done which is elevated at 5740. Patient denies any shortness of breath and currently 95% on room air. Neurology reports if remaining hospitalized on may consider infusing IVIG for her myasthenia gravis although not in exacerbation clinically. Patient is afebrile with no reported chest pain or palpitations. Cardiology following making adjustments to medications and A-fib is currently rate controlled. Review of systems: Constitutional: No reports of fatigue, no fever, or chills Cardiovascular: No reports of chest pain or palpitations Respiratory: No reports of shortness of breath or cough GI: reports of intermittent nausea, no vomiting, or diarrhea, reports passing gas with no bowel movement as of yet : No further reports of dysuria or retention Neurovascular: reports of generalized weakness All medications have been reviewed Physical exam: Gen: This is a 64-year-old female who is awake, alert and oriented x 3, well- developed, elderly appearing, ill-appearing, morbidly obese HEENT: Head is atraumatic, normocephalic. Pupils equal, round. Sclerae is anicteric. NECK: Supple. No JVD. No lymphadenopathy. No thyromegaly. LUNGS: Diminished breath sounds bilaterally with a few faint expiratory wheezes noted although cleared after cough . No intercostal retractions. HEART: S1, S2 are muffled, currently rate controlled ABDOMEN: Soft. Morbidly obese bowel sounds are present. No masses. No tenderness. EXTREMITIES: No pedal edema. No calf tenderness. NEUROLOGICAL: Patient is awake, alert and oriented x3. Cranial nerves 2 through 12 are grossly intact. Diffusely weak Assessment: Sepsis with septic shock on admission secondary to acute urinary tract infection, cultures finalized as E. coli Acute urinary tract infection secondary to E. coli, on admission Right hydronephrosis s/p emergent cystoscopy with right ureteral stent placement Acute kidney injury likely secondary to renal calculi, improving Morbid obesity with BMI of 46.9 Leukocytosis secondary to above, trending down Elevated lactic acid, likely secondary to assessment #1 Atrial fibrillation, with RVR, currently rate controlled on Eliquis at home History of myasthenia gravis receives IVIG infusions monthly GI prophylaxis DVT prophylaxis Full code Plan: Continue management in the ICU with multiple consultations following including pulmonary bi manager, cardiology, urology. Patient was started on Cortef by pulmonary bi manager. Monitor blood pressures closely. Neurology was consulted as patient has myasthenia gravis and receives IVIg infusions monthly and is scheduled to receive another infusion on and has an infusion nurse coming to the home. Per neurology patient does not appear to be in myasthenia exacerbation and if remaining hospitalized through we will consider IVIG transfusion while inpatient. Patient follows with Dr. Evans in the outpatient setting. Continue with antibiotics in the form of ceftriaxone as urine cultures finalized showing E. coli. Will transition to oral antibiotics on discharge. Patient was maintained on pressor support and has been discontinued. Medications adjusted per cardiology and patient is off Cardizem drip and currently rate controlled. Continue telemetry monitoring and patient is a downgrade out of ICU to 3 S. once a bed is available We will follow-up on repeat labs and replace electrolytes per protocol Recommend increase activity as tolerated and sitting up in the chair more frequently Plan is for patient to return home on discharge. Will discuss with other consultations regarding possible discharge planning in the next 24 to 48 hours The impression and plan of care has been dictated by Hilary Coffey, Nurse Practitioner as directed. Dr. Joaquin MD I have performed a history and examination and MDM of this patient, discussed the same with the dictator, and agree with the dictator's assessment and plan as written ,documented as a scribe. Based on total visit time, I have performed more than 50% of the visit. Objective - Vital Signs Vital signs: Vital Signs Temp 97.7 F 08/18/24 08:00 Pulse 90 08/18/24 08:00 Resp 23 08/18/24 08:00 BP 123/86 08/18/24 08:00 Pulse Ox 94 L 08/18/24 08:00 FiO2 Intake & Output 08/17/24 08/18/24 08/18/24 18:59 06:59 18:59 Intake Total 2390.128 1600 130 Output Total 1150 Balance 1969.590 8513 130 Weight 135.7 kg Intake: IV 2019 1600 130 0.9 KVO 40 Invasive Line 1 20 20 Invasive Line 3 20 20 Lactated Ringers 1,000 ml 1690 1560 130 @ 130 mls/hr IV .Q7H42M [facility] Rx#:[id number] Magnesium Sulfate-D5w Pmx 200 1 gm In Dextrose/Water 1 100ml.bag @ 100 mls/hr IVPB Q1H [facility] Rx#: [id number] cefTRIAXone 2 gm In 50 Sodium Chloride 0.9% 50 ml @ 100 mls/hr IVPB Q24HR [facility] Rx#:[id number] Intake, IV Titration 14.128 Amount Vasopressin 60 unit In 14.128 Sodium Chloride 0.9% 150 ml @ 0.04 UNITS/MIN 6.12 mls/hr IV .Q24H [facility] Rx#: [id number] Oral 356 Output: Urine 1150 Other: Voiding Method Indwelling Catheter Bedside Commode Diaper # Voids 2 2 1 # Bowel Movements 1 1 ABP, PAP, CO, CI - Last Documented Arterial Blood Pressure 131/65 - Labs CBC & Chem 7: 08/18/24 05:55 08/18/24 05:55 Labs: Abnormal Lab Results - Last 24 Hours (Table) 08/17/24 08/17/24 08/17/24 Range/Units 07:58 09:01 12:08 WBC (4.50-10.00) 10*3/uL RBC (4.10-5.20) 10*6/uL Hgb (12.0-15.0) g/dL Hct (37.2-46.3) % MCHC (32.0-37.0) g/dL Plt Count (140-440) 10*3/uL Immature Gran # (0.00-0.04) 10*3/uL Neutrophils # (Manual) 21.11 H (1.3-7.7) k/uL Lymphocytes # (Manual) (1.0-4.8) k/uL Metamyelocytes # (Man) (0) k/uL Chloride (98-107) mmol/L BUN (7-17) mg/dL Glucose (74-99) mg/dL POC Glucose (mg/dL) 192 H 164 H (70-110) mg/dL AST (14-36) U/L ALT (4-34) U/L Total Protein (6.3-8.2) g/dL Albumin (3.5-5.0) g/dL 08/18/24 08/18/24 Range/Units 05:55 05:55 WBC 21.14 H (4.50-10.00) 10*3/uL RBC 3.42 L (4.10-5.20) 10*6/uL Hgb 10.4 L (12.0-15.0) g/dL Hct 32.6 L (37.2-46.3) % MCHC 31.9 L (32.0-37.0) g/dL Plt Count 108 L (140-440) 10*3/uL Immature Gran # 0.11 H (0.00-0.04) 10*3/uL Neutrophils # (Manual) 19.66 H (1.3-7.7) k/uL Lymphocytes # (Manual) 0.85 L (1.0-4.8) k/uL Metamyelocytes # (Man) 0.21 H (0) k/uL Chloride 113 H (98-107) mmol/L BUN 21 H (7-17) mg/dL Glucose 108 H (74-99) mg/dL POC Glucose (mg/dL) (70-110) mg/dL AST 40 H (14-36) U/L ALT 37 H (4-34) U/L Total Protein 5.4 L (6.3-8.2) g/dL Albumin 2.8 L (3.5-5.0) g/dL Microbiology - Last 24 Hours (Table) 08/16/24 00:28 Urine Culture - Final Urine,Ureter Escherichia coli 08/15/24 15:58 Urine Culture - Final Urine,Voided Escherichia coli 08/16/24 10:38 Blood Culture - Preliminary Blood
[2024-08-19 06:14] LABS: Basophils # (A) 0.12 10*3/uL (0.00-0.10); Basophils % (A) 0.7 %; Eosinophils # (A) 0.06 10*3/uL (0.04-0.35); Eosinophils % (A) 0.4 %; HCT 34.4 % (37.2-46.3); Immature Platelet Fraction 6.2 % (1.1-6.1); Lymphocytes # (A) 1.16 10*3/uL (0.90-5.00); Lymphocytes % (A) 6.9 %; MCH 30.1 pg (27.0-32.0); MCV 94.2 fL (80.0-97.0); Mean Platelet Volume 11.4 fL (9.5-12.2); Monocytes # (A) 0.76 10*3/uL (0.20-1.00); Monocytes % (A) 4.5 %; Neutrophils # (A) 14.68 10*3/uL (1.80-7.70); Neutrophils % (A) 86.6 %; Platelet Count 128 10*3/uL (140-440); RBC 3.65 10*6/uL (4.10-5.20); RDW 13.9 % (11.5-14.5); WBC 16.93 10*3/uL (4.50-10.00)
[2024-08-19 06:38] LABS: ALT 53 U/L (4-34); AST 52 U/L (14-36); African American GFR (CKD) >90 (>60 ml/min/1.73 sqM); Albumin 3.1 g/dL (3.5-5.0); Alkaline Phosphatase 94 U/L (38-126); Anion Gap 5 mmol/L; Blood Urea Nitrogen 19 mg/dL (7-17); Carbon Dioxide 22 mmol/L (22-30); Chloride 108 mmol/L (98-107); Glucose 102 mg/dL (74-99); Magnesium 1.9 mg/dL (1.6-2.3); Non-African American GFR(CKD) 85 (>60 ml/min/1.73 sqM); Potassium 3.8 mmol/L (3.5-5.1); Sodium 135 mmol/L (137-145); Total Bilirubin 0.5 mg/dL (0.2-1.3); Total Protein 5.8 g/dL (6.3-8.2)
[2024-08-19] MEDS: PANTOPRAZOLE 40 MG TABLET PO SCH (06:46)
[2024-08-19] MEDS: lisinopriL 20 MG TAB PO SCH (09:38)
[2024-08-19] MEDS: FUROSEMIDE 10 MG/ML 4 ML VIAL IV SCH ×2 (09:38→20:43)
[2024-08-19] MEDS: cloNIDine HCL 0.2 MG TAB PO STA (10:37)
[2024-08-19 12:13] LABS: Glucose,Whole Blood 108 mg/dL (70-110)
--- NOTE | 2024-08-19 13:20 | P.PN ---
Subjective Progress Note Date: 08/19/24 This is a pleasant 64 years old female with past medical history of multiple medical problems as below. Presents because of nausea vomiting and chills of 1 to 2 days duration. She vomited about twice per day and that is why she came to the hospital because on April she had similar presentation with vomiting and chills and found to have UTI, this time she does not have a fever but because of her concern she came. On presentation patient became hypotensive with high lactic acid elevated, she received several boluses of normal saline. Also she received midodrine. With minimal improvement in blood pressure, because of this we are did urgent ultrasound last night which was suspicious for mild hydronephrosis however we consulted urology team and urgently they evaluated the patient and took her to the OR status post stent placement in the right renal system. After that patient was transferred to the ICU. She continued on IV hydration however she developed A-fib and RVR and amiodarone and Cardizem given. Visual Display Manager was contacted. About 4 to 5 AM she converted back to sinus rhythm Currently she is fully awake oriented does not look in significant distress. She has some headache but denies any abdominal pain or diarrhea. Other than the vomiting. No significant urinary complaints like burning or change in frequency or suprapubic pain or tenderness. No dizziness weakness or numbness Patient states she has history of myasthenia gravis on pyridostigmine She denies smoking alcohol or illicit drugs. She had a fever of 102 in emergency room, blood pressure currently with the pressors is 105/70, breathing rate is around 28-24 She has leukocytosis at 21,000, hemoglobin 11.7, sodium 135 and creatinine went up to 1.8 Lactic acid was elevated 5.1 it went up to 6.4 and currently improving down to 3.5 Currently she is kept on Levophed and vasopressin. Also missed the roundtrip, Ringer lactate at 138 and ceftriaxone 2 g daily 08/17/2024 Patient is seen and evaluated in follow-up with multiple consultations including pulmonary wet suit gluer and cardiology following. Patient in atrial fibrillation and also hypotensive with sepsis currently off Levophed since yesterday afternoon and has been weaned off vasopressin this morning currently rate controlled with medications being adjusted. Patient with preliminary urine culture showing gram-negative bacilli and awaiting cultures to determine appropriate antibiotics. Patient also evaluated by urology status post cystoscopy with right ureteral stent placement. Patient is voiding and denies difficulty, pain, or burning with urination reporting to feeling slightly improved. 08/18/2024 Patient is seen in follow-up today being followed by multiple consultations including pulmonary wet suit gluer as patient remains in the ICU, cardiology, and urology. Patient is continued on IV antibiotics in the form of ceftriaxone and urine cultures have finalized with E. coli with sensitivities. Patient is status post right ureteral stent placement. Neurology was consulted regarding patient's upcoming IVIG infusion for myasthenia gravis. Patient follows with neurology outpatient and receives monthly infusions and is due on . Patient with generalized weakness although is getting up and recommend increased activity as tolerated with sitting up in the chair more frequently. White count remains elevated although is trending down at 21.14 and possibly also elevated due to steroid effect, hemoglobin 10.4, platelets 108, sodium is 142 with a potassium of 3.8, BUN 21 with creatinine 0.83. LFTs are trending down and a BNP was also done which is elevated at 5740. Patient denies any shortness of breath and currently 95% on room air. Neurology reports if remaining hospitalized on may consider infusing IVIG for her myasthenia gravis although not in exacerbation clinically. Patient is afebrile with no reported chest pain or palpitations. Cardiology following making adjustments to medications and A-fib is currently rate controlled. 08/19/2024 Patient is evaluated in follow-up in the intensive care unit. She is status post right ureteral stent placement and remains on IV ceftriaxone for the E. coli found on the cultures. Patient is awake alert today sitting up in the chair. However she is complaining of significant shortness of breath and difficulty breathing. She was started on IV Lasix. Her peripheral edema is quite extensive with +2 pitting in her bilateral lower extremities. Her fluids have been discontinued. She remains on oral Mestinon. She remains on high dose of IV Solu-Cortef. White blood cell count today of 16.93, hemoglobin 0.0, sodium 135, potassium 3.8, BUN of 19 creatinine of 0.75. Magnesium level of 1.9. Review of systems: Constitutional: No reports of fatigue, no fever, or chills Cardiovascular: No reports of chest pain or palpitations Respiratory: No reports of shortness of breath or cough GI: reports of intermittent nausea, no vomiting, or diarrhea, reports passing gas with no bowel movement as of yet : No further reports of dysuria or retention Neurovascular: reports of generalized weakness All medications have been reviewed Physical exam: Gen: This is a 64-year-old female who is awake, alert and oriented x 3, well- developed, elderly appearing, ill-appearing, morbidly obese HEENT: Head is atraumatic, normocephalic. Pupils equal, round. Sclerae is anicteric. NECK: Supple. No JVD. No lymphadenopathy. No thyromegaly. LUNGS: Diminished breath sounds bilaterally with a few faint expiratory wheezes noted although cleared after cough . No intercostal retractions. HEART: S1, S2 are muffled, currently rate controlled ABDOMEN: Soft. Morbidly obese bowel sounds are present. No masses. No tenderness. EXTREMITIES: No pedal edema. No calf tenderness. +2 peripheral edema NEUROLOGICAL: Patient is awake, alert and oriented x3. Cranial nerves 2 through 12 are grossly intact. Diffusely weak Assessment: Sepsis with septic shock on admission secondary to acute urinary tract infection, cultures finalized as E. coli Acute urinary tract infection secondary to E. coli, on admission Right hydronephrosis s/p emergent cystoscopy with right ureteral stent placement Acute kidney injury likely secondary to renal calculi, improving Mild CHF exacerbation, diastolic dysfunction on most recent echo in April 2024 reveals an EF of 55 to 60% Morbid obesity with BMI of 46.9 Leukocytosis secondary to above, trending down Elevated lactic acid, likely secondary to assessment #1 Paroxysmal atrial fibrillation, with RVR, currently rate controlled on Eliquis at home History of myasthenia gravis receives IVIG infusions monthly and maintained on oral Mestinon GI prophylaxis DVT prophylaxis Full code Plan: Continue management in the ICU with multiple consultations following including pulmonary wet suit gluer, cardiology, urology. Patient was started on Cortef by pulmonary wet suit gluer. Monitor blood pressures closely. Neurology was consulted as patient has myasthenia gravis and receives IVIg infusions monthly and is scheduled to receive another infusion on and has an infusion nurse coming to the home. Per neurology patient does not appear to be in myasthenia exacerbation and if remaining hospitalized through we will consider IVIG transfusion while inpatient. Patient follows with Dr. Evans in the outpatient setting. Continue with antibiotics in the form of ceftriaxone as urine cultures finalized showing E. coli. Will transition to oral antibiotics on discharge. Patient was maintained on pressor support and has been discontinued. Medications adjusted per cardiology and patient is off Cardizem drip and currently rate controlled. Continue telemetry monitoring and patient is a downgrade out of ICU to 3 S. once a bed is available Patient is a started on IV Lasix twice daily and recommend strict intake and output monitoring. Additionally patient should have her lower extremity elevated while she is sitting or resting in bed as she has significant peripheral edema. There is concern that she may be in a minor heart failure exacerbation versus component of venous insufficiency. We will follow-up on repeat labs and replace electrolytes per protocol Recommend increase activity as tolerated and sitting up in the chair more frequently Plan is for patient to return home on discharge. Not quite ready for discharge yet. The impression and plan of care has been dictated by Sejal Daniels, Nurse Practitioner as directed. Dr. Joaquin MD I have performed a history and examination and MDM of this patient, discussed the same with the dictator, and agree with the dictator's assessment and plan as written ,documented as a scribe. Based on total visit time, I have performed more than 50% of the visit. Objective - Vital Signs Vital signs: Vital Signs Temp 97.6 F 08/19/24 08:00 Pulse 70 08/19/24 08:00 Resp 28 H 08/19/24 08:00 BP 179/115 08/19/24 09:12 Pulse Ox 95 08/19/24 08:00 FiO2 Intake & Output 08/18/24 08/19/24 08/19/24 18:59 06:59 18:59 Intake Total 1690 0 550 Output Total 1000 500 300 Balance 690 -500 250 Weight 135.9 kg Intake: IV 390 0 50 Lactated Ringers 1,000 ml 390 0 @ 130 mls/hr IV .Q7H42M [facility] Rx#:[id number] cefTRIAXone 2 gm In 50 Sodium Chloride 0.9% 50 ml @ 100 mls/hr IVPB Q24HR [facility] Rx#:[id number] Oral 1300 500 Output: Urine 1000 500 300 Other: Voiding Method Bedside Commode Toilet Toilet Diaper Bedside Commode Bedside Commode # Voids 1 1 # Bowel Movements 1 1 1 ABP, PAP, CO, CI - Last Documented Arterial Blood Pressure 131/65 - Labs CBC & Chem 7: 08/19/24 05:42 08/19/24 05:42 Labs: Abnormal Lab Results - Last 24 Hours (Table) 08/18/24 08/19/24 08/19/24 Range/Units 16:57 05:42 05:42 WBC 16.93 H (4.50-10.00) 10*3/uL RBC 3.65 L (4.10-5.20) 10*6/uL Hgb 11.0 L (12.0-15.0) g/dL Hct 34.4 L (37.2-46.3) % Plt Count 128 L (140-440) 10*3/uL Immature Gran # 0.15 H (0.00-0.04) 10*3/uL Neutrophils # 14.68 H (1.80-7.70) 10*3/uL Basophils # 0.12 H (0.00-0.10) 10*3/uL Immature Plt Fraction 6.2 H (1.1-6.1) % Sodium 135 L (137-145) mmol/L Chloride 108 H (98-107) mmol/L BUN 19 H (7-17) mg/dL Glucose 102 H (74-99) mg/dL POC Glucose (mg/dL) 123 H (70-110) mg/dL AST 52 H (14-36) U/L ALT 53 H (4-34) U/L Total Protein 5.8 L (6.3-8.2) g/dL Albumin 3.1 L (3.5-5.0) g/dL Microbiology - Last 24 Hours (Table) 08/16/24 10:38 Blood Culture - Preliminary Blood 08/16/24 00:28 Urine Culture - Final Urine,Ureter Escherichia coli Assessment and Plan Time with Patient: Less than 30
--- NOTE | 2024-08-19 15:25 | P.PN ---
Subjective Progress Note Date: 08/19/24 64-year-old female who presented to the emergency department, on August 15, with complaints of dizziness, nausea, and vomiting. Apparently the symptoms began the day of admission. She denied any chest pain or abdominal pain. The patient apparently was discovered to have nephrolithiasis, and required a cystoscopy, with a stent placement, on the right side. This was done by one of the urologist. I was notified by the urologist, that the patient was profoundly tachycardic, and hypotensive, and therefore, she was admitted to the intensive care unit, for further monitoring and management. She is currently on 6 L nasal cannula. She is getting LR at 130 cc an hour. She is on norepinephrine at 47 mcg/min. She is getting amiodarone 1 mg/min. She is also on Rocephin. She has a history of myasthenia gravis, and has not been taking her Mestinon, or prednisone. She also has a history of atrial fibrillation. The patient was seen by urology, and found to have right hydronephrosis secondary to a right ureteral calculus. She underwent cystoscopy with right ureteral stent placement. Current labs include a white count 21.5, hemoglobin 11.7, hematocrit 37.6, and a platelet count of 150,000. Sodium 135, potassium 4.3, chlorides 107, CO2 17, anion gap 11, BUN 27, creatinine 1.80. Glucose is 113. Most recent lactic acid is 3.5. Calcium 7.7. On 08/17/2024, the patient is being seen for a follow-up. The patient is resting comfortably in bed. She is morbidly obese with a BMI of 47.1. She is hemodynamically stable and the patient is currently off pressors. She is status post insertion of a double-J stent for a septic stone and this was done on 08/16/2024. She has no pelvic pain. She has no flank pain. No significant respiratory distress and she is afebrile and hemodynamically stable. Urine culture is showing gram-negative bacillus and meanwhile the patient remains on IV Rocephin. Hemodynamically, the patient is stable. The patient is currently off norepinephrine and the patient is also off vasopressin infusion. She remains on 3 liters of oxygen by nasal cannula. Lactated Ringer's running at rate of 100 cc an hour. She did encounter atrial fibrillation current rhythm is back into normal sinus. The patient's white cell count is at 23 with a hemoglobin of 10.5 and a platelet count of 112, BUN 26 creatinine of 0.8. Serum bicarb is 16 with a sodium of is 136 and a potassium is at 4.0. No altered mentation. Resting comfortably in bed. On 08/18/2024, the patient is being seen for a follow-up. The patient is doing well. No specific complaints. She is sitting up in a chair. No neuromuscular weakness as the patient has myasthenia gravis and the patient remains on hydrocortisone and Mestinon. She is interested in seeing a neurologist as the patient receives monthly IVIG. Overnight, the patient has some issues with Atrial fibrillation. The patient is currently on Cardizem drip at 5 mg an hour. She is also on normal oral amiodarone 400 mg twice a day. The patient is on lactated Ringer at rate of 130 cc an hour. Urine culture blood culture was positive for E. coli and the patient is currently on IV Rocephin. No other significant events overnight. The patient's white cell count is at 21 with a hemoglobin 10.4 and the platelet count of 108. BUN is 21 with a creatinine of 0.8 and sodium low at 142. The patient has been in a positive fluid balance of 2.8 L over the past 24 hours. She is currently on oxygen and she is at 1 L nasal cannula with a pulse ox of 99%. No altered mentation. No nausea vomiting or abdominal pain. On 08/19/2024, the patient is being seen for a follow-up. On today's evaluation, the patient is slightly short of breath and she has developed increased edema lower extremities bilaterally. She remains however hemodynamically stable. She is afebrile. Her urine culture was positive for E. coli and the patient remains on IV Rocephin. Cardiac rhythm is back to sinus and the patient is on amiodarone 4 mg p.o. twice a day and metoprolol of 25 mg p.o. daily and the patient is also on anticoagulation with Eliquis 5 mg p.o. twice a day. It was noted the blood pressure was quite elevated and the patient was started back on Zestril 20 mg p.o. daily and the patient was given a dose of clonidine 0.2 mg and she was given IV Lasix 40 mg every 12 hours. Most recent blood pressure is down to 163/96. Heart rate is 64. The patient is afebrile. Pulse ox 92% room air oxygen. No nausea. No vomiting. No abdominal pain. No hematuria. No other significant events overnight. IV fluids are currently at KVO. Objective - Vital Signs Vital signs: Vital Signs Temp 97.6 F 08/19/24 08:00 Pulse 70 08/19/24 08:00 Resp 28 H 08/19/24 08:00 BP 179/115 08/19/24 09:12 Pulse Ox 95 08/19/24 08:00 FiO2 Intake & Output 08/18/24 08/19/24 08/19/24 18:59 06:59 18:59 Intake Total 1690 0 550 Output Total 1000 500 300 Balance 690 -500 250 Weight 135.9 kg Intake: IV 390 0 50 Lactated Ringers 1,000 ml 390 0 @ 130 mls/hr IV .Q7H42M [facility] Rx#:[id number] cefTRIAXone 2 gm In 50 Sodium Chloride 0.9% 50 ml @ 100 mls/hr IVPB Q24HR [facility] Rx#:[id number] Oral 1300 500 Output: Urine 1000 500 300 Other: Voiding Method Bedside Commode Toilet Toilet Diaper Bedside Commode Bedside Commode # Voids 1 1 # Bowel Movements 1 1 1 ABP, PAP, CO, CI - Last Documented Arterial Blood Pressure 131/65 - Exam No acute distress, oriented 3. Currently on room air oxygen, obese with a BMI of 47.5 HEENT examination is grossly unremarkable. Mucous membranes are dry. Neck supple. Full range of motion. No adenopathy thyromegaly or neck vein distention. Cardiovascular examination reveals regular rhythm rate. S1-S2 normal. No S3 or S4. No discernible murmur noted. Heart sounds are distant. Lungs reveal clear breath sounds. Breath sounds are equal bilaterally. No adventitious lung sounds including wheezes rhonchi or crackles. Abdomen soft without bowel sounds. No masses or tenderness. Extremities are intact. No cyanosis clubbing and there is increased lower extremity edema bilaterally. Skin is without rash or lesion. Neurologic examination is brief but nonfocal. - Labs CBC & Chem 7: 08/19/24 05:42 08/19/24 05:42 Labs: Abnormal Lab Results - Last 24 Hours (Table) 08/18/24 08/19/24 08/19/24 Range/Units 16:57 05:42 05:42 WBC 16.93 H (4.50-10.00) 10*3/uL RBC 3.65 L (4.10-5.20) 10*6/uL Hgb 11.0 L (12.0-15.0) g/dL Hct 34.4 L (37.2-46.3) % Plt Count 128 L (140-440) 10*3/uL Immature Gran # 0.15 H (0.00-0.04) 10*3/uL Neutrophils # 14.68 H (1.80-7.70) 10*3/uL Basophils # 0.12 H (0.00-0.10) 10*3/uL Immature Plt Fraction 6.2 H (1.1-6.1) % Sodium 135 L (137-145) mmol/L Chloride 108 H (98-107) mmol/L BUN 19 H (7-17) mg/dL Glucose 102 H (74-99) mg/dL POC Glucose (mg/dL) 123 H (70-110) mg/dL AST 52 H (14-36) U/L ALT 53 H (4-34) U/L Total Protein 5.8 L (6.3-8.2) g/dL Albumin 3.1 L (3.5-5.0) g/dL Microbiology - Last 24 Hours (Table) 08/16/24 10:38 Blood Culture - Preliminary Blood 08/16/24 00:28 Urine Culture - Final Urine,Ureter Escherichia coli Assessment and Plan Plan: Right ureteral stone, with right-sided hydronephrosis, S/P cystoscopy, with right ureteral stent, postop day # 3 Sepsis secondary to above, secondary to E. coli the patient remains on IV Rocephin Urine tract infection with E. coli, currently on IV Rocephin Acute leukocytosis, improving Increased lower extremity edema due to fluid resuscitation and volume overload. Severe hypotension, secondary to sepsis, recovered and the patient is currently hypertensive Acute hypertensive reaction, being treated with Zestril and given a dose of clonidine. History of myasthenia gravis. The patient is maintained on Mestinon and pred nisone 10 mg on an outpatient basis. Paroxysmal atrial fibrillation and the patient is back to his normal sinus rhythm and currently on a combination of amiodarone, metoprolol and anticoagulation with Eliquis. History of hyperlipidemia. History of hypertension. Previous tobacco use. Morbid obesity with a BMI of 47.1 Leukocytosis continues above Thrombocytopenia secondary to underlying sepsis, consumptive. None anion gap metabolic acidosis Plan: Patient is currently on room air oxygen provide incentive spirometer. Patient is currently off pressors and epinephrine and vasopressin have been discontinued Change IV fluids to KVO Continue metoprolol 25 mg p.o. twice a day. Anticoagulation with Eliquis. Continue IV Rocephin Resume Mestinon and the patient is currently on stress dose hydrocortisone as the patient was receiving prednisone 10 mg on outpatient basis. Will consult also with neurology and the patient may be considered for IVIG that she receives on a monthly basis on outpatient basis. Urology is on the case Give clonidine 0.2 mg and restart Zestril 20 mg p.o. daily monitor the blood pressure. Monitor platelet count IV Lasix 40 mg every 12 hours monitor fluid balance and lower extremity edema Continue supportive care and will continue to follow make further recomme ndations based on her progress. Critical care evaluation, 31 minutes Time with Patient: Greater than 30
--- NOTE | 2024-08-19 15:59 | P.PN ---
Subjective This is a 64-year-old female patient of Dr. Walsh with past medical history of paroxysmal atrial fibrillation, hypertension, hyperlipidemia, myasthenia gravis gravis, moderate mitral insufficiency. We have been asked to evaluate the patient for A-fib with RVR. Patient was last seen in the office with Dr. Walsh on 07/16/2024 which time she was doing well. Since then, she states she had 2 episodes lasting about 15 minutes each of atrial fibrillation with RVR. Each episode resolved on its own. Patient states she came into the hospital due to vomiting and shaking. She states she did not have any burning or pain with urination. She does complain of some right sided chest pain that she thought was muscle related as she has had previous right shoulder surgery and sometimes she has pain with lifting too much. Patient was found to be febrile with a mild to moderate right hydronephrosis due to kidney stone and is status post cystoscopy and right ureteral stent insertion. Patient did have tachycardia hypotension and was admitted to the intensive care unit. This morning she was found to be in A-fib with RVR and was started on amiodarone drip. Patient denies feeling atrial fibrillation when this started. Patient converted to sinu s rhythm around 845 this morning. Blood pressure 114/83, heart rate 99, pulse ox 92% on room air. -EKG: Initially was sinus tachycardia 122 bpm, patient was subsequently in A-fib with RVR on telemetry. -Chest x-ray: No acute process. -Gallbladder ultrasound: Cholelithiasis and biliary sludge without definite evidence of acute cholecystitis. Increased hepatic echogenicity possible steatosis or hepatocellular disease. -Renal ultrasound: Unremarkable. -CT abdomen pelvis without contrast: Mild hydro secondary to ureteral calculus. 1.6 cm lesion in the vagina. Cirrhosis. Nonobstructive additional renal stones. No left-sided hydro. -Laboratory studies: WBC 21.4, hemoglobin 9.7, sodium 135, potassium 4.3, BUN 27 creatinine 1.8. Urinalysis positive for infection. Cepheid viral panel not detected. -Home cardiac medications: Eliquis 5 mg twice daily, Lipitor 40 mg daily, Cardizem 60 mg 3 times daily, hydrochlorothiazide 12.5 mg daily, lisinopril 20 mg daily, metoprolol tartrate 25 mg twice daily. -Echocardiogram performed at [facility] on 05/07/2024 revealed technically difficult study with normal LV systolic function and mild LVH. Moderate mitral regurgitation with thickened mitral valve leaflets. Cannot rule out bicuspid aortic valve. Aortic valve is sclerotic. Mild aortic stenosis. -Lexiscan Cardiolite stress test performed in the office on 05/28/2024 revealed EF 81%, probably normal study. -Event monitor performed 05/20 - 06/02/2024 revealed sinus rhythm with average heart rate of 65, minimum 47 bpm and maximum 141 bpm. Ventricular ectopic activity burden less than 1%. Atrial fibrillation burden at 1% and was asymptomatic. 08/17 Patient seen and examined. Patient denies any chest pain or pressure. She remains in normal sinus rhythm. Transitioned to oral amiodarone. Blood pressure improved however having diarrhea. She is receiving IV fluids at 130 cc/hr. 08/18 Patient seen and examined. Patient feeling somewhat better today. Denies any chest pain or pressure. Still some chronic dyspnea. She did convert from the A-fib and currently on oral amiodarone. She was placed back on oral anticoagulation. Creatinine stable at 0.7. She is having increased lower extremity edema and IV fluids were stopped overnight. 08/19 patient seen and examined. Patient has been hypertensive and lisinopril was restarted this morning as well as metoprolol. She received a dose of clonidine. She was additionally having significant edema and therefore Lasix was started. She was feeling somewhat more short of breath and therefore Lasix increase. Physical examination: Gen: This is a 64-year-old female in no acute distress VS: reviewed HEENT: Head is atraumatic, normocephalic. Pupils equal, round. Sclerae is anicteric. NECK: Supple. No JVD. LUNGS: Clear to auscultation. No wheezes or rhonchi. No intercostal retractions. HEART: Regular rate and rhythm. No murmur. ABDOMEN: Soft No tenderness. EXTREMITIES: No pedal edema. No calf tenderness. NEUROLOGICAL: Patient is awake, alert and oriented x3. Assessment: Paroxysmal atrial fibrillation with RVR, converted to sinus rhythm Right ureteral stone with right-sided hydronephrosis status post cystoscopy and right ureteral stent placement Urinary tract infection and sepsis Acute kidney injury History of myasthenia gravis History of hypertension Hyperlipidemia Moderate mitral insufficiency Lower extremity edema likely component of venous insufficiency plus or minus congestive heart failure acute on chronic diastolic heart failure Plan: Continue with home Eliquis Continue patient on amiodarone oral 400 mg twice daily for 1 full week and then down to 200 mg twice a day. Further rhythm control management after discharge patient's blood pressure now increased after sepsis has been improving. Her home medications have been restarted other then diltiazem. We will hold diltiazem especially given lower extremity edema and increased lisinopril and add Aldactone. Continue with diuresis for now. Further recommendations to follow. Objective - Vital Signs Vital signs: Vital Signs Temp 97.6 F 08/19/24 12:00 Pulse 64 08/19/24 14:35 Resp 28 H 08/19/24 12:00 BP 163/96 08/19/24 14:35 Pulse Ox 92 L 08/19/24 12:00 FiO2 Intake & Output 08/18/24 08/19/24 08/19/24 18:59 06:59 18:59 Intake Total 1690 0 550 Output Total 5432 857 3072 Balance 690 -500 -1850 Weight 135.9 kg Intake: IV 390 0 50 Lactated Ringers 1,000 ml 390 0 @ 130 mls/hr IV .Q7H42M [facility] Rx#:[id number] cefTRIAXone 2 gm In 50 Sodium Chloride 0.9% 50 ml @ 100 mls/hr IVPB Q24HR [facility] Rx#:[id number] Oral 1300 500 Output: Urine 8355 669 7159 Urine/Stool Mix 1200 Other: Voiding Method Bedside Commode Toilet Toilet Diaper Bedside Commode Bedside Commode # Voids 1 1 # Bowel Movements 1 1 1 ABP, PAP, CO, CI - Last Documented Arterial Blood Pressure 131/65 - Labs CBC & Chem 7: 08/19/24 05:42 08/19/24 05:42 Labs: Abnormal Lab Results - Last 24 Hours (Table) 08/18/24 08/19/24 08/19/24 Range/Units 16:57 05:42 05:42 WBC 16.93 H (4.50-10.00) 10*3/uL RBC 3.65 L (4.10-5.20) 10*6/uL Hgb 11.0 L (12.0-15.0) g/dL Hct 34.4 L (37.2-46.3) % Plt Count 128 L (140-440) 10*3/uL Immature Gran # 0.15 H (0.00-0.04) 10*3/uL Neutrophils # 14.68 H (1.80-7.70) 10*3/uL Basophils # 0.12 H (0.00-0.10) 10*3/uL Immature Plt Fraction 6.2 H (1.1-6.1) % Sodium 135 L (137-145) mmol/L Chloride 108 H (98-107) mmol/L BUN 19 H (7-17) mg/dL Glucose 102 H (74-99) mg/dL POC Glucose (mg/dL) 123 H (70-110) mg/dL AST 52 H (14-36) U/L ALT 53 H (4-34) U/L Total Protein 5.8 L (6.3-8.2) g/dL Albumin 3.1 L (3.5-5.0) g/dL Microbiology - Last 24 Hours (Table) 08/16/24 10:38 Blood Culture - Preliminary Blood
[2024-08-19 16:21] LABS: Glucose,Whole Blood 119 mg/dL (70-110)
[2024-08-19] MEDS: lisinopriL 20 MG TAB PO STA (16:40)
--- NOTE | 2024-08-19 16:40 | P.PN ---
Subjective Progress Note Date: 08/19/24 I am following up with the patient and patient states that her respiration is slightly better today after Lasix. Denies any neurological issues. She is not on nasal cannula oxygen therapy today. Objective - Vital Signs Vital signs: Vital Signs Temp 97.7 F 08/19/24 16:00 Pulse 53 L 08/19/24 16:00 Resp 28 H 08/19/24 16:00 BP 153/88 08/19/24 16:00 Pulse Ox 93 L 08/19/24 16:00 FiO2 Intake & Output 08/18/24 08/19/24 08/19/24 18:59 06:59 18:59 Intake Total 1690 0 550 Output Total 0905 988 5211 Balance 690 -500 -2050 Weight 135.9 kg Intake: IV 390 0 50 Lactated Ringers 1,000 ml 390 0 @ 130 mls/hr IV .Q7H42M [facility] Rx#:[id number] cefTRIAXone 2 gm In 50 Sodium Chloride 0.9% 50 ml @ 100 mls/hr IVPB Q24HR [facility] Rx#:[id number] Oral 1300 500 Output: Urine 2733 452 2097 Urine/Stool Mix 1400 Other: Voiding Method Bedside Commode Toilet Toilet Diaper Bedside Commode Bedside Commode # Voids 1 1 # Bowel Movements 1 1 1 ABP, PAP, CO, CI - Last Documented Arterial Blood Pressure 131/65 - Exam General: Patient is a morbid obese, sitting up in a recliner chair and is not in acute distress. Neuro: Patient is awake alert oriented to self place and time. Is following simple commands. No aphasia no neglect. 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 Visual gaines are full to confrontation. Extraocular moods intact no nystagmus. No facial weakness. No dysarthria. Tongue is midline with [id number] with any difficulty Motor: strength 5 out of 5 throughout Cerebellar is normal [id number] Sensation is normal to touch. Some of the workup during this hospital visit: Patient is slightly tachypneic in the range of 17 to low 20s is on 2 to 3L nasal cannula I reviewed the lab work-up. Urine culture is +ve E.Coli. CT of the head is reported as no acute intracranial process. I personally reviewed the CT and agree with the report. - Labs CBC & Chem 7: 08/19/24 05:42 08/19/24 05:42 Labs: Abnormal Lab Results - Last 24 Hours (Table) 08/18/24 08/19/24 08/19/24 Range/Units 16:57 05:42 05:42 WBC 16.93 H (4.50-10.00) 10*3/uL RBC 3.65 L (4.10-5.20) 10*6/uL Hgb 11.0 L (12.0-15.0) g/dL Hct 34.4 L (37.2-46.3) % Plt Count 128 L (140-440) 10*3/uL Immature Gran # 0.15 H (0.00-0.04) 10*3/uL Neutrophils # 14.68 H (1.80-7.70) 10*3/uL Basophils # 0.12 H (0.00-0.10) 10*3/uL Immature Plt Fraction 6.2 H (1.1-6.1) % Sodium 135 L (137-145) mmol/L Chloride 108 H (98-107) mmol/L BUN 19 H (7-17) mg/dL Glucose 102 H (74-99) mg/dL POC Glucose (mg/dL) 123 H (70-110) mg/dL AST 52 H (14-36) U/L ALT 53 H (4-34) U/L Total Protein 5.8 L (6.3-8.2) g/dL Albumin 3.1 L (3.5-5.0) g/dL 08/19/24 Range/Units 16:20 WBC (4.50-10.00) 10*3/uL RBC (4.10-5.20) 10*6/uL Hgb (12.0-15.0) g/dL Hct (37.2-46.3) % Plt Count (140-440) 10*3/uL Immature Gran # (0.00-0.04) 10*3/uL Neutrophils # (1.80-7.70) 10*3/uL Basophils # (0.00-0.10) 10*3/uL Immature Plt Fraction (1.1-6.1) % Sodium (137-145) mmol/L Chloride (98-107) mmol/L BUN (7-17) mg/dL Glucose (74-99) mg/dL POC Glucose (mg/dL) 119 H (70-110) mg/dL AST (14-36) U/L ALT (4-34) U/L Total Protein (6.3-8.2) g/dL Albumin (3.5-5.0) g/dL Microbiology - Last 24 Hours (Table) 08/16/24 10:38 Blood Culture - Preliminary Blood Assessment and Plan Assessment: Tachypneic but clinically patient is not in myasthenia gravis exacerbation and her next IVIG home dose is this . She has acute urinary tract infection and as well as acute nephrolithiasis which can exacerbate her myasthenia gravis but as stated clinically seems stable--Today her respiratory status is slightly better and she is off of the nasal cannula oxygen. Acute urinary tract infection Acute nephrolithiasis status post cystoscopy with stent placement Chronic history of myasthenia gravis and gets IVIG infusion home dose once a month, Mestinon and prednisone Parosymal atrial fibrillation and back to sinurs rhythm is on Eliquis History of hypertension History of hyperlipidemia Morbid obesity Plan: Currently the patient as stated above, not in myasthenia gravis exacerbation but if she does we will pursue with IVIG as an inpatient. She is scheduled to have IVIG home infusion tomorrow. Patient states she prefers to have the IVIG at her home since it is a one-time medication. But if the patient is can to be here for the next couple days will give the patient IVIG in our facility. She is resumed on her home dose of Mestinon 60 mg 1 tablet 3 times daily. She is usually on prednisone 10 mg at home but during this hospital visit she is on hydrocortisone 50 mg every 6 hours started by the ICU team on 08/16/2024. Recommend continuing respiratory monitoring. NIF and forced vital capacity Q12 hours. Will defer the rest of the medical management to primary and other specialist. Discharge, recommend the patient to follow-up with her outpatient neurology team, Dr. Nathan Chaidez. The plan is discussed with patient and her nurse. Time with Patient: Less than 30
[2024-08-19] MEDS: SPIRONOLACTONE 25 MG TAB PO SCH (16:42)
[2024-08-20 05:40] LABS: Basophils # (A) 0.08 10*3/uL (0.00-0.10); Basophils % (A) 0.7 %; Eosinophils # (A) 0.08 10*3/uL (0.04-0.35); Eosinophils % (A) 0.7 %; HCT 36.1 % (37.2-46.3); HGB 11.9 g/dL (12.0-15.0); Lymphocytes # (A) 1.08 10*3/uL (0.90-5.00); Lymphocytes % (A) 8.8 %; MCH 30.5 pg (27.0-32.0); MCV 92.6 fL (80.0-97.0); Monocytes # (A) 0.97 10*3/uL (0.20-1.00); Monocytes % (A) 7.9 %; Neutrophils # (A) 9.73 10*3/uL (1.80-7.70); Neutrophils % (A) 79.4 %; Platelet Count 137 10*3/uL (140-440); RDW 13.7 % (11.5-14.5); WBC 12.24 10*3/uL (4.50-10.00)
[2024-08-20 06:38] LABS: African American GFR (CKD) 85 (>60 ml/min/1.73 sqM); Anion Gap 11 mmol/L; Blood Urea Nitrogen 25 mg/dL (7-17); Calcium 8.5 mg/dL (8.4-10.2); Carbon Dioxide 26 mmol/L (22-30); Chloride 103 mmol/L (98-107); Glucose 91 mg/dL (74-99); Non-African American GFR(CKD) 74 (>60 ml/min/1.73 sqM); Potassium 3.3 mmol/L (3.5-5.1); Sodium 140 mmol/L (137-145)
[2024-08-20] MEDS ORDERED: Potassium Replacement Protocol 1 EACH MISC MISCELLANE PRN (07:48)
[2024-08-20] MEDS: POTASSIUM CHLORIDE ER 20 MEQ TAB.ER PO SCH ×3 (08:42→21:11)
[2024-08-20] MEDS: lisinopriL 20 MG TAB PO SCH (08:42)
[2024-08-20] MEDS: predniSONE 10 MG TAB PO SCH (11:18)
[2024-08-20 11:27] LABS: Glucose,Whole Blood 112 mg/dL (70-110)
--- NOTE | 2024-08-20 13:22 | P.PN ---
Subjective Progress Note Date: 08/20/24 64-year-old female who presented to the emergency department, on August 15, with complaints of dizziness, nausea, and vomiting. Apparently the symptoms began the day of admission. She denied any chest pain or abdominal pain. The patient apparently was discovered to have nephrolithiasis, and required a cystoscopy, with a stent placement, on the right side. This was done by one of the urologist. I was notified by the urologist, that the patient was profoundly tachycardic, and hypotensive, and therefore, she was admitted to the intensive care unit, for further monitoring and management. She is currently on 6 L nasal cannula. She is getting LR at 130 cc an hour. She is on norepinephrine at 47 mcg/min. She is getting amiodarone 1 mg/min. She is also on Rocephin. She has a history of myasthenia gravis, and has not been taking her Mestinon, or prednisone. She also has a history of atrial fibrillation. The patient was seen by urology, and found to have right hydronephrosis secondary to a right ureteral calculus. She underwent cystoscopy with right ureteral stent placement. Current labs include a white count 21.5, hemoglobin 11.7, hematocrit 37.6, and a platelet count of 150,000. Sodium 135, potassium 4.3, chlorides 107, CO2 17, anion gap 11, BUN 27, creatinine 1.80. Glucose is 113. Most recent lactic acid is 3.5. Calcium 7.7. On 08/17/2024, the patient is being seen for a follow-up. The patient is resting comfortably in bed. She is morbidly obese with a BMI of 47.1. She is hemodynamically stable and the patient is currently off pressors. She is status post insertion of a double-J stent for a septic stone and this was done on 08/16/2024. She has no pelvic pain. She has no flank pain. No significant respiratory distress and she is afebrile and hemodynamically stable. Urine culture is showing gram-negative bacillus and meanwhile the patient remains on IV Rocephin. Hemodynamically, the patient is stable. The patient is currently off norepinephrine and the patient is also off vasopressin infusion. She remains on 3 liters of oxygen by nasal cannula. Lactated Ringer's running at rate of 100 cc an hour. She did encounter atrial fibrillation current rhythm is back into normal sinus. The patient's white cell count is at 23 with a hemoglobin of 10.5 and a platelet count of 112, BUN 26 creatinine of 0.8. Serum bicarb is 16 with a sodium of is 136 and a potassium is at 4.0. No altered mentation. Resting comfortably in bed. On 08/18/2024, the patient is being seen for a follow-up. The patient is doing well. No specific complaints. She is sitting up in a chair. No neuromuscular weakness as the patient has myasthenia gravis and the patient remains on hydrocortisone and Mestinon. She is interested in seeing a neurologist as the patient receives monthly IVIG. Overnight, the patient has some issues with Atrial fibrillation. The patient is currently on Cardizem drip at 5 mg an hour. She is also on normal oral amiodarone 400 mg twice a day. The patient is on lactated Ringer at rate of 130 cc an hour. Urine culture blood culture was positive for E. coli and the patient is currently on IV Rocephin. No other significant events overnight. The patient's white cell count is at 21 with a hemoglobin 10.4 and the platelet count of 108. BUN is 21 with a creatinine of 0.8 and sodium low at 142. The patient has been in a positive fluid balance of 2.8 L over the past 24 hours. She is currently on oxygen and she is at 1 L nasal cannula with a pulse ox of 99%. No altered mentation. No nausea vomiting or abdominal pain. On 08/19/2024, the patient is being seen for a follow-up. On today's evaluation, the patient is slightly short of breath and she has developed increased edema lower extremities bilaterally. She remains however hemodynamically stable. She is afebrile. Her urine culture was positive for E. coli and the patient remains on IV Rocephin. Cardiac rhythm is back to sinus and the patient is on amiodarone 4 mg p.o. twice a day and metoprolol of 25 mg p.o. daily and the patient is also on anticoagulation with Eliquis 5 mg p.o. twice a day. It was noted the blood pressure was quite elevated and the patient was started back on Zestril 20 mg p.o. daily and the patient was given a dose of clonidine 0.2 mg and she was given IV Lasix 40 mg every 12 hours. Most recent blood pressure is down to 163/96. Heart rate is 64. The patient is afebrile. Pulse ox 92% room air oxygen. No nausea. No vomiting. No abdominal pain. No hematuria. No other significant events overnight. IV fluids are currently at KVO. 08/20/2024, the patient is being seen for a follow-up. Feeling better compared to yesterday. Lower extremity edema is improved and the patient remains in the normal sinus rhythm. White cell count is also improving. Fluid balance -3.1 L over the past 24 hours. She has no specific complaints. She is on metoprolol 25 mg p.o. twice daily, amiodarone 400 mg p.o. twice a day and she is also on anticoagulation. He is on Lasix 40 mg IV every 12 hours. The white cell count of 12.2 with a hemoglobin 11.9 and a platelet count of 137. BUN is 25 (0.8. Potassium level is at 3.3 to be replaced and the sodium is at 140 and the serum bicarb is at 26. Awake and alert and communicating and she is on room air oxygen. No new complaints otherwise for now. BP is under better control. Objective - Vital Signs Vital signs: Vital Signs Temp 98.3 F 08/20/24 08:00 Pulse 91 08/20/24 08:00 Resp 16 08/20/24 08:00 BP 140/103 08/20/24 08:00 Pulse Ox 96 08/20/24 08:00 FiO2 Intake & Output 08/19/24 08/20/24 08/20/24 18:59 06:59 18:59 Intake Total 550 Output Total 2900 4250 200 Balance -2350 -4250 -200 Weight 134 kg Intake: IV 50 cefTRIAXone 2 gm In 50 Sodium Chloride 0.9% 50 ml @ 100 mls/hr IVPB Q24HR [facility] Rx#:[id number] Oral 500 Output: Urine 1200 4250 200 Urine/Stool Mix 1700 Other: Voiding Method Toilet Toilet Bedside Commode Bedside Commode # Voids 1 1 # Bowel Movements 1 1 ABP, PAP, CO, CI - Last Documented Arterial Blood Pressure 131/65 - Exam No acute distress, oriented 3. Currently on room air oxygen, obese with a BMI of 47.5 HEENT examination is grossly unremarkable. Mucous membranes are dry. Neck supple. Full range of motion. No adenopathy thyromegaly or neck vein distention. Cardiovascular examination reveals regular rhythm rate. S1-S2 normal. No S3 or S4. No discernible murmur noted. Heart sounds are distant. Lungs reveal clear breath sounds. Breath sounds are equal bilaterally. No adventitious lung sounds including wheezes rhonchi or crackles. Abdomen soft without bowel sounds. No masses or tenderness. Extremities are intact. No cyanosis clubbing and there is increased lower extremity edema bilaterally. Skin is without rash or lesion. Neurologic examination is brief but nonfocal. - Labs CBC & Chem 7: 08/20/24 05:32 08/20/24 05:32 Labs: Abnormal Lab Results - Last 24 Hours (Table) 08/19/24 08/20/24 08/20/24 Range/Units 16:20 05:32 05:32 WBC 12.24 H (4.50-10.00) 10*3/uL RBC 3.90 L (4.10-5.20) 10*6/uL Hgb 11.9 L (12.0-15.0) g/dL Hct 36.1 L (37.2-46.3) % Plt Count 137 L (140-440) 10*3/uL Immature Gran # 0.30 H (0.00-0.04) 10*3/uL Neutrophils # 9.73 H (1.80-7.70) 10*3/uL Potassium 3.3 L (3.5-5.1) mmol/L BUN 25 H (7-17) mg/dL POC Glucose (mg/dL) 119 H (70-110) mg/dL Microbiology - Last 24 Hours (Table) 08/16/24 10:38 Blood Culture - Preliminary Blood Assessment and Plan Plan: Right ureteral stone, with right-sided hydronephrosis, S/P cystoscopy, with right ureteral stent, postop day # 4 Sepsis secondary to above, secondary to E. coli the patient remains on IV Rocephin, hemodynamically stable Urine tract infection with E. coli, currently on IV Rocephin Acute leukocytosis, improving Increased lower extremity edema due to fluid resuscitation and volume overload, Improving while the patient being on IV Lasix Acute hypertensive reaction, being treated and the BP is under better control History of myasthenia gravis. The patient is maintained on Mestinon and prednisone 10 mg on an outpatient basis. Paroxysmal atrial fibrillation and the patient is back to his normal sinus rhythm and currently on a combination of amiodarone, metoprolol and anticoagulation with Eliquis. History of hyperlipidemia. History of hypertension. Previous tobacco use. Morbid obesity with a BMI of 47.1 Leukocytosis continues above Thrombocytopenia secondary to underlying sepsis, consumptive. None anion gap metabolic acidosis Plan: Patient is currently on room air oxygen provide incentive spirometer. IV fluids to KVO Continue metoprolol 25 mg p.o. twice a day. Anticoagulation with Eliquis. Continue IV Rocephin Continue Mestinon and stop the hydrocortisone put the patient on 10 mg of predn isone Urology is on the case BP is under better control and the patient is currently on Zestril 20 mg p.o. daily monitor the blood pressure. Monitor platelet count Change IV Lasix to oral Lasix 40 mg p.o. twice a day Continue supportive care and will continue to follow make further recommendations based on her progress. Critical care evaluation, 31 minutes Time with Patient: Greater than 30
--- NOTE | 2024-08-20 14:01 | P.PN ---
Subjective Progress Note Date: 08/20/24 I am following up with the patient and she feels her respiratory status is better today. The nurse she states that she doing much better with Lasix. She is not on any nasal cannula. She wants to opt out on IVIG as an inpatient and there is a possibility that she will be discharged home tomorrow maybe according to the nurse and the patient would like to get the IVIG home infusion that she is scheduled if she is can to be discharged. Objective - Vital Signs Vital signs: Vital Signs Temp 97.7 F 08/20/24 11:26 Pulse 78 08/20/24 11:26 Resp 14 08/20/24 11:26 BP 150/93 08/20/24 11:26 Pulse Ox 97 08/20/24 11:26 FiO2 Intake & Output 08/19/24 08/20/24 08/20/24 18:59 06:59 18:59 Intake Total 550 50 Output Total 2900 4250 1950 Balance -2350 -4250 -1900 Weight 134 kg Intake: IV 50 50 cefTRIAXone 2 gm In 50 50 Sodium Chloride 0.9% 50 ml @ 100 mls/hr IVPB Q24HR [facility] Rx#:[id number] Oral 500 Output: Urine 1200 4250 1950 Urine/Stool Mix 1700 Other: Voiding Method Toilet Toilet Toilet Bedside Commode Bedside Commode Bedside Commode # Voids 1 1 # Bowel Movements 1 1 ABP, PAP, CO, CI - Last Documented Arterial Blood Pressure 131/65 - Exam General: Patient is a morbid obese, lying in bed and is not in acute distress. Neuro: Patient is awake alert oriented to self place and time. Is following simple commands. No aphasia no neglect. 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 Visual gaines are full to confrontation. Extraocular moods intact no nystagmus. No facial weakness. No dysarthria. Tongue is midline with [id number] with any difficulty Motor: strength 5 out of 5 throughout Cerebellar is normal [id number] Sensation is normal to touch. Some of the workup during this hospital visit: Patient is slightly tachypneic in the range of 17 to low 20s is on 2 to 3L nasal cannula I reviewed the lab work-up. Urine culture is +ve E.Coli. CT of the head is reported as no acute intracranial process. I personally reviewed the CT and agree with the report. - Labs CBC & Chem 7: 08/20/24 05:32 08/20/24 05:32 Labs: Abnormal Lab Results - Last 24 Hours (Table) 08/19/24 08/20/24 08/20/24 Range/Units 16:20 05:32 05:32 WBC 12.24 H (4.50-10.00) 10*3/uL RBC 3.90 L (4.10-5.20) 10*6/uL Hgb 11.9 L (12.0-15.0) g/dL Hct 36.1 L (37.2-46.3) % Plt Count 137 L (140-440) 10*3/uL Immature Gran # 0.30 H (0.00-0.04) 10*3/uL Neutrophils # 9.73 H (1.80-7.70) 10*3/uL Potassium 3.3 L (3.5-5.1) mmol/L BUN 25 H (7-17) mg/dL POC Glucose (mg/dL) 119 H (70-110) mg/dL 08/20/24 Range/Units 11:25 WBC (4.50-10.00) 10*3/uL RBC (4.10-5.20) 10*6/uL Hgb (12.0-15.0) g/dL Hct (37.2-46.3) % Plt Count (140-440) 10*3/uL Immature Gran # (0.00-0.04) 10*3/uL Neutrophils # (1.80-7.70) 10*3/uL Potassium (3.5-5.1) mmol/L BUN (7-17) mg/dL POC Glucose (mg/dL) 112 H (70-110) mg/dL Microbiology - Last 24 Hours (Table) 08/16/24 10:38 Blood Culture - Preliminary Blood Assessment and Plan Assessment: Tachypneic but clinically patient is not in myasthenia gravis exacerbation and her next IVIG home dose is this . She has acute urinary tract infection and as well as acute nephrolithiasis which can exacerbate her myasthenia gravis but as stated clinically seems stable--Respiratory status is improving with Lasix and is on room air Acute urinary tract infection Acute nephrolithiasis status post cystoscopy with stent placement Chronic history of myasthenia gravis and gets IVIG infusion home dose once a month, Mestinon and prednisone Parosymal atrial fibrillation and back to sinurs rhythm is on Eliquis History of hypertension History of hyperlipidemia Morbid obesity Plan: Currently the patient as stated above, is not in myasthenia gravis exacerbation but if she does we will pursue with IVIG as an inpatient. She is scheduled to have IVIG home infusion today at home but want to hold off IVIG as inpatient and there is possiblity of possible discharge tomorrow and patient would like to pursue home IVIG instead if she will be discharged within the next two days. She is resumed on her home dose of Mestinon 60 mg 1 tablet 3 times daily. She is usually on prednisone 10 mg at home but during this hospital visit she is on hydrocortisone 50 mg every 6 hours started by the ICU team on 08/16/2024. Recommend continuing respiratory monitoring. NIF and forced vital capacity Q12 hours. Will defer the rest of the medical management to primary and other specialist. Upon discharge, recommend the patient to follow-up with her outpatient neurology team, Dr. Nathan Viveros The plan is discussed with patient and her nurse. Time with Patient: Less than 30
[2024-08-20] MEDS: FUROSEMIDE 40 MG TAB PO SCH (15:09)
--- NOTE | 2024-08-20 16:00 | P.PN ---
Subjective This is a 64-year-old female patient of Dr. Walsh with past medical history of paroxysmal atrial fibrillation, hypertension, hyperlipidemia, myasthenia gravis gravis, moderate mitral insufficiency. We have been asked to evaluate the patient for A-fib with RVR. Patient was last seen in the office with Dr. Walsh on 07/16/2024 which time she was doing well. Since then, she states she had 2 episodes lasting about 15 minutes each of atrial fibrillation with RVR. Each episode resolved on its own. Patient states she came into the hospital due to vomiting and shaking. She states she did not have any burning or pain with urination. She does complain of some right sided chest pain that she thought was muscle related as she has had previous right shoulder surgery and sometimes she has pain with lifting too much. Patient was found to be febrile with a mild to moderate right hydronephrosis due to kidney stone and is status post cystoscopy and right ureteral stent insertion. Patient did have tachycardia hypotension and was admitted to the intensive care unit. This morning she was found to be in A-fib with RVR and was started on amiodarone drip. Patient denies feeling atrial fibrillation when this started. Patient converted to sinu s rhythm around 845 this morning. Blood pressure 114/83, heart rate 99, pulse ox 92% on room air. -EKG: Initially was sinus tachycardia 122 bpm, patient was subsequently in A-fib with RVR on telemetry. -Chest x-ray: No acute process. -Gallbladder ultrasound: Cholelithiasis and biliary sludge without definite evidence of acute cholecystitis. Increased hepatic echogenicity possible steatosis or hepatocellular disease. -Renal ultrasound: Unremarkable. -CT abdomen pelvis without contrast: Mild hydro secondary to ureteral calculus. 1.6 cm lesion in the vagina. Cirrhosis. Nonobstructive additional renal stones. No left-sided hydro. -Laboratory studies: WBC 21.4, hemoglobin 9.7, sodium 135, potassium 4.3, BUN 27 creatinine 1.8. Urinalysis positive for infection. Cepheid viral panel not detected. -Home cardiac medications: Eliquis 5 mg twice daily, Lipitor 40 mg daily, Cardizem 60 mg 3 times daily, hydrochlorothiazide 12.5 mg daily, lisinopril 20 mg daily, metoprolol tartrate 25 mg twice daily. -Echocardiogram performed at [facility] on 05/07/2024 revealed technically difficult study with normal LV systolic function and mild LVH. Moderate mitral regurgitation with thickened mitral valve leaflets. Cannot rule out bicuspid aortic valve. Aortic valve is sclerotic. Mild aortic stenosis. -Lexiscan Cardiolite stress test performed in the office on 05/28/2024 revealed EF 81%, probably normal study. -Event monitor performed 05/20 - 06/02/2024 revealed sinus rhythm with average heart rate of 65, minimum 47 bpm and maximum 141 bpm. Ventricular ectopic activity burden less than 1%. Atrial fibrillation burden at 1% and was asymptomatic. 08/17 Patient seen and examined. Patient denies any chest pain or pressure. She remains in normal sinus rhythm. Transitioned to oral amiodarone. Blood pressure improved however having diarrhea. She is receiving IV fluids at 130 cc/hr. 08/18 Patient seen and examined. Patient feeling somewhat better today. Denies any chest pain or pressure. Still some chronic dyspnea. She did convert from the A-fib and currently on oral amiodarone. She was placed back on oral anticoagulation. Creatinine stable at 0.7. She is having increased lower extremity edema and IV fluids were stopped overnight. 08/19 patient seen and examined. Patient has been hypertensive and lisinopril was restarted this morning as well as metoprolol. She received a dose of clonidine. She was additionally having significant edema and therefore Lasix was started. She was feeling somewhat more short of breath and therefore Lasix increase. 08/20 Patient seen and examined. Patient states his swelling has improved. She notes a good urine output. Aldactone was started yesterday and blood pressure somewhat better in the 130s over 90s. Creatinine stable. Physical examination: Gen: This is a 64-year-old female in no acute distress VS: reviewed HEENT: Head is atraumatic, normocephalic. Pupils equal, round. Sclerae is anicteric. NECK: Supple. No JVD. LUNGS: Clear to auscultation. No wheezes or rhonchi. No intercostal retractions. HEART: Regular rate and rhythm. No murmur. ABDOMEN: Soft No tenderness. EXTREMITIES: No pedal edema. No calf tenderness. NEUROLOGICAL: Patient is awake, alert and oriented x3. Assessment: Paroxysmal atrial fibrillation with RVR, converted to sinus rhythm Right ureteral stone with right-sided hydronephrosis status post cystoscopy and right ureteral stent placement Urinary tract infection and sepsis Acute kidney injury History of myasthenia gravis History of hypertension Hyperlipidemia Moderate mitral insufficiency Lower extremity edema likely component of venous insufficiency plus or minus congestive heart failure acute on chronic diastolic heart failure Plan: Continue with home Eliquis Continue patient on amiodarone oral 400 mg twice daily for 1 full week and then down to 200 mg twice a day for 1 week then 200mg daily for 1 week. Further rhythm control management after discharge patient's blood pressure now increased after sepsis has been improving. Her home medications have been restarted other then diltiazem. We will hold diltiazem especially given lower extremity edema and Lisinopril was already and Aldactone had been added. We will increase Aldactone today to 50mg daily. Continue with diuresis and patient was transitioned to orals. Possible DC in next 24 -48 hrs from cardio standpoint if continues to improve. Objective - Vital Signs Vital signs: Vital Signs Temp 98.0 F 08/20/24 15:13 Pulse 77 08/20/24 15:13 Resp 18 08/20/24 15:13 BP 139/94 08/20/24 15:13 Pulse Ox 97 08/20/24 15:13 FiO2 Intake & Output 08/19/24 08/20/24 08/20/24 18:59 06:59 18:59 Intake Total 550 50 Output Total 2900 4250 2850 Balance -2350 -4250 -2800 Weight 134 kg Intake: IV 50 50 cefTRIAXone 2 gm In 50 50 Sodium Chloride 0.9% 50 ml @ 100 mls/hr IVPB Q24HR [facility] Rx#:[id number] Oral 500 Output: Urine 1200 4250 2850 Urine/Stool Mix 1700 Other: Voiding Method Toilet Toilet Toilet Bedside Commode Bedside Commode Bedside Commode # Voids 1 1 0 # Bowel Movements 1 1 2 ABP, PAP, CO, CI - Last Documented Arterial Blood Pressure 131/65 - Labs CBC & Chem 7: 08/20/24 05:32 08/20/24 14:02 Labs: Abnormal Lab Results - Last 24 Hours (Table) 08/19/24 08/20/24 08/20/24 Range/Units 16:20 05:32 05:32 WBC 12.24 H (4.50-10.00) 10*3/uL RBC 3.90 L (4.10-5.20) 10*6/uL Hgb 11.9 L (12.0-15.0) g/dL Hct 36.1 L (37.2-46.3) % Plt Count 137 L (140-440) 10*3/uL Immature Gran # 0.30 H (0.00-0.04) 10*3/uL Neutrophils # 9.73 H (1.80-7.70) 10*3/uL Potassium 3.3 L (3.5-5.1) mmol/L BUN 25 H (7-17) mg/dL POC Glucose (mg/dL) 119 H (70-110) mg/dL 08/20/24 08/20/24 Range/Units 11:25 14:02 WBC (4.50-10.00) 10*3/uL RBC (4.10-5.20) 10*6/uL Hgb (12.0-15.0) g/dL Hct (37.2-46.3) % Plt Count (140-440) 10*3/uL Immature Gran # (0.00-0.04) 10*3/uL Neutrophils # (1.80-7.70) 10*3/uL Potassium 3.3 L (3.5-5.1) mmol/L BUN (7-17) mg/dL POC Glucose (mg/dL) 112 H (70-110) mg/dL Microbiology - Last 24 Hours (Table) 08/16/24 10:38 Blood Culture - Preliminary Blood
[2024-08-20 16:23] LABS: Glucose,Whole Blood 112 mg/dL (70-110)
[2024-08-20 22:02] LABS: Glucose,Whole Blood 100 mg/dL (70-110)
--- NOTE | 2024-08-21 05:09 | P.PN ---
Subjective Progress Note Date: 08/20/24 This is a pleasant 64 years old female with past medical history of multiple medical problems as below. Presents because of nausea vomiting and chills of 1 to 2 days duration. She vomited about twice per day and that is why she came to the hospital because on April she had similar presentation with vomiting and chills and found to have UTI, this time she does not have a fever but because of her concern she came. On presentation patient became hypotensive with high lactic acid elevated, she received several boluses of normal saline. Also she received midodrine. With minimal improvement in blood pressure, because of this we are did urgent ultrasound last night which was suspicious for mild hydronephrosis however we consulted urology team and urgently they evaluated the patient and took her to the OR status post stent placement in the right renal system. After that patient was transferred to the ICU. She continued on IV hydration however she developed A-fib and RVR and amiodarone and Cardizem given. Fire Hazard Inspector was contacted. About 4 to 5 AM she converted back to sinus rhythm Currently she is fully awake oriented does not look in significant distress. She has some headache but denies any abdominal pain or diarrhea. Other than the vomiting. No significant urinary complaints like burning or change in frequency or suprapubic pain or tenderness. No dizziness weakness or numbness Patient states she has history of myasthenia gravis on pyridostigmine She denies smoking alcohol or illicit drugs. She had a fever of 102 in emergency room, blood pressure currently with the pressors is 105/70, breathing rate is around 28-24 She has leukocytosis at 21,000, hemoglobin 11.7, sodium 135 and creatinine went up to 1.8 Lactic acid was elevated 5.1 it went up to 6.4 and currently improving down to 3.5 Currently she is kept on Levophed and vasopressin. Also missed the roundtrip, Ringer lactate at 138 and ceftriaxone 2 g daily 08/17/2024 Patient is seen and evaluated in follow-up with multiple consultations including pulmonary painter and body work and cardiology following. Patient in atrial fibrillation and also hypotensive with sepsis currently off Levophed since yesterday afternoon and has been weaned off vasopressin this morning currently rate controlled with medications being adjusted. Patient with preliminary urine culture showing gram-negative bacilli and awaiting cultures to determine appropriate antibiotics. Patient also evaluated by urology status post cystoscopy with right ureteral stent placement. Patient is voiding and denies difficulty, pain, or burning with urination reporting to feeling slightly improved. 08/18/2024 Patient is seen in follow-up today being followed by multiple consultations including pulmonary painter and body work as patient remains in the ICU, cardiology, and urology. Patient is continued on IV antibiotics in the form of ceftriaxone and urine cultures have finalized with E. coli with sensitivities. Patient is status post right ureteral stent placement. Neurology was consulted regarding patient's upcoming IVIG infusion for myasthenia gravis. Patient follows with neurology outpatient and receives monthly infusions and is due on . Patient with generalized weakness although is getting up and recommend increased activity as tolerated with sitting up in the chair more frequently. White count remains elevated although is trending down at 21.14 and possibly also elevated due to steroid effect, hemoglobin 10.4, platelets 108, sodium is 142 with a potassium of 3.8, BUN 21 with creatinine 0.83. LFTs are trending down and a BNP was also done which is elevated at 5740. Patient denies any shortness of breath and currently 95% on room air. Neurology reports if remaining hospitalized on may consider infusing IVIG for her myasthenia gravis although not in exacerbation clinically. Patient is afebrile with no reported chest pain or palpitations. Cardiology following making adjustments to medications and A-fib is currently rate controlled. 08/20/2024 Patient is seen in follow-up today with multiple consultations following. Patient is continued on antibiotics and will continue at this time. Patient also being evaluated by cardiology making adjustments to medications. Patient with some generalized edema maintained on diuresis and will continue to closely follow labs and kidney functions. Replace electrolytes per protocol. Home blood pressure medications have been resumed including lisinopril and Aldactone. Patient is currently continued on a amiodarone taper recommending outpatient follow-up. Patient receives IVIG infusions per her neurologist outpatient for myasthenia gravis and was scheduled to have an infusion today. Neurology following and will await IVIG while inpatient and have her follow-up with home infusion company once discharged. Possible discharge planning in the next 24 hours. Review of systems: Constitutional: No reports of fatigue, no fever, or chills Cardiovascular: No reports of chest pain or palpitations Respiratory: No reports of shortness of breath or cough GI: reports of intermittent nausea, no vomiting, or diarrhea, reports passing gas : No further reports of dysuria or retention Neurovascular: reports of generalized weakness All medications have been reviewed Physical exam: Gen: This is a 64-year-old female who is awake, alert and oriented x 3, well-d eveloped, elderly appearing, ill-appearing, morbidly obese HEENT: Head is atraumatic, normocephalic. Pupils equal, round. Sclerae is anicteric. NECK: Supple. No JVD. No lymphadenopathy. No thyromegaly. LUNGS: Diminished breath sounds bilaterally with a few faint expiratory wheezes noted although cleared after cough . No intercostal retractions. HEART: S1, S2 are muffled, currently rate controlled ABDOMEN: Soft. Morbidly obese bowel sounds are present. No masses. No tenderness. EXTREMITIES: No pedal edema. No calf tenderness. NEUROLOGICAL: Patient is awake, alert and oriented x3. Cranial nerves 2 through 12 are grossly intact. Diffusely weak Assessment: Sepsis with septic shock on admission secondary to acute urinary tract infection, cultures finalized as E. coli Acute urinary tract infection secondary to E. coli, on admission Right hydronephrosis s/p emergent cystoscopy with right ureteral stent placement Acute kidney injury likely secondary to renal calculi, improving Morbid obesity with BMI of 46.9 Leukocytosis secondary to above, trending down Elevated lactic acid, likely secondary to assessment #1 Atrial fibrillation, with RVR, currently rate controlled on Eliquis at home History of myasthenia gravis receives IVIG infusions monthly, will follow-up outpatient for next treatment GI prophylaxis DVT prophylaxis Full code Plan: Continue management in the ICU with multiple consultations following including pulmonary painter and body work, cardiology, urology. Patient was started on Cortef by pulmonary painter and body work. Monitor blood pressures closely and has been improving and blood pressure medications being resumed per cardiology. Neurology following as patient has myasthenia gravis and receives IVIg infusions monthly and is scheduled to receive another infusion today and has an infusion nurse coming to the home. Per neurology patient does not appear to be in myasthenia exacerbation and recommend awaiting until patient is discharged for IVIG infusion. Patient follows with Dr. Evans in the outpatient setting. Continue with antibiotics in the form of ceftriaxone as urine cultures finalized showing E. coli. Will transition to oral antibiotics on discharge. We will follow-up on repeat labs and replace electrolytes per protocol Recommend increase activity as tolerated and sitting up in the chair more frequently Plan is for patient to return home on discharge. Will discuss with other consultations regarding possible discharge planning in the next 24 hours The impression and plan of care has been dictated by Hilary Coffey, Nurse Practitioner as directed. Dr. Joaquin MD I have performed a history and examination and MDM of this patient, discussed the same with the dictator, and agree with the dictator's assessment and plan as written ,documented as a scribe. Based on total visit time, I have performed more than 50% of the visit. Objective - Vital Signs Vital signs: Vital Signs Temp 98.3 F 08/20/24 08:00 Pulse 91 08/20/24 08:00 Resp 16 08/20/24 08:00 BP 140/103 08/20/24 08:00 Pulse Ox 96 08/20/24 08:00 FiO2 Intake & Output 08/19/24 08/20/24 08/20/24 18:59 06:59 18:59 Intake Total 550 Output Total 2900 4250 200 Balance -2350 -4250 -200 Weight 134 kg Intake: IV 50 cefTRIAXone 2 gm In 50 Sodium Chloride 0.9% 50 ml @ 100 mls/hr IVPB Q24HR [facility] Rx#:[id number] Oral 500 Output: Urine 1200 4250 200 Urine/Stool Mix 1700 Other: Voiding Method Toilet Toilet Bedside Commode Bedside Commode # Voids 1 1 # Bowel Movements 1 1 ABP, PAP, CO, CI - Last Documented Arterial Blood Pressure 131/65 - Labs CBC & Chem 7: 08/20/24 05:32 08/20/24 18:35 Labs: Abnormal Lab Results - Last 24 Hours (Table) 08/19/24 08/20/24 08/20/24 Range/Units 16:20 05:32 05:32 WBC 12.24 H (4.50-10.00) 10*3/uL RBC 3.90 L (4.10-5.20) 10*6/uL Hgb 11.9 L (12.0-15.0) g/dL Hct 36.1 L (37.2-46.3) % Plt Count 137 L (140-440) 10*3/uL Immature Gran # 0.30 H (0.00-0.04) 10*3/uL Neutrophils # 9.73 H (1.80-7.70) 10*3/uL Potassium 3.3 L (3.5-5.1) mmol/L BUN 25 H (7-17) mg/dL POC Glucose (mg/dL) 119 H (70-110) mg/dL Microbiology - Last 24 Hours (Table) 08/16/24 10:38 Blood Culture - Preliminary Blood
[2024-08-21 07:06] LABS: HCT 39.3 % (37.2-46.3); HGB 12.9 g/dL (12.0-15.0); MCH 30.6 pg (27.0-32.0); MCHC 32.8 g/dL (32.0-37.0); MCV 93.1 fL (80.0-97.0); Mean Platelet Volume 11.2 fL (9.5-12.2); Platelet Count 170 10*3/uL (140-440); RBC 4.22 10*6/uL (4.10-5.20); RDW 13.8 % (11.5-14.5)
[2024-08-21 07:10] LABS: Glucose,Whole Blood 81 mg/dL (70-110)
[2024-08-21 07:26] LABS: African American GFR (CKD) 84 (>60 ml/min/1.73 sqM); Anion Gap 12 mmol/L; Blood Urea Nitrogen 27 mg/dL (7-17); Calcium 8.5 mg/dL (8.4-10.2); Carbon Dioxide 27 mmol/L (22-30); Chloride 101 mmol/L (98-107); Glucose 73 mg/dL (74-99); Magnesium 1.4 mg/dL (1.6-2.3); Non-African American GFR(CKD) 73 (>60 ml/min/1.73 sqM); Potassium 3.4 mmol/L (3.5-5.1); Sodium 140 mmol/L (137-145)
[2024-08-21 08:12] VITALS: BMI 45.1
[2024-08-21 09:01] VITALS: TEMP 97.9
[2024-08-21 09:04] LABS: Band Neutrophils % 1 %; Eosinophils # (M) 0.48 k/uL (0-0.7); Lymphocytes # (M) 2.89 k/uL (1.0-4.8); Metamyelocytes # (M) 0.12 k/uL (0); Metamyelocytes % 1 %; Monocytes # (M) 0.96 k/uL (0-1.0); Neutrophils # (M) 7.82 k/uL (1.3-7.7); Neutrophils % (M) 64 %; Nucleated Red Blood Cells 1 /100 WBC (0-0); Total Cells Counted 200; WBC 12.04 10*3/uL (4.50-10.00)
[2024-08-21 09:05] LABS: Stomatocytes Present
[2024-08-21] MEDS: POTASSIUM CHLORIDE ER 20 MEQ TAB.ER PO SCH (09:15)
[2024-08-21] MEDS ORDERED: Magnesium Replacement Protocol 1 EACH MISC MISCELLANE PRN (10:31)
[2024-08-21] MEDS: MAGNESIUM SULFATE-D5W PMX 1 GM in DEXTROSE/WATER 1 100ML.BAG IVPB SCH (10:46)
[2024-08-21 11:35] LABS: Glucose,Whole Blood 114 mg/dL (70-110)
--- NOTE | 2024-08-21 12:15 | P.PN ---
Subjective Progress Note Date: 08/21/24 The patient was seen and evaluated this morning. She is asymptomatic from a cardiovascular standpoint of view and she is hemodynamically stable which she has been maintaining normal sinus mechanism as well. She is on oral anticoagulation as well as amiodarone. The physical examination is unremarkable besides soft systolic murmur at the right and left upper sternal border with clear breathing sounds bilaterally and no edema was noted in the lower extremities Assessment: Paroxysmal atrial fibrillation with RVR, converted to sinus rhythm Right ureteral stone with right-sided hydronephrosis status post cystoscopy and right ureteral stent placement Urinary tract infection and sepsis Acute kidney injury History of myasthenia gravis History of hypertension Hyperlipidemia Moderate mitral insufficiency acute on chronic diastolic heart failure Plan: Continue with home Eliquis Continue patient on amiodarone oral 400 mg twice daily for 1 full week and then down to 200 mg twice a day for 1 week then 200mg daily for 1 week. Further rhythm control management after discharge Continue the current dose of oral diuretics Replace the potassium Follow-up with the patient Objective - Vital Signs Vital signs: Vital Signs Temp 97.9 F 08/21/24 08:00 Pulse 67 08/21/24 08:00 Resp 16 08/21/24 08:00 BP 138/75 08/21/24 08:00 Pulse Ox 98 08/21/24 08:00 FiO2 Intake & Output 08/20/24 08/21/24 08/21/24 18:59 06:59 18:59 Intake Total 50 150 Output Total 2852049 301 Balance -2800 -2049 -151 Weight 130.7 kg 130.7 kg Intake: IV 50 150 Magnesium Sulfate-D5w Pmx 100 1 gm In Dextrose/Water 1 100ml.bag @ 100 mls/hr IVPB Q1H [facility] Rx#: [id number] cefTRIAXone 2 gm In 50 50 Sodium Chloride 0.9% 50 ml @ 100 mls/hr IVPB Q24HR [facility] Rx#:[id number] Output: Urine 2850 2050 300 Stool 1 Other: Voiding Method Toilet Toilet Toilet Bedside Commode Bedside Commode Bedside Commode # Voids 0 0 # Bowel Movements 2 ABP, PAP, CO, CI - Last Documented Arterial Blood Pressure 131/65 - Labs CBC & Chem 7: 08/21/24 06:46 08/21/24 06:46 Labs: Abnormal Lab Results - Last 24 Hours (Table) 08/20/24 08/20/24 08/20/24 Range/Units 14:02 16:18 18:35 WBC (4.50-10.00) 10*3/uL Immature Gran # (0.00-0.04) 10*3/uL Neutrophils # (Manual) (1.3-7.7) k/uL Metamyelocytes # (Man) (0) k/uL Nucleated RBCs (0-0) /100 WBC Potassium 3.3 L 3.4 L (3.5-5.1) mmol/L BUN (7-17) mg/dL Glucose (74-99) mg/dL POC Glucose (mg/dL) 112 H (70-110) mg/dL Magnesium (1.6-2.3) mg/dL 08/21/24 08/21/24 08/21/24 Range/Units 06:46 06:46 11:34 WBC 12.04 H (4.50-10.00) 10*3/uL Immature Gran # 0.69 H (0.00-0.04) 10*3/uL Neutrophils # (Manual) 7.82 H (1.3-7.7) k/uL Metamyelocytes # (Man) 0.12 H (0) k/uL Nucleated RBCs 1 H (0-0) /100 WBC Potassium 3.4 L (3.5-5.1) mmol/L BUN 27 H (7-17) mg/dL Glucose 73 L (74-99) mg/dL POC Glucose (mg/dL) 114 H (70-110) mg/dL Magnesium 1.4 L (1.6-2.3) mg/dL
[2024-08-21 12:37] VITALS: BP 148/78; PULSE 73; RESP 18
--- NOTE | 2024-08-21 14:37 | P.PN ---
Subjective Progress Note Date: 08/21/24 I am following up with the patient and she does not have any further respiratory issues. She was told that she is can to be discharged today and she is scheduled to have done home IVIG this Saturday. Objective - Vital Signs Vital signs: Vital Signs Temp 97.9 F 08/21/24 12:00 Pulse 73 08/21/24 12:00 Resp 18 08/21/24 12:00 BP 148/78 08/21/24 12:00 Pulse Ox 97 08/21/24 12:00 FiO2 Intake & Output 08/20/24 08/21/24 08/21/24 18:59 06:59 18:59 Intake Total 50 250 Output Total 2850 0 301 Balance -2799 Weight 130.7 kg 130.7 kg Intake: IV 50 250 Magnesium Sulfate-D5w Pmx 200 1 gm In Dextrose/Water 1 100ml.bag @ 100 mls/hr IVPB Q1H [facility] Rx#: [id number] cefTRIAXone 2 gm In 50 50 Sodium Chloride 0.9% 50 ml @ 100 mls/hr IVPB Q24HR [facility] Rx#:[id number] Output: Urine 2850 0 300 Stool 1 Other: Voiding Method Toilet Toilet Toilet Bedside Commode Bedside Commode Bedside Commode # Voids 0 0 1 # Bowel Movements 2 ABP, PAP, CO, CI - Last Documented Arterial Blood Pressure 131/65 - Labs CBC & Chem 7: 08/21/24 06:46 08/21/24 06:46 Labs: Abnormal Lab Results - Last 24 Hours (Table) 08/20/24 08/20/24 08/21/24 Range/Units 16:18 18:35 06:46 WBC 12.04 H (4.50-10.00) 10*3/uL Immature Gran # 0.69 H (0.00-0.04) 10*3/uL Neutrophils # (Manual) 7.82 H (1.3-7.7) k/uL Metamyelocytes # (Man) 0.12 H (0) k/uL Nucleated RBCs 1 H (0-0) /100 WBC Potassium 3.4 L (3.5-5.1) mmol/L BUN (7-17) mg/dL Glucose (74-99) mg/dL POC Glucose (mg/dL) 112 H (70-110) mg/dL Magnesium (1.6-2.3) mg/dL 08/21/24 08/21/24 Range/Units 06:46 11:34 WBC (4.50-10.00) 10*3/uL Immature Gran # (0.00-0.04) 10*3/uL Neutrophils # (Manual) (1.3-7.7) k/uL Metamyelocytes # (Man) (0) k/uL Nucleated RBCs (0-0) /100 WBC Potassium 3.4 L (3.5-5.1) mmol/L BUN 27 H (7-17) mg/dL Glucose 73 L (74-99) mg/dL POC Glucose (mg/dL) 114 H (70-110) mg/dL Magnesium 1.4 L (1.6-2.3) mg/dL Assessment and Plan Assessment: Tachypneic but clinically patient is not in myasthenia gravis exacerbation and her next IVIG home dose is this . She has acute urinary tract infection and as well as acute nephrolithiasis which can exacerbate her myasthenia gravis but as stated clinically seems stable--Respiratory status is improving with Lasix and is on room air Acute urinary tract infection Acute nephrolithiasis status post cystoscopy with stent placement Chronic history of myasthenia gravis and gets IVIG infusion home dose once a month, Mestinon and prednisone Parosymal atrial fibrillation and back to sinurs rhythm is on Eliquis History of hypertension History of hyperlipidemia Morbid obesity Plan: Currently the patient as stated above, is not in myasthenia gravis exacerbation. She is scheduled to have IVIG home infusion this Saturday. She is resumed on her home dose of Mestinon 60 mg 1 tablet 3 times daily. She is usually on prednisone 10 mg at home but during this hospital visit she is on hydrocortisone 50 mg every 6 hours started by the ICU team on 08/16/2024. Recommend continuing respiratory monitoring. NIF and forced vital capacity Q12 hours. Will defer the rest of the medical management to primary and other specialist. Upon discharge, recommend the patient to follow-up with her outpatient neurology team, Dr. Nathan Chaidez. There is no further neurological work-up. Will sign off. Please reconsult if needed. Time with Patient: Less than 30
--- NOTE | 2024-08-21 18:51 | P.PN ---
Subjective Progress Note Date: 08/21/24 64-year-old female who presented to the emergency department, on August 15, with complaints of dizziness, nausea, and vomiting. Apparently the symptoms began the day of admission. She denied any chest pain or abdominal pain. The patient apparently was discovered to have nephrolithiasis, and required a cystoscopy, with a stent placement, on the right side. This was done by one of the urologist. I was notified by the urologist, that the patient was profoundly tachycardic, and hypotensive, and therefore, she was admitted to the intensive care unit, for further monitoring and management. She is currently on 6 L nasal cannula. She is getting LR at 130 cc an hour. She is on norepinephrine at 47 mcg/min. She is getting amiodarone 1 mg/min. She is also on Rocephin. She has a history of myasthenia gravis, and has not been taking her Mestinon, or prednisone. She also has a history of atrial fibrillation. The patient was seen by urology, and found to have right hydronephrosis secondary to a right ureteral calculus. She underwent cystoscopy with right ureteral stent placement. Current labs include a white count 21.5, hemoglobin 11.7, hematocrit 37.6, and a platelet count of 150,000. Sodium 135, potassium 4.3, chlorides 107, CO2 17, anion gap 11, BUN 27, creatinine 1.80. Glucose is 113. Most recent lactic acid is 3.5. Calcium 7.7. On 08/17/2024, the patient is being seen for a follow-up. The patient is resting comfortably in bed. She is morbidly obese with a BMI of 47.1. She is hemodynamically stable and the patient is currently off pressors. She is status post insertion of a double-J stent for a septic stone and this was done on 08/16/2024. She has no pelvic pain. She has no flank pain. No significant respiratory distress and she is afebrile and hemodynamically stable. Urine culture is showing gram-negative bacillus and meanwhile the patient remains on IV Rocephin. Hemodynamically, the patient is stable. The patient is currently off norepinephrine and the patient is also off vasopressin infusion. She remains on 3 liters of oxygen by nasal cannula. Lactated Ringer's running at rate of 100 cc an hour. She did encounter atrial fibrillation current rhythm is back into normal sinus. The patient's white cell count is at 23 with a hemoglobin of 10.5 and a platelet count of 112, BUN 26 creatinine of 0.8. Serum bicarb is 16 with a sodium of is 136 and a potassium is at 4.0. No altered mentation. Resting comfortably in bed. On 08/18/2024, the patient is being seen for a follow-up. The patient is doing well. No specific complaints. She is sitting up in a chair. No neuromuscular weakness as the patient has myasthenia gravis and the patient remains on hydrocortisone and Mestinon. She is interested in seeing a neurologist as the patient receives monthly IVIG. Overnight, the patient has some issues with Atrial fibrillation. The patient is currently on Cardizem drip at 5 mg an hour. She is also on normal oral amiodarone 400 mg twice a day. The patient is on lactated Ringer at rate of 130 cc an hour. Urine culture blood culture was positive for E. coli and the patient is currently on IV Rocephin. No other significant events overnight. The patient's white cell count is at 21 with a hemoglobin 10.4 and the platelet count of 108. BUN is 21 with a creatinine of 0.8 and sodium low at 142. The patient has been in a positive fluid balance of 2.8 L over the past 24 hours. She is currently on oxygen and she is at 1 L nasal cannula with a pulse ox of 99%. No altered mentation. No nausea vomiting or abdominal pain. On 08/19/2024, the patient is being seen for a follow-up. On today's evaluation, the patient is slightly short of breath and she has developed increased edema lower extremities bilaterally. She remains however hemodynamically stable. She is afebrile. Her urine culture was positive for E. coli and the patient remains on IV Rocephin. Cardiac rhythm is back to sinus and the patient is on amiodarone 4 mg p.o. twice a day and metoprolol of 25 mg p.o. daily and the patient is also on anticoagulation with Eliquis 5 mg p.o. twice a day. It was noted the blood pressure was quite elevated and the patient was started back on Zestril 20 mg p.o. daily and the patient was given a dose of clonidine 0.2 mg and she was given IV Lasix 40 mg every 12 hours. Most recent blood pressure is down to 163/96. Heart rate is 64. The patient is afebrile. Pulse ox 92% room air oxygen. No nausea. No vomiting. No abdominal pain. No hematuria. No other significant events overnight. IV fluids are currently at KVO. 08/20/2024, the patient is being seen for a follow-up. Feeling better compared to yesterday. Lower extremity edema is improved and the patient remains in the normal sinus rhythm. White cell count is also improving. Fluid balance -3.1 L over the past 24 hours. She has no specific complaints. She is on metoprolol 25 mg p.o. twice daily, amiodarone 400 mg p.o. twice a day and she is also on anticoagulation. He is on Lasix 40 mg IV every 12 hours. The white cell count of 12.2 with a hemoglobin 11.9 and a platelet count of 137. BUN is 25 (0.8. Potassium level is at 3.3 to be replaced and the sodium is at 140 and the serum bicarb is at 26. Awake and alert and communicating and she is on room air oxygen. No new complaints otherwise for now. BP is under better control. 07/21/2024, the patient is on room air oxygen. She is hemodynamically stable. She denies having any specific complaints. Lower extreme edema is improved. Her current cardiac rhythm is sinus. No other new complaints otherwise for now. The white cell count 12, hemoglobin 12.9 and a platelet count of 170. BUN 27 with a creatinine of 0.8 and a serum glucose of 140 and a potassium level is at 3.4. Awake and alert. No nausea or vomiting. BP is under good control. No other significant events overnight. Objective - Vital Signs Vital signs: Vital Signs Temp 97.9 F 08/21/24 12:00 Pulse 73 08/21/24 12:00 Resp 18 08/21/24 12:00 BP 148/78 08/21/24 12:00 Pulse Ox 97 08/21/24 12:00 FiO2 Intake & Output 08/20/24 08/21/24 08/21/24 18:59 06:59 18:59 Intake Total 50 250 Output Total 2850 2049 301 Balance -2799 Weight 130.7 kg 130.7 kg Intake: IV 50 250 Magnesium Sulfate-D5w Pmx 200 1 gm In Dextrose/Water 1 100ml.bag @ 100 mls/hr IVPB Q1H [facility] Rx#: [id number] cefTRIAXone 2 gm In 50 50 Sodium Chloride 0.9% 50 ml @ 100 mls/hr IVPB Q24HR [facility] Rx#:[id number] Output: Urine 2850 2050 300 Stool 1 Other: Voiding Method Toilet Toilet Toilet Bedside Commode Bedside Commode Bedside Commode # Voids 0 0 1 # Bowel Movements 2 ABP, PAP, CO, CI - Last Documented Arterial Blood Pressure 131/65 - Exam No acute distress, oriented 3. Currently on room air oxygen, obese with a BMI of 47.5 HEENT examination is grossly unremarkable. Mucous membranes are dry. Neck supple. Full range of motion. No adenopathy thyromegaly or neck vein distention. Cardiovascular examination reveals regular rhythm rate. S1-S2 normal. No S3 or S4. No discernible murmur noted. Heart sounds are distant. Lungs reveal clear breath sounds. Breath sounds are equal bilaterally. No adventitious lung sounds including wheezes rhonchi or crackles. Abdomen soft without bowel sounds. No masses or tenderness. Extremities are intact. No cyanosis clubbing and there is increased lower extremity edema bilaterally. Skin is without rash or lesion. Neurologic examination is brief but nonfocal. - Labs CBC & Chem 7: 08/21/24 06:46 08/21/24 06:46 Labs: Abnormal Lab Results - Last 24 Hours (Table) 08/20/24 08/21/24 08/21/24 Range/Units 18:35 06:46 06:46 WBC 12.04 H (4.50-10.00) 10*3/uL Immature Gran # 0.69 H (0.00-0.04) 10*3/uL Neutrophils # (Manual) 7.82 H (1.3-7.7) k/uL Metamyelocytes # (Man) 0.12 H (0) k/uL Nucleated RBCs 1 H (0-0) /100 WBC Potassium 3.4 L 3.4 L (3.5-5.1) mmol/L BUN 27 H (7-17) mg/dL Glucose 73 L (74-99) mg/dL POC Glucose (mg/dL) (70-110) mg/dL Magnesium 1.4 L (1.6-2.3) mg/dL 08/21/24 Range/Units 11:34 WBC (4.50-10.00) 10*3/uL Immature Gran # (0.00-0.04) 10*3/uL Neutrophils # (Manual) (1.3-7.7) k/uL Metamyelocytes # (Man) (0) k/uL Nucleated RBCs (0-0) /100 WBC Potassium (3.5-5.1) mmol/L BUN (7-17) mg/dL Glucose (74-99) mg/dL POC Glucose (mg/dL) 114 H (70-110) mg/dL Magnesium (1.6-2.3) mg/dL Microbiology - Last 24 Hours (Table) 08/16/24 10:38 Blood Culture - Final Blood Assessment and Plan Plan: Right ureteral stone, with right-sided hydronephrosis, S/P cystoscopy, with right ureteral stent, postop day # 5 Sepsis secondary to above, secondary to E. coli the patient remains on IV Rocephin, hemodynamically stable Urine tract infection with E. coli, currently on IV Rocephin Acute leukocytosis, improving Increased lower extremity edema due to fluid resuscitation and volume overload, Improving while the patient being on IV Lasix, the patient was switched to oral Lasix Acute hypertensive reaction, being treated and the BP is under better control History of myasthenia gravis. The patient is maintained on Mestinon and prednisone 10 mg on an outpatient basis. Paroxysmal atrial fibrillation and the patient is back to his normal sinus rhythm and currently on a combination of amiodarone, metoprolol and anticoagulation with Eliquis. History of hyperlipidemia. History of hypertension. Previous tobacco use. Morbid obesity with a BMI of 47.1 Leukocytosis continues above Thrombocytopenia secondary to underlying sepsis, consumptive. None anion gap metabolic acidosis Plan: Patient is currently on room air oxygen provide incentive spirometer. IV fluids to KVO Continue metoprolol 25 mg p.o. twice a day. Anticoagulation with Eliquis. Discontinue IV Rocephin to oral antibioticsA nd the patient is being considered for discharge today and she will be given a course of cefuroxime 500 mg p.o. twice daily. Continue Mestinon and 10 mg of prednisone Urology is on the case with outpatient follow-up BP is under better control and the patient is currently on Zestril 20 mg p.o. daily monitor the blood pressure. Monitor platelet count Continue oral Lasix Discharge home today to be followed up on outpatient basis
--- NOTE | 2024-08-23 23:30 | P.DS ---
Providers Date of admission: 08/15/24 16:28 Expected date of discharge: 08/21/24 Attending physician: Khari Morales Consults: 08/15/24 22:21 Consult Physician Urgent Consulting Provider: Yifan Scanlon Consult Reason/Comments: right hydronephrosis Do you want consulting provider notified?: Yes 08/16/24 01:13 Consult Physician Stat Consulting Provider: Kwabena Cabello Consult Reason/Comments: ICU management Do you want consulting provider notified?: Already Contacted 08/16/24 04:52 Consult Physician Stat Consulting Provider: Dony Kelley Consult Reason/Comments: afib RVR Do you want consulting provider notified?: Yes 08/18/24 10:16 Consult Physician Routine Consulting Provider: Lebron Cabello Consult Reason/Comments: IVIG Do you want consulting provider notified?: Yes Primary care physician: Sandra Wiley MD Hospital Course: Final diagnosis Sepsis with septic shock on admission secondary to acute urinary tract infection, cultures finalized as E. coli Acute urinary tract infection secondary to E. coli, on admission Right hydronephrosis s/p emergent cystoscopy with right ureteral stent placement Acute kidney injury likely secondary to renal calculi, improving Morbid obesity with BMI of 46.9 Leukocytosis secondary to above, trending down Elevated lactic acid, likely secondary to assessment #1 Atrial fibrillation, with RVR, currently rate controlled on Eliquis at home History of myasthenia gravis receives IVIG infusions monthly, will follow-up outpatient for next treatment GI prophylaxis DVT prophylaxis Full code Discharge disposition Patient is being discharged in a stable condition with guarded prognosis to home. Patient will follow-up with Dr. Wiley in the outpatient setting upon discharge. Patient is to continue with oral antibiotics and close outpatient follow-up with urology and cardiology as scheduled. Total time taken is greater than 35 minutes. Hospital course This is a 64-year-old female who was recently admitted with acute urinary tract infection, present on admission with sepsis and also right hydronephrosis status post emergent cystoscopy with right ureteral stent placement. Patient requiring ICU for sepsis with septic shock. Patient also has a significant history of myasthenia gravis and normally receives IVIG infusions once monthly although was here and hospitalized during the day of. Pulmonary consulted neurology for input and recommendations. Recommend to continue holding IVIG while hospitalized and may follow-up outpatient regarding neurologist previous orders. Patient was having some increased weakness although evaluated by physical therapy recommending home and patient showed some clinical improvement. Patient was a little volume overloaded and placed on diuresis showing improvements. Patient will require a short course of antibiotics on discharge and close outpatient follow-up with urology. Urine culture showing E. coli. Please refer to other consultation notes for further HPI. Currently no reports of chest pain, shortness of breath, or palpitations. Patient is afebrile. No reports of nausea or vomiting and patient is tolerating diet. Patient will be discharged home today. Guarded prognosis Physical exam: Gen: This is a 64-year-old female who is awake, alert and oriented x 3, well- developed, appears elderly, morbidly obese HEENT: Head is atraumatic, normocephalic. Pupils equal, round. Sclerae is anicteric. NECK: Supple. No JVD. No lymphadenopathy. No thyromegaly. LUNGS: Diminished breath sounds bilaterally otherwise clear to auscultation. No wheezes or rhonchi. No intercostal retractions. HEART: S1, S2 are muffled, irregular ABDOMEN: Soft. Morbidly obese bowel sounds are present. No masses. No tenderness. EXTREMITIES: No pedal edema. No calf tenderness. Generalized lower extremity edema noted bilaterally NEUROLOGICAL: Patient is awake, alert and oriented x3. Cranial nerves 2 through 12 are grossly intact. Please refer to medication reconciliation sheet for a list of medications. The impression and plan of care has been dictated by Hilary Coffey, Nurse Practitioner as directed. Dr. Shannan MD I have performed a history and examination and MDM of this patient, discussed the same with the dictator, and agree with the dictator's assessment and plan as written ,documented as a scribe. Based on total visit time, I have performed more than 50% of the visit. Patient Condition at Discharge: Stable Plan - Discharge Summary Discharge Rx Participant: Yes New Discharge Prescriptions: New cefuroxime axetiL [Ceftin] 500 mg PO BID 5 Days #10 tab Furosemide [Lasix] 40 mg PO BID@0900,1600 #60 tab Spironolactone [Aldactone] 25 mg PO DAILY 30 Days #30 tab Amiodarone [Cordarone] See Taper PO Q12H 30 Days #120 tab Loperamide [Imodium] 2 mg PO QID PRN cap PRN Reason: Diarrhea Acetaminophen Tab [Tylenol] 650 mg PO Q6HR PRN tab PRN Reason: Mild Pain Or Fever > 100.5 lisinopriL [Zestril] 40 mg PO DAILY #30 tab Continue Pyridostigmine [place] [Mestinon] 60 mg PO TID-W/MEALS Atorvastatin [Lipitor] 40 mg PO DAILY #30 tab Famotidine [Pepcid] 20 mg PO DAILY #30 tab EPINEPHrine (Auto Inject) [Epipen] 0.3 mg IM ONCE PRN PRN Reason: Anaphylaxis Apixaban [Eliquis] 5 mg PO BID@0900,1400 Metoprolol Tartrate [Lopressor] 25 mg PO BID@0900,1400 predniSONE 10 mg PO DAILY Cholecalciferol (Vitamin D3) [Vitamin D3 (3000 Iu)] 75 mcg PO DAILY Octagam Infusion 1 dose IV Q30D Discontinued lisinopriL [Zestril] 20 mg PO DAILY Diltiazem Oral [Cardizem*] 60 mg PO TID-W/MEALS hydroCHLOROthiazide [Hydrodiuril] 12.5 mg PO DAILY Discharge Medication List Pyridostigmine [place] [Mestinon] 60 mg PO TID-W/MEALS 05/04/24 [History] predniSONE 10 mg PO DAILY 05/04/24 [History] Atorvastatin [Lipitor] 40 mg PO DAILY #30 tab 05/11/24 [Rx] Famotidine [Pepcid] 20 mg PO DAILY #30 tab 05/11/24 [Rx] Apixaban [Eliquis] 5 mg PO BID@0900,1400 08/15/24 [History] Cholecalciferol (Vitamin D3) [Vitamin D3 (3000 Iu)] 75 mcg PO DAILY 08/15/24 [History] EPINEPHrine (Auto Inject) [Epipen] 0.3 mg IM ONCE PRN 08/15/24 [History] Metoprolol Tartrate [Lopressor] 25 mg PO BID@0900,1400 08/15/24 [History] Octagam Infusion 1 dose IV Q30D 08/15/24 [History] Acetaminophen Tab [Tylenol] 650 mg PO Q6HR PRN tab 08/21/24 [Rx] Amiodarone [Cordarone] See Taper PO Q12H 30 Days #120 tab 08/21/24 [Rx] Furosemide [Lasix] 40 mg PO BID@0900,1600 #60 tab 08/21/24 [Rx] Loperamide [Imodium] 2 mg PO QID PRN cap 08/21/24 [Rx] Spironolactone [Aldactone] 25 mg PO DAILY 30 Days #30 tab 08/21/24 [Rx] cefuroxime axetiL [Ceftin] 500 mg PO BID 5 Days #10 tab 08/21/24 [Rx] lisinopriL [Zestril] 40 mg PO DAILY #30 tab 08/21/24 [Rx] Follow up Appointment(s)/Referral(s): Kain Adamson MD [STAFF PHYSICIAN] - 1 Week (Patient will make appointment.) Dony Kelley DO [STAFF PHYSICIAN] - 1 Week (Patient will make appointment.) Sandra Wiley MD [Primary Care Provider] - 1-2 days (Patient will make appointment.) Ambulatory/Diagnostic Orders: Basic Metabolic Panel [LAB.AMB] Time Frame: 3 Days, Location: None Selected Activity/Diet/Wound Care/Special Instructions: Activity limited until follow-up Follow-up with primary care provider on discharge Follow-up with bender hand outpatient Follow-up with your neurologist outpatient and discussed resuming IVIG infusion Continue taking antibiotics until finished Continue with amiodarone taper including 400 mg twice daily for 1 week, then 200 mg twice daily for 1 week, then 200 mg daily for 1 week and discuss further with cardiology regarding continued dosing Follow-up with urology outpatient Discharge Disposition: HOME SELF-CARE
== END 2024-08-21 15:00 | disposition home or self-care (01) | DRG 853 ==
LOC: EC 12:24 → 3SCARD 16:28 → 2SICU 08-16 01:08
PROVIDERS: ADMIT Hospitalist; ATTEND Hospitalist
PROC: 06HY33Z Insertion of Infusion Device into Lower Vein, Percutaneous Approach (ICD-10-PCS; 2024-08-16)
PROC: 3E033XZ Introduction of Vasopressor into Peripheral Vein, Percutaneous Approach (ICD-10-PCS; 2024-08-16)
PROC: 03HY32Z Insertion of Monitoring Device into Upper Artery, Percutaneous Approach (ICD-10-PCS; 2024-08-16)
PROC: 4A133B1 Monitoring of Arterial Pressure, Peripheral, Percutaneous Approach (ICD-10-PCS; 2024-08-16)
PROC: 4A133J1 Monitoring of Arterial Pulse, Peripheral, Percutaneous Approach (ICD-10-PCS; 2024-08-16)
PROC: 0T768DZ Dilation of Right Ureter with Intraluminal Device, Via Natural or Artificial Opening Endoscopic (ICD-10-PCS; principal; 2024-08-16 00:23)
DX: A41.51 Sepsis due to Escherichia coli [E. coli] (principal); I50.33 Acute on chronic diastolic (congestive) heart failure; R65.21 Severe sepsis with septic shock; E87.20 Acidosis, unspecified; N13.6 Pyonephrosis; E86.0 Dehydration; I48.0 Paroxysmal atrial fibrillation; Z68.42 Body mass index [BMI] 45.0-49.9, adult; I11.0 Hypertensive heart disease with heart failure; D69.59 Other secondary thrombocytopenia; I34.0 Nonrheumatic mitral (valve) insufficiency; N17.9 Acute kidney failure, unspecified; E66.01 Morbid (severe) obesity due to excess calories; G70.00 Myasthenia gravis without (acute) exacerbation; E78.5 Hyperlipidemia, unspecified; I87.2 Venous insufficiency (chronic) (peripheral); Z79.01 Long term (current) use of anticoagulants; Z79.82 Long term (current) use of aspirin; Z79.899 Other long term (current) drug therapy; Z87.891 Personal history of nicotine dependence; Z87.442 Personal history of urinary calculi
CPT/HCPCS: 36415; 51798; 70450; 71046; 74176; 76705; 76770; 80048; 80053; 81001; 83605; 83735; 83880; 84132; 85025; 87040; 87077; 87086; 87186; 87324; 87636; 93005; 96361; 96365; 96367; 96375; 96376; 99291

== ENCOUNTER 2024-09-03 08:13 | Inpatient (IN) | payer BC ==
[2024-09-01 09:56] VITALS: BMI 42.4
--- NOTE | 2024-09-03 06:51 | P.GSHP ---
History of Present Illness H&P Date: 09/03/24 Chief Complaint: Right ureteral calculus The patient is a 64-year-old white female who presented to the ER on August 15 with complaints of nausea, vomiting, dizziness, and headache. She also reported fever and chills. In the ER, she has noted to be febrile, and vital signs show evidence of tachycardia and hypotension. Urinalysis was suggestive of infection, and ultrasound showed evidence of mild right hydronephrosis. In view of this, a CT scan of the abdomen and pelvis was obtained revealing mild- moderate right hydronephrosis due to a 5 x 7.5 mm right proximal ureteral calculus. The CT scan also showed right perinephric stranding, and 2 very small non-obstructing left lower pole renal calculi. The patient states that she had 1 kidney stone in the remote past which did not require surgery. She underwent emergent placement of a right ureteral stent and was treated with antibiotics. Urine culture showed pansensitive E. coli. She now comes for ureteroscopic removal of the calculus. - Cardiovascular Cardiovascular: Reports high blood pressure - Genitourinary (Female) Genitourinary: Reports kidney stones Past Medical History Past Medical History: Atrial Fibrillation, GERD/Reflux, Hyperlipidemia, Hypertension Additional Past Medical History / Comment(s): myasthenia gravis, hospitalized for sepsis in Apr 2024, Hospitalized for septic UTI/R kidney stone 08/15/24- 08/21/24, past swelling in legs, occasional headache, past hx of kidney stones. History of Any Multi-Drug Resistant Organisms: None Reported Past Surgical History: Orthopedic Surgery Additional Past Surgical History / Comment(s): right shoulder, R ureter stent placement. Past Anesthesia/Blood Transfusion Reactions: No Reported Reaction Additional Past Anesthesia/Blood Transfusion Reaction / Comment(s): No hx of blood transfusion Smoking Status: Former smoker - Past Family History Father Family Medical History: CVA/TIA Additional Family Medical History / Comment(s): hx of stroke Sister(s) Family Medical History: Cancer Additional Family Medical History / Comment(s): Uterine cancer Mother Family Medical History: Cancer, Deep Vein Thrombosis (DVT) Additional Family Medical History / Comment(s): Blood cancer, treatment caused blood clots Medications and Allergies Home Medications Medication Instructions Recorded Confirmed Type Pyridostigmine [place] [Mestinon] 60 mg PO TID-W/MEALS 05/04/24 09/01/24 History predniSONE 10 mg PO DAILY 05/04/24 09/01/24 History Atorvastatin [Lipitor] 40 mg PO DAILY #30 tab 05/11/24 09/01/24 Rx Famotidine [Pepcid] 20 mg PO DAILY #30 tab 05/11/24 09/01/24 Rx Apixaban [Eliquis] 5 mg PO BID@0900,1400 08/15/24 09/01/24 History Cholecalciferol (Vitamin D3) 75 mcg PO DAILY 08/15/24 09/01/24 History [Vitamin D3 (3000 Iu)] EPINEPHrine (Auto Inject) [Epipen] 0.3 mg IM ONCE PRN 08/15/24 09/01/24 History Acetaminophen Tab [Tylenol] 650 mg PO Q6HR PRN tab 08/21/24 09/01/24 Rx Furosemide [Lasix] 40 mg PO BID@0900,1600 #60 tab 08/21/24 09/01/24 Rx Loperamide [Imodium] 2 mg PO QID PRN cap 08/21/24 09/01/24 Rx Spironolactone [Aldactone] 25 mg PO DAILY 30 Days #30 tab 08/21/24 09/01/24 Rx lisinopriL [Zestril] 40 mg PO DAILY #30 tab 08/21/24 09/01/24 Rx Albuterol Inhaler [Ventolin Hfa 1 puff INHALATION Q6H PRN 09/01/24 09/01/24 History Inhaler] Amiodarone [Cordarone] 200 mg PO Q12H 09/01/24 09/01/24 History Butalbital/Aspirin/Caffeine 1 each PO DAILY PRN 09/01/24 09/01/24 History [[id number]-Vvbhknj-Hyarxahe Tb] Metoprolol Succinate [Metoprolol 25 mg PO DAILY 09/01/24 09/01/24 History Succinate ER] Octagam 10% Infusion 1 dose IV Q30D 09/01/24 09/01/24 History Allergies Allergy/AdvReac Type Severity Reaction Status Date / Time Penicillins Allergy Unknown Unknown Verified 09/01/24 08:53 Childhood Surgical - Exam - General well developed, well nourished, no distress - Respiratory normal respiratory effort - Abdomen Abdomen: soft, non tender, no guarding, no rigid, no rebound - Genitourinary normal external genitalia - Psychiatric oriented to time, oriented to person, oriented to place, speech is normal, memory intact Results - Imaging CT scan - abdomen: report reviewed, image reviewed Assessment and Plan (1) Calculus of ureter Status: Acute Code(s): N20.1 - CALCULUS OF URETER SNOMED Code(s): 22567391 Plan: Cystoscopy, right ureteral stent removal, right ureteroscopy with Holmium laser lithotripsy and stone basketing. The procedure has been reviewed in detail with the patient. She has been made aware of potential risks, which include anesthesia, bleeding, infection, ureteral injury, and inability to remove the calculus.
[~2024-09-03 08:13] MED LIST: HYDROmorphone 0.5 MG/0.5 ML SYRINGE IVP PRN; LIDOCAINE 1% (10MG/ML) FOR IV START INTRADERMA PRN
--- NOTE | 2024-09-03 08:44 | XR ---
EXAMINATION TYPE: XR KUB DATE OF EXAM: 09/03/2024 8:26 AM COMPARISON: CT 08/15/2024. CLINICAL INDICATION: Female, 64 years old with history of R ureteral calculus; [facility] TECHNIQUE: One radiographic view of the abdomen was obtained. FINDINGS: The bowel gas pattern is nonspecific without dilated loops of small or large bowel. . Fecal material and gas are demonstrated throughout the colon and rectum. There is no evidence for organome nataliya or pneumoperitoneum. No evidence of fracture. Multilevel degeneration changes spine with osteop hyte formation and disc space narrowing. Mild degeneration changes of the hips with osteophyte inform ation joint space narrowing. Right ureteral stent with superior and inferior pigtails in appropriat e position. Calculus remains present in the superior endplate of L4. IMPRESSION: 1. Right ureteral stent appears in satisfactory position. Calculus is seen near the superior endplat e of L4. 2. Nonspecific bowel gas pattern without radiographic evidence for acute process. [facility], , 09/03/2024 8:42 AM
[2024-09-03] MEDS: DEXAMETHASONE SOD PHOSPHATE 4 MG/ML 1 ML VIAL IV ONE (09:38)
[2024-09-03] MEDS: LACTATED RINGERS 1,000 ML IV SCH (09:38)
[2024-09-03] MEDS: IV FLUID CONTINUATION 1,000 ML IV ONE ×2 (09:38→13:15)
[2024-09-03] MEDS: ONDANSETRON 4 MG/2 ML VIAL IVP ONE (09:38)
[2024-09-03 09:43] LABS: Glucose,Whole Blood 120 mg/dL (70-110)
[2024-09-03] MEDS: HYDROCORTISONE SUCCINATE 100 MG/2 ML VIAL IV STA (09:48)
[2024-09-03] MEDS ORDERED: fentaNYL (PF) 50 MCG/ML 2 ML AMP ONE (09:56)
[2024-09-03] MEDS ORDERED: MIDAZOLAM 2 MG/2 ML VIAL ONE (09:56)
[2024-09-03] MEDS ORDERED: VASOPRESSIN 20 UNIT/ML 1 ML VIAL ONE (09:56)
[2024-09-03] MEDS ORDERED: PROPOFOL 10 MG/ML 20 ML VIAL IV ONE (09:56)
[2024-09-03] MEDS ORDERED: LIDOCAINE 1% INJ 10MG/ML (20 ML MDV) ONE (09:56)
[2024-09-03] MEDS ORDERED: ePHEDrine 50 MG/ML 1 ML VIAL ONE (09:56)
[2024-09-03] MEDS ORDERED: PHENYLEPHRINE-0.9% NACL SYG 1,000 MCG/10 ML SYRINGE ONE (09:56)
[2024-09-03] MEDS: ceFAZolin 3 GM in SODIUM CHLORIDE 0.9% 100 ML IVPB PRN (10:00)
--- NOTE | 2024-09-03 11:03 | P.OP ---
Date of Procedure: 09/03/24 Preoperative Diagnosis: Right ureteral calculus Postoperative Diagnosis: Same Procedure(s) Performed: Cystoscopy, right ureteral stent removal, right ureteroscopy with Holmium laser lithotripsy and stone basketing Anesthesia: JOHNNY Surgeon: Kain Adamson Estimated Blood Loss (ml): 0 IV fluids (ml): 600 Pathology: other (Right ureteral calculus fragments, sent for chemical analysis) Condition: stable Disposition: PACU Indications for Procedure: The patient is a 64-year-old white female who presented to the ER on August 15 with complaints of nausea, vomiting, dizziness, and headache. She also reported fever and chills. In the ER, she has noted to be febrile, and vital signs show evidence of tachycardia and hypotension. Urinalysis was suggestive of infection, and ultrasound showed evidence of mild right hydronephrosis. In view of this, a CT scan of the abdomen and pelvis was obtained revealing mild- moderate right hydronephrosis due to a 5 x 7.5 mm right proximal ureteral calculus. The CT scan also showed right perinephric stranding, and 2 very small non-obstructing left lower pole renal calculi. The patient states that she had 1 kidney stone in the remote past which did not require surgery. She underwent emergent placement of a right ureteral stent and was treated with antibiotics. Urine culture showed pansensitive E. coli. She now comes for ureteroscopic removal of the calculus. Operative Findings: Right proximal ureteral calculus, fragmented and removed completely. Description of Procedure: The patient was taken to the operating room and placed in the dorsolithotomy position, with legs supported in Carlos stirrups. The external genitalia was prepped and draped sterilely. The 30 lens was used to introduce the 21-[place] Avelar cystoscopic sheath through the urethra and into the bladder under direct vision. The bladder was examined in its entirety. No abnormalities were seen. Grasping forceps were used to grasp the distal end of the right ureteral stent, which was removed along with the cystoscope. A 0.038 inch Glidewire was passed through the stent and advanced up to the renal pelvis. The stent was removed, and an 11/13-[place] ureteral access catheter was passed over the wire, up to the mid ureter. The Avel[employer] flexible ureteroscope was then passed through the ureteral access catheter sheath and advanced under direct vision, up to the stone. The 272 micron Holmium laser probe was passed through the ureteroscope, and lithotripsy was performed. The calculus was not very dense, likely composed of calcium oxalate dihydrate. The majority of calculus fragments passed distally through the ureteral access catheter sheath, which was ultimately removed. The ureteroscope was then passed into the bladder, and the right ureteral orifice was cannulated. Any residual fragments were removed using a 1.9 [place] 0 tip nitinol basket. Final inspection of the ureter showed no evidence of ureteral trauma, and no residual calculus fragments. The ureteroscope was removed. The cystoscope was placed into the bladder to drain the bladder and remove calculus fragments, which were sent for chemical analysis. The patient tolerated the procedure well and was taken to the recovery room in stable condition. KAVITHA ROCKS Report: Procedure Acuity: Elective Stone Size and Location: 5 x 7.5 mm, right proximal ureter Ureteral Dilation: No Ureteral Access Sheath Used: Yes Stone Sent for Analysis: Yes All Stones/Fragments Were Removed with a Basket: Yes Complications: No Preoperative Antibiotics Given: Yes Stent Placed: No Discharge Medications: None
--- NOTE | 2024-09-03 11:21 | FL ---
EXAMINATION TYPE: FL guidance operating room DATE OF EXAM: 09/03/2024 11:05 AM COMPARISON: Pre Operative Images if available both CT/MRI or plain film CLINICAL INDICATION: Female, 64 years old with history of CYSTOSCOPY LITHO RIGHT URETERAL CALCULUS; TECHNIQUE: FL guidance operating room, multiple fluoroscopic images provided for procedure. DAP: 0.8688 mGym2 Gycm2 uGym2 cGycm2 or equivalent. FINDINGS: Multiple intraoperative fluoroscopic images were taken during lithotripsy. No immediate intraoperativ e complication. Multilevel degeneration changes throughout the spine. IMPRESSION: 1. No evidence for intraoperative complication. 2. Please see the operative/procedural note for further details. [facility], , 09/03/2024 11:19 AM
[2024-09-03] MEDS ORDERED: CALCIUM CHLORIDE 100 MG/ML 10 ML SYRINGE IVP STA (12:13)
[2024-09-03] MEDS: DEXTROSE 50% SYRINGE 50 ML IVP STA ×2 (12:33→18:18)
[2024-09-03] MEDS: INSULIN REGULAR 100 UNIT/ML VIAL (IV) IV ONE ×2 (12:36→18:16)
[2024-09-03] MEDS: PHENYLEPHRINE 40 MG in SODIUM CHLORIDE 0.9% 250 ML IV SCH (12:44)
[2024-09-03] MEDS: SODIUM BICARB 8.4% 50 ML SYR (1 MEQ/ML) IV STA (12:53)
[2024-09-03 12:59] LABS: Glucose,Whole Blood 201 mg/dL (70-110)
[2024-09-03] MEDS: SODIUM CHLORIDE 0.9% 1,000 ML IV ONE ×3 (14:05→15:46)
[2024-09-03] MEDS: CALCIUM GLUCONATE IN NACL 2 GM in SALINE 1 100ML.BAG IVPB ONE (14:06)
--- NOTE | 2024-09-03 15:12 | P.CNPUL ---
History of Present Illness Consult date: 09/03/24 Requesting physician: Kain Adamson Reason for consult: other Chief complaint: Sepsis, hypotension. History of present illness: Pulmonary consult dated September 03, 2024. 64-year-old female who underwent a cystoscopy, right ureteral stent removal, and a right ureteroscopy, today, with . We were called after the case, once the patient was in the postanesthesia care unit, that the patient was having issues with low blood pressure, and was on Mikal-Synephrine, and also, was hyperkalemic. For that reason, an ICU bed was requested. We went over to the PACU, to see the patient, and the patient was currently on 2 L of oxygen. She was only getting lactated Ringer's at 20 cc an hour. She was on Mikal-Synephrine at 0.5 mcg/kg/min. The patient also apparently received 1 ampoule of sodium bicarbonate. The patient has a history of atrial fibrillation, hypertension, hyperlipidemia, myasthenia gravis, and is a former smoker. She was recently in the hospital, with a similar episode, of sepsis, secondary to a septic kidney stone. The most recent blood work, shows a potassium of 6.5, and a glucose of 201. No other blood work was ordered. Nephrology was consulted, to manage the hyperkalemia. Review of Systems REVIEW OF SYSTEMS: The patient is awake and alert, without any complaints whatsoever. CONSTITUTIONAL: [Negative.] NEUROLOGIC: [ Negative.] HEENT: [ Negative.] CARDIAC: [Negative.] PULMONARY: [Negative.] GI: [Negative.] : [Negative.] RHEUMATOLOGIC: [ Negative.] IMMUNOLOGIC: [ Negative.] ENDOCRINE: [Negative. ] DERMATOLOGIC: [Negative.] Past Medical History Past Medical History: Atrial Fibrillation, GERD/Reflux, Hyperlipidemia, Hypertension Additional Past Medical History / Comment(s): myasthenia gravis, hospitalized for sepsis in Apr 2024, Hospitalized for septic UTI/R kidney stone 08/15/24- 08/21/24, past swelling in legs, occasional headache, past hx of kidney stones. History of Any Multi-Drug Resistant Organisms: None Reported Past Surgical History: Orthopedic Surgery Additional Past Surgical History / Comment(s): right shoulder, R ureter stent placement. Past Anesthesia/Blood Transfusion Reactions: No Reported Reaction Additional Past Anesthesia/Blood Transfusion Reaction / Comment(s): No hx of blood transfusion Smoking Status: Former smoker - Past Family History Father Family Medical History: CVA/TIA Additional Family Medical History / Comment(s): hx of stroke Sister(s) Family Medical History: Cancer Additional Family Medical History / Comment(s): Uterine cancer Mother Family Medical History: Cancer, Deep Vein Thrombosis (DVT) Additional Family Medical History / Comment(s): Blood cancer, treatment caused blood clots Medications and Allergies Home Medications Medication Instructions Recorded Confirmed Type Pyridostigmine [place] [Mestinon] 60 mg PO TID-W/MEALS 05/04/24 09/03/24 History predniSONE 10 mg PO DAILY 05/04/24 09/01/24 History Atorvastatin [Lipitor] 40 mg PO DAILY #30 tab 05/11/24 09/01/24 Rx Famotidine [Pepcid] 20 mg PO DAILY #30 tab 05/11/24 09/01/24 Rx Apixaban [Eliquis] 5 mg PO BID@0900,1400 08/15/24 09/01/24 History Cholecalciferol (Vitamin D3) 75 mcg PO DAILY 08/15/24 09/01/24 History [Vitamin D3 (3000 Iu)] EPINEPHrine (Auto Inject) [Epipen] 0.3 mg IM ONCE PRN 08/15/24 09/01/24 History Acetaminophen Tab [Tylenol] 650 mg PO Q6HR PRN tab 08/21/24 09/03/24 Rx Furosemide [Lasix] 40 mg PO BID@0900,1600 #60 tab 08/21/24 09/03/24 Rx Loperamide [Imodium] 2 mg PO QID PRN cap 08/21/24 09/01/24 Rx Spironolactone [Aldactone] 25 mg PO DAILY 30 Days #30 tab 08/21/24 09/01/24 Rx lisinopriL [Zestril] 40 mg PO DAILY #30 tab 08/21/24 09/01/24 Rx Albuterol Inhaler [Ventolin Hfa 1 puff INHALATION Q6H PRN 09/01/24 09/03/24 History Inhaler] Amiodarone [Cordarone] 200 mg PO Q12H 09/01/24 09/01/24 History Butalbital/Aspirin/Caffeine 1 each PO DAILY PRN 09/01/24 09/03/24 History [Rghnlebpqk-Smmwszk-Gpjjltst Tb] Metoprolol Succinate [Metoprolol 25 mg PO DAILY 09/01/24 09/01/24 History Succinate ER] Octagam 10% Infusion 1 dose IV Q30D 09/01/24 09/03/24 History Allergies Allergy/AdvReac Type Severity Reaction Status Date / Time Penicillins Allergy Unknown Unknown Verified 09/03/24 08:57 Childhood Physical Exam Osteopathic Statement: *. No significant issues noted on an osteopathic structural exam other than those noted in the History and Physical/Consult. Vitals: Vital Signs Temp Pulse Resp BP Pulse Ox 09/03/24 14:45 75 19 132/68 95 09/03/24 14:15 64 16 135/66 96 09/03/24 13:30 70 16 131/64 96 09/03/24 13:15 65 16 119/61 100 09/03/24 13:00 68 12 106/53 100 09/03/24 12:30 61 12 93/49 99 09/03/24 12:15 72 20 90/50 97 09/03/24 12:00 62 15 88/45 99 09/03/24 11:45 66 17 102/46 96 09/03/24 11:30 64 18 114/71 95 09/03/24 11:15 65 20 119/66 94 L 09/03/24 11:07 97.1 F L 65 16 124/55 95 09/03/24 09:49 115/55 09/03/24 09:34 97.0 F L 55 L 18 97/49 99 Intake and Output 09/03/24 09/03/24 09/03/24 06:59 14:59 22:59 Intake Total 1100 Output Total 0 Balance 1100 Intake: IV 1100 Output: Estimated Blood Loss 0 Other: Weight 121.1 kg No acute distress, oriented 3. Currently on 2 L. HEENT examination is grossly unremarkable. Mucous membranes are moist. No oral lesions. Neck supple. Full range of motion. No adenopathy thyromegaly or neck vein distention. Cardiovascular examination reveals regular rhythm rate. S1-S2 normal. No S3 or S4. No discernible murmur noted. Lungs reveal clear breath sounds. Breath sounds are equal bilaterally. No a dventitious lung sounds including wheezes rhonchi or crackles. Abdomen soft bowel sounds are heard. No masses or tenderness. Extremities are intact. No cyanosis clubbing or edema. Skin is without rash or lesion. Neurologic examination is brief but nonfocal. Results - Laboratory Findings CBC and BMP: 09/03/24 13:12 Abnormal lab findings: Abnormal Labs 09/03/24 09/03/24 09/03/24 09:31 09:36 11:22 Potassium 6.1 H* 6.7 H* POC Glucose (mg/dL) 120 H 09/03/24 09/03/24 12:58 13:12 Potassium 6.5 H* POC Glucose (mg/dL) 201 H Assessment and Plan Assessment: Transient sepsis, resulting in hypotension, postop day #0, S/P cystoscopy, right ureteral stent removal, right ureteroscopy, and laser lithotripsy. Recent right ureteral stone, with right-sided hydronephrosis, status post cystoscopy, with right ureteral stent, August 16, 2024. Patient had Escherichia coli urinary tract infection, on that admission. History of atrial fibrillation. History of hypertension. History of hyperlipidemia. History of myasthenia gravis. Previous history of tobacco use. Plan: Plan dated September 03, 2024. The patient was seen in PACU. The patient is resting comfortably, and is on 2 L of oxygen. She is on Mikal-Synephrine at 0.5 mcg/kg/min. The patient really did not get any adequate fluid resuscitation, and has LR running at 20 cc an hour. She did get 1 ampoule of sodium bicarbonate. The patient will get a liter of saline. Nephrology was consulted and is apparently managing the hyperkalemia. Additional recommendations and suggestions are forthcoming. If the patient, the Mikal-Synephrine, or if the potassium remains high, she will likely need an intensive care unit bed. We will continue to follow. Prognosis is guarded. Dictation was produced using OYE!ation software. Please excuse any grammatical, word or spelling errors. Time with Patient: Greater than 30
[2024-09-03] MEDS: SODIUM CHLORIDE 0.9% 1,000 ML BAG IVPB ONE (15:46)
[2024-09-03] MEDS: droPERidol 2.5 MG/ML VIAL IVP ONE (16:17)
[2024-09-03 16:42] LABS: Glucose,Whole Blood 131 mg/dL (70-110)
[2024-09-03] MEDS ORDERED: ALBUTEROL NEBULIZED 2.5 MG/3 ML INHALATION PRN (18:08)
[2024-09-03] MEDS ORDERED: BUTALB/APAP/CAFF 50-325-40MG TAB PO PRN (18:08)
[2024-09-03] MEDS ORDERED: LOPERAMIDE 2 MG CAP PO PRN (18:08)
[2024-09-03] MEDS: SODIUM ZIRCONIUM CYCLOSILICATE 10 GM PACKET PO ONE ×2 (18:18→21:37)
[2024-09-03] MEDS: CALCIUM GLUCONATE IN NACL 1 GM in SALINE 1 100ML.BAG IVPB ONE (18:18)
[2024-09-03 20:48] LABS: African American GFR (CKD) 45 (>60 ml/min/1.73 sqM); Anion Gap 11 mmol/L; Blood Urea Nitrogen 46 mg/dL (7-17); Calcium 9.8 mg/dL (8.4-10.2); Carbon Dioxide 20 mmol/L (22-30); Chloride 108 mmol/L (98-107); Glucose 143 mg/dL (74-99); Non-African American GFR(CKD) 39 (>60 ml/min/1.73 sqM); Sodium 139 mmol/L (137-145)
[2024-09-03] MEDS: SODIUM CHLORIDE 0.9% 1,000 ML IV SCH (20:50)
[2024-09-03] MEDS: AMIODARONE 200 MG TAB PO SCH (21:10)
[2024-09-03] MEDS: FUROSEMIDE 10 MG/ML 2 ML VIAL IV STA (21:37)
[2024-09-04 00:36] LABS: African American GFR (CKD) 49 (>60 ml/min/1.73 sqM); Anion Gap 8 mmol/L; Blood Urea Nitrogen 41 mg/dL (7-17); Calcium 9.8 mg/dL (8.4-10.2); Carbon Dioxide 22 mmol/L (22-30); Chloride 106 mmol/L (98-107); Glucose 93 mg/dL (74-99); Non-African American GFR(CKD) 43 (>60 ml/min/1.73 sqM); Potassium 5.8 mmol/L (3.5-5.1); Sodium 136 mmol/L (137-145)
[2024-09-04] MEDS: ACETAMINOPHEN TAB 325 MG TAB PO PRN (01:39)
[2024-09-04 06:08] LABS: HCT 36.9 % (37.2-46.3); HGB 11.8 g/dL (12.0-15.0); MCH 29.9 pg (27.0-32.0); MCV 93.4 fL (80.0-97.0); Mean Platelet Volume 11.1 fL (9.5-12.2); Platelet Count 266 10*3/uL (140-440); RBC 3.95 10*6/uL (4.10-5.20); RDW 14.9 % (11.5-14.5); WBC 7.73 10*3/uL (4.50-10.00)
[2024-09-04 06:24] LABS: African American GFR (CKD) 58 (>60 ml/min/1.73 sqM); Anion Gap 8 mmol/L; Blood Urea Nitrogen 37 mg/dL (7-17); Calcium 9.7 mg/dL (8.4-10.2); Carbon Dioxide 23 mmol/L (22-30); Chloride 107 mmol/L (98-107); Glucose 90 mg/dL (74-99); Magnesium 1.8 mg/dL (1.6-2.3); Non-African American GFR(CKD) 51 (>60 ml/min/1.73 sqM); Potassium 5.3 mmol/L (3.5-5.1); Sodium 138 mmol/L (137-145)
[2024-09-04] MEDS: PYRIDOSTIGMINE 60 MG TAB PO SCH (06:52)
--- NOTE | 2024-09-04 08:50 | P.PN ---
Subjective Progress Note Date: 09/04/24 Principal diagnosis: Right ureteral calculus, UTI The patient was hospitalized earlier this month with an E. coli UTI complicated by a right proximal ureteral calculus. She underwent ureteral stent placement at that time and her UTI was treated. Yesterday, she underwent uncomplicated ureteroscopic removal of the calculus, and the stent was removed at that time. Postoperatively, she developed hypotension and was transferred to the ICU. Her condition overnight has been stable, without the need for vasopressors. She is comfortable, and specifically denies dysuria, hematuria, and flank pain. Her urine is clear. Objective - Vital Signs Vital signs: Vital Signs Temp 98.2 F 09/04/24 04:00 Pulse 62 09/04/24 06:30 Resp 16 09/04/24 06:30 BP 102/52 09/04/24 06:30 Pulse Ox 97 09/04/24 06:30 FiO2 Intake & Output 09/03/24 09/03/24 09/04/24 06:59 18:59 06:59 Intake Total 2650 894.572 Output Total 900 2450 Balance 1750 -1555.428 Weight 121.1 kg 122.8 kg Intake: IV 2650 750 0.9 Sodium Chloride 150 750 Intake, IV Titration 144.572 Amount Phenylephrine 40 mg In 144.572 Sodium Chloride 0.9% 250 ml @ 0.5 MCG/KG/MIN 23.07 mls/hr IV .Q11H1M [facility] Rx #:[id number] Output: Urine 900 2450 Estimated Blood Loss 0 Other: Voiding Method External Catheter # Bowel Movements 1 - Constitutional General appearance: Present: average body habitus, cooperative, no acute distress - Gastrointestinal Gastrointestinal Comment(s): Soft, non-distended, non-tender. - Psychiatric Psychiatric: Present: A&O x's 3 - Labs CBC & Chem 7: 09/04/24 05:42 09/04/24 05:42 Labs: Abnormal Lab Results - Last 24 Hours (Table) 09/03/24 09/03/24 09/03/24 Range/Units 09:31 09:36 11:22 RBC (4.10-5.20) 10*6/uL Hgb (12.0-15.0) g/dL Hct (37.2-46.3) % Sodium (137-145) mmol/L Potassium 6.1 H* 6.7 H* (3.5-5.1) mmol/L Chloride (98-107) mmol/L Carbon Dioxide (22-30) mmol/L BUN (7-17) mg/dL Creatinine (0.52-1.04) mg/dL Glucose (74-99) mg/dL POC Glucose (mg/dL) 120 H (70-110) mg/dL 09/03/24 09/03/24 09/03/24 Range/Units 12:58 13:12 16:13 RBC (4.10-5.20) 10*6/uL Hgb (12.0-15.0) g/dL Hct (37.2-46.3) % Sodium (137-145) mmol/L Potassium 6.5 H* 6.2 H* (3.5-5.1) mmol/L Chloride (98-107) mmol/L Carbon Dioxide (22-30) mmol/L BUN (7-17) mg/dL Creatinine (0.52-1.04) mg/dL Glucose (74-99) mg/dL POC Glucose (mg/dL) 201 H (70-110) mg/dL 09/03/24 09/03/24 09/03/24 Range/Units 16:41 20:14 23:53 RBC (4.10-5.20) 10*6/uL Hgb (12.0-15.0) g/dL Hct (37.2-46.3) % Sodium 136 L (137-145) mmol/L Potassium 6.0 H 5.8 H (3.5-5.1) mmol/L Chloride 108 H (98-107) mmol/L Carbon Dioxide 20 L (22-30) mmol/L BUN 46 H 41 H (7-17) mg/dL Creatinine 1.42 H 1.32 H (0.52-1.04) mg/dL Glucose 143 H (74-99) mg/dL POC Glucose (mg/dL) 131 H (70-110) mg/dL 09/04/24 09/04/24 Range/Units 05:42 05:42 RBC 3.95 L (4.10-5.20) 10*6/uL Hgb 11.8 L (12.0-15.0) g/dL Hct 36.9 L (37.2-46.3) % Sodium (137-145) mmol/L Potassium 5.3 H (3.5-5.1) mmol/L Chloride (98-107) mmol/L Carbon Dioxide (22-30) mmol/L BUN 37 H (7-17) mg/dL Creatinine 1.15 H (0.52-1.04) mg/dL Glucose (74-99) mg/dL POC Glucose (mg/dL) (70-110) mg/dL Assessment and Plan (1) Calculus of ureter Current Visit: No Status: Acute Code(s): N20.1 - CALCULUS OF URETER SNOMED Code(s): 77614792 Plan: Patient is urologically stable. Given the postoperative hypotension, which may have been due to infection/stone manipulation, I have empirically placed her on Keflex.
[2024-09-04] MEDS ORDERED: SPIRONOLACTONE 25 MG TAB PO SCH (09:00)
[2024-09-04] MEDS ORDERED: lisinopriL 20 MG TAB PO SCH (09:00)
[2024-09-04] MEDS ORDERED: FUROSEMIDE 40 MG TAB PO SCH (09:00)
[2024-09-04] MEDS: SODIUM ZIRCONIUM CYCLOSILICATE 10 GM PACKET PO ONE (10:02)
--- NOTE | 2024-09-04 10:09 | P.NPCON ---
History of Present Illness - Reason for Consult hyperkalemia - History of Present Illness Reason for consultation: Hyperkalemia History of present illness: Patient is a 64-year-old female seen in renal consultation for hyperkalemia. Patient denies personal history of kidney disease. Patient's creatinine dated August 21, 2024 was 0.85. This admission was elevated at 1.42 and is improved to 1.15 today. She is currently receiving IV fluids. Patient had obstructive kidney stone and underwent right ureteral stent insertion and was subsequently treated with antibiotics. Yesterday she had the stent removed along with stone basketing. She denies history of diabetes or coronary artery disease. She does have history of myasthenia gravis. Patient says she was recently started on spironolactone and dose of lisinopril was increased to 40 mg. Potassium level this admission has been elevated and was up to 6.7 yesterday. It is not medically treated multiple times. It is improved to 5.3 this morning. She has been voiding. Denies chest pain or shortness of breath. Vital signs are stable. General: No acute distress. HEENT: Head exam is unremarkable. LUNGS: No audible rhonchi or wheezes. HEART: Rate and Rhythm are regular. ABDOMEN: Nontender. EXTREMITITES: No edema. Past Medical History Past Medical History: Atrial Fibrillation, GERD/Reflux, Hyperlipidemia, Hypertension Additional Past Medical History / Comment(s): myasthenia gravis, hospitalized for sepsis in Apr 2024, Hospitalized for septic UTI/R kidney stone 08/15/24-, past swelling in legs, occasional headache, past hx of kidney stones. History of Any Multi-Drug Resistant Organisms: None Reported Past Surgical History: Orthopedic Surgery Additional Past Surgical History / Comment(s): right shoulder, R ureter stent placement (removed 09/03/2024 along with renal calculus) Past Anesthesia/Blood Transfusion Reactions: No Reported Reaction Additional Past Anesthesia/Blood Transfusion Reaction / Comment(s): No hx of blood transfusion Past Psychological History: No Psychological Hx Reported Smoking Status: Former smoker Past Alcohol Use History: None Reported Past Drug Use History: None Reported - Past Family History Father Family Medical History: CVA/TIA Additional Family Medical History / Comment(s): hx of stroke Sister(s) Family Medical History: Cancer Additional Family Medical History / Comment(s): Uterine cancer Mother Family Medical History: Cancer, Deep Vein Thrombosis (DVT) Additional Family Medical History / Comment(s): Blood cancer, treatment caused blood clots Medications and Allergies Home Medications Medication Instructions Recorded Confirmed Type Pyridostigmine [place] [Mestinon] 60 mg PO TID-W/MEALS 05/04/24 09/03/24 History predniSONE 10 mg PO DAILY 05/04/24 09/01/24 History Atorvastatin [Lipitor] 40 mg PO DAILY #30 tab 05/11/24 09/01/24 Rx Famotidine [Pepcid] 20 mg PO DAILY #30 tab 05/11/24 09/01/24 Rx Apixaban [Eliquis] 5 mg PO BID@0900,1400 08/15/24 09/01/24 History Cholecalciferol (Vitamin D3) 75 mcg PO DAILY 08/15/24 09/01/24 History [Vitamin D3 (3000 Iu)] EPINEPHrine (Auto Inject) [Epipen] 0.3 mg IM ONCE PRN 08/15/24 09/01/24 History Acetaminophen Tab [Tylenol] 650 mg PO Q6HR PRN tab 08/21/24 09/03/24 Rx Furosemide [Lasix] 40 mg PO BID@0900,1600 #60 tab 08/21/24 09/03/24 Rx Loperamide [Imodium] 2 mg PO QID PRN cap 08/21/24 09/01/24 Rx Spironolactone [Aldactone] 25 mg PO DAILY 30 Days #30 tab 08/21/24 09/01/24 Rx lisinopriL [Zestril] 40 mg PO DAILY #30 tab 08/21/24 09/01/24 Rx Albuterol Inhaler [Ventolin Hfa 1 puff INHALATION Q6H PRN 09/01/24 09/03/24 History Inhaler] Amiodarone [Cordarone] 200 mg PO Q12H 09/01/24 09/01/24 History Butalbital/Aspirin/Caffeine 1 each PO DAILY PRN 09/01/24 09/03/24 History [Iediixjvcj-Sfigjzv-Ofgipmmu Tb] Metoprolol Succinate [Metoprolol 25 mg PO DAILY 09/01/24 09/01/24 History Succinate ER] Octagam 10% Infusion 1 dose IV Q30D 09/01/24 09/03/24 History Allergies Allergy/AdvReac Type Severity Reaction Status Date / Time Penicillins Allergy Unknown Unknown Verified 09/03/24 08:57 Childhood Physical Exam Vitals: Vital Signs Temp Pulse Pulse Resp BP BP Pulse Ox 09/04/24 07:00 70 13 101/55 94 L 09/04/24 06:30 62 16 102/52 97 09/04/24 06:00 59 L 16 100/55 94 L 09/04/24 05:30 61 13 99/48 94 L 09/04/24 05:00 65 17 97/49 93 L 09/04/24 04:30 60 15 105/53 92 L 09/04/24 04:00 98.2 F 65 15 109/57 93 L 09/04/24 03:30 62 14 98/48 91 L 09/04/24 03:00 65 17 98/52 94 L 09/04/24 02:30 72 23 91/51 96 09/04/24 02:00 66 17 112/54 95 09/04/24 01:30 67 14 105/53 95 09/04/24 01:00 69 16 89/49 92 L 09/04/24 00:30 70 15 115/55 92 L 09/04/24 00:09 64 16 115/55 89 L 09/04/24 00:00 97.9 F 68 12 111/57 96 09/03/24 23:30 71 17 97/52 93 L 09/03/24 23:00 72 19 90 L 09/03/24 22:30 73 18 107/54 89 L 09/03/24 22:00 68 16 94/47 92 L 09/03/24 21:30 74 20 103/52 94 L 09/03/24 21:00 79 12 100/53 94 L 09/03/24 20:30 75 21 115/59 93 L 09/03/24 20:00 98.6 F 76 16 107/47 91 L 09/03/24 19:30 75 18 102/51 93 L 09/03/24 19:00 77 15 108/50 93 L 09/03/24 18:30 86 17 114/56 93 L 09/03/24 18:15 79 17 126/55 96 09/03/24 18:00 76 27 H 119/59 97 09/03/24 17:45 76 19 109/56 96 09/03/24 17:30 71 11 L 116/50 95 09/03/24 17:15 77 16 126/63 93 L 09/03/24 17:00 73 10 L 107/59 97 09/03/24 16:46 98.1 F 73 13 95 09/03/24 16:15 79 14 127/57 98 09/03/24 15:45 72 16 104/59 98 09/03/24 15:15 70 19 134/65 97 09/03/24 14:45 75 19 132/68 95 09/03/24 14:15 64 16 135/66 96 09/03/24 13:30 70 16 131/64 96 09/03/24 13:15 65 16 119/61 100 09/03/24 13:00 68 12 106/53 100 09/03/24 12:30 61 12 93/49 99 09/03/24 12:15 72 20 90/50 97 09/03/24 12:00 62 15 88/45 99 09/03/24 11:45 66 17 102/46 96 09/03/24 11:30 64 18 114/71 95 09/03/24 11:15 65 20 119/66 94 L 09/03/24 11:07 97.1 F L 65 16 124/55 95 Intake and Output 09/03/24 09/04/24 09/04/24 22:59 06:59 14:59 Intake Total 1444.572 600 575 Output Total 2100 1650 Balance -655.428 -1050 575 Intake: IV 1300 600 75 0.9 Sodium Chloride 300 600 75 Intake, IV Titration 144.572 Amount Phenylephrine 40 mg In 144.572 Sodium Chloride 0.9% 250 ml @ 0.5 MCG/KG/MIN 23.07 mls/hr IV .Q11H1M [facility] Rx #:[id number] Oral 500 Output: Urine 2100 1650 Other: Voiding Method External Catheter External Catheter # Bowel Movements 1 Weight 121.1 kg 122.8 kg Results - Lab Results Most recent lab results Calcium 9.7 mg/dL (8.4-10.2) 09/04/24 05:42 Magnesium 1.8 mg/dL (1.6-2.3) 09/04/24 05:42 09/04/24 05:42 09/04/24 05:42 Assessment and Plan Plan: Assessment: 1. Acute kidney injury mostly prerenal improved with IV hydration. Creatinine 1.42 on admission and is 1.15 today. Baseline creatinine near 0.8-0.9. 2. Obstructive right renal calculus status post ureteral stent insertion and subsequent removal September 03, 2024. 3. Hyperkalemia secondary to acute kidney injury, lisinopril and Aldactone. Improved with medical management. 4. Benign hypertension. Currently blood pressure on the lower end. 5. History of myasthenia gravis. Plan: Lokelma 10 g x 1 dose today. Continue to hold lisinopril and spironolactone. Hep-Lock IV fluids. Echocardiogram from April 2024 showed moderate mitral regurgitation. Follow-up outpatient 1 week postdischarge. Thank you for the consultation. I will continue to follow the patient with you during her hospital stay.
[2024-09-04] MEDS: FAMOTIDINE 20 MG TAB PO SCH (10:12)
[2024-09-04] MEDS: APIXABAN 5 MG TAB PO SCH (10:12)
[2024-09-04] MEDS: predniSONE 10 MG TAB PO SCH (10:12)
[2024-09-04] MEDS: ATORVASTATIN 40 MG TAB PO SCH (10:12)
[2024-09-04] MEDS: CEPHALEXIN 500 MG CAP PO SCH (10:39)
[2024-09-04] MEDS: METOPROLOL SUCCINATE (ER) 25 MG TAB.ER.24H PO SCH (10:39)
--- NOTE | 2024-09-04 12:02 | P.PN ---
Subjective Progress Note Date: 09/04/24 Principal diagnosis: Sepsis. Pulmonary consult dated September 03, 2024. 64-year-old female who underwent a cystoscopy, right ureteral stent removal, and a right ureteroscopy, today, with . We were called after the case, once the patient was in the postanesthesia care unit, that the patient was having issues with low blood pressure, and was on Mikal-Synephrine, and also, was hyperkalemic. For that reason, an ICU bed was requested. We went over to the PACU, to see the patient, and the patient was currently on 2 L of oxygen. She was only getting lactated Ringer's at 20 cc an hour. She was on Mikal-Synephrine at 0.5 mcg/kg/min. The patient also apparently received 1 ampoule of sodium bicarbonate. The patient has a history of atrial fibrillation, hypertension, hyperlipidemia, myasthenia gravis, and is a former smoker. She was recently in the hospital, with a similar episode, of sepsis, secondary to a septic kidney stone. The most recent blood work, shows a potassium of 6.5, and a glucose of 201. No other blood work was ordered. Nephrology was consulted, to manage the hyperkalemia. Progress note dated September 12, 2024. This is a 64-year-old female who was seen in consultation yesterday. Please see her note above. After the procedure she had, she had some hypotension, she was on Mikal-Synephrine. She is seen today in room 259. She is on room air. She is getting 75 cc of saline. The Mikal-Synephrine has been off since 7 PM from yesterday. The patient is clinically doing well. Current laboratory data includes a white count of 7.7, hemoglobin 11.8, hematocrit 36.9, and a platelet count of 266,000. Sodium 138, potassium 5.3, chlorides 107, CO2 23, BUN 37, creatinine 1.15. Glucose is 90. Calcium 9.7, magnesium 1.8. Labs, x-rays, and all medications are reviewed. Objective - Vital Signs Vital signs: Vital Signs Temp 97.9 F 09/04/24 08:00 Pulse 65 09/04/24 11:00 Resp 14 09/04/24 11:00 BP 111/54 09/04/24 11:00 Pulse Ox 97 09/04/24 11:00 FiO2 Intake & Output 09/03/24 09/04/24 09/04/24 18:59 06:59 18:59 Intake Total 2650 894.572 875 Output Total 900 2850 400 Balance 1750 -1954.428 475 Weight 121.1 kg 122.8 kg Intake: IV 2650 750 375 0.9 Sodium Chloride 150 750 375 Intake, IV Titration 144.572 Amount Phenylephrine 40 mg In 144.572 Sodium Chloride 0.9% 250 ml @ 0.5 MCG/KG/MIN 23.07 mls/hr IV .[id number] LORENZO Rx #:[id number] Oral 500 Output: Urine 900 2850 400 Estimated Blood Loss 0 Other: Voiding Method External Catheter # Voids 0 # Bowel Movements 1 - Exam No acute distress, oriented 3. HEENT examination is grossly unremarkable. Mucous membranes are moist. No oral lesions. Neck supple. Full range of motion. No adenopathy thyromegaly or neck vein distention. Cardiovascular examination reveals regular rhythm rate. S1-S2 normal. No S3 or S4. No discernible murmur noted. Lungs reveal clear breath sounds. Breath sounds are equal bilaterally. No ad ventitious lung sounds including wheezes rhonchi or crackles. Abdomen soft bowel sounds are heard. No masses or tenderness. Extremities are intact. No cyanosis clubbing or edema. Skin is without rash or lesion. Neurologic examination is brief but nonfocal. - Labs CBC & Chem 7: 09/04/24 05:42 09/04/24 05:42 Labs: Abnormal Lab Results - Last 24 Hours (Table) 09/03/24 09/03/24 09/03/24 Range/Units 12:58 13:12 16:13 RBC (4.10-5.20) 10*6/uL Hgb (12.0-15.0) g/dL Hct (37.2-46.3) % Sodium (137-145) mmol/L Potassium 6.5 H* 6.2 H* (3.5-5.1) mmol/L Chloride (98-107) mmol/L Carbon Dioxide (22-30) mmol/L BUN (7-17) mg/dL Creatinine (0.52-1.04) mg/dL Glucose (74-99) mg/dL POC Glucose (mg/dL) 201 H (70-110) mg/dL 09/03/24 09/03/24 09/03/24 Range/Units 16:41 20:14 23:53 RBC (4.10-5.20) 10*6/uL Hgb (12.0-15.0) g/dL Hct (37.2-46.3) % Sodium 136 L (137-145) mmol/L Potassium 6.0 H 5.8 H (3.5-5.1) mmol/L Chloride 108 H (98-107) mmol/L Carbon Dioxide 20 L (22-30) mmol/L BUN 46 H 41 H (7-17) mg/dL Creatinine 1.42 H 1.32 H (0.52-1.04) mg/dL Glucose 143 H (74-99) mg/dL POC Glucose (mg/dL) 131 H (70-110) mg/dL 09/04/24 09/04/24 Range/Units 05:42 05:42 RBC 3.95 L (4.10-5.20) 10*6/uL Hgb 11.8 L (12.0-15.0) g/dL Hct 36.9 L (37.2-46.3) % Sodium (137-145) mmol/L Potassium 5.3 H (3.5-5.1) mmol/L Chloride (98-107) mmol/L Carbon Dioxide (22-30) mmol/L BUN 37 H (7-17) mg/dL Creatinine 1.15 H (0.52-1.04) mg/dL Glucose (74-99) mg/dL POC Glucose (mg/dL) (70-110) mg/dL Assessment and Plan Assessment: Transient sepsis, resulting in hypotension, postop day #1, S/P cystoscopy, right ureteral stent removal, right ureteroscopy, and laser lithotripsy. Recent right ureteral stone, with right-sided hydronephrosis, status post cystoscopy, with right ureteral stent, August 16, 2024. Patient had Escherichia coli urinary tract infection, on that admission. History of atrial fibrillation. History of hypertension. History of hyperlipidemia. History of myasthenia gravis. Previous history of tobacco use. Plan: Plan dated September 03, 2024. The patient was seen in PACU. The patient is resting comfortably, and is on 2 L of oxygen. She is on Mikal-Synephrine at 0.5 mcg/kg/min. The patient really did not get any adequate fluid resuscitation, and has LR running at 20 cc an hour. She did get 1 ampoule of sodium bicarbonate. The patient will get a liter of saline. Nephrology was consulted and is apparently managing the hyperkalemia. Additional recommendations and suggestions are forthcoming. If the patient, the Mikal-Synephrine, or if the potassium remains high, she will likely need an intensive care unit bed. We will continue to follow. Prognosis is guarded. Dictation was produced using [employer] software. Please excuse any grammatical, word or spelling errors. Plan dated September 12, 2024. The patient is doing very well. The patient is seen today in room 259. She is on room air. She is getting saline at 75 cc an hour. The Mikal-Synephrine that she was on yesterday was turned off at 7 PM yesterday. Labs, x-rays, and all medications are reviewed. Her potassium is down. From the pulmonary perspective, the patient could be considered for possible discharge. Will leave that up to the urologist. The patient is also being seen by nephrology. Labs, x-rays, and all medications are reviewed. Prognosis is thought to be good. Dictation was produced using [employer] software. Please excuse any grammatical, word or spelling errors. Time with Patient: Less than 30
[2024-09-04 12:09] VITALS: TEMP 97.7
--- NOTE | 2024-09-04 13:56 | P.DS ---
Providers Date of admission: 09/03/24 08:14 Expected date of discharge: 09/04/24 Attending physician: Kain Adamson Consults: 09/03/24 12:05 Consult Physician Stat Consulting Provider: Jose Antonio Henao Consult Reason/Comments: Patient Potassium of 6.7. Do you want consulting provider notified?: Yes 09/03/24 13:05 Consult Physician Stat Consulting Provider: Kwabena Cabello Consult Reason/Comments: ICU consult Do you want consulting provider notified?: Yes Primary care physician: Sandra Manzanares MD - Discharge Diagnosis(es) (1) Calculus of ureter Current Visit: No Status: Acute Hospital Course: On the day of admission, the patient underwent cystoscopy, right ureteral stent removal, and ureteroscopic removal of her right proximal ureteral calculus. She received preoperative Ancef, and the procedure was uncomplicated. However, she developed hypotension in the recovery room requiring vasopressors temporarily. She was transferred to the ICU, but her condition remained stable and she did not require additional vasopressors. She was treated for hyperkalemia, and her potassium level normalized at the time of discharge. She was asymptomatic and normotensive at that time. Procedures: Cystoscopy, right ureteral stent removal, right ureteroscopy with Holmium laser lithotripsy and stone basketing on September 03, 2024. Patient Condition at Discharge: Good Plan - Discharge Summary Discharge Rx Participant: No New Discharge Prescriptions: New Cephalexin [Keflex] 500 mg PO Q8HR 5 Days #15 cap No Action Pyridostigmine [place]o [Mestinon] 60 mg PO TID-W/MEALS Atorvastatin [Lipitor] 40 mg PO DAILY #30 tab Famotidine [Pepcid] 20 mg PO DAILY #30 tab EPINEPHrine (Auto Inject) [Epipen] 0.3 mg IM ONCE PRN PRN Reason: Anaphylaxis Apixaban [Eliquis] 5 mg PO BID@0900,1400 Furosemide [Lasix] 40 mg PO BID@0900,1600 #60 tab Butalbital/Aspirin/Caffeine [Tzgoedfqti-Yiklnfg-Bbnjyqfx Tb] 1 each PO DAILY PRN PRN Reason: Headache Amiodarone [Cordarone] 200 mg PO Q12H Octagam 10% Infusion 1 dose IV Q30D predniSONE 10 mg PO DAILY Cholecalciferol (Vitamin D3) [Vitamin D3 (3000 Iu)] 75 mcg PO DAILY Spironolactone [Aldactone] 25 mg PO DAILY 30 Days #30 tab Loperamide [Imodium] 2 mg PO QID PRN cap PRN Reason: Diarrhea Acetaminophen Tab [Tylenol] 650 mg PO Q6HR PRN tab PRN Reason: Mild Pain Or Fever > 100.5 lisinopriL [Zestril] 40 mg PO DAILY #30 tab Metoprolol Succinate [Metoprolol Succinate ER] 25 mg PO DAILY Albuterol Inhaler [Ventolin Hfa Inhaler] 1 puff INHALATION Q6H PRN PRN Reason: Shortness Of Breath Discharge Medication List Pyridostigmine Mar[place]o [Mestinon] 60 mg PO TID-W/MEALS 05/04/24 [History] predniSONE 10 mg PO DAILY 05/04/24 [History] Atorvastatin [Lipitor] 40 mg PO DAILY #30 tab 05/11/24 [Rx] Famotidine [Pepcid] 20 mg PO DAILY #30 tab 05/11/24 [Rx] Apixaban [Eliquis] 5 mg PO BID@0900,1400 08/15/24 [History] Cholecalciferol (Vitamin D3) [Vitamin D3 (3000 Iu)] 75 mcg PO DAILY 08/15/24 [History] EPINEPHrine (Auto Inject) [Epipen] 0.3 mg IM ONCE PRN 08/15/24 [History] Acetaminophen Tab [Tylenol] 650 mg PO Q6HR PRN tab 08/21/24 [Rx] Furosemide [Lasix] 40 mg PO BID@0900,1600 #60 tab 08/21/24 [Rx] Loperamide [Imodium] 2 mg PO QID PRN cap 08/21/24 [Rx] Spironolactone [Aldactone] 25 mg PO DAILY 30 Days #30 tab 08/21/24 [Rx] lisinopriL [Zestril] 40 mg PO DAILY #30 tab 08/21/24 [Rx] Albuterol Inhaler [Ventolin Hfa Inhaler] 1 puff INHALATION Q6H PRN 09/01/24 [History] Amiodarone [Cordarone] 200 mg PO Q12H 09/01/24 [History] Butalbital/Aspirin/Caffeine [Vmxwsrhrjo-Vfbqund-Iegmjmjd Tb] 1 each PO DAILY PRN 09/01/24 [History] Metoprolol Succinate [Metoprolol Succinate ER] 25 mg PO DAILY 09/01/24 [History] Octagam 10% Infusion 1 dose IV Q30D 09/01/24 [History] Cephalexin [Keflex] 500 mg PO Q8HR 5 Days #15 cap 09/04/24 [Rx] Follow up Appointment(s)/Referral(s): Kain Adamson MD [STAFF PHYSICIAN] - 2 Weeks (Office will call with date and time of appointment.) Sandra Manzanares MD [Primary Care Provider] - 09/11/24 10:00 am (Appointment is in [place] with Nurse Practitioner Alma.) Jose Antonio Henao DO [STAFF PHYSICIAN] - 1 Week Patient Instructions/Handouts: Lithotripsy (DC) Activity/Diet/Wound Care/Special Instructions: Diet and activity as tolerated. Resume home medications except lisinopril and spironolactone. Discharge Disposition: HOME SELF-CARE
[2024-09-04 14:59] VITALS: BP 117/59; PULSE 67; RESP 19
--- NOTE | 2024-09-08 06:36 | CDI ---
Documentation Clarification Form Date: 09/08/2024 06:26:22 AM From: Teetee Carreno Admit Date: 09/03/2024 08:14:00 AM Patient Name: Emelina Sam Visit Number: [id number] Discharge Date: 09/04/2024 03:15:00 PM ATTENTION: The Clinical Documentation Specialists (CDI) and [facility] Coding Staff appreciate your assistance in clarifying documentation. Please respond to the clarification below the line at the bottom and electronically sign. The CDI & [facility] Coding staff will review the response and follow-up if needed. Please note: Queries are made part of the Legal Health Record. If you have any questions, please contact the author of this message via ITS. Doctor/Provider: Kain Adamson Per Dr. Cabello consult "Transient sepsis, resulting in hypotension post op day #1.Treated with vasopressors. Was the hypotension a complication of the procedure and an expected outcome of the procedure? Treated with vasopressors. Additional clarification is requested. History/Risk Factors: Ureteral stone sepsis per last admit. Transient sepsis documented this admit Clinical Indicators: BP 97/49 Treatment: Vasopressors Can you please clarify if the hypotension was Expected and is clinically significant to this episode of care? [ ] Hypotension was an expected outcome [ X] Hypotension was not expected outcome and a complication of the procedure. [ ] Other, please specify [ ] Unable to determine MTDD
--- NOTE | 2024-09-08 06:49 | CDI ---
Documentation Clarification Form Date: 09/08/2024 06:37:57 AM From: Teetee Carreno Admit Date: 09/03/2024 08:14:00 AM Patient Name: Emelina Sam Visit Number: [id number] Discharge Date: 09/04/2024 03:15:00 PM ATTENTION: The Clinical Documentation Specialists (CDI) and [facility] Coding Staff appreciate your assistance in clarifying documentation. Please respond to the clarification below the line at the bottom and electronically sign. The CDI & [facility] Coding staff will review the response and follow-up if needed. Please note: Queries are made part of the Legal Health Record. If you have any questions, please contact the author of this message via ITS. Doctor/Provider: Kain Adamson Per Dr. Cabello consult, The patient has Transient sepsis resulting in hypotension.. Based on this information and the findings below, is there an additional diagnosis that is clinically appropriate for this patient? History/Risk Factors: Ureteral stone, recent admit with septic kidney stone. Clinical Indicators: WBC 7.73 Vitals signs: 97.0 F, 55 bpm, 18, 97/49, 99% RA Treatment: Keflex ID Consult: Pulmonary consult and Nephrology Antibiotics: Keflex IV Bolus: IV fluids Is there an additional diagnosis that is clinically appropriate for this patient? [ ] Sepsis, present on admission [ ] Sepsis, developed during stay, not present on admission [ ] Sepsis ruled out [ ] Septic Shock [ ] SIRS, without underlying infectious process [ ] No additional diagnosis/not clinically significant [ ] Other, please specify [X] Unable to determine SIRS Criteria: 2 or more of the following may indicate SIRS Temperature < 96.8F (36C) or > 101.0F (38.3C) Heart Rate > 90 bpm Respiratory Rate > 20 breaths/min or PaCO2 < 32 mmHg White Blood Cell Count > 12,000 or < 4,000 cells/mm3 or > 10% bands MTDD
--- NOTE | 2024-09-25 10:15 | CDI ---
Documentation Clarification Form Date: 09/25/2024 09:40:14 AM From: Trisha Lamb RN, CCDS Email: [email or web address] Admit Date: 09/03/2024 08:14:00 AM Patient Name: Emelina Sam Visit Number: [id number] Discharge Date: 09/04/2024 03:15:00 PM ATTENTION: The Clinical Documentation Specialists (CDI) and [facility] Coding Staff appreciate your assistance in clarifying documentation. Please respond to the clarification below the line at the bottom and electronically sign. The CDI & [facility] Coding staff will review the response and follow-up if needed. Please note: Queries are made part of the Legal Health Record. If you have any questions, please contact the author of this message via ITS. Doctor Kwabena Cabello Postoperative hypotension and transient sepsis resulting in hypotension is documented in the progress notes. Additional clarification is requested. History/Risk Factors: From the 09/03 H&P: "myasthenia gravis, hospitalized for sepsis in Apr 2024, hospitalized for septic UTI/right kidney stone 08/15/24- 08/21/24, underwent emergent placement of a right ureteral stent and was treated with antibiotics." Patients Admitting Diagnosis: Right ureteral calculus Post-Operative Diagnosis: Same Procedure performed: S/P 09/03 Cystoscopy, right ureteral stent removal, right ureteroscopy with Holmium laser lithotripsy and stone basketing Clinical Indicators: 09/03 H&P: "Prior admission in the ER, she was noted to be febrile, and vital signs show evidence of tachycardia and hypotension." 09/03 Pulmonary consult: "Transient sepsis, resulting in hypotension, postop day #0, S/P cystoscopy, right ureteral stent removal, right ureteroscopy, and laser lithotripsy." 09/03 BP: 97/49-124/55-88/45-90/50-93/49-135/66 09/04 Surgery: "Given the postoperative hypotension, which may have been due to infection/stone manipulation, I have empirically placed her on Keflex." 09/04 Discharge summary: "The procedure was uncomplicated. However, she developed hypotension in the recovery room requiring vasopressors temporarily. She was transferred to the ICU, but her condition remained stable and she did not require additional vasopressors." Treatment: IV Phenylephrine 40mg titrated 09/03; 1L 0.9 NS IV bolus x1 on 09/03 @15:46; ICU monitoring Consults: see Pulmonary consult above Please clarify the etiology of the hypotension: [ X ] Hypotension due to transient Sepsis [ ] Hypotension due to stone manipulation [ ] Hypotension is a complication of the surgical procedure [ ] Hypotension due to Other please specify ____ [ ] Unable to determine MTDD
--- NOTE | 2024-09-25 10:32 | CDI ---
Documentation Clarification Form Date: 09/25/2024 10:17:40 AM From: Trisha Lamb RN, CCDS Email: [email or web address] Admit Date: 09/03/2024 08:14:00 AM Patient Name: Emelina Sam Visit Number: [id number] Discharge Date: 09/04/2024 03:15:00 PM ATTENTION: The Clinical Documentation Specialists (CDI) and [facility] Coding Staff appreciate your assistance in clarifying documentation. Please respond to the clarification below the line at the bottom and electronically sign. The CDI & [facility] Coding staff will review the response and follow-up if needed. Please note: Queries are made part of the Legal Health Record. If you have any questions, please contact the author of this message via ITS. Doctor Kwabena Cabello Transient Sepsis is documented in the 09/03 and 09/04 project management consultant progress notes which may lack sufficient clinical evidence/support in the medical record. Additional clarification is requested. History/Risk Factors: From the 09/03 H P: "myasthenia gravis, hospitalized for sepsis in Apr 2024, hospitalized for septic UTI/right kidney stone 08/15/24-08/21/24, underwent emergent placement of a right ureteral stent and was treated with antibiotics." Patients Admitting Diagnosis: Right ureteral calculus Post-Operative Diagnosis: Same Procedure performed: S/P 09/03 Cystoscopy, right ureteral stent removal, right ureteroscopy with Holmium laser lithotripsy and stone basketing Clinical Indicators: 09/03 H P: "Prior admission in the ER, she was noted to be febrile, and vital signs show evidence of tachycardia and hypotension." 09/03 Pulmonary consult: "Transient sepsis, resulting in hypotension, postop day #0, S/P cystoscopy, right ureteral stent removal, right ureteroscopy, and laser lithotripsy." 09/03 VS: Temp 97.0 HR 73 RR 18 BP's 97/49-124/55-88/45-90/50-93/49-135/66 09/03 Labs: WBC 7.73 09/04 Surgery: "Given the postoperative hypotension, which may have been due to infection/stone manipulation, I have empirically placed her on Keflex." 09/04 Discharge summary: "The procedure was uncomplicated. However, she developed hypotension in the recovery room requiring vasopressors temporarily. She was transferred to the ICU, but her condition remained stable and she did not require additional vasopressors." Treatment: IV Phenylephrine 40mg titrated 09/03; 1L 0.9 NS IV bolus x1 on 09/03 @15:46; ICU monitoring; Keflex 500mg po TID 09/04; removal of right ureteral stent on 09/03 Consults: see Pulmonary consult above After work up and study, please clarify which diagnosis is most appropriate? [ ] Sepsis was ruled out. [ ] Sepsis was initially suspected, but subsequent clinical findings did not support the diagnosis, and it was ruled out. [ ] Sepsis was clinically supported as evidenced by these additional clinical indicators: [ ] Sepsis was clinically supported and due to right ureteral stent [ ] Other, please specify [ X ] Unable to determine MTDD
--- NOTE | 2024-09-29 14:12 | CDI ---
Documentation Clarification Form Date: 09/25/2024 10:17:00 AM From: Trisha Lamb RN, CCDS Email: [email or web address] Admit Date: 09/03/2024 08:14:00 AM Patient Name: Emelina Sam Visit Number: [id number] Discharge Date: 09/04/2024 03:15:00 PM ATTENTION: The Clinical Documentation Specialists (CDI) and [facility] Coding Staff appreciate your assistance in clarifying documentation. Please respond to the clarification below the line at the bottom and electronically sign. The CDI & [facility] Coding staff will review the response and follow-up if needed. Please note: Queries are made part of the Legal Health Record. If you have any questions, please contact the author of this message via ITS. Doctor Kwabena Cabello Transient Sepsis is documented in the 09/03 and 09/04 wine consultant progress notes. Additional clarification is requested. History/Risk Factors: From the 09/03 H P: "myasthenia gravis, hospitalized for sepsis in Apr 2024, hospitalized for septic UTI/right kidney stone 08/15/24-08/21/24, underwent emergent placement of a right ureteral stent and was treated with antibiotics." Patients Admitting Diagnosis: Right ureteral calculus Post-Operative Diagnosis: Same Procedure performed: S/P 09/03 Cystoscopy, right ureteral stent removal, right ureteroscopy with Holmium laser lithotripsy and stone basketing Clinical Indicators: 09/03 H P: "Prior admission in the ER, she was noted to be febrile, and vital signs show evidence of tachycardia and hypotension." 09/03 Pulmonary consult: "Transient sepsis, resulting in hypotension, postop day #0, S/P cystoscopy, right ureteral stent removal, right ureteroscopy, and laser lithotripsy." 09/03 VS: Temp 97.0 HR 73 RR 18 BP's 97/49-124/55-88/45-90/50-93/49-135/66 09/03 Labs: WBC 7.73 09/04 Surgery: "Given the postoperative hypotension, which may have been due to infection/stone manipulation, I have empirically placed her on Keflex." 09/04 Discharge summary: "The procedure was uncomplicated. However, she developed hypotension in the recovery room requiring vasopressors temporarily. She was transferred to the ICU, but her condition remained stable and she did not require additional vasopressors." Treatment: IV Phenylephrine 40mg titrated 09/03; 1L 0.9 NS IV bolus x1 on 09/03 @15:46; ICU monitoring; Keflex 500mg po TID 09/04; removal of right ureteral stent on 09/03 Consults: see Pulmonary consult above After work up and study, please clarify which diagnosis is most appropriate? Transient Sepsis ruled in, please provide additional clinical support Transient Sepsis ruled out, (hypotension related to localized infection only) Transient Sepsis related to ureteral stent Other UTD Sepsis related to stent placement MTDD
== END 2024-09-04 15:15 | disposition home or self-care (01) | DRG 863 ==
LOC: OR 08:13 → 2SICU 08:14
PROVIDERS: ADMIT Urology; ATTEND Urology
PROC: 0TP98DZ Removal of Intraluminal Device from Ureter, Via Natural or Artificial Opening Endoscopic (ICD-10-PCS; principal; 2024-09-03 10:15)
PROC: 0TC68ZZ Extirpation of Matter from Right Ureter, Via Natural or Artificial Opening Endoscopic (ICD-10-PCS; principal; 2024-09-03 10:15)
PROC: 3E043XZ Introduction of Vasopressor into Central Vein, Percutaneous Approach (ICD-10-PCS; 2024-09-03 10:15)
DX: T81.44XA Sepsis following a procedure, initial encounter (principal); N17.9 Acute kidney failure, unspecified; N20.1 Calculus of ureter; G70.00 Myasthenia gravis without (acute) exacerbation; I48.91 Unspecified atrial fibrillation; I10 Essential (primary) hypertension; I95.9 Hypotension, unspecified; E78.5 Hyperlipidemia, unspecified; K21.9 Gastro-esophageal reflux disease without esophagitis; E87.5 Hyperkalemia; Y73.8 Miscellaneous gastroenterology and urology devices associated with adverse incidents, not elsewhere classified; Z86.19 Personal history of other infectious and parasitic diseases; Z87.440 Personal history of urinary (tract) infections; Z79.01 Long term (current) use of anticoagulants; Z79.899 Other long term (current) drug therapy; Z87.891 Personal history of nicotine dependence; Z87.442 Personal history of urinary calculi; Z88.0 Allergy status to penicillin
CPT/HCPCS: 74018; 80048; 82365; 83735; 84132; 85027

== ENCOUNTER → 2024-10-12 | Outpatient (CLI) | payer BC ==
--- NOTE | 2024-10-12 13:42 | US ---
EXAMINATION TYPE: US kidneys/renal and bladder DATE OF EXAM: 10/12/2024 COMPARISON: CLINICAL INDICATION: Female, 64 years old with history of N13.2 HYDRONEPHROSIS WITH RENAL AND URETERA L CALCU; hx recent right hydro with stent placement, no pain TECHNIQUE: Grayscale imaging of the bilateral kidneys and urinary bladder: FINDINGS: EXAM MEASUREMENTS: Right Kidney: 9.8 x 5.0 x 5.4 cm Left Kidney: 11.7 x 4.4 x 6.0 cm Right Kidney: No hydronephrosis or masses seen Left Kidney: No hydronephrosis or masses seen Bladder: distended, anechoic Bilateral Jets seen There is no evidence for hydronephrosis at this point in time. No nephrolithiasis is seen. No toña s are identified. The urinary bladder is anechoic. IMPRESSION: Unremarkable study [facility] Justina Sage, , 10/12/2024 1:40 PM
== END | disposition home or self-care (01) ==
LOC: RADUSWWP 13:01
PROVIDERS: ATTEND Urology
DX: N13.2 Hydronephrosis with renal and ureteral calculous obstruction (principal)
CPT/HCPCS: 76770